=== PATIENT | male | born 1950 | race Caucasian/White ===

== ENCOUNTER → 2017-01-19 | Outpatient (CLI) | payer MEDICARE, OTHER, SELFPAY | PROVIDERS: Visit Provider Family Medicine | DX: R41.3 Other amnesia (principal) | CPT/HCPCS: 70551 ==

== ENCOUNTER → 2017-02-28 13:16 | Outpatient (CLI) | payer MEDICARE, OTHER, SELFPAY ==
--- NOTE | 2017-02-28 13:22 | XR_ITS ---
XR knee LT 2V Ordering Physician: Magdi Estrada MD Patient Age: 66 years: Male HISTORY: ITS.REASON: status post LEFT knee sx/ 12-20-16 TECHNIQUE: AP lateral view left knee COMPARISON :December 20, 2016 FINDINGS : Status post subchondralplasty of the proximal tibia centrally. Beneath the anterior tibial spine region.,. Also less evident some chondroplasty seen at thefemoral medial femoral condyle with hyperdensity from the calcium sulfate injection.. Contour of the femoral condyles and the tibial plateaus remains well maintained. There is a slight hazy sclerosis on either side of these bones at the medial joint space. No acute fracture or dislocation. Minor osteoarthritic changes involving all 3 compartments. IMPRESSION: Status post subchondroplasty as described above. underlying developing arthritic changes. IMPRESSION:
== END ==
PROVIDERS: PCP Family Medicine; Visit Provider Orthopaedic Surgery
DX: Z48.89 Encounter for other specified surgical aftercare (principal); M17.12 Unilateral primary osteoarthritis, left knee
CPT/HCPCS: 73560

== ENCOUNTER → 2017-03-08 07:18 | Outpatient (CLI) | payer MEDICARE, OTHER, SELFPAY ==
[2017-03-08 09:06] LABS: Free T4 (Free Thyroxine) 1.02 ng/dl (0.76-1.46)
== END ==
PROVIDERS: PCP Family Medicine; Visit Provider Family Medicine
DX: E03.9 Hypothyroidism, unspecified (principal)
CPT/HCPCS: 36415; 84439; 84443

== ENCOUNTER → 2017-03-14 09:26 | Outpatient (CLI) | payer MEDICARE, OTHER, SELFPAY ==
--- NOTE | 2017-03-14 09:30 | XR_ITS ---
XR chest 2V HISTORY: ITS.REASON: amiodarone therapy ORDERING PHYSICIAN: Damien Bob MD PATIENT AGE: 66 years COMPARISON: 12-24 FINDINGS: The cardiomediastinal silhouette and pulmonary vascularity are within normal limits. The lungs are clear without infiltrates, suspicious nodules, or pleural effusions. Mild hyperinflation as before. No lobar consolidation. No pulmonary fibrotic changes apparent No acute bony abnormalities. IMPRESSION: No change with no acute finding. No evidence of developing amiodarone pulmonary toxicity
[2017-03-14 11:53] LABS: Alanine Aminotransferase 26 U/L (12-78); Albumin Level 3.6 gm/dL (3.4-5.0); Alkaline Phosphatase 93 U/L (46-116); Aspartate Amino Transferase 22 U/L (15-37); Bilirubin,Direct 0.1 mg/dL (0.0-0.2); Bilirubin,Total 0.4 mg/dL (0.2-1.0); Total Protein,Serum 6.8 gm/dL (6.4-8.2)
== END ==
PROVIDERS: PCP Family Medicine; Visit Provider Internal Medicine Cardiovascular Disease
DX: I25.10 Atherosclerotic heart disease of native coronary artery without angina pectoris (principal); I10 Essential (primary) hypertension; E78.5 Hyperlipidemia, unspecified; I48.91 Unspecified atrial fibrillation; Z95.5 Presence of coronary angioplasty implant and graft; I25.5 Ischemic cardiomyopathy; I42.0 Dilated cardiomyopathy
CPT/HCPCS: 36415; 71046; 80076

== ENCOUNTER → 2017-04-19 07:46 | Outpatient (CLI) | payer MEDICARE, OTHER, SELFPAY ==
[2017-04-19 10:04] LABS: Free T4 (Free Thyroxine) 0.84 ng/dl (0.76-1.46)
== END ==
PROVIDERS: Visit Provider Family Medicine
DX: E03.9 Hypothyroidism, unspecified (principal)
CPT/HCPCS: 36415; 84439; 84443

== ENCOUNTER → 2017-05-04 13:27 | Outpatient (CLI) | payer MEDICARE, OTHER, SELFPAY ==
--- NOTE | 2017-05-04 13:29 | XR_ITS ---
XR knee LT 4V HISTORY: Left knee pain, arthritis ITS.REASON: possible left knee arthroplasty to be scheduled ORDERING PHYSICIAN: Magdi Estrada MD PATIENT AGE: 66 years COMPARISON: 02/28/2017 FINDINGS: There are moderate tricompartmental osteoarthritic changes greater at the medial compartment with loss of joint space medially. Osteosclerosis involves the medial femoral condyle and medial tibial plateau as well as the interspinous region of the proximal tibia consistent with prior subchondral plasty. No fracture or dislocation is evident. Loss of joint space medially is somewhat worse however, this could be related to the fact that the exam is performed weightbearing. IMPRESSION: Moderate to severe osteoarthritis of the left knee status post prior sub chondroplasty
[2017-05-04 15:02] LABS: Microscopic, Urine URINE MICROSCOPIC (MICROSCOPIC)
[2017-05-04 15:28] LABS: Appearance,Urine CLEAR (Clear); Bilirubin,Urine Negative (Negative); Blood, Urine Negative (Negative); Color,Urine YELLOW (Yellow); Glucose,Urine (UA) Negative (Negative); Ketones,Urine Negative (Negative); Leukocyte Esterase,Urine Negative (Negative); Nitrate,Urine Negative (Negative); Protein,Urine Negative (Negative); Specific Gravity, Urine <= 1.005 (1.005-1.030); Urobilinogen,Urine 0.2 EU/dl (0.2)
[2017-05-04 15:44] LABS: Bacteria,Urine Trace /lpf
[2017-05-04 16:22] LABS: Basophils # 0.1 K/mm3 (0-0.2); Basophils % 0.6 % (0.1-2.0); Eosinophils # 0.3 K/mm3 (0.0-0.4); Eosinophils % 3.2 % (0.1-12.0); Hematocrit 40.5 % (42.0-52.0); Hemoglobin 13.6 g/dL (14.1-18.0); Lymphocytes # 1.2 K/mm3 (0.7-4.5); Lymphocytes % 15.6 K/mm3 (10-50); Mean Corpuscular HGB Conc 33.6 g/dL (31.8-35.4); Mean Corpuscular Hemoglobin 29.5 pg (27.0-31.2); Mean Corpuscular Volume 87.8 fl (80-94); Mean Platelet Volume 9.8 fl (7.4-10.4); Monocytes # 0.5 K/mm3 (0.1-1.0); Monocytes % 5.9 % (1.7-9.3); Neutrophils # 5.7 K/mm3 (1.8-7.8); Neutrophils % 74.7 % (37.0-80.0); Platelet Count 163 K/mm3 (142-424); Red Blood Count 4.62 M/mm3 (4.60-6.20); Red Cell Distribution Width 13.1 % (11.5-17.5); White Blood Count 7.7 K/mm3 (4.8-10.8)
[2017-05-04 19:47] LABS: Alanine Aminotransferase 36 U/L (12-78); Albumin Level 4.3 gm/dL (3.4-5.0); Albumin/Globulin Ratio 1.5 (1.1-1.8); Alkaline Phosphatase 74 U/L (46-116); Anion Gap 12.3 mEq/L (5-15); Aspartate Amino Transferase 29 U/L (15-37); Bilirubin,Total 0.5 mg/dL (0.2-1.0); Blood Urea Nitrogen 20 mg/dL (7-18); Calcium 9.1 mg/dL (8.5-10.1); Carbon Dioxide 29 mmol/L (21.0-32.0); Chloride 101 mmol/L (98-107); Creatinine,Serum 1.03 mg/dL (0.70-1.30); Estimated Glomerular Filt Rate 72 ml/min (>60); GFR (African American) 87 ML/MIN (>60); Globulin 2.9 gm/dl (1.3-3.2); Glucose 89 mg/dL (74-106); Potassium 4.3 mmoL/L (3.5-5.1); Sodium 138 mmol/L (136-145); Total Protein,Serum 7.2 gm/dL (6.4-8.2)
== END ==
PROVIDERS: PCP Family Medicine; Visit Provider Orthopaedic Surgery
DX: Z01.818 Encounter for other preprocedural examination; M25.562 Pain in left knee
CPT/HCPCS: 36415; 73564; 80053; 81001; 85025; 86850

== ENCOUNTER 2017-05-23 08:00 | Inpatient (IN) ==
--- NOTE | 2017-05-23 13:05 | Progress Note ---
[facility] Anesthesia Checklist - Patient Identification Patient Identification: Arm Band, Verbal (Name & ) - Structural Data Admitted From: Home Planned Operative Procedure/s: left tka Consent for Planned Operative Procedure(s) Verified: Yes Verified Documents: Surgical Consent, Cardiac Clearance - NPO Status Verified Time NPO: 00:00 - Chart Verification Results Verified: CBC - Additional verifications Patient : No Hx Blood Transfusions: No Blood Transfusion Reaction: No Cephalosporin Allergy: No Previous Colonoscopy: No - Cardiovascular Assessment Heart Sounds: S1 & S2 Pulse Strength: Baseline Pulse Rhythm: Regular Peripheral Edema: No - Airway Assessment C-Spine Mobility Assessed: Yes TMJ Mobility Assessed: Yes Dentition: Good Dentition - Anesthesia Plan Anesthesia Risk discussed: Yes Anesthesia Plan: Verified ASA Class: III Anesthesia Type: General [facility] Anesthesia HX I have reviewed the patient's past medical history: Yes Medical History: Reports:: Atrial Fibrillation, Congenital Heart Disease, Coronary Artery Disease, Hiatal Hernia, Hyperlipidemia, Hypertension Denies:: Cancer, Diabetes Mellitus Type 1, Diabetes Mellitus Type 2, Internal Pacemaker, MRSA, Seizures Other Medical History: Reports: Arthritis, Hypothyroidism. Denies: Blood Transfusion Reaction Laterality Cases: Left: Arthroscopy Knee, Bilateral: Arthroscopy Shoulder Other Surgeries: Yes: Hernia Repair, Other. No: Pacemaker Amputation: No Fractures: No *Family Hx:: Coronary Artery Disease, Heart Attack
--- NOTE | 2017-05-23 13:06 | Progress Note ---
[facility] Anesthesia Record Part II Discharge Time: 13:33 Destination: Surgical Day Care (OP Surgery) PACU nurse assessment reviewed?: Yes Patient Condition:: Good Anesthesia Complications:: None
--- NOTE | 2017-05-23 13:06 | Progress Note ---
[facility] Anesthesia Record Part I Intake, IV Amount: 1,300 Estimated blood loss (mL): 50 Urine output (mL): 875 Blood Products used (#): none Blood Pressure: 129/67 SaO2: 93 Pulse Rate: 65 Respiratory Rate: 18 Temperature: 97.2 F Patient is:: Awake, Drowsy, Stable Stable to PACU at:: 13:03
--- NOTE | 2017-05-23 13:45 | Operative Note ---
Date of procedure: 05/23/17 Pre-op Diagnosis:: Advanced tricompartmental degenerative arthritis, left knee Post-op Diagnosis:: Advanced tricompartmental degenerative arthritis, left knee Procedure performed:: Cemented total knee arthroplasty, left knee Surgeon:: Magdi Estrada MD Records And Tape Recordings Engineer(s):: Dr. Nazario (Dr. Nazario's assistance was needed given the complexity and difficulty of the procedure). BOTTOM FILLER:: Ori Lora Anesthesia: LMA, other (Femoral and sciatic nerve blocks) Estimated blood loss (mL): 50 Clinical Note:: Patient is a 66-year-old male with end-stage [id number] tricompartmental osteoarthritis with more significant degenerative changes over the medial compartment and a progressive varus deformity and flexion contracture presented with unremitting severe pain not relieved by conservative and operative management so far. The pain is advanced to the point that it is becoming a hazard for the patient with risk of falling and injuring himself. His activities of daily living are significantly impacted with the knee pain and stiffness. He also reports night pain and sleep disturbance. He takes meloxicam 15 mg daily without significant improvement with the knee pain. Given his knee pain and limitation of mobility, he is also at risk of falls and injuring himself. A total knee arthroplasty is indicated to relieve the pain, improve function, reduce the risk of falls and to improve quality of life. Operative findings:: As noted on the preoperative evaluation, the knee joint had a fixed flexion of 5 and fixed valgus deformity of 5. As seen on the x-rays, there are tricompartmental degenerative changes and the medial and patellofemoral compartments showed more advanced changes with [id number] appearance. The menisci and cruciate ligaments were significantly degenerate. There was extensive osteophyte formation over all 3 compartments. There were a couple of loose bodies at the back of the knee. Bone quality was good. Operative note:: On the day of the surgery the patient and his were seen in the preoperative area. I reviewed the clinical and x-ray findings with the patient. I again discussed the diagnosis, natural history and management options in detail including both nonsurgical and surgical. Patient has end-stage degenerative arthritis of the LEFT knee and has failed to respond satisfactorily to conservative management so far and has opted for a LEFT total knee arthroplasty. The knee joint also gives out and patient is at risk of falls potentially resulting in fractures. Patient mobilizes with a cane. We again discussed the details of the procedure, risks and benefits and alternatives in detail. The complications discussed include but are not limited to infection, injury to nerves and blood vessels including injury to popliteal artery, injury to tendons and ligaments, DVT and PE, fat embolism, intraoperative fracture, limb length inequality, patella fracture, patellofemoral instability, patellar clunk syndrome, quadriceps and patellar tendon rupture, implant failure, component loosening, periprosthetic femur and tibia fractures, stiffness(arthrofibrosis), limp, incomplete relief of pain, incomplete functional recovery, likely need for further surgery in future including revision and anesthetic complications including heart attack, stroke and even . We discussed how any of these events can be devastating. We have discussed nonsurgical alternatives as well. Patient understands and wishes to proceed with a LEFT total knee arthroplasty and I believe that the patient is fully informed as to the risks, benefits, and alternatives including nonsurgical alternatives. We also discussed the postoperative course including the rehab and physical therapy required. Patient lives with his family and is planning to go back home with home health after surgery. A physical examination was performed and documented. Consent form was reviewed and signed. The limb was appropriately marked and initialed by me. The patient was then brought to the operating room and a general anesthesia was administered by the asbestos shingle inspector. Prior to that patient had femoral and sciatic nerve blocks in the pre-anesthetic area. The patient was then positioned supine on the operating table. All the bony prominences were appropriately padded. A well-padded tourniquet cuff was placed high over the left upper thigh. The left knee was prepped with isopropyl alcohol followed by chlorhexidine and draped in the usual sterile fashion. Prior to this, patient had used Hibiclens for a total of 5 days prior to the surgery and also used topical intranasal Bactroban. The entire operative team wore isolation suits and the Operating Room traffic was controlled. The skin incision was marked for a medial parapatellar approach to the knee joint. The entire operative site was sealed off with Ioban drape. A preprocedure timeout was performed as per hospital protocol. At the start of the procedure administration of 2 g of prophylactic IV Ancef was confirmed with the anesthetic team. Patient also received 1 g of IV tranexamic acid before starting the procedure and one more gram before wound closure to reduce the postoperative blood loss. The limb was exsanguinated with Esmarch bandage, the knee joint flexed beyond 90 and the tourniquet cuff was inflated to 325 mmHg. Please see the nursing records for total tourniquet time. I then made a midline incision utilizing a #10 scalpel blade. Electrocautery was used to seal off subcutaneous vessels. The extensor mechanism was exposed, marked and a curvilinear incision made for a medial parapatellar approach using the scalpel blade. The patella was everted carefully and the fat pad resected enough to allow sufficient visualization of the proximal tibia. The anterior cruciate ligament and the anterior aspects of both menisci were resected. An appropriate medial release was performed with the knife and Elyssa elevator. A step drill was used to open the intramedullary canal and the IM distal femoral cutting jig was placed. The jig was pinned into position and the intramedullary khloe removed. The distal cut was made at 5 degrees of valgus and the sizing jig placed. This sized best at a size 7 femur for the [employer] system. We then placed the 4-in-1 cutting block in position in 3 degrees of external rotation. A cross pin was added for stabilizing the block and the mk wing utilized to ensure notching of the femur would not occur. The anterior cut was made followed by the posterior cut then the posterior chamfer and finally the anterior chamfer cuts in that order. Soft tissues were protected throughout this with careful retraction using the Z retractors. We checked for trueness of cuts and then moved on to the tibia. The tibial extra medullary guide was placed and aligned from the central aspect of the plateau between the spines down to the second metatarsal base. We pinned cutting block in position for minimal resection of the tibia from the medial side which was the lowermost side, checked the alignment, protected the soft tissues with appropriate retractors and resected with the mValent saw. The resected tibial plateau articular surface was removed and sized it at a size 6. We ensured correctness of the cut and correct posterior slope. We then checked the extension and flexion gaps and found them to be equal and well balanced. We trialed the femur and the tibia with trial components and a trial insert and ranged the knee to ensure full flexion and extension and checked for ligamentous stability. We then everted the patella and reamed for a 32 mm central pegged button. We had lateralized the femur and medialized the patella intentionally. We placed trial components and noted that a 9 mm thick polyethylene to fit best. This gave us a ligamentously stable knee and allowed full extension. We allowed this to be free-floating and then checked it and made sure it was in appropriate position in relation to the tibial tubercle. We also used tibial alignment khloe to check for satisfactory position of the base plate and markings were made with electrocautery on the proximal tibia. We then elected to proceed with the box cut for a posterior stabilized femoral component. We placed the cutting jig for the box cut in the femur, drilled and then used the box osteotome to create the channel. We then trialed with the posterior stabilized polyethylene and found a size 9 to fit best. This gave us appropriate range of motion with proper ligamentous stability. We then removed the trial components and positioned and pinned the base plate to the top of the tibia and punched the groove for the V shaped stem. We used a small trocar tipped pin to drill holes into the subchondral sclerotic bone of the medial tibia to augment cement fixation. We then copiously irrigated with the normal saline pulse lavage, injected the bone with 2 g of Ancef, and then dried the cut surfaces. We then cemented the tibial tray, the femoral component, and placed a 9 mm trial insert and brought the knee into extension. We then cemented the patella button. We allowed the cement to set and then inspected the knee joint and removed excess cement with an osteotome. We then placed the 9 millimeters definitive polyethylene tibial insert ensuring that the dovetails fit appropriately and that the polyethylene was down and seated into the tibial tray properly. The knee joint was put through range of motion and noted the patella to be tracking appropriately with no thumb technique. Knee range of flexion noted to be 0-150. The knee joint was then soaked with dilute Betadine (0.35 percent) solution for 3 minutes followed by suctioning of the solution and pulsatile lavage with the 1 L of normal saline. The tourniquet was deflated and hemostasis obtained with diathermy cautery. Another 1 gram of tranexamic acid was given intravenously by the asbestos shingle inspector at the time of deflating the tourniquet. The knee joint was again thoroughly irrigated with pulse lavage and good hemostasis was confirmed before proceeding with wound closure. The capsule/extensor mechanism was closed with #1 Vicryl [id number] sutures ensuring a watertight closure. Next, the subcutaneous tissue was closed with 2-0 Vicryl interrupted sutures. The skin was closed with 4-0 Monocryl running suture, Dermabond and Steri- Strips. Sterile dressings were applied consisting of Xeroform, 4 x 4, soft roll and secured in place with Iávn wrap. The patient was then transferred from the operating table onto the bed. The tibialis posterior and dorsalis pedis pulses were noted 2+ with good capillary refill in the foot. The patient was then reversed from the anesthetic and transported to the postoperative recovery area in a stable condition. Patient tolerated the procedure well and there were no immediate complications. The swab, needle and instrument counts were correct according to the scrub team at the end of the procedure. Portable x-rays of the left knee were obtained in the recovery area which showed the components to be well fixed in a satisfactory alignment and position without any complications. The knee was placed in a knee immobilizer which should be continued when standing and walking, until patient regains full quadriceps control. Postoperatively, institute and continue standard precautions and physical therapy and edema management for a standard primary total knee arthroplasty starting on postoperative day 1. Patient can be mobilized full weightbearing as tolerated. Implants: [employer] Luz II nonporous left tibial base plate-size 6 [employer] Luz II Biconvex patellar component- 32 mm [employer] posterior stabilized Legion Oxinium femoral component, size 7 left [employer] Legion PS XLPE high flexion articular insert- size 5-6 x 9 mm [employer] Versabond AB bone cement with gentamicin. Industry territory representative: Bronson Maher ([employer]) Condition: stable Disposition: floor Specimens:: None Complications:: None
--- NOTE | 2017-05-23 16:07 | Pharmacy Consult Notes ---
[facility] Pharmacy VTE Monitoring - Patient Demographics Admission date: 05/23/17 Report Date: 05/23/17 Time: 16:06 Allergies/Adverse Reactions: Patient Allergies lisinopril Allergy (Severe, Verified 05/20/17 13:06) [id number]/THROAT oxycodone Adverse Reaction (Unknown, Verified 05/20/17 13:06) SHAKING Height: 1.83 m Weight: 104.411 kg - Prophylaxis VTE Prophylaxis Ordered?: Yes Pharmacologic Type: Other (PATIENT WITH XARELTO ORDERED)
--- NOTE | 2017-05-23 18:23 | Progress Note ---
Internal Medicine - PN: Subj *Date: 05/23/17 *Time: 18:24 Interval history: Consulted for medical management. Patient had left total knee replacement today. He is doing well. He just ate his supper and has no complaints at this time. Exam Vital signs and Labs for Last 24 Hours: Temp Pulse Resp BP Pulse Ox 97.4 F L 59 L 18 144/85 97 05/23/17 14:50 05/23/17 14:50 05/23/17 14:50 05/23/17 14:50 05/23/17 14:50 Laboratory Results - last 24 hr 05/23/17 08:27: Blood Type O Positive, Antibody Screen Negative 05/23/17 08:27: Blood Type Confirm Cancelled 05/23/17 13:00: Urine Color Yellow, Urine Appearance Clear, Urine pH 5.5, Ur Specific Magness 1.020, Urine Protein Negative, Urine Glucose (UA) Negative, Urine Ketones Negative, Urine Blood Negative, Urine Nitrate Negative, Urine Bilirubin Negative, Urine Urobilinogen 0.2, Ur Leukocyte Esterase Negative, Urine RBC Occasional, Urine WBC None, Ur Squamous Epith Cells None, Urine Bacteria None I & O for Last 24 hours: Intake & Output 05/21/17 05/22/17 05/23/17 05/24/17 11:59 11:59 11:59 11:59 Intake Total 2000 / 2000 Output Total 1100 / 1100 Balance 900 / 900 Weight 230 lb 230 lb 3 oz - Constitutional no acute distress (conversant) - *Routine Neurological Exam Present: alert, oriented X3 Assessment and Plan (1) S/P total knee replacement Current visit: Yes Status: Acute Qualifiers: Laterality: left Qualified Code(s): Z96.652 - Presence of left artificial knee joint Category: Surgical Code(s): Z96.659 - Presence of unspecified artificial knee joint (2) Coronary arteriosclerosis Current visit: No Status: Acute Category: Medical Code(s): I25.10 - Atherosclerotic heart disease of hoh coronary artery without angina pectoris (3) Hyperlipidemia Current visit: No Status: Acute Qualifiers: Category: Medical Code(s): E78.5 - Hyperlipidemia, unspecified (4) Hypertensive disorder Current visit: No Status: Acute Qualifiers: Category: Medical Code(s): I10 - Essential (primary) hypertension (5) Hypothyroidism Current visit: Yes Status: Acute Category: Medical Code(s): E03.9 - Hypothyroidism, unspecified (6) BPH (benign prostatic hyperplasia) Current visit: Yes Status: Acute Category: Medical Code(s): N40.0 - Benign prostatic hyperplasia without lower urinary tract symptoms (7) Atrial fibrillation Current visit: No Status: Acute Qualifiers: Atrial fibrillation type: unspecified Qualified Code(s): I48.91 - Unspecified atrial fibrillation Category: Medical Code(s): I48.91 - Unspecified atrial fibrillation - Assessment and plan all Dx Assessment and Plan for all problems:: Home meds have been ordered, continue routine care.
[2017-05-24 07:40] LABS: Basophils % 0.2 % (0.1-2.0); Eosinophils % 0.4 % (0.1-12.0); Hematocrit 38.4 % (42.0-52.0); Hemoglobin 12.4 g/dL (14.1-18.0); Lymphocytes # 1.1 K/mm3 (0.7-4.5); Lymphocytes % 11.3 K/mm3 (10-50); Mean Corpuscular HGB Conc 32.2 g/dL (31.8-35.4); Mean Corpuscular Hemoglobin 29.2 pg (27.0-31.2); Mean Corpuscular Volume 90.5 fl (80-94); Mean Platelet Volume 8.7 fl (7.4-10.4); Monocytes # 0.8 K/mm3 (0.1-1.0); Monocytes % 7.7 % (1.7-9.3); Neutrophils % 80.5 % (37.0-80.0); Platelet Count 171 K/mm3 (142-424); Red Blood Count 4.25 M/mm3 (4.60-6.20); Red Cell Distribution Width 13.7 % (11.5-17.5); White Blood Count 9.9 K/mm3 (4.8-10.8)
[2017-05-24 07:50] LABS: Anion Gap 12.2 mEq/L (5-15); Potassium 4.2 mmoL/L (3.5-5.1)
--- NOTE | 2017-05-24 09:05 | Progress Note ---
Internal Medicine - PN: Subj *Date: 05/24/17 *Time: 09:03 Interval history: Patient has been working with PT this morning. He is sitting in a chair, would like to have his Marquez catheter removed. Exam Vital signs and Labs for Last 24 Hours: Temp Pulse Resp BP Pulse Ox 99.4 F 78 20 126/84 97 05/24/17 08:00 05/24/17 08:00 05/24/17 08:00 05/24/17 08:00 05/24/17 08:00 Laboratory Results - last 24 hr 05/23/17 08:27: Antibody Screen Negative 05/23/17 08:27: Blood Type Confirm Cancelled 05/23/17 13:00: Urine Color Yellow, Urine Appearance Clear, Urine pH 5.5, Ur Specific [place] 1.020, Urine Protein Negative, Urine Glucose (UA) Negative, Urine Ketones Negative, Urine Blood Negative, Urine Nitrate Negative, Urine Bilirubin Negative, Urine Urobilinogen 0.2, Ur Leukocyte Esterase Negative, Urine RBC Occasional, Urine WBC None, Ur Squamous Epith Cells None, Urine Bacteria None 05/24/17 06:43: WBC 9.9, RBC 4.25 L, Hgb 12.4 L, Hct 38.4 L, MCV 90.5, MCH 29.2 , MCHC 32.2, RDW 13.7, Plt Count 171, MPV 8.7, Neut % (Auto) 80.5 H, Lymph % ( Auto) 11.3, [place] % (Auto) 7.7, Eos % (Auto) 0.4, Baso % (Auto) 0.2, Neut # (Auto ) 8.0 H, Lymph # (Auto) 1.1, [place] # (Auto) 0.8, Eos # (Auto) 0.0, Baso # (Auto) 0.0 05/24/17 06:43: Sodium 140, Potassium 4.2, Chloride 103, Carbon Dioxide 29, Anion Gap 12.2, BUN 15, Creatinine 1.08, Estimated Creat Clear 103, Estimated GFR 68, Est GFR ( Amer) 83, Glucose 113 H Vital Signs Temp Pulse Pulse Resp BP BP Pulse Ox 05/24/17 08:00 99.4 F 78 20 126/84 97 05/24/17 05:45 98.9 F 79 22 124/71 96 05/24/17 04:09 98.9 F 80 24 126/70 96 05/24/17 01:37 98.1 F 78 22 116/70 95 05/23/17 23:44 98.0 F 78 20 118/70 95 05/23/17 21:03 98 05/23/17 20:50 98.0 F 92 H 22 131/87 96 05/23/17 19:50 97.8 F 82 18 132/79 95 05/23/17 19:00 81 18 143/85 98 05/23/17 14:50 97.4 F L 59 L 18 144/85 97 05/23/17 14:44 98.2 F 66 20 143/84 98 05/23/17 14:35 97.4 F L 52 L 18 155/83 97 05/23/17 14:20 98.2 F 51 L 18 140/80 98 05/23/17 14:05 98.0 F 66 20 143/84 98 05/23/17 13:43 97.7 F 56 L 16 130/79 96 05/23/17 13:33 55 L 18 124/74 95 05/23/17 13:23 65 18 115/79 98 05/23/17 13:13 56 L 16 126/62 99 05/23/17 13:06 97.2 F L 65 18 129/67 05/23/17 13:03 97.2 F L 65 18 129/67 97 Intake and Output 05/23/17 05/24/17 05/24/17 19:59 03:59 11:59 Intake Total 1999 / 1999 1519 / 1519 Output Total 1100 / 1100 2600 / 2600 900 / 900 Balance 900 / 900 -2600 / -2600 619 / 619 Intake: Intake, Oral Amount 600 / 600 480 / 480 Intake, Total IV Amount 1400 / 1400 1039 / 1039 Ringers Solution,Lactated 1,000 100 / 100 1039 / 1039 ml @ 100 mls/hr IV .Q10H ONE Rx#:[id number] Output: Output, Urine Amount 1000 / 1000 2600 / 2600 900 / 900 Output, Emesis Amount 0 / 0 0 / 0 Output, Estimated Blood Loss 0 / 0 0 / 0 Amount Output, Other Amount 0 / 0 0 / 0 Output, Urine Amount (Catheter) 100 / 100 Marquez 100 / 100 Other: Weight 230 lb 3 oz 242 lb 8.136 oz Patient Weight 05/24/17 11:59 Weight 242 lb 8.136 oz I & O for Last 24 hours: Intake & Output 05/21/17 05/22/17 05/23/17 05/24/17 11:59 11:59 11:59 11:59 Intake Total 3519 / 3519 Output Total 4600 / 4600 Balance -1081 / -1081 Weight 230 lb 242 lb 8.136 oz - Constitutional no acute distress (conversant) Assessment and Plan (1) S/P total knee replacement Current visit: Yes Status: Acute Qualifiers: Laterality: left Qualified Code(s): Z96.652 - Presence of left artificial knee joint Category: Surgical Code(s): Z96.659 - Presence of unspecified artificial knee joint (2) Coronary arteriosclerosis Current visit: No Status: Acute Category: Medical Code(s): I25.10 - Atherosclerotic heart disease of [place] coronary artery without angina pectoris (3) Hyperlipidemia Current visit: No Status: Acute Qualifiers: Category: Medical Code(s): E78.5 - Hyperlipidemia, unspecified (4) Hypertensive disorder Current visit: No Status: Acute Qualifiers: Category: Medical Code(s): I10 - Essential (primary) hypertension (5) Hypothyroidism Current visit: Yes Status: Acute Category: Medical Code(s): E03.9 - Hypothyroidism, unspecified (6) BPH (benign prostatic hyperplasia) Current visit: Yes Status: Acute Category: Medical Code(s): N40.0 - Benign prostatic hyperplasia without lower urinary tract symptoms (7) Atrial fibrillation Current visit: No Status: Acute Qualifiers: Atrial fibrillation type: unspecified Qualified Code(s): I48.91 - Unspecified atrial fibrillation Category: Medical Code(s): I48.91 - Unspecified atrial fibrillation - Assessment and plan all Dx Assessment and Plan for all problems:: OK to remove catheter, discharge plan per Ortho.
--- NOTE | 2017-05-24 14:31 | Progress Note ---
Subjective Date: 05/24/17 Time: 13:00 Principal diagnosis: Status post left total knee arthroplasty Interval history: Patient is status post left total knee arthroplasty post op day #1. Patient is sitting up in a chair. Says he is doing well and reports no problems. Patient reports moderate knee pain and says it's well-controlled with medication. Patient still reports some paresthesias in the lower leg and foot from the nerve blocks. No history of any nausea or vomiting. No history of any cough, chest pain, shortness of breath or palpitations. Patient is eating and drinking well. Patient says he managed to walk well in the room with the help of physical therapist using a walker. PN: Obj Ex Vital signs: Temp Pulse Resp BP Pulse Ox 99.0 F 84 18 151/85 97 05/24/17 11:50 05/24/17 11:50 05/24/17 11:50 05/24/17 11:50 05/24/17 11:50 Narrative: Laboratory Results - last 24 hr 05/23/17 13:00: Urine Color Yellow, Urine Appearance Clear, Urine pH 5.5, Ur Specific [place] 1.020, Urine Protein Negative, Urine Glucose (UA) Negative, Urine Ketones Negative, Urine Blood Negative, Urine Nitrate Negative, Urine Bilirubin Negative, Urine Urobilinogen 0.2, Ur Leukocyte Esterase Negative, Urine RBC Occasional, Urine WBC None, Ur Squamous Epith Cells None, Urine Bacteria None 05/24/17 06:43: WBC 9.9, RBC 4.25 L, Hgb 12.4 L, Hct 38.4 L, MCV 90.5, MCH 29.2 , MCHC 32.2, RDW 13.7, Plt Count 171, MPV 8.7, Neut % (Auto) 80.5 H, Lymph % ( Auto) 11.3, [place] % (Auto) 7.7, Eos % (Auto) 0.4, Baso % (Auto) 0.2, Neut # (Auto ) 8.0 H, Lymph # (Auto) 1.1, [place] # (Auto) 0.8, Eos # (Auto) 0.0, Baso # (Auto) 0.0 05/24/17 06:43: Sodium 140, Potassium 4.2, Chloride 103, Carbon Dioxide 29, Anion Gap 12.2, BUN 15, Creatinine 1.08, Estimated Creat Clear 103, Estimated GFR 68, Est GFR ( Amer) 83, Glucose 113 H Intake & Output 05/24/17 05/24/17 05/24/17 03:59 11:59 19:59 Intake Total 1519 / 1519 649 / 649 Output Total 2600 / 2600 900 / 900 Balance -2600 / -2600 619 / 619 649 / 649 Weight 242 lb 8.136 oz Physical exam: General appearance: alert, active, awake, no acute distress ENT: normal exam; mucous membranes moist Neck: Soft and supple, trachea midline, full range of movements Cardiovascular: regular rate & rhythm, S1-S2 heard, normal peripheral pulses Respiratory: clear to auscultation, normal breath sounds Abdomen: Soft and nontender, normal bowel sounds Neuro: alert, oriented x 3, ice crusher II-XII normal as tested, no deficits Psych: normal and appropriate mood/affect; communicates well Extremities: On examination of the left knee, a knee immobilizer is in place. On examination out of the knee immobilizer, dressings are clean, dry and intact. Knee range of motion is 10-80 of flexion. Distal pulses are 2+. Capillary refill is brisk. Patient has paresthesias over the left leg and foot from the nerve blocks. Thigh and calf are soft and nontender. - Urinary Catheter Management Marquez Cath placed during this visit: yes Urethral indwelling: No Insertion date: 05/23/17 Insertion time: 09:25 Progress Note: A&P (1) S/P total knee replacement Start date: 05/23/17 Status: Acute Assessment and plan: Status post left total knee arthroplasty, postoperative day #1, doing well I reviewed the intraoperative findings and procedure with the patient and his . I have given a paper copy of the postoperative knee x-ray to the patient. Patient started physical therapy and mobilization today with the help of physical therapist. Discontinue IV fluids as eating and drinking well. 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 Continue DVT prophylaxis. Care management consult regarding discharge planning-patient wants to go home with appropriate equipment, home health/physical therapy. Medical management as per Dr. Bhakta. Current Visit: Yes (2) Coronary arteriosclerosis Status: Acute Current Visit: No (3) Hyperlipidemia Status: Acute Current Visit: No (4) Hypertensive disorder Status: Acute Current Visit: No (5) Hypothyroidism Status: Acute Current Visit: Yes (6) BPH (benign prostatic hyperplasia) Status: Acute Current Visit: Yes (7) Atrial fibrillation Status: Acute Current Visit: No
[2017-05-25 07:37] VITALS: BP 126/83
--- NOTE | 2017-05-25 08:48 | Progress Note ---
Internal Medicine - PN: Subj *Date: 05/25/17 *Time: 08:47 Interval history: Patient with no new complaints today, anxious to go home. Exam Vital signs and Labs for Last 24 Hours: Temp Pulse Resp BP Pulse Ox 97.0 F L 83 18 126/83 93 L 05/25/17 07:35 05/25/17 08:42 05/25/17 07:35 05/25/17 07:35 05/25/17 07:35 Vital Signs Temp Pulse Pulse Resp BP Pulse Ox 05/25/17 08:42 83 05/25/17 07:35 97.0 F L 83 18 126/83 93 L 05/25/17 04:00 99.6 F 92 H 18 140/87 93 L 05/24/17 20:00 99.7 F H 89 20 153/83 96 05/24/17 15:39 97.5 F L 70 18 143/84 97 05/24/17 14:00 99.3 F 79 18 137/66 96 05/24/17 11:50 99.0 F 84 18 151/85 97 05/24/17 10:00 99.5 F 89 18 141/74 93 L 05/24/17 09:16 88 Intake and Output 05/24/17 05/25/17 05/25/17 19:59 03:59 11:59 Intake Total 1129 / 1129 240 / 240 240 / 240 Output Total 1924 / 1924 1949 / 1949 150 / 150 Balance -796 / -796 -1710 / -1710 90 / 90 Intake: Intake, Oral Amount 480 / 480 240 / 240 240 / 240 Intake, Total IV Amount 649 / 649 0.9 % Sodium Chloride 1,000 ml 649 / 649 @ 75 mls/hr IV .[id number] [facility] Rx# :[id number] Output: Output, Urine Amount 1924 150 / 150 Output, Stool Amount 0 / 0 Output, Emesis Amount 0 / 0 Output, Estimated Blood Loss 0 / 0 Amount Output, Other Amount 0 / 0 0 / 0 Other: Number of Voids 1 1 Number of Bowel Movements 0 Weight 240 lb 8 oz Patient Weight 05/25/17 11:59 Weight 240 lb 8 oz I & O for Last 24 hours: Intake & Output 05/22/17 05/23/17 05/24/1718 11:59 11:59 11:59 11:59 Intake Total 3519 / 3519 1609 / 1609 Output Total 4600 / 4600 4025 / 4025 Balance -1081 / -1081 -2416 / -2416 Weight 242 lb 8.136 oz 240 lb 8 oz - Constitutional no acute distress - *Routine Respiratory Exam Present: CTA bilaterally - *Routine Cardiovascular Exam Present: RRR Assessment and Plan (1) S/P total knee replacement Start date: 05/23/17 Current visit: Yes Status: Acute Qualifiers: Laterality: left Qualified Code(s): Z96.652 - Presence of left artificial knee joint Category: Surgical Code(s): Z96.659 - Presence of unspecified artificial knee joint (2) Coronary arteriosclerosis Current visit: No Status: Acute Category: Medical Code(s): I25.10 - Atherosclerotic heart disease of [place] coronary artery without angina pectoris (3) Hyperlipidemia Current visit: No Status: Acute Qualifiers: Category: Medical Code(s): E78.5 - Hyperlipidemia, unspecified (4) Hypertensive disorder Current visit: No Status: Acute Qualifiers: Category: Medical Code(s): I10 - Essential (primary) hypertension (5) Hypothyroidism Current visit: Yes Status: Acute Category: Medical Code(s): E03.9 - Hypothyroidism, unspecified (6) BPH (benign prostatic hyperplasia) Current visit: Yes Status: Acute Category: Medical Code(s): N40.0 - Benign prostatic hyperplasia without lower urinary tract symptoms (7) Atrial fibrillation Current visit: No Status: Acute Qualifiers: Atrial fibrillation type: unspecified Qualified Code(s): I48.91 - Unspecified atrial fibrillation Category: Medical Code(s): I48.91 - Unspecified atrial fibrillation - Assessment and plan all Dx Assessment and Plan for all problems:: Patient doing well OK to discharge from my standpoint. DVT prophylaxis per Ortho.
--- NOTE | 2017-05-25 13:01 | Discharge Summary ---
General - General Admission date: 05/23/17 Discharge date: 05/25/17 HPI HPI: Patient is a 66-year-old male with advanced degenerative joint disease of the left knee who is admitted to the hospital electively following an uncomplicated primary left total knee arthroplasty on 05/23/2017. He has not responded well to conservative options including NSAID, Tylenol, and intra-articular injections and arthroscopic surgery with sub-chondroplasty procedure for his knee osteoarthritis. He is using assistive walking devices. Total knee arthroplasty is indicated to reduce the risk of falls, improve the pain, mobility and quality of life. The surgical and nonsurgical alternatives were discussed in detail with the patient as well as the risks and benefits of the surgery. Hospital Course Hospital Course: Patient underwent an uncomplicated straightforward primary left total knee arthroplasty on 05/23/2017. Following surgery patient progressed well without any complications. His postoperative check x-ray was satisfactory with good alignment and fixation of the components. Postoperatively patient progressed rapidly with physical therapy and was able to mobilize using a walker. Dr. Bhakta was consulted for medical management and he has kindly provided his valuable input for the postoperative management. At the time of discharge he still has not regained good quadriceps control and was advised to mobilize with the knee immobilizer until he fully regains quadriceps control and is able to actively straight leg raise. His pain is well controlled with as needed oral medication. The dressings were changed on the second postoperative day before discharge and the wound is healthy and healing well. No signs of any erythema, induration or discharge. Patient was on oral Xarelto before surgery and have advised him to continue the same for postoperative DVT prophylaxis. His neurovascular status in both lower extremities is intact. Pedal pulses 2+ bilaterally and fully sensate distally. No clinical evidence of DVT noted. Patient was cleared for discharge by physical therapy. On the day of discharge , the wound is clean and dry. The patient's vital signs have been stable throughout and he is afebrile at the time of discharge. He is being discharged home with home health. Condition at discharge: improved and stable. Treatments and Procedures: Total knee arthroplasty, left knee; date of surgery . Objective Vital signs: Temp Pulse Resp BP Pulse Ox 97.0 F L 83 18 126/83 93 L 05/25/17 07:35 05/25/17 08:42 05/25/17 07:35 05/25/17 07:35 05/25/17 08:00 no acute distress - *Routine HEENT Exam Head: Present: normocephalic Eye: Present: EOMI, PERRL ENT: Present: mucous membranes moist - *Routine Neck Exam Present: supple, full ROM, trachea midline - *Routine Respiratory Exam Present: CTA bilaterally - *Routine Cardiovascular Exam Present: RRR, Normal S1, Normal S2 - *Routine Abdominal Exam Present: soft, normoactive bowel sounds - *Routine Extremities Exam Present: normal capillary refill Comments: On examination of the left knee, dressings are clean, dry and intact. I have changed the dressings and the incision appears clean, dry and healthy. There is no erythema or discharge. There is diffuse swelling and tenderness over the knee joint as to be expected at this stage. Sterile dressings were applied. Knee range of motion is 5-85 of flexion. Distal pulses are 2+. Capillary refill is brisk. Sensation is intact to light touch throughout. Thigh and calf are soft and non-tender. There is 1+ edema of the left leg, ankle and foot. Patient demonstrates good range of active foot and ankle movements. The quadriceps tendon is actively valeriano but patient is not able to actively straight leg raise. - *Routine Skin Exam Present: intact, warm, normal turgor - *Routine Neurological Exam Present: alert, oriented X3, CN II-XII intact, moving all extremities, normal tone, normal speech - Routine Psychiatric Exam Present: normal affect, cooperative, good insight, good judgment DS: Diagnosis - Discharge Diagnosis (1) S/P total knee replacement Start date: 05/23/17 Status: Acute (2) Coronary arteriosclerosis Status: Chronic (3) Hyperlipidemia Status: Chronic (4) Hypertensive disorder Status: Chronic (5) Hypothyroidism Status: Chronic (6) BPH (benign prostatic hyperplasia) Status: Chronic (7) Atrial fibrillation Status: Chronic Discharge Plan - Patient Discharge Instructions ACTIVITY: Continue current activity, Ambulate as tolerated DIET: continue same diet Patient Instructions: DI for Knee Replacement - Follow up Plan Follow up with: Magdi Estrada MD [Staff Physician] - Disposition: Home Health Service Home Medications: Home Medications Medication Instructions Recorded Confirmed Type amiodarone 200 mg tablet 200 mg PO DAILY 02/28/17 05/23/17 History atorvastatin 40 mg tablet 40 mg PO HS 02/28/17 05/23/17 History carvedilol 12.5 mg tablet 12.5 mg PO BID 02/28/17 05/23/17 History clopidogrel 75 mg tablet 75 mg PO DAILY 02/28/17 05/23/17 History digoxin 250 mcg tablet 250 mcg PO DAILY 02/28/17 05/23/17 History irbesartan 75 mg tablet 75 mg PO DAILY 02/28/17 05/23/17 History isosorbide mononitrate ER 30 mg 30 mg PO DAILY 02/28/17 05/23/17 History tablet,extended release 24 hr meloxicam 15 mg tablet 15 mg PO DAILY 02/28/17 05/23/17 History rivaroxaban 20 mg tablet 20 mg PO 1700 02/28/17 05/23/17 History spironolactone 25 mg tablet 25 mg PO DAILY 02/28/17 05/23/17 History tamsulosin 0.4 mg capsule 0.4 mg PO HS 02/28/17 05/23/17 History Levothyroxine Sodium 150 mcg PO DAILY 05/23/17 05/23/17 History [Levothyroxine 150mcg (0.15mg) Tab] Prescriptions/Medication Reconciliation: New Hydrocod/Acet 5/325 mg [[place] 5/325mg tablet] 1 - 2 tab PO Q4HP PRN #60 tab PRN Reason: Moderate To Severe Pain Docusate Sodium [Docusate Sodium 100mg Cap] 100 mg PO BIDP PRN #20 cap PRN Reason: Constipation Continue tamsulosin 0.4 mg capsule 0.4 mg PO HS rivaroxaban 20 mg tablet 20 mg PO 1700 isosorbide mononitrate ER 30 mg tablet,extended release 24 hr 30 mg PO DAILY atorvastatin 40 mg tablet 40 mg PO HS clopidogrel 75 mg tablet 75 mg PO DAILY carvedilol 12.5 mg tablet 12.5 mg PO BID meloxicam 15 mg tablet 15 mg PO DAILY irbesartan 75 mg tablet 75 mg PO DAILY digoxin 250 mcg tablet 250 mcg PO DAILY amiodarone 200 mg tablet 200 mg PO DAILY spironolactone 25 mg tablet 25 mg PO DAILY Levothyroxine Sodium [Levothyroxine 150mcg (0.15mg) Tab] 150 mcg PO DAILY - Additional Information Additional Information: Our recommendations on discharge include physical therapy with weightbearing as tolerated and range of motion exercises of the left knee with emphasis on full extension and regaining flexion gradually. Patient will have home health and physical therapy at home. Note is made that the patient easily extends the knee to 0 degrees and flexes to 120 degrees while he was under anesthesia for the total knee arthroplasty with the wound closed. I have strongly advised him not to place any pillow behind the knee. But he can place a pillow under the ankle thus allowing gravity/weight of the leg help the knee into full extension. Patient was also advised to keep the leg elevated and ice the knee on a regular basis. At this stage it is permissible to take a shower and allow the incision to get wet with shower water. After padding the area dry, the wound can be left open. He has absorbable sutures and Steri-Strips for skin closure which will be removed at the first postoperative follow-up in 12-14 days time. Patient will follow up with me in the office in approximately 12-14 days for wound check and removal of the Steri-Strips/cut suture ends. Patient was on Xarelto preoperatively and I recommend continuation of the same for DVT prophylaxis. Please feel free to call our office at [phone] or via the hospital scrubbing machine operator [phone] for any orthopaedic questions or concerns.
== END 2017-05-25 14:15 | disposition home health service (06) ==
LOC: 2ND 08:00 → OR 08:00 → OBSVTOIN 14:28
PROVIDERS: ADMIT Orthopaedic Surgery; ATTEND Orthopaedic Surgery

== ENCOUNTER → 2017-06-08 10:13 | Outpatient (CLI) | payer MEDICARE, OTHER, SELFPAY ==
[2017-06-08 11:21] LABS: Thyroid Stimulating Hormone 3.55 uIU/ml (0.358-3.740)
== END ==
PROVIDERS: Visit Provider Physician Assistant
DX: E03.9 Hypothyroidism, unspecified (principal)
CPT/HCPCS: 36415; 84439; 84443

== ENCOUNTER → 2017-06-16 12:26 | Outpatient (CLI) | payer MEDICARE, OTHER, SELFPAY ==
[2017-06-16 17:04] LABS: Blood Urea Nitrogen 20 mg/dL (7-18); Carbon Dioxide 28 mmol/L (21.0-32.0); Chloride 98 mmol/L (98-107); Creatinine,Serum 1.44 mg/dL (0.70-1.30); Estimated Glomerular Filt Rate 49 ml/min (>60); GFR (African American) 59 ML/MIN (>60); Glucose 95 mg/dL (74-106); Sodium 132 mmol/L (136-145)
[2017-06-16 17:15] LABS: Digoxin 1.23 ng/mL (1.15-2.56)
== END ==
PROVIDERS: Family Provider Family Medicine; PCP Family Medicine; Visit Provider Internal Medicine Cardiovascular Disease
DX: I48.91 Unspecified atrial fibrillation (principal); I25.5 Ischemic cardiomyopathy; I25.10 Atherosclerotic heart disease of native coronary artery without angina pectoris; I42.0 Dilated cardiomyopathy; I10 Essential (primary) hypertension; E78.4 Other hyperlipidemia; Z95.5 Presence of coronary angioplasty implant and graft
CPT/HCPCS: 36415; 80048; 80162

== ENCOUNTER → 2017-07-18 11:57 | Outpatient (POV) | payer MEDICARE, OTHER, SELFPAY | PROVIDERS: Family Provider Family Medicine; PCP Family Medicine; Visit Provider Specialist | DX: G54.9 Nerve root and plexus disorder, unspecified (principal); M79.604 Pain in right leg; M79.605 Pain in left leg | CPT/HCPCS: 95886; 95908 ==

== ENCOUNTER 2017-07-21 09:00 | Outpatient (RCR) | payer MEDICARE, OTHER, SELFPAY ==
--- NOTE | 2017-06-13 13:54 | HMH.PTOPEV ---
Rehab Outpatient Evaluation Rehab OP Evaluation Start: 06/13/17 13:20 Freq: Status: Active Protocol: Document 06/13/17 13:20 ANTONINO (Rec: 06/13/17 13:53 ANTONINO [id number]) Electronically Signed By Robinson Leung PT 06/13/17 13:20 Outpatient Therapy Subjective History Subjective History This is the intial Physical Therapy evaluation for Rishabh Milligan. Pt is a 66 y/o male who had L TKA on 05/23/17. Chief Complaint Pain Stiff Symptom Type Ache Throb Symptoms Relieved By Rest/Positioning Symptoms Aggravated By Physical Activity Walking Prior Functional Limitations None Current Functional Limitations Standing Squatting Recreation Activity Walking Stairs Symptom Description Intermittent Hip/Knee Eval Gait Observation General Gait Pattern Observation Antalgic Gait Assistive Device Assistive Devices Rolling / Wheeled Walker MMT left Knee Extension Strength Grade 3- Fair- Knee Flexion Strength Grade 3- Fair- ROM Knee Extension Active Range of Motion ( 7 degrees from neutral degrees) Knee Flexion Active Range of Motion ( 90 degrees) Outpatient Therapy Assessment Impairments Problems/Impairmments Palpation Tenderness Impaired Range of Motion Impaired Strength Impaired Endurance Impaired Gait Pattern Impaired Walking Impaired Standing Impaired Shower/Bathing Impaired Household Care Impaired Stair Climbing Impaired Squatting Impaired Recreational Activities Impaired Work Activities Subjective C/O Pain Impaired Self Care/Self Management Prognosis Rehab Potential Fair Clinical Impression Consistent with Diagnosis Yes Short Term Goals Number of Weeks 4 Decreased Palpation Tenderness Yes: none Increase Range of Motion Yes: 0 degrees extension Increase Ability to Walk Yes: 10+ minutes Increase Ability to Stand Yes: 10 minutes Improve Ability to Squat
== END 2017-07-21 09:01 | disposition home or self-care (01) ==
LOC: PT 09:00
PROVIDERS: Family Provider Family Medicine; PCP Family Medicine; Visit Provider Orthopaedic Surgery
DX: Z96.652 Presence of left artificial knee joint (principal)
CPT/HCPCS: 97010; 97014; 97016; 97110; 97140; 97163; G0283

== ENCOUNTER → 2017-08-17 09:39 | Outpatient (CLI) | payer MEDICARE, OTHER, SELFPAY ==
--- NOTE | 2017-08-17 09:43 | XR_ITS ---
XR knee LT 3V HISTORY: Follow-up knee replacement ITS.REASON: s/p LEFT TOTAL KNEE REPLACE; DOS 05/23/17 ORDERING PHYSICIAN: Damien Bob MD PATIENT AGE: 67 years COMPARISON: 05/23/2017 FINDINGS: Status post total knee replacement. No orthopedic complications. Good alignment. Osteosclerosis involves the medial tibial plateau from prior subchondral plasty. IMPRESSION: No change status post totally replacement with good alignment
== END ==
PROVIDERS: Family Provider Family Medicine; PCP Family Medicine; Visit Provider Internal Medicine Cardiovascular Disease
DX: Z96.652 Presence of left artificial knee joint (principal)
CPT/HCPCS: 73562

== ENCOUNTER → 2017-09-29 10:30 | Outpatient (CLI) | payer MEDICARE, OTHER, SELFPAY ==
--- NOTE | 2017-09-29 10:34 | XR_ITS ---
XR chest 2V HISTORY: ITS.REASON: on amiodarone therapy ORDERING PHYSICIAN: Damien Bob MD PATIENT AGE: 67 years COMPARISON: 03/14/2017 FINDINGS: Cardiac size upper limits of normal. No evidence of CHF. No pulmonary fibrosis. Lungs are clear bilaterally. No acute bony anomalies. IMPRESSION: Borderline cardiomegaly otherwise negative. No evidence of amiodarone lung toxicity.
[2017-09-29 12:31] LABS: Alanine Aminotransferase 32 U/L (12-78); Albumin Level 3.9 gm/dL (3.4-5.0); Alkaline Phosphatase 103 U/L (46-116); Aspartate Amino Transferase 26 U/L (15-37); Bilirubin,Direct 0.1 mg/dL (0.0-0.2); Bilirubin,Indirect 0.5 mg/dL (0.0-0.9); Bilirubin,Total 0.6 mg/dL (0.2-1.0); Free T4 (Free Thyroxine) 1.14 ng/dl (0.76-1.46); Thyroid Stimulating Hormone 1.24 uIU/ml (0.358-3.740); Total Protein,Serum 6.8 gm/dL (6.4-8.2)
== END ==
PROVIDERS: PCP Family Medicine; Visit Provider Internal Medicine Cardiovascular Disease
DX: E78.4 Other hyperlipidemia (principal); I48.91 Unspecified atrial fibrillation; Z79.899 Other long term (current) drug therapy
CPT/HCPCS: 36415; 71046; 80076; 84439; 84443

== ENCOUNTER → 2017-10-24 07:42 | Outpatient (CLI) | payer MEDICARE, OTHER, SELFPAY ==
[2017-10-24 09:57] LABS: Free T4 (Free Thyroxine) 1.18 ng/dl (0.76-1.46); Thyroid Stimulating Hormone 0.88 uIU/ml (0.358-3.740)
== END ==
PROVIDERS: PCP Family Medicine; Visit Provider Family Medicine
DX: E03.9 Hypothyroidism, unspecified (principal)
CPT/HCPCS: 36415; 84439; 84443

== ENCOUNTER → 2017-10-31 11:24 | Outpatient (CLI) | payer MEDICARE, OTHER, SELFPAY ==
[2017-10-31 11:57] LABS: Basophils % 0.5 % (0.1-2.0); Eosinophils # 0.2 K/mm3 (0.0-0.4); Eosinophils % 3.7 % (0.1-12.0); Hematocrit 40.9 % (42.0-52.0); Hemoglobin 13.2 g/dL (14.1-18.0); Lymphocytes # 1.1 K/mm3 (0.7-4.5); Lymphocytes % 19.8 K/mm3 (10-50); Mean Corpuscular HGB Conc 32.2 g/dL (31.8-35.4); Mean Corpuscular Hemoglobin 28.4 pg (27.0-31.2); Mean Corpuscular Volume 88.2 fl (80-94); Mean Platelet Volume 9.2 fl (7.4-10.4); Monocytes # 0.3 K/mm3 (0.1-1.0); Monocytes % 4.8 % (1.7-9.3); Neutrophils % 71.2 % (37.0-80.0); Platelet Count 155 K/mm3 (142-424); Red Blood Count 4.63 M/mm3 (4.60-6.20); Red Cell Distribution Width 13.8 % (11.5-17.5); White Blood Count 5.6 K/mm3 (4.8-10.8)
[2017-10-31 13:31] LABS: Alanine Aminotransferase 36 U/L (12-78); Albumin/Globulin Ratio 1.4 (1.1-1.8); Alkaline Phosphatase 95 U/L (46-116); Anion Gap 13.2 mEq/L (5-15); Aspartate Amino Transferase 29 U/L (15-37); Bilirubin,Total 0.5 mg/dL (0.2-1.0); Blood Urea Nitrogen 12 mg/dL (7-18); Calcium 8.7 mg/dL (8.5-10.1); Carbon Dioxide 28 mmol/L (21.0-32.0); Chloride 103 mmol/L (98-107); Creatinine,Serum 0.98 mg/dL (0.70-1.30); Estimated Glomerular Filt Rate 76 ml/min (>60); GFR (African American) 92 ML/MIN (>60); Globulin 2.8 gm/dl (1.3-3.2); Glucose 94 mg/dL (74-106); Potassium 4.2 mmoL/L (3.5-5.1); Sodium 140 mmol/L (136-145); Total Protein,Serum 6.8 gm/dL (6.4-8.2)
[2017-11-02 16:48] LABS: Vitamin B12 623 pg/mL (232-1245)
[2017-11-02 16:49] LABS: Folate >20.0 ng/mL (>3.0)
== END ==
PROVIDERS: PCP Family Medicine; Visit Provider Nurse Practitioner Family
DX: G47.33 Obstructive sleep apnea (adult) (pediatric) (principal); I10 Essential (primary) hypertension; I25.10 Atherosclerotic heart disease of native coronary artery without angina pectoris; R41.0 Disorientation, unspecified; R41.3 Other amnesia; Z79.899 Other long term (current) drug therapy; Z79.01 Long term (current) use of anticoagulants; I48.91 Unspecified atrial fibrillation
CPT/HCPCS: 36415; 80053; 82607; 82746; 85025

== ENCOUNTER → 2017-11-04 08:50 | Outpatient (CLI) | payer MEDICARE, OTHER, SELFPAY ==
--- NOTE | 2017-11-04 08:52 | MR_ITS ---
MR head/brain wo/w con HISTORY: Memory loss, confusion, altered mental status ITS.REASON: memory loss, confusion ORDERING PHYSICIAN: Felipe Gongora PATIENT AGE: 67 years Comparison: 01/19/2017 TECHNIQUE: Standard multiplanar multiecho sequences are performed without and with contrast. FINDINGS: There is generalized atrophy. There is dilated perivascular spaces incidentally noted. The cerebellopontine angles, cerebellum, and brainstem are unremarkable. No evidence of acute infarction. No midline shift or mass effect. No enhancing lesions. There are a few scattered periventricular and subcortical white matter hyperintensities nonspecific and not out of context for patient's age no intra or extra-axial mass. No intracranial hemorrhage. The pituitary has an unremarkable appearance. The hippocampal gyri are unremarkable in the temporal horns are symmetric No mastoid effusion or sinus air-fluid level. No large aneurysms. IMPRESSION: 1. No acute intracranial findings. 2. Involutional changes of age with mild generalized atrophy and periventricular ischemic gliotic change. Overall no significant change from 01/19/2017
--- NOTE | 2017-11-04 09:49 | HMH.ITSHM ---
ACETAMINOPHEN AMIODARONE HCL ATORVASTATIN CARVEDILOL CLOPIDOGREL DIGITEK IRBESARTAN ISOSORBIDE MONONITRATE LEVOTHYROXINE SODIUM MELOXICAM MEMANTINE HCL MULTIVITAMIN SPIRONOLACTONE TAMSULOSIN HCL VITAMIN D3 XARELTO
== END ==
PROVIDERS: Family Provider Family Medicine; PCP Family Medicine; Visit Provider Nurse Practitioner Family
DX: G47.33 Obstructive sleep apnea (adult) (pediatric) (principal); I10 Essential (primary) hypertension; I25.10 Atherosclerotic heart disease of native coronary artery without angina pectoris; R41.0 Disorientation, unspecified; R41.3 Other amnesia
CPT/HCPCS: 70553; A9576

== ENCOUNTER → 2017-11-29 11:26 | Outpatient (CLI) | payer MEDICARE, OTHER, SELFPAY ==
--- NOTE | 2017-11-29 11:38 | XR_ITS ---
XR knee RT 4V HISTORY: ITS.REASON: KNEE PAIN ORDERING PHYSICIAN: Magdi Estrada MD PATIENT AGE: 67 years COMPARISON: None FINDINGS: There is severe osteoarthritic changes of the right knee involving all 3 compartments most prominent at the medial compartment loss of joint space medially osteosclerosis and osteophyte formation. No fracture or dislocation. No lytic or blastic change. There is mild lateral translation of the tibia x 7 mm. IMPRESSION: Severe osteoarthritis of the right knee
== END ==
PROVIDERS: Family Provider Family Medicine; PCP Family Medicine; Visit Provider Orthopaedic Surgery
DX: M17.11 Unilateral primary osteoarthritis, right knee (principal)
CPT/HCPCS: 73564

== ENCOUNTER → 2017-12-21 14:51 | Outpatient (CLI) | payer MEDICARE, OTHER, SELFPAY ==
[2017-12-21 14:54] LABS: Microscopic, Urine URINE MICROSCOPIC (MICROSCOPIC)
[2017-12-21 15:14] LABS: Basophils % 0.4 % (0.1-2.0); Eosinophils # 0.2 K/mm3 (0.0-0.4); Eosinophils % 2.5 % (0.1-12.0); Hematocrit 41.4 % (42.0-52.0); Hemoglobin 13.5 g/dL (14.1-18.0); Lymphocytes # 1.2 K/mm3 (0.7-4.5); Lymphocytes % 14.9 % (10-50); Mean Corpuscular HGB Conc 32.7 g/dL (31.8-35.4); Mean Corpuscular Hemoglobin 29.1 pg (27.0-31.2); Mean Platelet Volume 9.3 fl (7.4-10.4); Monocytes # 0.5 K/mm3 (0.1-1.0); Monocytes % 5.6 % (1.7-9.3); Neutrophils # 6.3 K/mm3 (1.8-7.8); Neutrophils % 76.6 % (37.0-80.0); Platelet Count 161 K/mm3 (142-424); Red Blood Count 4.65 M/mm3 (4.60-6.20); Red Cell Distribution Width 13.9 % (11.5-17.5); White Blood Count 8.2 K/mm3 (4.8-10.8)
[2017-12-21 15:18] LABS: Appearance,Urine CLEAR (Clear); Bilirubin,Urine Negative (Negative); Blood, Urine TRACE-I (Negative); Color,Urine YELLOW (Yellow); Glucose,Urine (UA) Negative (Negative); Ketones,Urine Negative (Negative); Leukocyte Esterase,Urine Negative (Negative); Nitrate,Urine Negative (Negative); Protein,Urine Negative (Negative); Urobilinogen,Urine 0.2 EU/dl (0.2)
[2017-12-21 15:50] LABS: Bacteria,Urine Trace /lpf; WBC,Urine Occasional #/hpf (0-3)
[2017-12-21 16:15] LABS: Alanine Aminotransferase 36 U/L (12-78); Albumin Level 3.9 gm/dL (3.4-5.0); Albumin/Globulin Ratio 1.4 (1.1-1.8); Alkaline Phosphatase 98 U/L (46-116); Anion Gap -2.2 mEq/L (5-15); Aspartate Amino Transferase 30 U/L (15-37); Bilirubin,Total 0.5 mg/dL (0.2-1.0); Blood Urea Nitrogen 15 mg/dL (7-18); Calcium 8.9 mg/dL (8.5-10.1); Carbon Dioxide 30 mmol/L (21.0-32.0); Chloride 108 mmol/L (98-107); Creatinine,Serum 0.98 mg/dL (0.70-1.30); Estimated Glomerular Filt Rate 76 ml/min (>60); GFR (African American) 92 ML/MIN (>60); Globulin 2.8 gm/dl (1.3-3.2); Glucose 89 mg/dL (74-106); Potassium 3.8 mmoL/L (3.5-5.1); Sodium 132 mmol/L (136-145); Total Protein,Serum 6.7 gm/dL (6.4-8.2)
== END ==
PROVIDERS: Visit Provider Orthopaedic Surgery
DX: Z01.818 Encounter for other preprocedural examination (principal); M17.11 Unilateral primary osteoarthritis, right knee
CPT/HCPCS: 36415; 80053; 81001; 85025; 86850

== ENCOUNTER 2018-01-02 06:04 | Inpatient (IN) ==
--- NOTE | 2018-01-02 06:58 | Progress Note ---
[facility] Anesthesia Checklist - Patient Identification Patient Identification: Arm Band, Verbal (Name & ) - Structural Data Admitted From: Home Planned Operative Procedure/s: r tka Consent for Planned Operative Procedure(s) Verified: Yes Verified Documents: History and Physical - NPO Status Verified Time NPO: 00:00 - Additional verifications Patient : No Anesthesia Reactions: No Hx Blood Transfusions: No Blood Transfusion Reaction: No Cephalosporin Allergy: No Previous Colonoscopy: Yes - Cardiovascular Assessment Heart Sounds: S1 & S2 Pulse Strength: Baseline Pulse Rhythm: Regular Peripheral Edema: No - Airway Assessment C-Spine Mobility Assessed: Yes TMJ Mobility Assessed: Yes Dentition: Good Dentition - Neurological Assessment Level of Consciousness: Awake, Appropriate Hx Seizures: No Numbness or tingling in extremities: No - Anesthesia Plan Anesthesia Risk discussed: Yes Anesthesia Plan: Verified ASA Class: III Anesthesia Type: Spinal [facility] History I have reviewed the patient's past medical history: Yes Medical History: Reports:: Arrhythmia, Atrial Fibrillation, Congenital Heart Disease, Coronary Artery Disease, Hiatal Hernia, Hyperlipidemia, Hypertension, Myocardial Infarction Denies:: Internal Pacemaker, Seizures Other Medical History: Reports: Arthritis, Hypothyroidism, Other. Denies: Blood Transfusion Reaction Laterality Cases: Left: Total Knee Replacement, Bilateral: Arthroscopy Shoulder Other Surgeries: Yes: Cardiac Catheterization, Colonoscopy, Hernia Repair, Other. No: Pacemaker Amputation: No Fractures: No - *Social History Educational Level: Attended College Smoking Status: Never smoker Tobacco Type: cigarettes Alcohol Intake: never Alcohol Intake Frequency:: other Substance Use Type: denies use Occupational Status: employed Housing: house Household Members: spouse - Psychiatric History Expresses thoughts of harming self/others: None Suicide Plan Description: No Plan *Family Hx:: Cancer, Coronary Artery Disease, Heart Attack
--- NOTE | 2018-01-02 11:50 | Progress Note ---
[facility] Anesthesia Record Part I Intake, IV Amount: 1,750 Estimated blood loss (mL): 100 Urine output (mL): 900 Blood Products used (#): none Blood Pressure: 127/75 SaO2: 96 Pulse Rate: 54 Respiratory Rate: 20 Temperature: 97.6 F Patient is:: Awake, Stable Stable to PACU at:: 11:48
--- NOTE | 2018-01-02 11:51 | Progress Note ---
[facility] Anesthesia Record Part II Discharge Time: 12:18 Destination: Medical Surgical Department PACU nurse assessment reviewed?: Yes Patient Condition:: Good Anesthesia Complications:: None
--- NOTE | 2018-01-02 13:14 | Operative Note ---
Date of procedure: 01/02/18 Pre-op Diagnosis:: Advanced tricompartmental degenerative arthritis, right knee Post-op Diagnosis:: Advanced tricompartmental degenerative arthritis, right knee Procedure performed:: Cemented total knee arthroplasty, right knee Surgeon:: Magdi Estrada MD Charging Board Operator(s):: April Murrell OFFICE PROFESSIONAL:: Ori Lora Anesthesia: spinal Estimated blood loss (mL): 50 Clinical Note:: Patient is a 67-year-old male with end-stage [id number] tricompartmental osteoarthritis of the right knee with more significant degenerative changes over the medial compartment and a progressive varus deformity and flexion contracture with unremitting significant right knee pain not relieved by conservative management. The pain is advanced to the point that it is becoming a hazard for the patient with risk of falling and injuring himself. His activities of daily living are significantly impacted with the knee pain and stiffness. He also reports night pain and sleep disturbance. He takes meloxicam 15 mg daily without significant improvement with the knee pain. Given his knee pain and limitation of mobility, he is also at risk of falls and injuring himself. A total knee arthroplasty is indicated to relieve the pain, improve function, reduce the risk of falls and to improve quality of life. He previously had a successful left total knee arthroplasty with very good pain relief. Please refer to the office note for full details. Operative findings:: As noted during the preoperative evaluation, the knee joint had a fixed flexion of 5 and fixed valgus deformity of 5. As seen on the preoperative x-rays, there are tricompartmental degenerative changes with the medial and pa tellofemoral compartments showing more advanced changes with [id number]-[id number] appearance. The menisci and cruciate ligaments were significantly degenerate. There was widespread osteophyte formation over all 3 compartments. Bone quality is good. Operative note:: On the day of the surgery the patient and his were seen in the preoperative area. I reviewed the clinical and x-ray findings with the patient. I again discussed the diagnosis, natural history and management options in detail including both nonsurgical and surgical. Patient has end-stage degenerative arthritis of the right knee and has failed to respond satisfactorily to conservative management so far and has opted for a right total knee arthroplasty. The knee joint also gives out and patient is at risk of falls potentially resulting in fractures. Patient mobilizes with a cane. We again discussed the details of the procedure, risks and benefits and alternatives in detail. The complications discussed include but are not limited to infection, injury to nerves and blood vessels including injury to popliteal artery, injury to tendons and ligaments, DVT and PE, fat embolism, intraoperative fracture, limb length inequality, patella fracture, patellofemoral instability, patellar clunk syndrome, quadriceps and patellar tendon rupture, implant failure, component loosening, periprosthetic femur and tibia fractures, stiffness(arthrofibrosis), limp, incomplete relief of pain, incomplete functional recovery, likely need for further surgery in future including revision and anesthetic complications including heart attack, stroke and even . We discussed how any of these events can be devastating. We have discussed nonsurgical alternatives as well. Patient understands and wishes to proceed with a right total knee arthroplasty and I believe that the patient is fully informed as to the risks, benefits, and alternatives including nonsurgical alternatives. We also discussed the postoperative course including the rehab and physical therapy required. Patient lives with his family and is planning to go back home with outpatient physical therapy after surgery. A physical examination was performed and documented. Consent form was reviewed and signed. The limb was appropriately marked and initialed by me. Patient understood the risks, agreed to proceed with surgery, signed the consent form and no guarantees or assurances were given or implied. The patient was then brought to the operating room and a spinal anesthesia was administered by the wildlife conservation professor. The patient was then positioned supine on the operating table. All the bony prominences were appropriately padded. A well- padded tourniquet cuff was placed high over the right upper thigh. The right knee was prepped with isopropyl alcohol followed by chlorhexidine and draped in the usual sterile fashion. Prior to this, patient had used Hibiclens for a total of 5 days prior to the surgery and also used topical intranasal Bactroban. The entire operative team wore isolation suits and the Operating Room traffic was controlled. The skin incision was marked for a medial parapatellar approach to the knee joint. The entire operative site was sealed off with Ioban drape. A preprocedure timeout was performed as per hospital protocol. At the start of the procedure administration of 2 g of prophylactic IV Ancef was confirmed with the anesthetic team. Patient also received 1 g of IV tranexamic acid before starting the procedure and one more gram before wound closure to reduce the postoperative blood loss. The limb was exsanguinated with Esmarch bandage, the knee joint flexed beyond 90 and the tourniquet cuff was inflated to 300 mmHg. Please see the nursing records for total tourniquet time. I then made a midline incision utilizing a #10 scalpel blade. Electrocautery was used to seal off subcutaneous vessels. The extensor mechanism was exposed, marked and a curvilinear incision made for a medial parapatellar approach using the scalpel blade. The patella was everted carefully and the fat pad resected enough to allow sufficient visualization of the proximal tibia. The anterior cruciate ligament and the anterior aspects of both menisci were resected. An appropriate medial release was performed with the knife and Elyssa elevator. A step drill was used to open the intramedullary canal and the IM distal femoral cutting jig was placed. The jig was pinned into position and the intramedullary khloe removed. The distal cut was made at 5 degrees of valgus and the sizing jig placed. This sized best at a size 7 femur for the [place] [employer] system. We then placed the 4-in-1 cutting block in position in 3 degrees of external rotation. A cross pin was added for stabilizing the block and the mk wing utilized to ensure notching of the femur would not occur. The anterior cut was made followed by the posterior cut then the posterior chamfer and finally the anterior chamfer cuts in that order. Soft tissues were protected throughout this with careful retraction using the Z retractors. We checked for trueness of cuts and then moved on to the tibia. The tibial extra medullary guide was placed and aligned from the central aspect of the plateau between the spines down to the second metatarsal base. We pinned cutting block in position for minimal resection of the tibia from the medial side which was the lowermost side, checked the alignment, protected the soft tissues with appropriate retractors and resected with the Orteq saw. The resected tibial plateau articular surface was removed and sized it at a size 7. We ensured correctness of the cut and correct posterior slope. We then checked the extension and flexion gaps and found them to be equal and well balanced. We trialed the femur and the tibia with trial components and a trial insert and ranged the knee to ensure full flexion and extension and checked for ligamentous stability. We then everted the patella and reamed for a 32 mm central pegged button. We have lateralized the femur and medialized the patella intentionally. We placed trial components and noted that a 9 mm thick polyethylene to fit best. This gave us a ligamentously stable knee and allowed full extension. We allowed this to be free-floating and then checked it and made sure it was in appropriate position in relation to the tibial tubercle. We also used tibial alignment khloe to check for satisfactory position of the base plate and markings were made with electrocautery on the proximal tibia. We then elected to proceed with the box cut for a posterior stabilized femoral component. We placed the cutting jig for the box cut in the femur, drilled and then used the box osteotome to create the channel. We then trialed with the posterior stabilized polyethylene and found a size 9 to fit best. This gave us appropriate range of motion with proper ligamentous stability. We then removed the trial components and positioned and pinned the base plate to the top of the tibia and punched the groove for the V shaped stem. We used a small trocar tipped pin to drill holes into the subchondral sclerotic bone of the medial tibia to augment cement fixation. We then copiously irrigated with the normal saline pulse lavage, injected the bone with 1 g of Ancef, and then dried the cut surfaces. We then cemented the tibial tray, the femoral component, and placed a 9 mm trial insert and brought the knee into extension. We then cemented the patella button. We allowed the cement to set and then inspected the knee joint and removed excess cement with an osteotome. We then placed the 9 millimeters definitive polyethylene tibial insert ensuring that the dovetails fit appropriately and that the polyethylene was down and seated into the tibial tray properly. The knee joint was put through range of motion and noted the patella to be tracking appropriately with no thumb technique. Knee range of flexion noted to be 0-150. The knee joint was then soaked with dilute Betadine (0.35 percent) solution for 3 minutes followed by suctioning of the solution and pulsatile lavage with the 1 L of normal saline. The tourniquet was deflated and hemostasis obtained with diathermy cautery. Another 1 gram of tranexamic acid was given intravenously by the wildlife conservation professor at the time of deflating the tourniquet. The knee joint was again thoroughly irrigated with pulse lavage and good hemostasis was confirmed before proceeding with wound closure. The capsule/extensor mechanism was closed with #1 Vicryl [id number]-ob-vsiln sutures ensuring a watertight closure. Next, the subcutaneous tissue was closed with 2-0 Vicryl interrupted sutures. The skin was closed with 4-0 Monocryl running suture, Dermabond and Steri-Strips. Sterile dressings were applied consisting of Silverlon dressing, ABD, soft roll and secured in place with Iván wrap. The patient was then transferred from the operating table onto the bed. The tibialis posterior and dorsalis pedis pulses were noted 2+ with good capillary refill in the foot. The patient was then transported to the postoperative recovery area in a stable condition. Patient tolerated the procedure well and there were no immediate complications. The swab, needle and instrument counts were correct according to the scrub team at the end of the procedure. Portable x-rays of the right knee were obtained in the recovery area which showed the components to be well fixed in a satisfactory alignment and position without any complications. Postoperatively, institute and continue standard precautions and physical therapy and edema management for a standard primary total knee arthroplasty starting on postoperative day 1. Patient can be mobilized full weightbearing as tolerated. Implants: [employer] Luz II nonporous right tibial base plate-size 7 [employer] Luz II Biconvex patellar component- 32 mm [employer] posterior stabilized Legion Oxinium femoral component, size 7 right [employer] Legion PS XLPE high flexion articular insert- size 7-8 x 9 mm [employer] Versabond AB bone cement with gentamicin. Industry labor service representative: Bronson Maher ([employer]) Condition: stable Disposition: floor Specimens:: None Complications:: None
--- NOTE | 2018-01-02 15:09 | Pharmacy Consult Notes ---
[facility] Pharmacy VTE Monitoring - Patient Demographics Admission date: 01/02/18 Report Date: 01/02/18 Time: 15:09 Allergies/Adverse Reactions: Patient Allergies lisinopril Allergy (Severe, Verified 01/02/18 06:23) [id number]/THROAT oxycodone Adverse Reaction (Unknown, Verified 01/02/18 06:23) SHAKING Height: 1.83 m Weight: 107.728 kg - VTE Risk Was VTE Risk Assessment Performed: Yes VTE Score: 8 VTE Risk Level: Moderate Risk Clinical Trial Participant: No - Prophylaxis VTE Prophylaxis Ordered?: Yes Types of VTE Prophylaxis: IPCS Knee High (POST OP) Location of Applied Device: Not Applicable
--- NOTE | 2018-01-02 15:51 | Progress Note ---
Subjective Date: 01/02/18 Time: 15:15 Principal diagnosis: Status post total knee arthroplasty, right Interval history: Patient is status post right knee arthroplasty earlier today. Patient is lying down on the bed. He says he has bit of pain which is well controlled with medication. He had spinal anesthesia and did not have any nerve blocks. The spinal appears to have worn off. No complaints of any nausea or vomiting. Patient says he is eating and drinking well. PN: Obj Ex Vital signs: Temp Pulse Resp BP Pulse Ox 97.8 F 68 18 166/94 H 97 01/02/18 14:55 01/02/18 14:55 01/02/18 14:55 01/02/18 14:55 01/02/18 14:55 Narrative: Intake & Output 12/31/17 01/01/18 01/02/18 01/03/18 11:59 11:59 11:59 11:59 Intake Total 1750 / 1750 Balance 1750 / 1750 Weight 237 lb 8 oz Laboratory Results - last 24 hr 01/02/18 07:45: Urine Color Yellow, Urine Appearance Clear, Urine pH 7.0, Ur Specific [place] 1.010, Urine Protein Negative, Urine Glucose (UA) Negative, Urine Ketones Negative, Urine Blood Negative, Urine Nitrate Negative, Urine Bilirubin Negative, Urine Urobilinogen 0.2, Ur Leukocyte Esterase Negative, Ur Squamous Epith Cells Occasional, Urine Bacteria Trace Exam: General appearance: alert, active, awake Cardiovascular: regular rate & rhythm, normal peripheral pulses Respiratory: No respiratory distress noted, speaks in full sentences; clear to auscultation, normal breath sounds ABD: soft and non tender Neuro: alert,, awake, oriented x 3 On examination of the lower extremities the limb lengths are equal. On examination of the right knee the dressings are clean, dry and intact. Leg compartments are soft. Distal pulses are 2+. Capillary refill is brisk. Sensation is intact to light touch throughout. He is actively moving the ankle, foot and the toes. Postoperative check x-ray reviewed along with radiologist report. The x-rays show right total knee arthroplasty in satisfactory alignment. No complications noted. - Urinary Catheter Management Coude Cath placed during this visit: yes Urethral indwelling: Yes Reason for continuing: Surgical procedure Insertion date: 01/02/18 Insertion time: 07:45 Progress Note: A&P (1) Primary osteoarthritis of right knee Status: Acute Current Visit: Yes (2) S/P total knee replacement Status: Acute Current Visit: No Assessment and Plan for All Diagnoses:: I reviewed the clinical and operative findings and procedure performed with the patient. Avoid placing pillow behind the knee; keep the knee in full extension when in bed. Continue DVT prophylaxis and as needed pain medication. Continue close monitoring as patient is on CIRCUS RIDER. Physical therapy to commence mobilization weightbearing as tolerated and standard postoperative physical therapy for a total knee arthroplasty on postop day 1. Care management consult regarding discharge planning. Patient and family are keen for him to go home with outpatient physical therapy. Medical management as per Dr. Bhakta.
--- NOTE | 2018-01-02 18:08 | Progress Note ---
Internal Medicine - PN: Subj *Date: 01/02/18 *Time: 18:05 Interval history: Consulted for medication management postoperatively. Patient had right total knee replacement today. Exam Vital signs and Labs for Last 24 Hours: Temp Pulse Resp BP Pulse Ox 97.8 F 78 18 154/92 H 95 01/02/18 16:55 01/02/18 16:55 01/02/18 16:55 01/02/18 16:55 01/02/18 16:55 Laboratory Results - last 24 hr 01/02/18 07:45: Urine Color Yellow, Urine Appearance Clear, Urine pH 7.0, Ur Specific [place] 1.010, Urine Protein Negative, Urine Glucose (UA) Negative, Urine Ketones Negative, Urine Blood Negative, Urine Nitrate Negative, Urine Bilirubin Negative, Urine Urobilinogen 0.2, Ur Leukocyte Esterase Negative, Ur Squamous Epith Cells Occasional, Urine Bacteria Trace I & O for Last 24 hours: Intake & Output 12/31/17 01/01/18 01/02/18 01/03/18 11:59 11:59 11:59 11:59 Intake Total 1750 / 1750 Output Total 1100 / 1100 Balance 1750 / 1750 -1100 / -1100 Weight 237 lb 8 oz - Constitutional no acute distress (eating supper) Assessment and Plan (1) Primary osteoarthritis of right knee Current visit: Yes Status: Acute Category: Medical Code(s): M17.11 - Unilateral primary osteoarthritis, right knee (2) S/P total knee replacement Current visit: No Status: Acute Qualifiers: Laterality: left Qualified Code(s): Z96.652 - Presence of left artificial knee joint Category: Surgical Code(s): Z96.659 - Presence of unspecified artificial knee joint (3) Ischemic dilated cardiomyopathy Current visit: No Status: Acute Category: Medical Code(s): I25.5 - Ischemic cardiomyopathy; I42.0 - Dilated cardiomyopathy (4) Atrial fibrillation Current visit: No Status: Chronic Qualifiers: Atrial fibrillation type: unspecified Qualified Code(s): I48.91 - Unspecifi ed atrial fibrillation Category: Medical Code(s): I48.91 - Unspecified atrial fibrillation (5) BPH (benign prostatic hyperplasia) Current visit: No Status: Chronic Category: Medical Code(s): N40.0 - Benign prostatic hyperplasia without lower urinary tract symptoms (6) Coronary arteriosclerosis Current visit: No Status: Chronic Category: Medical Code(s): I25.10 - Atherosclerotic heart disease of [place] coronary artery without angina pectoris (7) Dementia Current visit: No Status: Chronic Category: Medical Code(s): F03.90 - Unspecified dementia without behavioral disturbance (8) Hyperlipidemia Current visit: No Status: Chronic Qualifiers: Hyperlipidemia type: other hyperlipidemia Category: Medical Code(s): E78.5 - Hyperlipidemia, unspecified (9) Hypertensive disorder Current visit: No Status: Chronic Qualifiers: Hypertension type: essential hypertension Qualified Code(s): I10 - Essen tial (primary) hypertension Category: Medical Code(s): I10 - Essential (primary) hypertension (10) Hypothyroidism Current visit: No Status: Chronic Category: Medical Code(s): E03.9 - Hypothyroidism, unspecified - Assessment and plan all Dx Assessment and Plan for all problems:: Meds have already been ordered, will continue to follow.
[2018-01-03 07:27] LABS: Basophils % 0.3 % (0.1-2.0); Eosinophils # 0.2 K/mm3 (0.0-0.4); Eosinophils % 1.8 % (0.1-12.0); Hematocrit 36.8 % (42.0-52.0); Hemoglobin 11.8 g/dL (14.1-18.0); Lymphocytes # 0.9 K/mm3 (0.7-4.5); Lymphocytes % 9.9 % (10-50); Mean Corpuscular Hemoglobin 28.6 pg (27.0-31.2); Mean Corpuscular Volume 89.6 fl (80-94); Mean Platelet Volume 8.5 fl (7.4-10.4); Monocytes # 0.8 K/mm3 (0.1-1.0); Monocytes % 8.5 % (1.7-9.3); Neutrophils % 79.5 % (37.0-80.0); Platelet Count 143 K/mm3 (142-424); Red Blood Count 4.11 M/mm3 (4.60-6.20); Red Cell Distribution Width 13.8 % (11.5-17.5); White Blood Count 8.8 K/mm3 (4.8-10.8)
[2018-01-03 07:32] LABS: Anion Gap 9.9 mEq/L (5-15); Calcium 8.3 mg/dL (8.5-10.1); Potassium 3.9 mmoL/L (3.5-5.1)
--- NOTE | 2018-01-03 08:43 | Progress Note ---
Internal Medicine - PN: Subj *Date: 01/03/18 *Time: 08:41 Interval history: Patient with no new complaints, feels better this morning. Exam Vital signs and Labs for Last 24 Hours: Temp Pulse Resp BP Pulse Ox 98.2 F 75 17 165/91 H 96 01/03/18 07:38 01/03/18 07:38 01/03/18 07:38 01/03/18 07:38 01/03/18 07:38 Laboratory Results - last 24 hr 01/02/18 07:45: Urine Color Yellow, Urine Appearance Clear, Urine pH 7.0, Ur Specific [place] 1.010, Urine Protein Negative, Urine Glucose (UA) Negative, Urine Ketones Negative, Urine Blood Negative, Urine Nitrate Negative, Urine Bilirubin Negative, Urine Urobilinogen 0.2, Ur Leukocyte Esterase Negative, Ur Squamous Epith Cells Occasional, Urine Bacteria Trace 01/03/18 06:42: WBC 8.8, RBC 4.11 L, Hgb 11.8 L, Hct 36.8 L, MCV 89.6, MCH 28.6, MCHC 32.0, RDW 13.8, Plt Count 143, MPV 8.5, Neut % (Auto) 79.5, Lymph % (Auto) 9.9 L, [place] % (Auto) 8.5, Eos % (Auto) 1.8, Baso % (Auto) 0.3, Neut # (Auto) 7.0, Lymph # (Auto) 0.9, [place] # (Auto) 0.8, Eos # (Auto) 0.2, Baso # (Auto) 0.0 01/03/18 06:42: Sodium 135 L, Potassium 3.9, Chloride 99, Carbon Dioxide 30, Anion Gap 9.9, BUN 12, Creatinine 0.89, Estimated Creat Clear 108, Estimated GFR 85, Est GFR ( Amer) 103, Glucose 110 H, Calcium 8.3 L I & O for Last 24 hours: Intake & Output 12/31/17 01/01/18 01/02/18 01/03/18 11:59 11:59 11:59 11:59 Intake Total 1750 / 1750 2952 / 2952 Output Total 2200 / 2200 Balance 1750 / 1750 752 / 752 Weight 237 lb 8 oz - Constitutional no acute distress - *Routine Extremities Exam Present: edema (minimal in right leg) - *Routine Neurological Exam normal sensation in right leg Assessment and Plan (1) Primary osteoarthritis of right knee Current visit: Yes Status: Acute Category: Medical Code(s): M17.11 - Unilateral primary osteoarthritis, right knee (2) S/P total knee replacement Current visit: No Status: Acute Qualifiers: Laterality: left Qualified Code(s): Z96.652 - Presence of left artificial knee joint Category: Surgical Code(s): Z96.659 - Presence of unspecified artificial knee joint (3) Ischemic dilated cardiomyopathy Current visit: No Status: Acute Category: Medical Code(s): I25.5 - Ischemic cardiomyopathy; I42.0 - Dilated cardiomyopathy (4) Atrial fibrillation Current visit: No Status: Chronic Qualifiers: Atrial fibrillation type: unspecified Qualified Code(s): I48.91 - Unspecified atrial fibrillation Category: Medical Code(s): I48.91 - Unspecified atrial fibrillation (5) BPH (benign prostatic hyperplasia) Current visit: No Status: Chronic Category: Medical Code(s): N40.0 - Benign prostatic hyperplasia without lower urinary tract symptoms (6) Coronary arteriosclerosis Current visit: No Status: Chronic Category: Medical Code(s): I25.10 - Atherosclerotic heart disease of [place] coronary artery without angina pectoris (7) Dementia Current visit: No Status: Chronic Category: Medical Code(s): F03.90 - Unspecified dementia without behavioral disturbance (8) Hyperlipidemia Current visit: No Status: Chronic Qualifiers: Hyperlipidemia type: other hyperlipidemia Category: Medical Code(s): E78.5 - Hyperlipidemia, unspecified (9) Hypertensive disorder Current visit: No Status: Chronic Qualifiers: Hypertension type: essential hypertension Qualified Code(s): I10 - Essential (primary) hypertension Category: Medical Code(s): I10 - Essential (primary) hypertension (10) Hypothyroidism Current visit: No Status: Chronic Category: Medical Code(s): E03.9 - Hypothyroidism, unspecified - Assessment and plan all Dx Assessment and Plan for all problems:: POD #1, doing well, remove lee today, PT to see patient.
--- NOTE | 2018-01-03 14:21 | Progress Note ---
Subjective Date: 01/03/18 Time: 10:30 Principal diagnosis: Status post total knee arthroplasty, right Interval history: Patient is status post right knee arthroplasty, postoperative day 1. Patient is sitting out on a chair. He says he is doing well and reports very little pain which is well controlled with medication. No history of any nausea or vomiting. No history of any cough, chest pain, shortness of breath or palpitations. Patient says he is eating and drinking well. Marquez catheter has been DC'd earlier today. Patient says he started physical therapy this morning and it went well. PN: Obj Ex Vital signs: Temp Pulse Resp BP Pulse Ox 98.5 F 78 18 131/88 96 01/03/18 11:50 01/03/18 11:50 01/03/18 11:50 01/03/18 11:50 01/03/18 11:50 Narrative: Laboratory Results - last 24 hr 01/03/18 06:42: WBC 8.8, RBC 4.11 L, Hgb 11.8 L, Hct 36.8 L, MCV 89.6, MCH 28.6, MCHC 32.0, RDW 13.8, Plt Count 143, MPV 8.5, Neut % (Auto) 79.5, Lymph % (Auto) 9.9 L, [place] % (Auto) 8.5, Eos % (Auto) 1.8, Baso % (Auto) 0.3, Neut # (Auto) 7.0, Lymph # (Auto) 0.9, [place] # (Auto) 0.8, Eos # (Auto) 0.2, Baso # (Auto) 0.0 01/03/18 06:42: Sodium 135 L, Potassium 3.9, Chloride 99, Carbon Dioxide 30, Anion Gap 9.9, BUN 12, Creatinine 0.89, Estimated Creat Clear 108, Estimated GFR 85, Est GFR ( Amer) 103, Glucose 110 H, Calcium 8.3 L Intake & Output 01/01/18 01/02/18 01/03/18 01/04/18 11:59 11:59 11:59 11:59 Intake Total 1750 / 1750 2952 / 2952 240 / 240 Output Total 3400 / 3400 Balance 1750 / 1750 -448 / -448 240 / 240 Weight 237 lb 8 oz Exam: General appearance: alert, active, awake Cardiovascular: regular rate & rhythm, normal peripheral pulses Respiratory: No respiratory distress noted, speaks in full sentences ABD: soft and non tender Neuro: alert,, awake, oriented x 3 On examination of the lower extremities the limb lengths are equal; there is mild edema of the right leg. On examination of the right knee the dressings are clean, dry and intact. Leg compartments are soft. Distal pulses are 2+. Capillary refill is brisk. Sensation is intact over the right leg distally. He is actively moving the ankle, foot and the toes. - Urinary Catheter Management Coude Cath placed during this visit: yes Urethral indwelling: Yes Reason for continuing: Surgical procedure Insertion date: 01/02/18 Insertion time: 07:45 Marquez Cath placed during this visit: no Progress Note: A&P (1) Primary osteoarthritis of right knee Status: Acute Current Visit: Yes (2) S/P total knee replacement Status: Acute Current Visit: No (3) Ischemic dilated cardiomyopathy Status: Acute Current Visit: No (4) Atrial fibrillation Status: Chronic Current Visit: No (5) BPH (benign prostatic hyperplasia) Status: Chronic Current Visit: No (6) Coronary arteriosclerosis Status: Chronic Current Visit: No (7) Dementia Status: Chronic Current Visit: No (8) Hyperlipidemia Status: Chronic Current Visit: No (9) Hypertensive disorder Status: Chronic Current Visit: No (10) Hypothyroidism Status: Chronic Current Visit: No Assessment and Plan for All Diagnoses:: I reviewed the clinical findings and progress with the patient and his who is with him in the room. He is doing very well and started physical therapy this morning. Continue standard physical therapy and mobilization weightbearing as tolerated. Avoid placing a pillow behind the knee; use knee immobilizer when weightbearing and walking until he regains full quadriceps control and is able to actively straight leg raise. Continue DVT prophylaxis and as needed pain medication. Care management consult regarding discharge planning. Patient is keen to be discharged home with outpatient physical therapy. Patient is being seen by Dr. Bhakta for management of medical problems- medical management as per Dr. Bhakta.
--- NOTE | 2018-01-04 09:05 | Progress Note ---
Internal Medicine - PN: Subj *Date: 01/04/18 *Time: 09:01 Interval history: Patient feels nauseated this morning. He is ready to go home. Exam Vital signs and Labs for Last 24 Hours: Temp Pulse Resp BP Pulse Ox 98.0 F 76 18 151/83 H 93 L 01/04/18 08:00 01/04/18 08:43 01/04/18 08:00 01/04/18 08:00 01/04/18 08:00 I & O for Last 24 hours: Intake & Output 01/01/18 01/02/18 01/03/18 01/04/18 11:59 11:59 11:59 11:59 Intake Total 1750 / 1750 2952 / 2952 600 / 600 Output Total 3400 / 3400 1700 / 1700 Balance 1750 / 1750 -448 / -448 -1100 / -1100 Weight 237 lb 8 oz - Constitutional no acute distress - *Routine Respiratory Exam Present: CTA bilaterally - *Routine Cardiovascular Exam Present: RRR - *Routine Abdominal Exam Present: soft, normoactive bowel sounds. Absent: tenderness Assessment and Plan (1) Primary osteoarthritis of right knee Current visit: Yes Status: Acute Category: Medical Code(s): M17.11 - U nilateral primary osteoarthritis, right knee (2) S/P total knee replacement Current visit: No Status: Acute Qualifiers: Laterality: left Qualified Code(s): Z96.652 - Presence of left artificial knee joint Category: Surgical Code(s): Z96.659 - Presence of unspecified artificial knee joint (3) Ischemic dilated cardiomyopathy Current visit: No Status: Acute Category: Medical Code(s): I25.5 - Ischemic cardiomyopathy; I42.0 - Dilated cardiomyopathy (4) Atrial fibrillation Current visit: No Status: Chronic Qualifiers: Atrial fibrillation type: unspecified Qualified Code(s): I48.91 - Unspecified atrial fibrillation Category: Medical Code(s): I48.91 - Unspecified atrial fibrillation (5) BPH (benign prostatic hyperplasia) Current visit: No Status: Chronic Category: Medical Code(s): N40.0 - Benign prostatic hyperplasia without lower urinary tract symptoms (6) Coronary arteriosclerosis Current visit: No Status: Chronic Category: Medical Code(s): I25.10 - Atherosclerotic heart disease of [place] coronary artery without angina pectoris (7) Dementia Current visit: No Status: Chronic Category: Medical Code(s): F03.90 - Unspecified dementia without behavioral disturbance (8) Hyperlipidemia Current visit: No Status: Chronic Qualifiers: Hyperlipidemia type: other hyperlipidemia Category: Medical Code(s): E78.5 - Hyperlipidemia, unspecified (9) Hypertensive disorder Current visit: No Status: Chronic Qualifiers: Hypertension type: essential hypertension Qualified Code(s): I10 - Essential (primary) hypertension Category: Medical Code(s): I10 - Essential (primary) hypertension (10) Hypothyroidism Current visit: No Status: Chronic Category: Medical Code(s): E03.9 - Hypothyroidism, unspecified (11) Nausea Current visit: Yes Status: Acute Category: Medical Code(s): R11.0 - Nausea - Assessment and plan all Dx Assessment and Plan for all problems:: Patient OK for discharge from my standpoint. Patient will need Zofran to use at home. Rx provided.
--- NOTE | 2018-01-04 13:01 | Discharge Summary ---
General - General Admission date:: 01/02/18 Discharge date: 01/04/18 HPI HPI: Patient is a 67-year-old male with advanced degenerative joint disease of the right knee who is admitted to the hospital electively following an uncomplicated primary right total knee arthroplasty on 01/02/2018. He has not responded well to conservative options including NSAID, Tylenol, and intra-articular injections for his knee osteoarthritis. He is using assistive walking devices. Total knee arthroplasty is indicated to reduce the risk of falls, improve the pain, mobility and quality of life. The surgical and nonsurgical alternatives were discussed in detail with the patient as well as the risks and benefits of the surgery. He previously had a successful left total knee arthroplasty and is very pleased with the outcome. Hospital Course Hospital Course: Patient underwent an uncomplicated straightforward primary right total knee arthroplasty on 01/02/2018. Following surgery patient progressed well without any complications. His postoperative check x-ray was satisfactory with good alignment and fixation of the components. Postoperatively patient progressed rapidly with physical therapy and was able to mobilize using a walker. Dr. Bhakta was consulted for medical management and he has kindly provided his valuable input for the postoperative management. At the time of discharge he still has not regained good quadriceps control and was advised to mobilize with the knee immobilizer until he fully regains quadriceps control and is able to actively straight leg raise. His pain is well controlled with as needed oral medication. The dressings were changed on the second postoperative day before discharge and the wound is healthy and healing well. No signs of any erythema, induration or discharge. Patient has Silverlon dressing in place which can be left on for 7 days. Patient was on oral Xarelto before surgery and I have advised him to continue the same for postoperative DVT prophylaxis. His n eurovascular status in both lower extremities is intact. Pedal pulses 2+ bilaterally and fully sensate distally. No clinical evidence of DVT noted. Patient was cleared for discharge by physical therapy. The patient's vital signs have been stable throughout and he is afebrile at the time of discharge. Patient and family preferred not to have any home health or rehab placement. He wants to come to hospital physical therapy department as an outpatient for his rehab. He is being discharged home with self-care. Condition at discharge: improved and stable. Treatments and Procedures: Total knee arthroplasty, right knee; date of surgery 01/02/2018. Objective Vital signs: Temp Pulse Resp BP Pulse Ox 98.5 F 79 19 148/80 H 98 01/04/18 11:18 01/04/18 11:18 01/04/18 11:18 01/04/18 11:18 01/04/18 11:18 no acute distress, obese - *Routine HEENT Exam Head: Present: normocephalic, atraumatic Eye: Present: EOMI, PERRL ENT: Present: mucous membranes moist - *Routine Neck Exam Present: supple, trachea midline - *Routine Respiratory Exam Present: CTA bilaterally - *Routine Cardiovascular Exam Present: RRR, Normal S1, Normal S2 - *Routine Abdominal Exam Present: soft, normoactive bowel sounds. Absent: tenderness - *Routine Extremities Exam Comments: On examination of the right knee, dressings are clean, dry and intact. I have changed the dressings and the incision appears clean, dry and healthy. There is no erythema or discharge. There is diffuse swelling and tenderness over the knee joint as to be expected at this stage. Silverlon dressing is in place and can be left on for 7 days. Knee range of motion is 5-85 of flexion. Distal pulses are 2+. Capillary refill is brisk. Sensation is intact to light touch throughout. Thigh and calf are soft and non-tender. There is 1+ edema of the right leg, ankle and foot. Patient demonstrates good range of active foot and ankle movements. The quadriceps tendon is actively valeriano but patient is not able to actively straight leg raise. - *Routine Skin Exam Present: intact, warm, normal turgor - *Routine Neurological Exam Present: alert, oriented X3 - Routine Psychiatric Exam Present: normal affect, cooperative DS: Diagnosis - Discharge Diagnosis (1) Primary osteoarthritis of right knee Status: Acute (2) S/P total knee replacement Status: Acute (3) Ischemic dilated cardiomyopathy Status: Acute (4) Atrial fibrillation Status: Chronic (5) BPH (benign prostatic hyperplasia) Status: Chronic (6) Coronary arteriosclerosis Status: Chronic (7) Dementia Status: Chronic (8) Hyperlipidemia Status: Chronic (9) Hypertensive disorder Status: Chronic (10) Hypothyroidism Status: Chronic (11) Nausea Status: Acute Discharge Plan - Patient Discharge Instructions ACTIVITY: Continue current activity, Ambulate as tolerated DIET: continue same diet, advance to your usual diet Patient Instructions: How to Care for a Surgical Wound, DI for Knee Replacement, DI for Surgical Site Infection - Follow up Plan Follow up with: Magdi Estrada MD [Staff Physician] - 2 weeks Disposition: Home, Self-Intermediate Medications: Home Medications Medication Instructions Recorded Confirmed Type atorvastatin 40 mg tablet 40 mg PO HS 02/28/17 01/02/18 History carvedilol 12.5 mg tablet 12.5 mg PO BID 02/28/17 01/02/18 History isosorbide mononitrate ER 30 mg 30 mg PO DAILY 02/28/17 01/02/18 History tablet,extended release 24 hr meloxicam 15 mg tablet 15 mg PO HS 02/28/17 01/02/18 History rivaroxaban 20 mg tablet 20 mg PO DAILY 02/28/17 01/02/18 History cholecalciferol (vitamin D3) 5,000 5,000 unit PO HS 06/16/17 01/02/18 History unit capsule digoxin 250 mcg tablet 0.25 mg PO DAILY tab 10/27/17 01/02/18 History levothyroxine 150 mcg capsule 150 mcg PO DAILY 11/08/17 01/02/18 History Amiodarone HCl 200 mg PO DAILY 01/02/18 01/02/18 History Donepezil HCl [Aricept 5mg] 5 mg PO HS 01/02/18 01/02/18 History Irbesartan 150 mg PO DAILY 01/02/18 01/02/18 History Memantine HCl 10 mg PO BID 01/02/18 01/02/18 History Multivitamin [Multi-Day Vitamins] 1 each PO DAILY 01/02/18 01/02/18 History Spironolactone 25 mg PO Q48H 01/02/18 01/02/18 History Tamsulosin HCl [Flomax 0.4mg 0.4 mg PO HS 01/02/18 01/02/18 History capsule] Prescriptions/Medication Reconciliation: New Ondansetron HCl [Zofran 4mg Tab] 4 mg PO Q6HP PRN #20 tab PRN Reason: Nausea Hydrocod/Acet 5/325 mg [[place] 5/325mg tablet] 1 - 2 tab PO Q6HP PRN #60 tab PRN Reason: Moderate To Severe Pain Ferrous Sulfate [Ferrous Sulfate 325mg Tablet] 325 mg PO BID #120 tablet Docusate Sodium [Docusate Sodium 100mg Cap] 100 mg PO BIDP PRN #20 capsule PRN Reason: Constipation Continue rivaroxaban 20 mg tablet 20 mg PO DAILY isosorbide mononitrate ER 30 mg tablet,extended release 24 hr 30 mg PO DAILY atorvastatin 40 mg tablet 40 mg PO HS carvedilol 12.5 mg tablet 12.5 mg PO BID meloxicam 15 mg tablet 15 mg PO HS cholecalciferol (vitamin D3) 5,000 unit capsule 5,000 unit PO HS digoxin 250 mcg tablet 0.25 mg PO DAILY tab clopidogrel 75 mg tablet 75 mg PO HS #90 tab levothyroxine 150 mcg capsule 150 mcg PO DAILY Donepezil HCl [Aricept 5mg] 5 mg PO HS Multivitamin [Multi-Day Vitamins] 1 each PO DAILY Memantine HCl 10 mg PO BID Irbesartan 150 mg PO DAILY Amiodarone HCl 200 mg PO DAILY Spironolactone 25 mg PO Q48H Tamsulosin HCl [Flomax 0.4mg capsule] 0.4 mg PO HS Discontinued Acetaminophen/Diphenhydramine [Tylenol Pm Ex-Strength Caplet] 1,000 mg PO HS - Additional Information Additional Information: Our recommendations on discharge include physical therapy with weightbearing as tolerated and range of motion exercises of the right knee with emphasis on full extension and regaining flexion gradually. Patient will have outpatient physical therapy at [facility] rehab department. Note is made that the patient easily extends the knee to 0 degrees and flexes to 150 degrees while he was under anesthesia for the total knee arthroplasty with the wound closed. I have strongly advised him not to place any pillow behind the knee. But he can place a pillow under the ankle thus allowing gravity/weight of the leg help the knee into full extension. Patient was also advised to keep the leg elevated and ice the knee on a regular basis. At this stage it is permissible to take a shower and allow the incision to get wet with shower water. He has Silverlon dressing covering the incision and it can be left on for 7 days. He has absorbable sutures and Steri-Strips for skin closure which will be removed at the first postoperative follow-up in 12-14 days time. Patient will follow up with me in the office in approximately 12-14 days for wound check and removal of the Steri-Strips/cut suture ends. Patient was on Xarelto preoperatively and I recommend continuation of the same for DVT prophylaxis. Please feel free to call our office at [phone] or via the hospital aerosol line operator [phone] for any orthopaedic questions or concerns.
== END 2018-01-04 14:56 | disposition home or self-care (01) ==
LOC: OR 06:04 → 2ND 07:56
PROVIDERS: ADMIT Orthopaedic Surgery; ATTEND Orthopaedic Surgery
CPT/HCPCS: 36415; 73560; 80048; 81001; 85025; 96374; 97110; 97116; 97162; C1765; C1776; J2405

== ENCOUNTER → 2018-02-15 11:27 | Outpatient (CLI) | payer MEDICARE, OTHER, SELFPAY ==
--- NOTE | 2018-02-15 11:34 | XR_ITS ---
XR knee RT 2V HISTORY: Follow-up knee replacement ITS.REASON: status post RT tka ORDERING PHYSICIAN: Magdi Estrada MD PATIENT AGE: 67 years COMPARISON: 01/02/2018 FINDINGS: There has been a prior total knee arthroplasty with good alignment and no evidence of immediate complications.. The intra-articular gas has resolved since the previous exam. IMPRESSION: Good alignment status post total knee arthroplasty
== END ==
PROVIDERS: PCP Family Medicine; Visit Provider Orthopaedic Surgery
DX: Z09 Encounter for follow-up examination after completed treatment for conditions other than malignant neoplasm (principal); Z96.659 Presence of unspecified artificial knee joint
CPT/HCPCS: 73560

== ENCOUNTER 2018-02-17 08:00 | Outpatient (RCR) | payer MEDICARE, OTHER, SELFPAY ==
--- NOTE | 2018-01-06 09:47 | HMH.PTOPEV ---
PT Outpatient Evaluation Rehab PT Outpatient Evaluation Start: 01/06/18 08:47 Freq: Status: Active Protocol: Document 01/06/18 08:47 YADIRA (Rec: 01/06/18 09:47 NATAJASON [id number]) Electronically Signed By Adolfo David, PT 01/06/18 08:47 Outpatient Therapy Subjective History Subjective History Patient is a 67 year old male presenting to outpatient PT with reports of R post- surgical knee pain S/P R TKA on 01/02/18. Pt reports hx of chronic knee pain starting years ago. Hx of L TKA approx 6 months ago per patient report. Pt is currently living at home with his . Comorbidities include hx of hx of cardiovascular surgery, dementia, L TKA, LBP and high cholesterol. Chief Complaint Pain Stiff Swelling Weakness Symptom Type Other Symptoms Relieved By Rest/Positioning Symptoms Aggravated By Standing Physical Activity Walking Prior Functional Limitations None Current Functional Limitations Housework Standing Squatting Recreation Activity Walking Stairs Balance Bending/Stooping Symptom Description Constant but Variable Level of pain today (0-10) 5 Pain scale - at its best (0-10) 5 Pain scale - at its worst (0-10) 8 Hip/Knee Eval Gait Observation General Gait Pattern Observation Antalgic Gait Hips Posterior to JAYCOB Decrease Weight Bear (R) Assistive Device Assistive Devices Rolling / Wheeled Walker Palpation Tenderness right Knee Palpation Finding Tenderness Knee Palpation Overall Comment Medial jt line and surgical incision MMT Hip Flexion Strength Grade 4 Good Hip Abduction Strength Grade 4 Good Hip Adduction Strength Grade 4 Good Hip Extension Strength Grade 4 Good Knee Extension Strength Grade 3+ Fair+ Knee Flexion Strength Grade 4- Good- Knee Extensors Muscle Tone Description Mild Hypertonicity Knee Flexors Muscle Tone Description
== END 2018-02-17 08:05 | disposition home or self-care (01) ==
LOC: PT 08:00
PROVIDERS: Visit Provider Orthopaedic Surgery
DX: Z96.651 Presence of right artificial knee joint (principal)
CPT/HCPCS: 97010; 97014; 97016; 97110; 97140; 97163; 97760; G0283

== ENCOUNTER → 2018-03-15 09:33 | Outpatient (CLI) | payer MEDICARE, OTHER, SELFPAY | PROVIDERS: Visit Provider Specialist | DX: G47.33 Obstructive sleep apnea (adult) (pediatric) (principal); R41.3 Other amnesia | CPT/HCPCS: 94762 ==

== ENCOUNTER → 2018-04-20 17:27 | Outpatient (CLI) | payer MEDICARE, OTHER, SELFPAY | PROVIDERS: Visit Provider Podiatrist | DX: B35.1 Tinea unguium (principal) | CPT/HCPCS: 87102; 87206; 87220 ==

== ENCOUNTER → 2018-06-09 08:53 | Outpatient (CLI) | payer MEDICARE, OTHER, SELFPAY ==
--- NOTE | 2018-06-09 09:00 | XR_ITS ---
XR knee LT 2V HISTORY: ITS.REASON: sp LT TKA, dos 05/23/17 ORDERING PHYSICIAN: Magdi Estrada MD PATIENT AGE: 67 years COMPARISON: None FINDINGS: Good alignment status post total knee replacement. No orthopedic complication. IMPRESSION: Status post total knee replacement with good alignment
--- NOTE | 2018-06-09 09:00 | XR_ITS ---
XR knee RT 2V HISTORY: ITS.REASON: sp RT TKA, dos 01/02/18 ORDERING PHYSICIAN: Magdi Estrada MD PATIENT AGE: 67 years COMPARISON: 02/15/2018 FINDINGS: There is good alignment of the prosthesis. A transverse lucency is noted just deep to the transverse portion of the tibial component of the prosthesis at the lateral tibial plateau. There is also some cortical irregularity involving the medial aspect of the medial proximal tibia medially. These findings are questionable clinical significance. Tibial prosthesis loosening is a consideration. Follow-up recommended. IMPRESSION: Good alignment status post total knee replacement with a zone of lucency deep to the transverse aspect of the tibial component. Cannot exclude loosening. Follow-up suggested
[2018-06-09 11:07] LABS: Basophils % 0.4 % (0.1-2.0); Eosinophils # 0.2 K/mm3 (0.0-0.4); Eosinophils % 3.4 % (0.1-12.0); Hematocrit 37.5 % (42.0-52.0); Hemoglobin 12.5 g/dL (14.1-18.0); Lymphocytes # 1.1 K/mm3 (0.7-4.5); Lymphocytes % 20.3 % (10-50); Mean Corpuscular HGB Conc 33.3 g/dL (31.8-35.4); Mean Corpuscular Hemoglobin 29.4 pg (27.0-31.2); Mean Corpuscular Volume 88.1 fl (80-94); Mean Platelet Volume 9.3 fl (7.4-10.4); Monocytes # 0.3 K/mm3 (0.1-1.0); Monocytes % 5.7 % (1.7-9.3); Neutrophils % 70.2 % (37.0-80.0); Platelet Count 140 K/mm3 (142-424); Red Blood Count 4.25 M/mm3 (4.60-6.20); Red Cell Distribution Width 13.5 % (11.5-17.5); White Blood Count 5.6 K/mm3 (4.8-10.8)
[2018-06-09 11:51] LABS: C-Reactive Protein < 0.2 mg/L (0.0-0.9)
[2018-06-09 11:52] LABS: Erythrocyte Sedimentation Rate 10 mm/hr (0-20)
== END ==
PROVIDERS: PCP Family Medicine; Visit Provider Orthopaedic Surgery
DX: Z96.659 Presence of unspecified artificial knee joint (principal); M25.562 Pain in left knee; M25.561 Pain in right knee
CPT/HCPCS: 36415; 73560; 83520; 85025; 85651; 86140

== ENCOUNTER → 2018-06-09 10:39 | Outpatient (CLI) | payer MEDICARE, OTHER, SELFPAY | PROVIDERS: Visit Provider Orthopaedic Surgery | DX: Z96.659 Presence of unspecified artificial knee joint (principal) | CPT/HCPCS: 36415; 73560; 83520; 85025; 85651; 86140 ==

== ENCOUNTER → 2018-06-29 08:48 | Outpatient (CLI) | payer MEDICARE, OTHER, SELFPAY ==
--- NOTE | 2018-06-29 08:49 | NM_ITS ---
NM bone 3 phase CLINICAL INDICATION: ITS.REASON: Pain and swelling right knee. Prior knee replacement, indeterminate radiographic findings. ORDERING PHYSICIAN: Magdi Estrada MD PATIENT AGE: 67 years Comparison: 06/09/2018 DOSE: 25.7 mCi Tc MDP IV FINDINGS: Blood flow images show moderate increased blood flow to the right knee greater in the proximal tibial region. Blood flow images also show increased activity about the right knee more focal in the proximal tibial region. There are slight increased activity about the left knee. Patient has had prior left knee replacement as well. Delayed images demonstrate focal intense increased activity at the proximal tibia right with nonspecific increased activity about the knee prosthesis on both sides at the distal femur and to a lesser degree in the proximal left tibia IMPRESSION: Abnormal 3 phase bone scan with increased activity at the proximal right tibia at the knee joint on all 3 phases consistent with osteomyelitis/infected prosthesis
--- NOTE | 2018-06-29 09:46 | HMH.ITSHM ---
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 []RIVAROXABAN MEMANTINE MELOXICAM LEVOTHYROXINE ISOSORBIDE IRBESARTAN DIGOXIN CLOPIDOGREL VITAMIN D3 CARVEDILOL ATORVASTATIN TAMSULOSIN SPIRONOLACTONE MULTIVITAMIN FERROUS SULFATE DONEPEZIL DOCUSATE SODIUM AMIODARONE
== END ==
PROVIDERS: PCP Family Medicine; Visit Provider Orthopaedic Surgery
DX: T84.59XA Infection and inflammatory reaction due to other internal joint prosthesis, initial encounter (principal); Z96.651 Presence of right artificial knee joint
CPT/HCPCS: 78315; A9503

== ENCOUNTER → 2018-07-05 09:37 | Outpatient (CLI) | payer MEDICARE, OTHER, SELFPAY ==
[2018-07-05 10:00] LABS: Basophils % 0.5 % (0.1-2.0); Eosinophils # 0.2 K/mm3 (0.0-0.4); Eosinophils % 3.4 % (0.1-12.0); Hematocrit 35.9 % (42.0-52.0); Hemoglobin 11.8 g/dL (14.1-18.0); Lymphocytes # 0.8 K/mm3 (0.7-4.5); Lymphocytes % 15.1 % (10-50); Mean Corpuscular Volume 87.9 fl (80-94); Mean Platelet Volume 9.6 fl (7.4-10.4); Monocytes # 0.3 K/mm3 (0.1-1.0); Monocytes % 5.9 % (1.7-9.3); Neutrophils # 4.1 K/mm3 (1.8-7.8); Neutrophils % 75.2 % (37.0-80.0); Platelet Count 141 K/mm3 (142-424); Red Blood Count 4.08 M/mm3 (4.60-6.20); Red Cell Distribution Width 13.3 % (11.5-17.5); White Blood Count 5.4 K/mm3 (4.8-10.8)
[2018-07-05 10:26] LABS: C-Reactive Protein 1.5 mg/L (0.0-0.9)
[2018-07-05 10:31] LABS: Erythrocyte Sedimentation Rate 20 mm/hr (0-20)
--- NOTE | 2018-07-05 10:32 | XR_ITS ---
XR knee RT 3V HISTORY: Right knee pain, prior knee replacement ITS.REASON: knee pain ORDERING PHYSICIAN: Magdi Estrada MD PATIENT AGE: 67 years COMPARISON: 06/09/2018 FINDINGS: Status post total knee replacement. The zone of lucency is once again noted along the subcortical region of the tibial prosthesis along the tibial plateau medially and laterally this may be slightly more prominent than when compared to the previous study. Recent bone scan showed findings suggestive of prosthesis infection/osteomyelitis. The femoral component has an unremarkable appearance. IMPRESSION: Slight increase in the zone of lucency just deep to the platform of the tibial prosthesis consistent with underlying osteomyelitis
== END ==
PROVIDERS: Visit Provider Orthopaedic Surgery
DX: T84.59XA Infection and inflammatory reaction due to other internal joint prosthesis, initial encounter (principal); Z96.659 Presence of unspecified artificial knee joint
CPT/HCPCS: 36415; 73562; 85025; 85651; 86140

== ENCOUNTER → 2018-07-07 13:04 | Outpatient (CLI) | payer MEDICARE, OTHER, SELFPAY ==
--- NOTE | 2018-07-07 13:05 | CA_ITS ---
PROCEDURE: 2-D M-mode and color Doppler study INDICATIONS FOR THE TEST: Chest pain COPD Heart Murmur Tobacco Smoking Palpitations Fatigue Syncope Edema+ Hypertension+Diabetes Mellitus Rheumatic Fever SOB MOYER Obesity Hyperlipidemia+ Family History HD Additional History AFIB, CAD, STENT, CHF, EF 35/40 PATIENT INFORMATION HEIGHT: 72 WEIGHT:235 GENDER: Male B/P:122/68 2-D/M-MODE INTERPRETATION: 2-D MEASUREMENTS OBSERVED VALUES IN CMS Right Ventricular Dimension (RVDd) 3.5 Interventricular Septum (Thickness)(IVsd) 1.2 Left Ventricular Internal Dimensions(LVIDd) 5.7 Left Ventricular Posterior Wall (Thickness)(LVPWd) 1.4 Aortic Root 4.0 Aortic Cusp Separation 2.4 Left Atrial Dimensions (LAD) 5.4 2D 1. Left atrium is moderately enlarged, left ventricle is normal size, mild concentric left ventricular hypertrophy, visually estimated ejection fraction of 50% with no obvious regional wall motion abnormality, endocardial surfaces are very poorly visualized, repeat study with definitely contrast is recommended. 2. The right atrium and right ventricle are mildly enlarged with normal contractility. 3. The aortic valve is thickened and calcified, leaflet continue to display good mobility. 4. The mitral and tricuspid valve leaflets are minimally thickened. 5. The pulmonic valve is poorly present. 6. No significant pericardial effusion noted. DOPPLER INTERROGATION: Doppler interrogation of the aortic, mitral and tricuspid valvular presence of mild mitral and tricuspid regurgitation, tricuspid regurgitation jet velocity is inadequate for calculation of the right ventricular systolic pressure, grade 1 diastolic dysfunction seen without tissue Doppler evidence of raised left atrial pressure. CONCLUSION: 1. Technically difficult study because of the patient's factor and poor acoustic windows, repeat study with Definity contrast is recommended, endocardial surfaces are very poorly visualized. 2. Moderately enlarged left atrium, normal left ventricular size, mild concentric left ventricular hypertrophy, visually estimated ejection fraction 50% with no obvious regional wall motion abnormality, repeat study with Definity contrast is recommended. 3. Mildly enlarged right ventricle with normal contractility. 4. Mild mitral and tricuspid regurgitation, grade 1 diastolic dysfunction seen without tissue Doppler evidence of raised left atrial pressure. 5. No significant pericardial effusion noted.
--- NOTE | 2018-07-07 13:53 | XR_ITS ---
XR chest 2V HISTORY: ITS.REASON: afib monitoring ORDERING PHYSICIAN: Sana Villanueva APRN PATIENT AGE: 67 years COMPARISON: 09/29/2017 FINDINGS: The cardiomediastinal silhouette and pulmonary vascularity are within normal limits. The lungs are clear without infiltrates, suspicious nodules, or pleural effusions. No acute bony abnormalities. IMPRESSION: No change with no acute finding
== END ==
PROVIDERS: PCP Family Medicine; Visit Provider Nurse Practitioner Family
DX: I48.2 Chronic atrial fibrillation; I25.10 Atherosclerotic heart disease of native coronary artery without angina pectoris
CPT/HCPCS: 71046; 93306

== ENCOUNTER → 2018-07-10 08:45 | Outpatient (CLI) | payer MEDICARE, OTHER, SELFPAY ==
[2018-07-10 08:50] LABS: Microscopic, Urine URINE MICROSCOPIC (MICROSCOPIC)
[2018-07-10 09:10] LABS: Appearance,Urine CLEAR (Clear); Bilirubin,Urine Negative (Negative); Blood, Urine Negative (Negative); Color,Urine YELLOW (Yellow); Glucose,Urine (UA) Negative (Negative); Ketones,Urine Negative (Negative); Leukocyte Esterase,Urine Negative (Negative); Nitrate,Urine Negative (Negative); PH,Urine 6.5 (5.0-8.5); Protein,Urine Negative (Negative); Specific Gravity, Urine 1.015 (1.005-1.030); Urobilinogen,Urine 0.2 EU/dl (0.2)
[2018-07-10 09:18] LABS: INR 1.07 (0.9-1.1); Prothrombin Time 11.1 seconds (9.4-11.8)
[2018-07-10 09:22] LABS: Bacteria,Urine Trace /lpf; Squamous Epithelial Cell,Urine Occasional #/hpf (0-5); WBC,Urine Occasional #/hpf (0-3)
[2018-07-10 09:51] LABS: Alanine Aminotransferase 30 U/L (12-78); Albumin Level 3.5 gm/dL (3.4-5.0); Alkaline Phosphatase 112 U/L (46-116); Aspartate Amino Transferase 27 U/L (15-37); Bilirubin,Direct 0.2 mg/dL (0.0-0.2); Bilirubin,Indirect 0.5 mg/dL (0.0-0.9); Bilirubin,Total 0.7 mg/dL (0.2-1.0); Free T4 (Free Thyroxine) 1.31 ng/dl (0.76-1.46); Thyroid Stimulating Hormone 0.96 uIU/ml (0.358-3.740); Total Protein,Serum 6.2 gm/dL (6.4-8.2)
[2018-07-10 11:07] LABS: Alanine Aminotransferase 32 U/L (12-78); Albumin Level 3.5 gm/dL (3.4-5.0); Albumin/Globulin Ratio 1.3 (1.1-1.8); Alkaline Phosphatase 114 U/L (46-116); Anion Gap 12.2 mEq/L (5-15); Aspartate Amino Transferase 28 U/L (15-37); Bilirubin,Total 0.8 mg/dL (0.2-1.0); Blood Urea Nitrogen 15 mg/dL (7-18); Calcium 8.6 mg/dL (8.5-10.1); Carbon Dioxide 29 mmol/L (21.0-32.0); Chloride 105 mmol/L (98-107); Creatinine,Serum 1.07 mg/dL (0.70-1.30); Estimated Glomerular Filt Rate 69 ml/min (>60); GFR (African American) 83 ML/MIN (>60); Globulin 2.8 gm/dl (1.3-3.2); Glucose 103 mg/dL (74-106); Potassium 4.2 mmoL/L (3.5-5.1); Sodium 142 mmol/L (136-145); Total Protein,Serum 6.3 gm/dL (6.4-8.2)
== END ==
PROVIDERS: Nurse Practitioner Family; Visit Provider Orthopaedic Surgery
DX: I25.10 Atherosclerotic heart disease of native coronary artery without angina pectoris (principal); I48.2 Chronic atrial fibrillation; M86.9 Osteomyelitis, unspecified; T84.59XA Infection and inflammatory reaction due to other internal joint prosthesis, initial encounter; Z96.659 Presence of unspecified artificial knee joint; R00.1 Bradycardia, unspecified
CPT/HCPCS: 36415; 80053; 80076; 81001; 84439; 84443; 85610; 86850

== ENCOUNTER 2018-07-11 10:21 | Inpatient (IN) ==
[2018-07-11 11:21] LABS: Basophils % 0.3 % (0.1-2.0); Eosinophils # 0.1 K/mm3 (0.0-0.4); Eosinophils % 2.7 % (0.1-12.0); Hematocrit 36.1 % (42.0-52.0); Hemoglobin 12.4 g/dL (14.1-18.0); Lymphocytes # 0.9 K/mm3 (0.7-4.5); Lymphocytes % 18.2 % (10-50); Mean Corpuscular HGB Conc 34.3 g/dL (31.8-35.4); Mean Corpuscular Hemoglobin 29.6 pg (27.0-31.2); Mean Corpuscular Volume 86.3 fl (80-94); Mean Platelet Volume 9.4 fl (7.4-10.4); Monocytes # 0.3 K/mm3 (0.1-1.0); Neutrophils # 3.7 K/mm3 (1.8-7.8); Neutrophils % 72.8 % (37.0-80.0); Platelet Count 167 K/mm3 (142-424); Red Blood Count 4.18 M/mm3 (4.60-6.20); Red Cell Distribution Width 13.2 % (11.5-17.5); White Blood Count 5.1 K/mm3 (4.8-10.8)
[2018-07-11 11:38] LABS: Albumin Level 3.7 gm/dL (3.4-5.0); Albumin/Globulin Ratio 1.4 (1.1-1.8); Anion Gap 14.1 mEq/L (5-15); C-Reactive Protein 1.1 mg/L (0.0-0.9); Calcium 8.5 mg/dL (8.5-10.1); Globulin 2.6 gm/dl (1.3-3.2); Potassium 4.1 mmoL/L (3.5-5.1); Total Protein,Serum 6.3 gm/dL (6.4-8.2)
--- NOTE | 2018-07-11 12:46 | Progress Note ---
[facility] Anesthesia Checklist - Patient Identification Patient Identification: Arm Band, Verbal (Name & ) - Structural Data Admitted From: Home Planned Operative Procedure/s: Right total knee arthroplasty revision stage one Consent for Planned Operative Procedure(s) Verified: Yes Verified Documents: Surgical Consent, History and Physical, Cardiac Clearance - NPO Status Verified Time NPO: 00:00 - Chart Verification Results Verified: CBC, BMP, ECG - Additional verifications Anesthesia Reactions: No - Airway Assessment C-Spine Mobility Assessed: Yes TMJ Mobility Assessed: Yes Dentition: Good Dentition - Neurological Assessment Level of Consciousness: Awake, Alert, Appropriate, Follows Commands Hx Seizures: No Numbness or tingling in extremities: No - Anesthesia Plan Anesthesia Risk discussed: Yes Anesthesia Plan: Verified ASA Class: III Anesthesia Type: General (Femoral/sciatic nerve block, SAB) [facility] History I have reviewed the patient's past medical history: Yes Medical History: Reports:: Arrhythmia, Atrial Fibrillation, Congenital Heart Disease, Coronary Artery Disease, Hiatal Hernia, Hyperlipidemia, Hypertension, Myocardial Infarction Denies:: Cancer, Diabetes Mellitus Type 1, Diabetes Mellitus Type 2, Internal Pacemaker, Lung Disease, MRSA, Seizures *Have you ever received a pneumonia vaccine?: Yes *Have you received a flu vaccine this season?: Yes Other Medical History: Reports: Arthritis, Hypothyroidism, Other (obesity, BENNETT uses CPAP). Denies: Blood Transfusion Reaction Laterality Cases: Right: Total Knee Replacement, Bilateral: Arthroscopy Knee, Arthroscopy Shoulder Other Surgeries: Yes: Cardiac Catheterization, Colonoscopy, Hernia Repair, Other. No: Pacemaker Amputation: No Fractures: No - *Social History Smoking Status: Never smoker Tobacco Type: cigarettes Alcohol Intake: never Alcohol Intake Frequency:: other Substance Use Type: denies use *Occupational Status:: employed Housing: house Household Members: spouse *Travel in the last 8 weeks: None - Psychiatric History Expresses thoughts of harming self/others: None Suicide Plan Description: No Plan Family Hx:: Cancer, Coronary Artery Disease, Heart Attack
--- NOTE | 2018-07-11 20:10 | Progress Note ---
[facility] Anesthesia Record Part I Intake, IV Amount: 2,600 Estimated blood loss (mL): 300 Urine output (mL): 700 Blood Pressure: 118/72 SaO2: 95 Pulse Rate: 65 Respiratory Rate: 16 Temperature: 97.2 F Patient is:: Drowsy, Stable Stable to PACU at:: 20:00
--- NOTE | 2018-07-11 20:11 | Progress Note ---
[facility] Anesthesia Record Part II Discharge Time: 20:30 Destination: 2nd floor PACU nurse assessment reviewed?: Yes Patient Condition:: Good Anesthesia Complications:: None Swallowing reflex intact?: Yes Cyanosis?: No
--- NOTE | 2018-07-11 21:31 | Operative Note ---
Date of procedure: 07/13/18 Pre-op Diagnosis:: Periprosthetic joint infection, right knee Post-op Diagnosis:: Same Procedure performed:: Stage I revision total knee arthroplasty, right knee Surgeon:: Magdi Estrada MD Automotive Refinisher(s):: Dr. Kern COCONUT BOILER:: Brad Bryan Anesthesia: spinal, LMA Estimated blood loss (mL): 300 Clinical Note:: Patient is a 67-year-old male who had an uneventful primary right total knee arthroplasty on 01/02/2018. Following his right knee replacement, he did very well for the first 3 to 4 months and then gradually started having right knee pain mostly with weightbearing. I have performed a knee aspiration in the OR about 3 weeks ago and the cultures as well as Synovasure test for alpha defensin were negative. He noticed a little bit bit of improvement following aspiration of the knee. Subsequently he had an isotope bone scan which is suggestive of prosthetic joint infection/osteomyelitis. His laboratory work-up including CBC, ESR, CRP and IL-6 were all within normal limits. He rates his pain a 3-4 out of 10 at its worse. He states walking or standing for long periods of time aggr avates his pain. He has been limping when walking for the last couple of months. He feels well within himself and is eating and drinking well. No history of any fevers, chills or rigors. He also states sometimes his right knee feels warm to the touch. He has history of hypertension, hyperlipidemia, atrial fibrillation, ischemic cardiomyopathy, coronary artery disease, BPH and hypothyroidism. He is nondiabetic. He is on long-term anti-coagulation with Xarelto. He also takes clopidogrel. He previously had a left total knee arthroplasty and is doing very well from that. On examination of the right knee, the surgical incision has healed well. The skin is healthy, there is no erythema and no sinus tracts or subcutaneous fluid collection noted. There is minimal swelling around the right knee compared to the left. There is 1+ knee effusion. The right knee feels slightly warm compared to the left. There is mild tenderness over the medial joint line and over the proximal tibia; there is minimal tenderness over the lateral compartment on deep palpation; nontender over the patellofemoral compartment. Knee range of motion is 0 to 110 of flexion. Patient is able to actively stra ight leg raise. Knee joint is ligamentously stable. Thigh and calf are soft and nontender. Homans sign is negative. Dorsalis pedis and posterior tibial pulses 2+ distally. Sensation is intact to light touch throughout. Patient is actively mobilizing the ankle, foot and toes. He has full range of hip movements. Diagnostic imaging: Three-phase isotope bone scan performed at [facility] reviewed along with radiologist report. IMPRESSION: Abnormal 3 phase bone scan with increased activity at the proximal right tibia at the knee joint on all 3 phases consistent with osteomyelitis/infected prosthesis. Dictated By: Romel Rosales MD Signed By: 06/29/18 1087 Repeat x-rays of his right knee performed on 07/05/2018 reviewed along with radiologist report and compared with the previous imaging. COMPARISON: 06/09/2018 FINDINGS: Status post total knee replacement. The zone of lucency is once again noted along the subcortical region of the tibial prosthesis along the tibial plateau medially and laterally this may be slightly more prominent than when compared to the previous study. Recent bone scan showed findings suggestive of prosthesis infection/osteomyelitis. The femoral component has an unremarkable appearance. IMPRESSION: Slight increase in the zone of lucency just deep to the platform of the tibial prosthesis consistent with underlying osteomyelitis. Dictated By: Romel Rosales MD Signed By: 07/05/18 2088 Given the above findings and very high suspicion for a prosthetic joint infection with loose tibial component, patient elected to proceed with two-stage revision right total knee arthroplasty. Please refer to my office note for full details. Operative note:: On the day of the surgery the patient and his were seen in the preoperative area. I have again reviewed the clinical and imaging findings with the patient and his . I have discussed the diagnosis, natural history and management options in detail including both nonsurgical and surgical. Imaging findings are strongly suspicious for tibial loosening most likely secondary to ongoing infection. The x-ray findings have significantly worsened over the last 4 weeks or so. However, the cultures and Synovasure test as well as WBC count, ESR and and serum IL-6 have been negative. His CRP today slightly elevated at 1.5. I have also reviewed the images and other findings with my colleague Dr. Kern. Following a detailed discussion with the patient and his , they opted for stage I revision surgery for his right knee. I have offered to refer him to a tertiary center for this but both patient and his working that they prefer it to be done here at [facility]. I have discussed the details of the procedure, risks and benefits and alternatives in detail. I have told him that the first stage would involve removal of the prosthetic implants, debridement, obtaining samples for cultures and histopathology, placement of antibiotic impregnated cement spacers and 4 to 6 weeks course of IV antibiotics. Following this he would need a second stage revision surgery where reimplantation of definitive prosthesis will be performed. The complications discussed include but are not limited to infection, injury to nerves and blood vessels including injury to popliteal artery, injury to tendons and ligaments, DVT and PE, fat embolism, intraoperative fracture, limb length inequality, patella fracture, patellofemoral instability, quadriceps and patellar tendon rupture, periprosthetic femur and tibia fractures, stiffness(arthrofibrosis), limp, incomplete relief of pain, incomplete functional recovery, and the need for further surgery in future including multiple revision surgeries and anesthetic complications including heart attack, stroke and even . We discussed how any of these events can be devastating. We have discussed the nonsurgical alternatives as well. Patient understands and wishes to proceed with a RIGHT knee stage I revision arthroplasty for prosthetic joint infection. I believe that he is fully informed as to the risks, benefits, and alternatives including nonsurgical alternatives. We also discussed the postoperative course including the immobilization, rehab and physical therapy required and the need for prolonged IV antibiotics. He lives with family and is planning to go back home after surgery. Patient understood the risks, agreed to proceed with surgery, and no guarantees or assurances were given or implied. I have again reviewed his imaging with Dr. Rosales, radiologist. At this point, an incision was made over the anterior previous knee scar taking this down to the subcutaneous tissue of the overlying retinaculum. A medial parapatellar arthrotomy was then made by using a second knife and this was taken both distally and proximally to allow us to sublux the patella to the lateral aspect to allow exposure to the joint surface. There was noted to be extensive soft tissue edema and thickening. There was about 20 cc of bloodstained effusion without obvious evidence of purulence or gross clinical appearance of infection. A sample of the fluid was collected for culture and Gram stain. Mu ltiple intraoperative tissue cultures were also obtained at various points during the procedure. We have also obtained 2 tissue samples for frozen section biopsy. The one from the femur was negative for any acute inflammation but the tibial sample was positive for acute inflammation. Please refer to pathology report for full details. At this point, the tibial spacer was easily removed. The tibial tray was noted to be loose. However the patella and the femoral prosthesis were noted to be firmly fixed. I then proceeded to remove the femoral component using an oscillating saw with a small blade and a flexible osteotome. After releasing the prosthesis all around at cement bone interface the femoral component could be removed without any significant bone loss. The removal of the femoral component was somewhat difficult and took considerable amount of time. The patellar component was removed easily by cutting just under the patella button with an oscillating saw. Attention was then directed removing the femoral component. Osteotome was taken around each of the edges until this was gently lifted up and then a femoral extractor was placed around it and this was back flapped until this was easily removed. After this was performed, attention was then directed to the tibial component. The tibial component was noted to be loose. An osteotome was again inserted around the surface and this was easily pried loose. There was extensive inflammatory reaction and some metallosis under the tibial baseplate. The bone stalk appeared to be adequate The patient is then brought to the operating room and a spinal anesthesia was administered by the admissions clinician. The patient was then positioned supine on the operating table. All the bony prominences were appropriately padded. A well- padded tourniquet cuff was placed high over the right upper thigh. The right knee was prepped with isopropyl alcohol followed by chlorhexidine and draped in the usual sterile fashion. Prior to this, patient had used Hibiclens for a total of 5 days prior to the surgery and also used topical intranasal Bactroban. The entire operative team wore isolation suits and the Operating Room traffic was controlled. The skin incision was marked over the previous surgical incision for a medial parapatellar approach to the knee joint. The entire operative site was sealed off with Ioban drape. A preprocedure timeout was performed as per hospital protocol. At the start of the procedure no prophylactic antibiotics were given. 1 g of IV vancomycin and 2 g of IV Ancef were given after obtaining appropriate specimens for intraoperative cultures. Patient also received 1 g of IV tranexamic acid before wound closure to reduce the postoperative blood loss. The limb was elevated (not exsanguinated), the knee joint flexed beyond 90 and the tourniquet cuff was inflated to 325 mmHg. The tourniquet was deflated at about 2 hours into surgery and reinflated after 20 minutes. The tourniquet was again deflated prior to placing the definitive articulating cement spacers and antibiotic impregnated cement. Please see the nursing records for total tourniquet time. I then made a midline incision utilizing a #10 scalpel blade. Electrocautery was used to seal off subcutaneous vessels. The extensor mechanism was exposed, marked and a curvilinear incision made for a medial parapatellar approach using the scalpel blade. The patella was everted carefully and the fat pad resected enough to allow sufficient visualization of the proximal tibia. The anterior cruciate ligament and the anterior aspects of both menisci were resected. An appropriate medial release was performed with the knife and Elyssa elevator. A step drill was used to open the intramedullary canal and the IM distal femoral cutting jig was placed. The jig was pinned into position and the intramedullary khloe removed. The distal cut was made at 5 degrees of valgus and the sizing jig placed. This sized best at a size 7 femur for the [employer] system. We then placed the 4-in-1 cutting block in position in 3 degrees of external rotation. A cross pin was added for stabilizing the block and the mk wing utilized to ensure notching of the femur would not occur. The anterior cut was made followed by the posterior cut then the posterior chamfer and finally the anterior chamfer cuts in that order. Soft tissues were protected throughout this with careful retraction using the Z retractors. We checked for trueness of cuts and then moved on to the tibia. The tibial extra medullary guide was placed and aligned from the central aspect of the plateau between the spines down to the second metatarsal base. We pinned cutting block in position for minimal resection of the tibia from the medial side which was the lowermost side, checked the alignment, protected the soft tissues with appropriate retractors and resected with the [employer] saw. The resected tibial plateau articular surface was removed and sized it at a size 7. We ensured correctness of the cut and correct posterior slope. We then checked the extension and flexion gaps and found them to be equal and well balanced. We trialed the femur and the tibia with trial components and a trial insert and ranged the knee to ensure full flexion and extension and checked for ligamentous stability. We then everted the patella and reamed for a 32 mm central pegged button. We have lateralized the femur and medialized the patella intentionally. We placed trial components and noted that a 9 mm thick polyethylene to fit best. This gave us a ligamentously stable knee and allowed full extension. We allowed this to be free-floating and then checked it and made sure it was in appropriate position in relation to the tibial tubercle. We also used tibial alignment khloe to check for satisfactory position of the base plate and markings were made with electrocautery on the proximal tibia. We then elected to proceed with the box cut for a posterior stabilized femoral component. We placed the cutting jig for the box cut in the femur, drilled and then used the box osteotome to create the channel. We then trialed with the posterior stabilized polyethylene and found a size 9 to fit best. This gave us appropriate range of motion with proper ligamentous stability. We then removed the trial components and positioned and pinned the base plate to the top of the tibia and punched the groove for the V shaped stem. We used a small trocar tipped pin to drill holes into the subchondral sclerotic bone of the medial tibia to augment cement fixation. We then copiously irrigated with the normal saline pulse lavage, injected the bone with 1 g of Ancef, and then dried the cut surfaces. We then cemented the tibial tray, the femoral component, and placed a 9 mm trial insert and brought the knee into extension. We then cemented the patella button. We allowed the cement to set and then inspected the knee joint and removed excess cement with an osteotome. We then placed the 9 mi llimeters definitive polyethylene tibial insert ensuring that the dovetails fit appropriately and that the polyethylene was down and seated into the tibial tray properly. The knee joint was put through range of motion and noted the patella to be tracking appropriately with no thumb technique. Knee range of flexion noted to be 0-60. The tourniquet was deflated and hemostasis obtained with diathermy cautery. Another 1 gram of tranexamic acid was given intravenously by the admissions clinician at the time of deflating the tourniquet. The knee joint was again thoroughly irrigated with pulse lavage and good hemostasis was confirmed before proceeding with wound closure. The capsule/extensor mechanism was closed with #1 Vicryl [id number] sutures ensuring a watertight closure. Next, the subcutaneous tissue was closed with 2-0 Vicryl interrupted sutures. The skin was closed with 4-0 Monocryl running suture, Dermabond and Steri-Strips. Sterile dressings were applied consisting of Silverlon dressing, ABD, soft roll and secured in place with Iván wrap. The patient was then transferred from the operating table onto the bed. The tibialis posterior and dorsalis pedis pulses were noted 2+ with good capillary refill in the foot. The patient was then transported to the postoperative recovery area in a stable condition. Patient tolerated the procedure well and there were no immediate complications. The swab, needle and instrument counts were correct according to the scrub team at the end of the procedure. Portable x-rays of the right knee were obtained in the recovery area which showed the components to be well fixed in a satisfactory alignment and position without any complications. Postoperatively, institute and continue standard precautions and physical therapy and edema management for a standard primary total knee arthroplasty starting on postoperative day 1. Patient can be mobilized full weightbearing as tolerated. Implants: Remedy articulating spacer system- Tibial component-large Femoral component-large (the spacer system contained a total of 3.2 g of gentamicin together in both components) Industry medical billing representative: Alfredo Ashford ([facility]) In addition to the antibiotic impregnated cement, I have decided to place antibiotic beads as as well. The antibiotic beads were prepared on the back table by mixing 10 cc of osteo-boost with 2 g of vancomycin and 240 mg of gentamicin. The beats were placed all around the wound. Condition: stable Disposition: PACU Specimens:: Multiple fluid and tissue specimens (>7) for culture and sensitivity including aerobic, anaerobic, fungal and AFB cultures Tissue and fluid specimens for Gram stain and fungal stain Tissue specimens x2 for frozen section histopathology Complications:: None
--- NOTE | 2018-07-12 07:19 | Pharmacy Consult Notes ---
[facility] Pharmacy VTE Monitoring - Patient Demographics Admission date: 07/11/18 Report Date: 07/12/18 Time: 07:18 Allergies/Adverse Reactions: Patient Allergies lisinopril Allergy (Severe, Verified 07/11/18 10:50) [id number]/THROAT oxycodone Adverse Reaction (Unknown, Verified 07/11/18 10:50) SHAKING Height: 1.83 m Weight: 106.679 kg - VTE Risk Labs: VTE Related Lab Results Hgb 12.4 g/dL (14.1-18.0) L 07/11/18 10:55 Hct 36.1 % (42.0-52.0) L 07/11/18 10:55 Plt Count 167 K/mm3 (142-424) 07/11/18 10:55 BUN 16 mg/dL (7-18) 07/11/18 10:55 Creatinine 1.01 mg/dL (0.70-1.30) 07/11/18 10:55 Estimated Creat Clear 102 mL/min (50-200) 07/11/18 10:55 Was VTE Risk Assessment Performed: No VTE Score: 9 VTE Risk Level: Moderate Risk - Prophylaxis VTE Prophylaxis Ordered?: Yes Types of VTE Prophylaxis: IPCS Thigh High, Pharmacological Location of Applied Device: Left Leg Pharmacologic Type: Other (XARELTO) - VTE Diagnosis Confirmed Treatment or plan recommended: Continue Current Treatment
[2018-07-12 07:36] LABS: Basophils % 0.2 % (0.1-2.0); Eosinophils % 0.4 % (0.1-12.0); Hematocrit 33.4 % (42.0-52.0); Lymphocytes # 0.7 K/mm3 (0.7-4.5); Lymphocytes % 8.8 % (10-50); Mean Corpuscular Hemoglobin 28.8 pg (27.0-31.2); Mean Corpuscular Volume 92.9 fl (80-94); Mean Platelet Volume 9.3 fl (7.4-10.4); Monocytes # 0.4 K/mm3 (0.1-1.0); Monocytes % 4.9 % (1.7-9.3); Neutrophils # 6.8 K/mm3 (1.8-7.8); Neutrophils % 85.7 % (37.0-80.0); Platelet Count 164 K/mm3 (142-424); Red Cell Distribution Width 13.8 % (11.5-17.5); White Blood Count 7.9 K/mm3 (4.8-10.8)
[2018-07-12 07:39] LABS: Anion Gap 10.3 mEq/L (5-15); C-Reactive Protein 4.4 mg/L (0.0-0.9); Calcium 8.3 mg/dL (8.5-10.1); Potassium 4.3 mmoL/L (3.5-5.1)
[2018-07-12 07:55] LABS: Hemoglobin 10.5 g/dL (14.1-18.0)
--- NOTE | 2018-07-12 08:10 | Pharmacy Consult Notes ---
- Pharmacy Consult Date: 07/12/18 Time: 08:08 Referring provider: DR. DONATO Reason for Consult:: VANCOMYCIN DOSING Allergies and ADEs:: Allergies Allergy/AdvReac Type Severity Reaction Status Date / Time lisinopril Allergy Severe S-SWELLS-OR Verified 07/11/18 10:50 AL/THROAT oxycodone AdvReac Unknown SHAKING Verified 07/11/18 10:50 Home Medications:: Home Medications Medication Instructions Recorded Confirmed Type carvedilol 12.5 mg tablet 6.25 mg PO BID 02/28/17 07/12/18 History rivaroxaban 20 mg tablet 20 mg PO DAILY 02/28/17 07/11/18 History cholecalciferol (vitamin D3) 5,000 5,000 unit PO HS 06/16/17 07/11/18 History unit capsule digoxin 250 mcg tablet 0.25 mg PO DAILY tab 10/27/17 07/11/18 History levothyroxine 150 mcg capsule 150 mcg PO DAILY 11/08/17 07/11/18 History Amiodarone HCl 200 mg PO HS 01/02/18 07/12/18 History Multivitamin [Multi-Day Vitamins] 1 each PO DAILY 01/02/18 07/11/18 History Tamsulosin HCl [Flomax 0.4mg 0.4 mg PO HS 01/02/18 07/11/18 History capsule] Docusate Sodium [Docusate Sodium 100 mg PO BIDP PRN #20 cap 01/04/18 07/11/18 Rx 100mg Cap] clopidogrel 75 mg tablet 75 mg PO HS #90 tab 01/04/18 07/11/18 Rx isosorbide mononitrate ER 30 mg 30 mg PO DAILY #90 tab 02/02/18 07/11/18 Rx tablet,extended release 24 hr atorvastatin 40 mg tablet 40 mg PO HS #30 tab 03/06/18 07/11/18 Rx memantine 10 mg tablet 10 mg PO BID 30 Days #60 tab 03/06/18 07/11/18 Rx irbesartan 150 mg tablet 150 mg PO DAILY #90 tab 05/26/18 07/11/18 Rx Donepezil HCl [Aricept 10mg 10 mg PO HS 06/16/18 07/12/18 History tablet] Ferrous Sulfate [Ferrous Sulfate 325 mg PO BID 06/16/18 07/11/18 History 325mg Tablet] spironolactone 25 mg tablet 25 mg PO Q48H tab 07/06/18 07/12/18 History Enoxaparin Sodium [Lovenox 100 mg SQ Q12H 07/10/18 07/11/18 History 100mg/mL syringe] Meloxicam 15 mg PO DAILY 07/11/18 07/11/18 History Height: 1.83 m Weight: 106.679 kg Laboratory Results:: Laboratory Results - last 24 hr 07/11/18 10:55: WBC 5.1, RBC 4.18 L, Hgb 12.4 L, Hct 36.1 L, MCV 86.3, MCH 29.6, MCHC 34.3, RDW 13.2, Plt Count 167, MPV 9.4, Neut % (Auto) 72.8, Lymph % (Auto) 18.2, Hand % (Auto) 6.0, Eos % (Auto) 2.7, Baso % (Auto) 0.3, Neut # (Auto) 3.7, Lymph # (Auto) 0.9, Hand # (Auto) 0.3, Eos # (Auto) 0.1, Baso # (Auto) 0.0 07/11/18 10:55: ESR 19 07/11/18 10:55: Sodium 141, Potassium 4.1, Chloride 104, Carbon Dioxide 27, Anion Gap 14.1, BUN 16, Creatinine 1.01, Estimated Creat Clear 102, Estimated GFR 73, Est GFR ( Amer) 89, Glucose 96, Calcium 8.5, Total Bilirubin 1.0, AST 32, ALT 32, Alkaline Phosphatase 114, C-Reactive Protein 1.1 H, Total Protein 6.3 L, Albumin 3.7, Globulin 2.6, Albumin/Globulin Ratio 1.4 07/11/18 10:55: Blood Type Cancelled, Antibody Screen Cancelled 07/11/18 13:42: Urine Color Yellow, Urine Appearance Clear, Urine pH 7.0, Ur Specific [place] 1.010, Urine Protein Negative, Urine Glucose (UA) Negative, Urine Ketones Negative, Urine Blood Negative, Urine Nitrate Negative, Urine Bilirubin Negative, Urine Urobilinogen 0.2, Ur Leukocyte Esterase Negative, Urine Bacteria Occassional 07/12/18 07:12: WBC 7.9 D, RBC 3.60 L, Hgb 10.5 L D, Hct 33.4 L, MCV 92.9, MCH 28.8, MCHC 31.0 L, RDW 13.8, Plt Count 164, MPV 9.3, Neut % (Auto) 85.7 H, Lymph % (Auto) 8.8 L, Hand % (Auto) 4.9, Eos % (Auto) 0.4, Baso % (Auto) 0.2, Neut # (Auto) 6.8, Lymph # (Auto) 0.7, Hand # (Auto) 0.4, Eos # (Auto) 0.0, Baso # (Auto) 0.0 07/12/18 07:12: Sodium 138, Potassium 4.3, Chloride 103, Carbon Dioxide 29, Anion Gap 10.3, BUN 16, Creatinine 1.10, Estimated Creat Clear 97, Estimated GFR 67, Est GFR ( Amer) 81, Glucose 106, Calcium 8.3 L, C-Reactive Protein 4.4 H D Medical History: Reports:: Arrhythmia, Atrial Fibrillation, Congestive Heart Failure, Congenital Heart Disease, Coronary Artery Disease, Hiatal Hernia, Hyperlipidemia, Hypertension, Myocardial Infarction Denies:: Cancer, Diabetes Mellitus Type 1, Diabetes Mellitus Type 2, Internal Pacemaker, Lung Disease, MRSA, Seizures Assessment and Plan - Assessment and plan all Dx Assessment and Plan for all problems:: BASED ON PATIENT'S FACTORS, RECOMMEND CONTINUING WITH VANCOMYCIN 1500 MG Q12H AT THIS TIME. WILL OBTAIN VANCOMYCIN TROUGH LEVEL PRIOR TO NEXT DOSE VANCOMYCIN WAS USED IN SURGERY WELL GIVEN IV IN SURGERY. PHARMACY WILL FOLLOW DAILY AND ADJUST APPROPRIATE. GEOVANNY KHANNA, YUNGD
--- NOTE | 2018-07-12 08:28 | Progress Note ---
Internal Medicine - PN: Bailey *Date: 07/12/18 *Time: 08:24 Interval history: Consulted for medical management after surgery. Pt had removal of infected knee replacement hardware yesterday. He has done well overnight. Exam Vital signs and Labs for Last 24 Hours: Temp Pulse Resp BP Pulse Ox 98.7 F 72 18 105/61 L 96 07/12/18 04:00 07/12/18 08:23 07/12/18 04:00 07/12/18 04:00 07/12/18 07:49 Laboratory Results - last 24 hr 07/11/18 10:55: WBC 5.1, RBC 4.18 L, Hgb 12.4 L, Hct 36.1 L, MCV 86.3, MCH 29.6, MCHC 34.3, RDW 13.2, Plt Count 167, MPV 9.4, Neut % (Auto) 72.8, Lymph % (Auto) 18.2, Major % (Auto) 6.0, Eos % (Auto) 2.7, Baso % (Auto) 0.3, Neut # (Auto) 3.7, Lymph # (Auto) 0.9, Major # (Auto) 0.3, Eos # (Auto) 0.1, Baso # (Auto) 0.0 07/11/18 10:55: ESR 19 07/11/18 10:55: Sodium 141, Potassium 4.1, Chloride 104, Carbon Dioxide 27, Anion Gap 14.1, BUN 16, Creatinine 1.01, Estimated Creat Clear 102, Estimated GFR 73, Est GFR ( Amer) 89, Glucose 96, Calcium 8.5, Total Bilirubin 1.0, AST 32, ALT 32, Alkaline Phosphatase 114, C-Reactive Protein 1.1 H, Total Protein 6.3 L, Albumin 3.7, Globulin 2.6, Albumin/Globulin Ratio 1.4 07/11/18 10:55: Blood Type Cancelled, Antibody Screen Cancelled 07/11/18 13:42: Urine Color Yellow, Urine Appearance Clear, Urine pH 7.0, Ur Specific [place] 1.010, Urine Protein Negative, Urine Glucose (UA) Negative, Urine Ketones Negative, Urine Blood Negative, Urine Nitrate Negative, Urine Bilirubin Negative, Urine Urobilinogen 0.2, Ur Leukocyte Esterase Negative, Urine Bacteria Occassional 07/12/18 07:12: WBC 7.9 D, RBC 3.60 L, Hgb 10.5 L D, Hct 33.4 L, MCV 92.9, MCH 28.8, MCHC 31.0 L, RDW 13.8, Plt Count 164, MPV 9.3, Neut % (Auto) 85.7 H, Lymph % (Auto) 8.8 L, Major % (Auto) 4.9, Eos % (Auto) 0.4, Baso % (Auto) 0.2, Neut # (Auto) 6.8, Lymph # (Auto) 0.7, Major # (Auto) 0.4, Eos # (Auto) 0.0, Baso # (Auto) 0.0 07/12/18 07:12: Sodium 138, Potassium 4.3, Chloride 103, Carbon Dioxide 29, Anion Gap 10.3, BUN 16, Creatinine 1.10, Estimated Creat Clear 97, Estimated GFR 67, Est GFR ( Amer) 81, Glucose 106, Calcium 8.3 L, C-Reactive Protein 4.4 H D 07/12/18 07:12: ESR 22 H 07/12/18 07:12: Vancomycin Trough 14.7 I & O for Last 24 hours: Intake & Output 07/09/18 07/10/18 07/11/18 07/12/18 23:59 23:59 23:59 23:59 Intake Total 2600 / 2600 549 / 549 Output Total 720 / 720 Balance 2600 / 2600 -171 / -171 Weight 227 lb 233 lb 7 oz 235 lb 3 oz Microbiology Reports for the Last 24 Hours: Microbiology 07/11/18 16:42 Leg,Right Microbiology Comment - Final Not Reportable 07/11/18 16:42 Leg,Right Microbiology Comment - Final Not Reportable 07/11/18 16:42 Leg,Right - Final Not Reportable 07/11/18 16:42 Leg,Right - Final Not Reportable 07/11/18 16:42 Leg,Right - Final Not Reportable 07/11/18 16:42 Leg,Right - Final Not Reportable 07/11/18 16:42 Leg,Right - Final Not Reportable 07/11/18 16:42 Leg,Right - Final Not Reportable 07/11/18 16:42 Leg,Right AFB Susceptibility Moxifloxacin - Final Not Reportable 07/11/18 16:42 Leg,Right - Final Not Reportable 07/11/18 16:42 Leg,Right - Final Not Reportable 07/11/18 16:42 Leg,Right - Final Not Reportable 07/11/18 16:42 Leg,Right Microbiology Comment - Final Not Reportable 07/11/18 14:36 Synovial Fluid - Deep Gram Stain - Final - Constitutional no acute distress - *Routine HEENT Exam Head: Present: normocephalic Eye: Present: EOMI ENT: Present: mucous membranes moist - *Routine Neck Exam Present: supple. Absent: lymphadenopathy - *Routine Respiratory Exam Present: CTA bilaterally - *Routine Cardiovascular Exam Present: RRR - *Routine Abdominal Exam Present: soft, normoactive bowel sounds. Absent: tenderness - *Routine Extremities Exam Present: edema (minimal ederma of right leg). Absent: cyanosis, clubbing - *Routine Skin Exam Present: warm. Absent: rash - *Routine Neurological Exam Present: alert, oriented X3 Assessment and Plan (1) Infection of total right knee replacement Current visit: Yes Status: Acute Category: Medical Code(s): T84.53XA - Infection and inflammatory reaction due to internal right knee prosthesis, initial encounter (2) BPH (benign prostatic hyperplasia) Current visit: No Status: Chronic Category: Medical Code(s): N40.0 - Benign prostatic hyperplasia without lower urinary tract symptoms (3) Coronary arteriosclerosis Current visit: No Status: Chronic Category: Medical Code(s): I25.10 - Atherosclerotic heart disease of [place] coronary artery without angina pectoris (4) Dementia Current visit: No Status: Chronic Qualifiers: Dementia type: unspecified type Dementia behavioral disturbance: without behavioral disturbance Qualified Code(s): F03.90 - Unspecified dementia without behavioral disturbance Category: Medical Code(s): F03.90 - Unspecified dementia without behavioral disturbance (5) HHD (hypertensive heart disease) Current visit: No Status: Chronic Qualifiers: Heart failure presence: with heart failure Heart failure type: combined systolic and diastolic Heart failure chronicity: chronic Qualified Code(s): I11.0 - Hypertensive heart disease with heart failure; I50.42 - Chronic combined systolic (congestive) and diastolic (congestive) heart failure Category: Medical Code(s): I11.9 - Hypertensive heart disease without heart failure (6) Hyperlipidemia Current visit: No Status: Chronic Qualifiers: Hyperlipidemia type: mixed hyperlipidemia Qualified Code(s): E78.2 - Mixed hyperlipidemia Category: Medical Code(s): E78.5 - Hyperlipidemia, unspecified (7) Hypothyroidism Current visit: No Status: Chronic Category: Medical Code(s): E03.9 - Hypothyroidism, unspecified - Assessment and plan all Dx Assessment and Plan for all problems:: Continue routine post op care, cultures pending from surgery.
--- NOTE | 2018-07-12 09:07 | Progress Note ---
Subjective Date: 07/12/18 Time: 08:30 Principal diagnosis: Status post stage I revision TKA, right knee Interval history: Patient is status post stage I revision knee arthroplasty, right, postoperative day 1. Patient is lying down on the bed. Says he is doing well and reports very little pain. He says he had a fairly good night. No history of any nausea or vomiting. No history of any cough, chest pain, shortness of breath or palpitations. Patient says he is eating and drinking well. PN: Obj Ex Vital signs: Temp Pulse Resp BP Pulse Ox 97.7 F 72 18 104/61 L 98 07/12/18 08:00 07/12/18 08:23 07/12/18 08:00 07/12/18 08:00 07/12/18 08:00 Narrative: Laboratory Results - last 24 hr 07/11/18 10:55: WBC 5.1, RBC 4.18 L, Hgb 12.4 L, Hct 36.1 L, MCV 86.3, MCH 29.6, MCHC 34.3, RDW 13.2, Plt Count 167, MPV 9.4, Neut % (Auto) 72.8, Lymph % (Auto) 18.2, [place] % (Auto) 6.0, Eos % (Auto) 2.7, Baso % (Auto) 0.3, Neut # (Auto) 3.7, Lymph # (Auto) 0.9, [place] # (Auto) 0.3, Eos # (Auto) 0.1, Baso # (Auto) 0.0 07/11/18 10:55: ESR 07/11/18 10:55: Sodium 141, Potassium 4.1, Chloride 104, Carbon Dioxide 27, Anion Gap 14.1, BUN 16, Creatinine 1.01, Estimated Creat Clear 102, Estimated GFR 73, Est GFR ( Amer) 89, Glucose 96, Calcium 8.5, Total Bilirubin 1.0, AST 32, ALT 32, Alkaline Phosphatase 114, C-Reactive Protein 1.1 H, Total Protein 6.3 L, Albumin 3.7, Globulin 2.6, Albumin/Globulin Ratio 1.4 07/11/18 10:55: Blood Type Cancelled, Antibody Screen Cancelled 07/11/18 13:42: Urine Color Yellow, Urine Appearance Clear, Urine pH 7.0, Ur Specific [place] 1.010, Urine Protein Negative, Urine Glucose (UA) Negative, Urine Ketones Negative, Urine Blood Negative, Urine Nitrate Negative, Urine Bilirubin Negative, Urine Urobilinogen 0.2, Ur Leukocyte Esterase Negative, Urine Bacteria Occassional 07/12/18 07:12: WBC 7.9 D, RBC 3.60 L, Hgb 10.5 L D, Hct 33.4 L, MCV 92.9, MCH 28.8, MCHC 31.0 L, RDW 13.8, Plt Count 164, MPV 9.3, Neut % (Auto) 85.7 H, Lymph % (Auto) 8.8 L, [place] % (Auto) 4.9, Eos % (Auto) 0.4, Baso % (Auto) 0.2, Neut # (Auto) 6.8, Lymph # (Auto) 0.7, [place] # (Auto) 0.4, Eos # (Auto) 0.0, Baso # (Auto) 0.0 07/12/18 07:12: Sodium 138, Potassium 4.3, Chloride 103, Carbon Dioxide 29, Anion Gap 10.3, BUN 16, Creatinine 1.10, Estimated Creat Clear 97, Estimated GFR 67, Est GFR ( Amer) 81, Glucose 106, Calcium 8.3 L, C-Reactive Protein 4.4 H D 07/12/18 07:12: ESR 22 H 07/12/18 07:12: Vancomycin Trough 14.7 Microbiology 07/11/18 16:42 Microbiology Comment - Final Leg,Right Not Reportable 07/11/18 16:42 Microbiology Comment - Final Leg,Right Not Reportable - Final Not Reportable - Final Not Reportable - Final Not Reportable - Final Not Reportable - Final Not Reportable - Final Not Reportable AFB Susceptibility Moxifloxacin - Final Not Reportable - Final Not Reportable - Final Not Reportable - Final Not Reportable Microbiology Comment - Final Not Reportable 07/11/18 14:36 Gram Stain - Final Synovial Fluid - Deep Intake & Output 07/09/18 07/10/18 07/11/18 07/12/18 11:59 11:59 11:59 11:59 Intake Total 3629 / 3629 Output Total 720 / 720 Balance 2909 / 2909 Weight 227 lb 235 lb 3 oz General appearance: alert, active, awake Cardiovascular: regular rate & rhythm, normal peripheral pulses Respiratory: No respiratory distress noted, speaks in full sentences ABD: soft and non tender Neuro: alert, awake, oriented x 3 On examination of the lower extremities the limb lengths are equal. On examination of the right knee the dressings are clean, dry and intact. Calf is soft and nontender. Distal pulses are 2+. Capillary refill is brisk. Sensation is intact to light touch throughout. He is actively moving the ankle, foot and the toes. - Urinary Catheter Management Coude Cath placed during this visit: yes Urethral indwelling: Yes Reason for continuing: Surgical procedure Insertion date: 07/11/18 Insertion time: 13:42 Progress Note: A&P (1) Infection of total right knee replacement Status: Acute Current Visit: Yes (2) BPH (benign prostatic hyperplasia) Status: Chronic Current Visit: No (3) Coronary arteriosclerosis Status: Chronic Current Visit: No (4) Dementia Status: Chronic Current Visit: No (5) HHD (hypertensive heart disease) Status: Chronic Current Visit: No (6) Hyperlipidemia Status: Chronic Current Visit: No (7) Hypothyroidism Status: Chronic Current Visit: No Assessment and Plan for All Diagnoses:: I have reviewed the clinical/operative findings and procedure performed with the patient. I have discussed with Dr. Bhakta regarding postoperative management plan including the need for 6 weeks of IV antibiotics. I have also discussed with the physical therapist regarding postoperative rehab plan-recommended he continue knee brace with flexion limited to 0 to 60 degrees only, mobilize partial weightbearing with a walker and static quadriceps exercises. Advised patient to avoid placing pillow behind the knee; use knee range of motion brace when weightbearing and walking and mobilize partial weightbearing with the walker. Continue DVT prophylaxis and as needed pain medication. Continue IV vancomycin and Ancef until definitive culture results are available. Discontinue IV fluids as patient is eating and drinking well; discontinue the urinary catheter. Care management consult regarding discharge planning. Medical management as per Dr. Bhakta.
[2018-07-12 09:37] LABS: Lymphocytes % 9 % (10-50); Monocytes % 4 % (2-9); Neutrophils % 86 % (42-76); RBC Morphology Normal; Total Cells Counted 100
--- NOTE | 2018-07-13 08:52 | Progress Note ---
Internal Medicine - PN: Subj *Date: 07/13/18 *Time: 08:50 Interval history: Patient with no new complaints today. Exam Vital signs and Labs for Last 24 Hours: Temp Pulse Resp BP Pulse Ox 98.3 F 75 18 110/66 96 07/13/18 07:47 07/13/18 08:37 07/13/18 07:47 07/13/18 07:47 07/13/18 07:47 Laboratory Results - last 24 hr 07/12/18 07:12: Total Counted 100, Neutrophils % (Manual) 86 H, Band Neutrophils % 1.0, Lymphocytes % (Manual) 9 L, Monocytes % (Manual) 4, Platelet Estimate Normal, RBC Morphology Normal 07/12/18 07:12: Random Tobramycin 2.9 I & O for Last 24 hours: Intake & Output 07/10/18 07/11/18 07/12/18 07/13/18 23:59 23:59 23:59 23:59 Intake Total 2600 / 2600 1988 / 1988 2615 / 2615 Output Total 2520 / 2520 1900 / 1900 Balance 2600 / 2600 -531 / -531 715 / 715 Weight 227 lb 233 lb 7 oz 235 lb 3 oz 236 lb Microbiology Reports for the Last 24 Hours: Microbiology 07/11/18 16:42 Knee,Right - Right Gram Stain - Final 07/11/18 16:42 Knee,Right - Right Surgical Biopsy Culture - Preliminary NO GROWTH AFTER 24 HOURS 07/11/18 16:42 Knee,Right - Right Gram Stain - Final 07/11/18 16:42 Knee,Right - Right Wound Culture - Preliminary NO GROWTH AFTER 24 HOURS 07/11/18 16:42 Knee,Right - Right Gram Stain - Final 07/11/18 16:42 Knee,Right - Right Wound Culture - Preliminary NO GROWTH AFTER 24 HOURS 07/11/18 16:42 Knee,Right - Right Gram Stain - Final 07/11/18 16:42 Knee,Right - Right Surgical Biopsy Culture - Preliminary NO GROWTH AFTER 24 HOURS 07/11/18 16:42 Knee,Right - Right Gram Stain - Final 07/11/18 16:42 Knee,Right - Right Surgical Biopsy Culture - Preliminary NO GROWTH AFTER 24 HOURS 07/11/18 16:50 Knee,Right Gram Stain - Final 07/11/18 14:36 Leg,Right - Deep Gram Stain - Final 07/11/18 14:36 Leg,Right - Deep Surgical Biopsy Culture - Preliminary NO GROWTH AFTER 24 HOURS 07/11/18 14:36 Knee,Right - Deep Gram Stain - Final 07/11/18 14:36 Knee,Right - Deep Surgical Biopsy Culture - Preliminary NO GROWTH AFTER 24 HOURS 07/11/18 14:36 Synovial Fluid - Deep Gram Stain - Final 07/11/18 14:36 Synovial Fluid - Deep Body Fluid Culture - Preliminary NO GROWTH AFTER 24 HOURS - Constitutional no acute distress - *Routine HEENT Exam Head: Present: normocephalic Eye: Present: EOMI ENT: Present: mucous membranes moist - *Routine Neck Exam Present: supple. Absent: lymphadenopathy - *Routine Respiratory Exam Present: CTA bilaterally - *Routine Cardiovascular Exam Present: RRR - *Routine Abdominal Exam Present: soft, normoactive bowel sounds. Absent: tenderness - *Routine Extremities Exam Present: edema (in right leg), pulses intact. Absent: cyanosis, clubbing - *Routine Skin Exam Present: warm. Absent: rash - *Routine Neurological Exam Present: alert, oriented X3 Assessment and Plan (1) Infection of total right knee replacement Current visit: Yes Status: Acute Category: Medical Code(s): T84.53XA - Infection and inflammatory reaction due to internal right knee prosthesis, initial encounter (2) BPH (benign prostatic hyperplasia) Current visit: No Status: Chronic Category: Medical Code(s): N40.0 - Benign prostatic hyperplasia without lower urinary tract symptoms (3) Coronary arteriosclerosis Current visit: No Status: Chronic Category: Medical Code(s): I25.10 - Atherosclerotic heart disease of [place] coronary artery without angina pectoris (4) Dementia Current visit: No Status: Chronic Qualifiers: Dementia type: unspecified type Dementia behavioral disturbance: without behavioral disturbance Qualified Code(s): F03.90 - Unspecified dementia without behavioral disturbance Category: Medical Code(s): F03.90 - Unspecified dementia without behavioral disturbance (5) HHD (hypertensive heart disease) Current visit: No Status: Chronic Qualifiers: Heart failure presence: with heart failure Heart failure type: combined systolic and diastolic Heart failure chronicity: chronic Qualified Code(s): I11.0 - Hypertensive heart disease with heart failure; I50.42 - Chronic combined systolic (congestive) and diastolic (congestive) heart failure Category: Medical Code(s): I11.9 - Hypertensive heart disease without heart failure (6) Hyperlipidemia Current visit: No Status: Chronic Qualifiers: Hyperlipidemia type: mixed hyperlipidemia Qualified Code(s): E78.2 - Mixed hyperlipidemia Category: Medical Code(s): E78.5 - Hyperlipidemia, unspecified (7) Hypothyroidism Current visit: No Status: Chronic Category: Medical Code(s): E03.9 - Hypothyroidism, unspecified - Assessment and plan all Dx Assessment and Plan for all problems:: Continue routine post op care, cultures all pending, will request PICC line placement today.
--- NOTE | 2018-07-13 10:24 | Pharmacy Consult Notes ---
- Pharmacy Consult Date: 07/13/18 Time: 10:29 Referring provider: DR. DONATO Reason for Consult:: VANCOMYCIN TROUGH LEVEL Allergies and ADEs:: Allergies Allergy/AdvReac Type Severity Reaction Status Date / Time lisinopril Allergy Severe S-SWELLS-OR Verified 07/11/18 10:50 AL/THROAT oxycodone AdvReac Unknown SHAKING Verified 07/11/18 10:50 Home Medications:: Home Medications Medication Instructions Recorded Confirmed Type carvedilol 12.5 mg tablet 6.25 mg PO BID 02/28/17 07/12/18 History rivaroxaban 20 mg tablet 20 mg PO DAILY 02/28/17 07/11/18 History cholecalciferol (vitamin D3) 5,000 5,000 unit PO HS 06/16/17 07/11/18 History unit capsule digoxin 250 mcg tablet 0.25 mg PO DAILY tab 10/27/17 07/11/18 History levothyroxine 150 mcg capsule 150 mcg PO DAILY 11/08/17 07/11/18 History Amiodarone HCl 200 mg PO HS 01/02/18 07/12/18 History Multivitamin [Multi-Day Vitamins] 1 each PO DAILY 01/02/18 07/11/18 History Tamsulosin HCl [Flomax 0.4mg 0.4 mg PO HS 01/02/18 07/11/18 History capsule] Docusate Sodium [Docusate Sodium 100 mg PO BIDP PRN #20 cap 01/04/18 07/11/18 Rx 100mg Cap] clopidogrel 75 mg tablet 75 mg PO HS #90 tab 01/04/18 07/11/18 Rx isosorbide mononitrate ER 30 mg 30 mg PO DAILY #90 tab 02/02/18 07/11/18 Rx tablet,extended release 24 hr atorvastatin 40 mg tablet 40 mg PO HS #30 tab 03/06/18 07/11/18 Rx memantine 10 mg tablet 10 mg PO BID 30 Days #60 tab 03/06/18 07/11/18 Rx irbesartan 150 mg tablet 150 mg PO DAILY #90 tab 05/26/18 07/11/18 Rx Donepezil HCl [Aricept 10mg 10 mg PO HS 06/16/18 07/12/18 History tablet] Ferrous Sulfate [Ferrous Sulfate 325 mg PO BID 06/16/18 07/11/18 History 325mg Tablet] spironolactone 25 mg tablet 25 mg PO Q48H tab 07/06/18 07/12/18 History Enoxaparin Sodium [Lovenox 100 mg SQ Q12H 07/10/18 07/11/18 History 100mg/mL syringe] Meloxicam 15 mg PO DAILY 07/11/18 07/11/18 History Height: 1.83 m Weight: 107.048 kg Laboratory Results:: Laboratory Results - last 24 hr 07/13/18 08:40: Random Tobramycin 0.8 07/13/18 08:40: Sodium 140, Potassium 4.0, Chloride 105, Carbon Dioxide 30, Anion Gap 9.0, BUN 10 D, Creatinine 1.05, Estimated Creat Clear 102, Estimated GFR 70, Est GFR ( Amer) 85, Glucose 139 H, Calcium 8.0 L 07/13/18 08:40: Vancomycin Trough 13.4 Medical History: Reports:: Arrhythmia, Atrial Fibrillation, Congestive Heart Failure, Congenital Heart Disease, Coronary Artery Disease, Hiatal Hernia, Hyperlipidemia, Hypertension, Myocardial Infarction Denies:: Cancer, Diabetes Mellitus Type 1, Diabetes Mellitus Type 2, Internal Pacemaker, Lung Disease, MRSA, Seizures Assessment and Plan (1) Infection of total right knee replacement Current visit: Yes Status: Acute Category: Medical Code(s): T84.53XA - Infection and inflammatory reaction due to internal right knee prosthesis, in itial encounter (2) BPH (benign prostatic hyperplasia) Current visit: No Status: Chronic Category: Medical Code(s): N40.0 - Benign prostatic hyperplasia without lower urinary tract symptoms (3) Coronary arteriosclerosis Current visit: No Status: Chronic Category: Medical Code(s): I25.10 - Atherosclerotic heart disease of [place] coronary artery without angina pectoris (4) Dementia Current visit: No Status: Chronic Qualifiers: Dementia type: unspecified type Dementia behavioral disturbance: without behavioral disturbance Qualified Code(s): F03.90 - Unspecified dementia without behavioral disturbance Category: Medical Code(s): F03.90 - Unspecified dementia without behavioral disturbance (5) HHD (hypertensive heart disease) Current visit: No Status: Chronic Qualifiers: Heart failure presence: with heart failure Heart failure type: combined systolic and diastolic Heart failure chronicity: chronic Qualified Code(s): I11.0 - Hypertensive heart disease with heart failure; I50.42 - Chronic combined systolic (congestive) and diastolic (congestive) heart failure Category: Medical Code(s): I11.9 - Hypertensive heart disease without heart failure (6) Hyperlipidemia Current visit: No Status: Chronic Qualifiers: Hyperlipidemia type: mixed hyperlipidemia Qualified Code(s): E78.2 - Mixed hyperlipidemia Category: Medical Code(s): E78.5 - Hyperlipidemia, unspecified (7) Hypothyroidism Current visit: No Status: Chronic Category: Medical Code(s): E03.9 - Hypothyroidism, unspecified - Assessment and plan all Dx Assessment and Plan for all problems:: BASED ON PATIENT FACTORS AND VANCOMYCIN TROUGH LEVEL, RECOMMEND CONTINUING VANCOMYCIN 1500 MG IV Q12H. PHARMACY WILL CONTINUE TO MONITOR DAILY AND ADJUST APPROPRIATE.
--- NOTE | 2018-07-13 14:47 | Progress Note ---
Subjective Date: 07/13/18 Time: 14:30 Principal diagnosis: Status post stage I revision TKA, right knee Interval history: Patient is status post stage I revision knee arthroplasty, right, postoperative day 2. Patient is lying down on the bed. Says he is doing well and reports very little pain. He says he started mobilizing with physical therapy with the range of motion knee brace using a walker. No history of any nausea or vomiting. No history of any cough, chest pain, shortness of breath or palpitations. Patient says he is eating and drinking well. He had a PICC line placed today in his left arm. PN: Obj Ex Vital signs: Temp Pulse Resp BP Pulse Ox 98.3 F 75 18 110/66 96 07/13/18 07:47 07/13/18 08:37 07/13/18 08:00 07/13/18 07:47 07/13/18 08:00 Narrative: Laboratory Results - last 24 hr 07/13/18 08:40: Random Tobramycin 0.8 07/13/18 08:40: Sodium 140, Potassium 4.0, Chloride 105, Carbon Dioxide 30, Anion Gap 9.0, BUN 10 D, Creatinine 1.05, Estimated Creat Clear 102, Estimated GFR 70, Est GFR ( Amer) 85, Glucose 139 H, Calcium 8.0 L 07/13/18 08:40: Vancomycin Trough 13.4 Microbiology 07/11/18 16:42 Leg,Right - Final 07/11/18 16:42 Leg,Right Acid Fast Bacilli Smear - Final 07/11/18 16:42 Knee,Right - Right - Final 07/11/18 16:42 Knee,Right - Right Acid Fast Bacilli Smear - Final 07/11/18 16:42 Leg,Right - Final 07/11/18 16:42 Leg,Right Acid Fast Bacilli Smear - Final 07/11/18 16:42 Knee,Right - Right Gram Stain - Final 07/11/18 16:42 Knee,Right - Right Surgical Biopsy Culture - Preliminary NO GROWTH AFTER 24 HOURS 07/11/18 16:42 Knee,Right - Right Gram Stain - Final 07/11/18 16:42 Knee,Right - Right Wound Culture - Preliminary NO GROWTH AFTER 24 HOURS 07/11/18 16:42 Knee,Right - Right Gram Stain - Final 07/11/18 16:42 Knee,Right - Right Wound Culture - Preliminary NO GROWTH AFTER 24 HOURS 07/11/18 16:42 Knee,Right - Right Gram Stain - Final 07/11/18 16:42 Knee,Right - Right Surgical Biopsy Culture - Preliminary NO GROWTH AFTER 24 HOURS 07/11/18 16:42 Knee,Right - Right Gram Stain - Final 07/11/18 16:42 Knee,Right - Right Surgical Biopsy Culture - Preliminary NO GROWTH AFTER 24 HOURS 07/11/18 16:50 Knee,Right Gram Stain - Final 07/11/18 14:36 Leg,Right - Deep Gram Stain - Final 07/11/18 14:36 Leg,Right - Deep Surgical Biopsy Culture - Preliminary NO GROWTH AFTER 24 HOURS 07/11/18 14:36 Knee,Right - Deep Gram Stain - Final 07/11/18 14:36 Knee,Right - Deep Surgical Biopsy Culture - Preliminary NO GROWTH AFTER 24 HOURS 07/11/18 14:36 Synovial Fluid - Deep Gram Stain - Final 07/11/18 14:36 Synovial Fluid - Deep Body Fluid Culture - Preliminary NO GROWTH AFTER 24 HOURS Intake & Output 07/11/18 07/12/18 07/13/18 07/14/18 11:59 11:59 11:59 11:59 Intake Total 3629 / 3629 3575 / 3575 Output Total 1320 / 1320 3100 / 3100 Balance 2309 / 2309 475 / 475 Weight 227 lb 235 lb 3 oz 236 lb Exam: General appearance: alert, active, awake Cardiovascular: regular rate & rhythm, normal peripheral pulses Respiratory: No respiratory distress noted, speaks in full sentences ABD: soft and non tender Neuro: alert, awake, oriented x 3 On examination of the lower extremities the limb lengths are equal. On examination of the right knee the dressings are clean, dry and intact. I have changed surgical dressings and the wound is clean, dry and healthy. There is minimal blood staining of the surgical dressings. No active discharge, erythema or skin blistering noted. Sterile dressings and compression bandage were re- applied. Calf is soft and nontender. Distal pulses are 2+. Capillary refill is brisk. Sensation is intact to light touch throughout. He is actively moving the ankle, foot and the toes. He is able to actively straight leg raise. - Urinary Catheter Management Coude Cath placed during this visit: yes Urethral indwelling: Yes Reason for continuing: Surgical procedure Insertion date: 07/11/18 Insertion time: 13:42 Progress Note: A&P (1) Infection of total right knee replacement Status: Acute Current Visit: Yes (2) BPH (benign prostatic hyperplasia) Status: Chronic Current Visit: No (3) Coronary arteriosclerosis Status: Chronic Current Visit: No (4) Dementia Status: Chronic Current Visit: No (5) HHD (hypertensive heart disease) Status: Chronic Current Visit: No (6) Hyperlipidemia Status: Chronic Current Visit: No (7) Hypothyroidism Status: Chronic Current Visit: No Assessment and Plan for All Diagnoses:: I have reviewed the clinical findings and progress with the patient. He is doing fairly well and reports minimal pain in the knee. He says he has been mobilizing partial weightbearing with a walker and range of motion knee brace. Recommended continuation of knee brace with flexion limited to 0 to 60 degrees only, mobilize partial weightbearing with a walker and static quadriceps exercises. Advised patient to avoid placing pillow behind the knee. Continue DVT prophylaxis and as needed pain medication. Continue IV vancomycin and Ancef until definitive culture results are available. Even if the pulmonary cultures are negative, I would like him to be on a combination of vancomycin and a third- generation cephalosporin. Continue medical management as per Dr. Bhakta. I am going to be out of town tomorrow and over the weekend. My colleague, Dr. Kern has kindly agreed to continue to care for the patient from an orthopedic standpoint. Patient can be potentially discharged home tomorrow and I would like to see him for follow-up in the office early next week. I am still available on my cell phone for any pertinent questions. Patient and his are aware of this.
[2018-07-14 07:09] LABS: Basophils % 0.2 % (0.1-2.0); Eosinophils # 0.1 K/mm3 (0.0-0.4); Eosinophils % 1.9 % (0.1-12.0); Hematocrit 27.7 % (42.0-52.0); Hemoglobin 8.8 g/dL (14.1-18.0); Lymphocytes # 0.7 K/mm3 (0.7-4.5); Lymphocytes % 11.3 % (10-50); Mean Corpuscular HGB Conc 31.8 g/dL (31.8-35.4); Mean Corpuscular Hemoglobin 27.7 pg (27.0-31.2); Mean Corpuscular Volume 87.1 fl (80-94); Mean Platelet Volume 8.8 fl (7.4-10.4); Monocytes # 0.5 K/mm3 (0.1-1.0); Monocytes % 7.4 % (1.7-9.3); Neutrophils # 5.1 K/mm3 (1.8-7.8); Neutrophils % 79.2 % (37.0-80.0); Platelet Count 127 K/mm3 (142-424); Red Blood Count 3.18 M/mm3 (4.60-6.20); Red Cell Distribution Width 13.6 % (11.5-17.5); White Blood Count 6.5 K/mm3 (4.8-10.8)
[2018-07-14 07:19] LABS: Anion Gap 11.7 mEq/L (5-15); Calcium 8.3 mg/dL (8.5-10.1); Potassium 3.7 mmoL/L (3.5-5.1)
[2018-07-14 07:42] LABS: C-Reactive Protein 15.5 mg/L (0.0-0.9)
--- NOTE | 2018-07-14 08:07 | Progress Note ---
Internal Medicine - PN: Subj *Date: 07/14/18 *Time: 08:01 Interval history: Patient with no new complaints today, doing well, anxious to go home. PICC line was placed yesterday. Exam Vital signs and Labs for Last 24 Hours: Temp Pulse Resp BP Pulse Ox 98.9 F 66 16 131/61 95 07/14/18 04:00 07/14/18 04:00 07/14/18 04:00 07/14/18 04:00 07/14/18 04:00 Laboratory Results - last 24 hr 07/13/18 08:40: Random Tobramycin 0.8 07/13/18 08:40: Sodium 140, Potassium 4.0, Chloride 105, Carbon Dioxide 30, Anion Gap 9.0, BUN 10 D, Creatinine 1.05, Estimated Creat Clear 102, Estimated GFR 70, Est GFR ( Amer) 85, Glucose 139 H, Calcium 8.0 L 07/13/18 08:40: Vancomycin Trough 13.4 07/14/18 06:55: WBC 6.5, RBC 3.18 L, Hgb 8.8 L, Hct 27.7 L, MCV 87.1, MCH 27.7, MCHC 31.8, RDW 13.6, Plt Count 127 L, MPV 8.8, Neut % (Auto) 79.2, Lymph % (Auto) 11.3, Walker % (Auto) 7.4, Eos % (Auto) 1.9, Baso % (Auto) 0.2, Neut # (Auto) 5.1, Lymph # (Auto) 0.7, Walker # (Auto) 0.5, Eos # (Auto) 0.1, Baso # (Auto) 0.0 07/14/18 06:55: Sodium 141, Potassium 3.7, Chloride 104, Carbon Dioxide 29, Anion Gap 11.7, BUN 9, Creatinine 0.89, Estimated Creat Clear 109, Estimated GFR 85, Est GFR ( Amer) 103 D, Glucose 107 H D, Calcium 8.3 L, C-Reactive Protein 15.5 H D Vital Signs - 24 hr 07/13/18 08:37 07/13/18 16:00 07/13/18 20:00 Temperature 99.4 F 98.9 F Pulse Rate 75 Pulse Rate [Right Brachial] 80 77 Respiratory Rate 18 16 Blood Pressure [Right Arm] 126/59 L 110/57 L 02 Sat by Pulse Oximetry 96 91 L 07/14/18 04:00 07/14/18 07:59 Temperature 98.9 F 98.0 F Pulse Rate Pulse Rate [Right Brachial] 66 66 Respiratory Rate 16 18 Blood Pressure [Right Arm] 131/61 129/78 02 Sat by Pulse Oximetry 95 98 I & O for Last 24 hours: Intake & Output 07/11/18 07/12/18 07/13/18 07/14/18 23:59 23:59 23:59 23:59 Intake Total 2600 / 2600 1988 / 1988 4075 / 4075 Output Total 2520 / 2520 2550 / 2550 1000 / 1000 Balance 2600 / 2600 -531 / -531 1525 / 1525 -1000 / -1000 Weight 233 lb 7 oz 235 lb 3 oz 236 lb 239 lb 9 oz Microbiology Reports for the Last 24 Hours: Microbiology 07/11/18 16:42 Knee,Right - Right Gram Stain - Final 07/11/18 16:42 Knee,Right - Right Surgical Biopsy Culture - Preliminary NO GROWTH AFTER 48 HOURS 07/11/18 16:42 Knee,Right - Right Gram Stain - Final 07/11/18 16:42 Knee,Right - Right Surgical Biopsy Culture - Preliminary NO GROWTH AFTER 48 HOURS 07/11/18 16:42 Knee,Right - Right Gram Stain - Final 07/11/18 16:42 Knee,Right - Right Wound Culture - Preliminary NO GROWTH AFTER 48 HOURS 07/11/18 16:42 Knee,Right - Right Gram Stain - Final 07/11/18 16:42 Knee,Right - Right Surgical Biopsy Culture - Preliminary NO GROWTH AFTER 48 HOURS 07/11/18 16:42 Knee,Right - Right Gram Stain - Final 07/11/18 16:42 Knee,Right - Right Wound Culture - Preliminary NO GROWTH AFTER 48 HOURS 07/11/18 16:50 Knee,Right Gram Stain - Final 07/11/18 16:50 Knee,Right Surgical Biopsy Culture - Preliminary NO GROWTH AFTER 24 HOURS 07/11/18 14:36 Synovial Fluid - Deep Gram Stain - Final 07/11/18 14:36 Synovial Fluid - Deep Body Fluid Culture - Preliminary NO GROWTH AFTER 48 HOURS 07/11/18 14:36 Knee,Right - Deep Gram Stain - Final 07/11/18 14:36 Knee,Right - Deep Surgical Biopsy Culture - Preliminary NO GROWTH AFTER 48 HOURS 07/11/18 14:36 Leg,Right - Deep Gram Stain - Final 07/11/18 14:36 Leg,Right - Deep Surgical Biopsy Culture - Preliminary NO GROWTH AFTER 48 HOURS 07/11/18 16:42 Leg,Right - Final 07/11/18 16:42 Leg,Right Acid Fast Bacilli Smear - Final 07/11/18 16:42 Knee,Right - Right - Final 07/11/18 16:42 Knee,Right - Right Acid Fast Bacilli Smear - Final 07/11/18 16:42 Leg,Right - Final 07/11/18 16:42 Leg,Right Acid Fast Bacilli Smear - Final - Constitutional no acute distress - *Routine HEENT Exam Head: Present: normocephalic Eye: Present: EOMI ENT: Present: mucous membranes moist - *Routine Neck Exam Present: supple. Absent: lymphadenopathy - *Routine Respiratory Exam Present: CTA bilaterally - *Routine Cardiovascular Exam Present: RRR - *Routine Abdominal Exam Present: soft, normoactive bowel sounds. Absent: tenderness - *Routine Extremities Exam Present: edema (minimal in right leg). Absent: cyanosis, clubbing - *Routine Skin Exam Present: warm - *Routine Neurological Exam Present: alert, oriented X3 Assessment and Plan (1) Infection of total right knee replacement Current visit: Yes Status: Acute Category: Medical Code(s): T84.53XA - Infection and inflammatory reaction due to internal right knee prosthesis, initial encounter (2) BPH (benign prostatic hyperplasia) Current visit: No Status: Chronic Category: Medical Code(s): N40.0 - Benign prostatic hyperplasia without lower urinary tract symptoms (3) Coronary arteriosclerosis Current visit: No Status: Chronic Category: Medical Code(s): I25.10 - Atherosclerotic heart disease of [place] coronary artery without angina pectoris (4) Dementia Current visit: No Status: Chronic Qualifiers: Dementia type: unspecified type Dementia behavioral disturbance: without behavioral disturbance Qualified Code(s): F03.90 - Unspecified dementia without behavioral disturbance Category: Medical Code(s): F03.90 - Unspecified dementia without behavioral disturbance (5) HHD (hypertensive heart disease) Current visit: No Status: Chronic Qualifiers: Heart failure presence: with heart failure Heart failure type: combined s ystolic and diastolic Heart failure chronicity: chronic Qualified Code(s): I11.0 - Hypertensive heart disease with heart failure; I50.42 - Chronic combined systolic (congestive) and diastolic (congestive) heart failure Category: Medical Code(s): I11.9 - Hypertensive heart disease without heart failure (6) Hyperlipidemia Current visit: No Status: Chronic Qualifiers: Hyperlipidemia type: mixed hyperlipidemia Qualified Code(s): E78.2 - Mixed hyperlipidemia Category: Medical Code(s): E78.5 - Hyperlipidemia, unspecified (7) Hypothyroidism Current visit: No Status: Chronic Category: Medical Code(s): E03.9 - Hypothyroidism, unspecified - Assessment and plan all Dx Assessment and Plan for all problems:: Pt is ok for discharge today from my standpoint. Ortho note from yesterday mentions Vanc with Ancef treatment but patient has only been on Vanc since surgery. Cultures are all negative so far. Plan to start Rocephin 1 gram once daily today and continue Vanc 1500 mg every 12 hours, both for 6 weeks. Pt will return to [facility] for IV antibiotics and PICC line care, pharmacy will manage Vanc dose. Pt was alreaqdy taking Xarelto, he should continue it as an outpatient, as it will serve as DVT prophylaxis. Activity level and PT per Ortho. Follow up with Dr. Estrada in [address] Bhakta in 2 weeks.
[2018-07-14 09:36] LABS: Erythrocyte Sedimentation Rate 118 mm/hr (0-20)
--- NOTE | 2018-07-14 12:24 | Progress Note ---
Subjective Date: 07/14/18 Time: 12:00 Principal diagnosis: Status post stage I revision TKA, right knee Interval history: The patient is doing well this morning, reports little pain. Has been on IV vancomycin, rocephin added this morning. Plan is for d/c home today with outpatient IV antibiotic infusions via PICC. Remains afebrile. PN: Obj Ex Vital signs: Temp Pulse Resp BP Pulse Ox 98.0 F 66 18 129/78 98 07/14/18 07:59 07/14/18 08:06 07/14/18 08:00 07/14/18 07:59 07/14/18 08:00 Narrative: General appearance: alert, active, awake Cardiovascular: regular rate & rhythm, normal peripheral pulses Respiratory: No respiratory distress noted, speaks in full sentences ABD: soft and non tender Neuro: alert, awake, oriented x 3 RLE: dressing c/d/i, no strikethrough; changed yesterday by Dr. Estrada, MIKHAIL wrap from toes to thigh for compressions +DF/PF/EHL RLE SILT distally RLE 2+ palpable pedal pulses RLE, foot warm/well-perfused calf soft, non-tender RLE; able to perform SLR in HNB - Urinary Catheter Management Coude Cath placed during this visit: yes Urethral indwelling: Yes Reason for continuing: Not indwelling catheter Insertion date: 07/11/18 Insertion time: 13:42 Progress Note: A&P (1) Infection of total right knee replacement Status: Acute Current Visit: Yes (2) BPH (benign prostatic hyperplasia) Status: Chronic Current Visit: No (3) Coronary arteriosclerosis Status: Chronic Current Visit: No (4) Dementia Status: Chronic Current Visit: No (5) HHD (hypertensive heart disease) Status: Chronic Current Visit: No (6) Hyperlipidemia Status: Chronic Current Visit: No (7) Hypothyroidism Status: Chronic Current Visit: No Assessment and Plan for All Diagnoses:: 67yo M POD 3 s/p R TKA explantation with antibiotic cement spacer placement; stage I of two-stage revision -- intra-operative cultures remain negative thus far, will continue to follow -- continue IV antibiotic infusions per Drs. Estrada/Livia; patient to receive these at [facility] infusion center -- continue activity/weight-bearing restrictions per Dr. Estrada: TTWB RLE, ROM 0- 60 degrees -- continue baseline xarelto/plavix -- f/u with Drs. Estrada/Livia as scheduled
--- NOTE | 2018-07-14 13:05 | Discharge Summary ---
General - General Admission date:: 07/11/18 Discharge date: 07/14/18 HPI HPI: 67-year-old gentleman admitted for postoperative care status post explantation of right total knee arthroplasty for tibial component loosening and suspected infection. The component was removed removed on 07/11/2018, followed by debridement and placement of an antibiotic loaded cement spacer. There were no complications during the procedure and the patient was admitted for routine postop care, PICC line placement, antibiotic therapy, and medical management. Hospital Course Hospital Course: The patient did well postoperatively with no major medical issues. He did have some postoperative anemia which is likely a combination of acute blood loss and hemodilution. He remained asymptomatic from this standpoint. His pain was well controlled with oral medications. He received both vancomycin and Rocephin intravenously via PICC line, which was placed after admission. He began working with physical therapy and was able to maintain restrictions; this consisted of toe-touch weightbearing right lower extremity with range of motion from 0 to 60 degrees only with a hinged knee brace. He restarted his home Xarelto and Plavix during this admission also, as supervised by Dr. Bhakta. On postop day 3 he was appropriate for discharge home and was scheduled to follow-up with Dr. Estrada in 4 days, Dr. Bhakta within 2 weeks. He will present to [facility] infusion center for his antibiotic infusions. Objective Vital signs: Temp Pulse Resp BP Pulse Ox 98.0 F 66 18 129/78 98 07/14/18 07:59 07/14/18 08:06 07/14/18 08:00 07/14/18 07:59 07/14/18 08:00 Narrative: General appearance: alert, active, awake Cardiovascular: regular rate & rhythm, normal peripheral pulses Respiratory: No respiratory distress noted, speaks in full sentences ABD: soft and non tender Neuro: alert, awake, oriented x 3 RLE: dressing c/d/i, no strikethrough; changed yesterday by Dr. Estrada, MIKHAIL wrap from toes to thigh for compressions +DF/PF/EHL RLE SILT distally RLE 2+ palpable pedal pulses RLE, foot warm/well-perfused calf soft, non-tender RLE; able to perform SLR in HNB Results Completed studies during hospitalization [Text1]: Labs from last 24 hours 07/14/18 07/14/18 06:55 06:55 WBC 6.5 RBC 3.18 L Hgb 8.8 L Hct 27.7 L MCV 87.1 MCH 27.7 MCHC 31.8 RDW 13.6 Plt Count 127 L MPV 8.8 Neut % (Auto) 79.2 Lymph % (Auto) 11.3 [place] % (Auto) 7.4 Eos % (Auto) 1.9 Baso % (Auto) 0.2 Neut # (Auto) 5.1 Lymph # (Auto) 0.7 [place] # (Auto) 0.5 Eos # (Auto) 0.1 Baso # (Auto) 0.0 ESR 118 H Sodium 141 Potassium 3.7 Chloride 104 Carbon Dioxide 29 Anion Gap 11.7 BUN 9 Creatinine 0.89 Estimated Creat Clear 109 Estimated GFR 85 Est GFR ( Amer) 103 D Glucose 107 H D Calcium 8.3 L C-Reactive Protein 15.5 H D Labs on day of discharge: Labs from last 24 hours 07/14/18 07/14/18 06:55 06:55 WBC 6.5 RBC 3.18 L Hgb 8.8 L Hct 27.7 L MCV 87.1 MCH 27.7 MCHC 31.8 RDW 13.6 Plt Count 127 L MPV 8.8 Neut % (Auto) 79.2 Lymph % (Auto) 11.3 [place] % (Auto) 7.4 Eos % (Auto) 1.9 Baso % (Auto) 0.2 Neut # (Auto) 5.1 Lymph # (Auto) 0.7 [place] # (Auto) 0.5 Eos # (Auto) 0.1 Baso # (Auto) 0.0 ESR 118 H Sodium 141 Potassium 3.7 Chloride 104 Carbon Dioxide 29 Anion Gap 11.7 BUN 9 Creatinine 0.89 Estimated Creat Clear 109 Estimated GFR 85 Est GFR ( Amer) 103 D Glucose 107 H D Calcium 8.3 L C-Reactive Protein 15.5 H D Preliminary micro results at discharge 07/11/18 16:42 Surgical Biopsy Culture - Preliminary Knee,Right - Right NO GROWTH AFTER 48 HOURS 07/11/18 16:42 Surgical Biopsy Culture - Preliminary Knee,Right - Right NO GROWTH AFTER 48 HOURS 07/11/18 16:42 Wound Culture - Preliminary Knee,Right - Right NO GROWTH AFTER 48 HOURS 07/11/18 16:42 Surgical Biopsy Culture - Preliminary Knee,Right - Right NO GROWTH AFTER 48 HOURS 07/11/18 16:42 Wound Culture - Preliminary Knee,Right - Right NO GROWTH AFTER 48 HOURS 07/11/18 16:50 Surgical Biopsy Culture - Preliminary Knee,Right NO GROWTH AFTER 24 HOURS 07/11/18 14:36 Body Fluid Culture - Preliminary Synovial Fluid - Deep NO GROWTH AFTER 48 HOURS 07/11/18 14:36 Surgical Biopsy Culture - Preliminary Knee,Right - Deep NO GROWTH AFTER 48 HOURS 07/11/18 14:36 Surgical Biopsy Culture - Preliminary Leg,Right - Deep NO GROWTH AFTER 48 HOURS DS: Diagnosis - Discharge Diagnosis (1) Infection of total right knee replacement Status: Acute (2) BPH (benign prostatic hyperplasia) Status: Chronic (3) Coronary arteriosclerosis Status: Chronic (4) Dementia Status: Chronic (5) HHD (hypertensive heart disease) Status: Chronic (6) Hyperlipidemia Status: Chronic (7) Hypothyroidism Status: Chronic Discharge Plan - Patient Discharge Instructions ACTIVITY: Continue current activity (TTWB RLE in brace, ROM 0-60 degrees ) DIET: continue same diet Additional Instructions: -- continue to ice and elevate the RLE frequently -- activity to continue per Dr. Estrada: TTWB RLE in brace, ROM 0-60 degrees -- continue home xarelto/plavix -- Rx for pain medication given -- antibiotic infusions at [facility] outpatient infusion center as scheduled -- f/u with Dr. Estrada & Dr. Bhakta as scheduled Patient Instructions: DI for Surgical Site Infection, DI for Knee Arthroscopy - Follow up Plan Follow up with: Magdi Estrada MD [Staff Physician] - 07/18/18 3:00 pm Disposition: Home, Self-Halfway Medications: Home Medications Medication Instructions Recorded Confirmed Type carvedilol 12.5 mg tablet 6.25 mg PO BID 02/28/17 07/12/18 History rivaroxaban 20 mg tablet 20 mg PO DAILY 02/28/17 07/11/18 History cholecalciferol (vitamin D3) 5,000 5,000 unit PO HS 06/16/17 07/11/18 History unit capsule digoxin 250 mcg tablet 0.25 mg PO DAILY tab 10/27/17 07/11/18 History levothyroxine 150 mcg capsule 150 mcg PO DAILY 11/08/17 07/11/18 History Amiodarone HCl 200 mg PO HS 01/02/18 07/12/18 History Multivitamin [Multi-Day Vitamins] 1 each PO DAILY 01/02/18 07/11/18 History Tamsulosin HCl [Flomax 0.4mg 0.4 mg PO HS 01/02/18 07/11/18 History capsule] Docusate Sodium [Docusate Sodium 100 mg PO BIDP PRN #20 cap 01/04/18 07/11/18 Rx 100mg Cap] clopidogrel 75 mg tablet 75 mg PO HS #90 tab 01/04/18 07/11/18 Rx isosorbide mononitrate ER 30 mg 30 mg PO DAILY #90 tab 02/02/18 07/11/18 Rx tablet,extended release 24 hr atorvastatin 40 mg tablet 40 mg PO HS #30 tab 03/06/18 07/11/18 Rx memantine 10 mg tablet 10 mg PO BID 30 Days #60 tab 03/06/18 07/11/18 Rx irbesartan 150 mg tablet 150 mg PO DAILY #90 tab 05/26/18 07/11/18 Rx Donepezil HCl [Aricept 10mg 10 mg PO HS 06/16/18 07/12/18 History tablet] Ferrous Sulfate [Ferrous Sulfate 325 mg PO BID 06/16/18 07/11/18 History 325mg Tablet] spironolactone 25 mg tablet 25 mg PO Q48H tab 07/06/18 07/12/18 History Carvedilol [Coreg 6.25mg 6.25 mg PO BID tab 07/14/18 Rx Tablet] Ceftriaxone Sodium [Rocephin 1gm 1 gm IV Q24H vial 07/14/18 Rx vial] Hydrocod/Acet 5/325 mg [Rolla 1 tab PO Q4HP PRN #30 tab 07/14/18 Rx 5/325mg tablet] Vancomycin HCl [Vancomycin 1000mg 1,500 mg IV Q12H vial 07/14/18 Rx Vial] Prescriptions/Medication Reconciliation: New Carvedilol [Coreg 6.25mg Tablet] 6.25 mg PO BID tab Ceftriaxone Sodium [Rocephin 1gm vial] 1 gm IV Q24H vial Vancomycin HCl [Vancomycin 1000mg Vial] 1,500 mg IV Q12H vial Hydrocod/Acet 5/325 mg [Rolla 5/325mg tablet] 1 tab PO Q4HP PRN #30 tab PRN Reason: Moderate Pain Continued rivaroxaban 20 mg tablet 20 mg PO DAILY carvedilol 12.5 mg tablet 6.25 mg PO BID cholecalciferol (vitamin D3) 5,000 unit capsule 5,000 unit PO HS digoxin 250 mcg tablet 0.25 mg PO DAILY tab clopidogrel 75 mg tablet 75 mg PO HS #90 tab isosorbide mononitrate ER 30 mg tablet,extended release 24 hr 30 mg PO DAILY #90 tab atorvastatin 40 mg tablet 40 mg PO HS #30 tab irbesartan 150 mg tablet 150 mg PO DAILY #90 tab spironolactone 25 mg tablet 25 mg PO Q48H tab levothyroxine 150 mcg capsule 150 mcg PO DAILY memantine 10 mg tablet 10 mg PO BID 30 Days #60 tab Multivitamin [Multi-Day Vitamins] 1 each PO DAILY Amiodarone HCl 200 mg PO HS Tamsulosin HCl [Flomax 0.4mg capsule] 0.4 mg PO HS Donepezil HCl [Aricept 10mg tablet] 10 mg PO HS Ferrous Sulfate [Ferrous Sulfate 325mg Tablet] 325 mg PO BID Docusate Sodium [Docusate Sodium 100mg Cap] 100 mg PO BIDP PRN #20 cap PRN Reason: Constipation Discontinued Enoxaparin Sodium [Lovenox 100mg/mL syringe] 100 mg SQ Q12H Meloxicam 15 mg PO DAILY
== END 2018-07-14 13:50 | disposition home or self-care (01) | DRG 467 ==
LOC: OR 10:21 → 2ND 10:21 → OBSVTOIN 10:58 → 2ND 15:10
PROVIDERS: ADMIT Orthopaedic Surgery; ATTEND Orthopaedic Surgery
CPT/HCPCS: 36415; 36569; 71010; 71045; 73560; 80048; 80053; 80076; 80200; 80202; 81001; 84439; 84443; 85007; 85025; 85610; 85651; 86140; 86850; 87070; 87075; 87102; 87116; 87186; 87205; 87206; 88305; 88331; 97110; 97116; 97163; 97166; 97530; 97535; C1751; J2405; J2704; J3370

== ENCOUNTER → 2018-07-14 18:37 | Outpatient (CLI) | payer MEDICARE, OTHER, SELFPAY ==
[2018-07-14 19:10] VITALS: BP 117/67; PULSE 83; RESP 16; TEMP 37.7; O2SAT 96
[2018-07-14 21:28] VITALS: BP 127/67; PULSE 71; RESP 18; TEMP 37.6; O2SAT 96
[2018-07-14 21:54] VITALS: BP 158/72; PULSE 68; RESP 18; TEMP 37.1; O2SAT 95
--- NOTE | 2018-07-14 22:16 | PC.NURSE ---
TOLERATED VANC INFUSION WELL. RUE PICC SITE REMAINED FREE FROM S/S OF INFECTION, DRESSING CDI, PATENTCY NOTED, PICC COVERED PRIOR TO DISCHARGE. PT ASSISTED TO PRIOR TO DISCHARGE AND OFFERED ASSISTANCE TO VEHICLE, PT AND STATED NO, WE GOT IT! THANK YOU FOR ALL YOU HAVE DONE FOR US. PT TOLERATED TRANSFER WELL. VSS. PT LEFT SECOND FLOOR AT [id number].
--- NOTE | 2018-07-15 22:29 | PC.NURSE ---
PT TOLERATED VANC INFUSION WELL. PICC LINE SITE CDI, NO S/S OF INFECTION NOTED. PICC LINE NOTED PATENT. VSS. PT ASSISTED TO WHEEL CHAIR WITH SBA PRIOR TO LEAVING SECOND FLOOR. AND PT STATED WE DO NOT NEED HELP. WE ARE GOOD. THANK YOU THOUGH. WHEN ASKED IF THEY NEEDED ASSISTANCE WITH GETTING TO THEIR VEHICLE.
== END ==
PROVIDERS: PCP Family Medicine; Visit Provider Family Medicine
DX: Z96.651 Presence of right artificial knee joint (principal)
CPT/HCPCS: 96365; 96366; G0463; J3370

== ENCOUNTER 2018-07-15 07:41 | Outpatient (CLI) | payer MEDICARE, OTHER, SELFPAY ==
[2018-07-15 08:09] VITALS: BMI 32.4
[2018-07-15 08:18] VITALS: BP 93/51; PULSE 67; RESP 16; O2SAT 96
[2018-07-15 19:48] VITALS: BP 111/61; PULSE 74; RESP 18; TEMP 37.2; O2SAT 93
== END 2018-07-15 22:15 | disposition home or self-care (01) ==
PROVIDERS: PCP Family Medicine; Visit Provider Family Medicine
DX: Z96.659 Presence of unspecified artificial knee joint (principal); T84.53XA Infection and inflammatory reaction due to internal right knee prosthesis, initial encounter
CPT/HCPCS: 96365; 96366; 96367; J3370

== ENCOUNTER 2018-07-16 07:49 | Outpatient (CLI) | payer MEDICARE, OTHER, SELFPAY ==
[2018-07-16 08:07] VITALS: BMI 32.4
[2018-07-16 08:08] VITALS: BP 110/57; PULSE 63; RESP 16; O2SAT 95
--- NOTE | 2018-07-16 11:01 | PC.NURSE ---
Pt left the floor with @ 1247
[2018-07-16 19:47] VITALS: BP 113/58; PULSE 72; RESP 18; TEMP 36.6; O2SAT 91
[2018-07-16 21:49] VITALS: BP 111/58; PULSE 71; RESP 18; TEMP 37.1; O2SAT 95
== END 2018-07-16 21:49 | disposition home or self-care (01) ==
PROVIDERS: PCP Family Medicine; Visit Provider Family Medicine
DX: Z96.659 Presence of unspecified artificial knee joint (principal); T84.53XA Infection and inflammatory reaction due to internal right knee prosthesis, initial encounter
CPT/HCPCS: 96365; 96366; 96367; J3370

== ENCOUNTER 2018-07-17 08:23 | Outpatient (CLI) | payer MEDICARE, OTHER, SELFPAY ==
[2018-07-17] VITALS (10 sets, daily range): BP systolic 105–119; BP diastolic 52–65; PULSE 54–72; RESP 18; TEMP 36.6–36.9; O2SAT 93–99; BMI 31.7
== END 2018-07-17 21:34 | disposition home or self-care (01) ==
PROVIDERS: PCP Family Medicine; Visit Provider Family Medicine
DX: Z96.659 Presence of unspecified artificial knee joint (principal); T84.53XA Infection and inflammatory reaction due to internal right knee prosthesis, initial encounter
CPT/HCPCS: 96365; 96366; 96367; J3370

== ENCOUNTER 2018-07-18 08:32 | Outpatient (CLI) | payer MEDICARE, OTHER, SELFPAY ==
[2018-07-18] VITALS (8 sets, daily range): BP systolic 101–121; BP diastolic 52–87; PULSE 56–71; RESP 18–20; TEMP 36.2–36.9; O2SAT 95–98; BMI 31.1
[2018-07-18 09:24] LABS: Basophils % 0.3 % (0.1-2.0); Eosinophils # 0.2 K/mm3 (0.0-0.4); Hematocrit 26.7 % (42.0-52.0); Hemoglobin 8.3 g/dL (14.1-18.0); Lymphocytes # 0.7 K/mm3 (0.7-4.5); Lymphocytes % 12.6 % (10-50); Mean Corpuscular HGB Conc 31.2 g/dL (31.8-35.4); Mean Corpuscular Hemoglobin 27.5 pg (27.0-31.2); Mean Corpuscular Volume 88.3 fl (80-94); Mean Platelet Volume 8.1 fl (7.4-10.4); Monocytes # 0.4 K/mm3 (0.1-1.0); Monocytes % 8.2 % (1.7-9.3); Neutrophils % 75.9 % (37.0-80.0); Platelet Count 209 K/mm3 (142-424); Red Blood Count 3.02 M/mm3 (4.60-6.20); Red Cell Distribution Width 13.2 % (11.5-17.5); White Blood Count 5.3 K/mm3 (4.8-10.8)
[2018-07-18 09:29] LABS: Alanine Aminotransferase 54 U/L (12-78); Albumin Level 2.5 gm/dL (3.4-5.0); Albumin/Globulin Ratio 0.7 (1.1-1.8); Alkaline Phosphatase 73 U/L (46-116); Aspartate Amino Transferase 36 U/L (15-37); Bilirubin,Total 0.6 mg/dL (0.2-1.0); Blood Urea Nitrogen 16 mg/dL (7-18); C-Reactive Protein 4.6 mg/L (0.0-0.9); Calcium 8.4 mg/dL (8.5-10.1); Carbon Dioxide 30 mmol/L (21.0-32.0); Chloride 103 mmol/L (98-107); Creatinine Clearance Estimated 100 mL/min (50-200); Creatinine,Serum 1.04 mg/dL (0.70-1.30); Estimated Glomerular Filt Rate 71 ml/min (>60); GFR (African American) 86 ML/MIN (>60); Globulin 3.4 gm/dl (1.3-3.2); Glucose 123 mg/dL (74-106); Sodium 139 mmol/L (136-145); Total Protein,Serum 5.9 gm/dL (6.4-8.2); Vancomycin,Trough 13.6 mcg/ml (10.0-20.0)
--- NOTE | 2018-07-18 09:37 | HMH.PHACONS ---
- Pharmacy Consult Date: 07/18/18 Time: 09:37 Referring provider: DR. SHERWOOD Reason for Consult:: VANCOMYCIN TROUGH LEVEL Allergies and ADEs:: Allergies Allergy/AdvReac Type Severity Reaction Status Date / Time lisinopril Allergy Severe S-SWELLS-OR Verified 07/11/18 10:50 AL/THROAT oxycodone AdvReac Unknown SHAKING Verified 07/11/18 10:50 Home Medications:: Home Medications Medication Instructions Recorded Confirmed Type carvedilol 12.5 mg tablet 6.25 mg PO BID 02/28/17 07/17/18 History rivaroxaban 20 mg tablet 20 mg PO DAILY 02/28/17 07/17/18 History cholecalciferol (vitamin D3) 5,000 5,000 unit PO HS 06/16/17 07/17/18 History unit capsule digoxin 250 mcg tablet 0.25 mg PO DAILY tab 10/27/17 07/17/18 History levothyroxine 150 mcg capsule 150 mcg PO DAILY 11/08/17 07/17/18 History Amiodarone HCl 200 mg PO HS 01/02/18 07/17/18 History Multivitamin [Multi-Day Vitamins] 1 each PO DAILY 01/02/18 07/17/18 History Tamsulosin HCl [Flomax 0.4mg 0.4 mg PO HS 01/02/18 07/17/18 History capsule] Docusate Sodium [Docusate Sodium 100 mg PO BIDP PRN #20 cap 01/04/18 07/17/18 Rx 100mg Cap] clopidogrel 75 mg tablet 75 mg PO HS #90 tab 01/04/18 07/17/18 Rx isosorbide mononitrate ER 30 mg 30 mg PO DAILY #90 tab 02/02/18 07/17/18 Rx tablet,extended release 24 hr atorvastatin 40 mg tablet 40 mg PO HS #30 tab 03/06/18 07/17/18 Rx memantine 10 mg tablet 10 mg PO BID 30 Days #60 tab 03/06/18 07/17/18 Rx irbesartan 150 mg tablet 150 mg PO DAILY #90 tab 05/26/18 07/17/18 Rx Donepezil HCl [Aricept 10mg 10 mg PO HS 06/16/18 07/17/18 History tablet] Ferrous Sulfate [Ferrous Sulfate 325 mg PO BID 06/16/18 07/17/18 History 325mg Tablet] spironolactone 25 mg tablet 25 mg PO Q48H tab 07/06/18 07/17/18 History Hydrocod/Acet 5/325 mg [[place] 1 tab PO Q4HP PRN #30 tab 07/14/18 07/17/18 Rx 5/325mg tablet] Ceftriaxone Sodium [Rocephin 1gm 1 gm IV Q24H 07/17/18 07/17/18 History vial] Vancomycin HCl [Vancomycin 1000mg 1,500 mg IV Q12H 07/17/18 07/17/18 History Vial] Height: 1.83 m Weight: 104.326 kg Laboratory Results:: Laboratory Results - last 24 hr 07/18/18 08:50: WBC 5.3, RBC 3.02 L, Hgb 8.3 L, Hct 26.7 L, MCV 88.3, MCH 27.5, MCHC 31.2 L, RDW 13.2, Plt Count 209, MPV 8.1, Neut % (Auto) 75.9, Lymph % (Auto) 12.6, [place] % (Auto) 8.2, Eos % (Auto) 3.0, Baso % (Auto) 0.3, Neut # (Auto) 4.0, Lymph # (Auto) 0.7, [place] # (Auto) 0.4, Eos # (Auto) 0.2, Baso # (Auto) 0.0 07/18/18 08:50: Sodium 139, Potassium 4.0, Chloride 103, Carbon Dioxide 30, Anion Gap 10.0, BUN 16, Creatinine 1.04, Estimated Creat Clear 100, Estimated GFR 71, Est GFR ( Amer) 86, Glucose 123 H, Calcium 8.4 L, Total Bilirubin 0.6, AST 36, ALT 54, Alkaline Phosphatase 73, C-Reactive Protein 4.6 H, Total Protein 5.9 L, Albumin 2.5 L, Globulin 3.4 H, Albumin/Globulin Ratio 0.7 L 07/18/18 08:50: Vancomycin Trough 13.6 Medical History: Reports:: Arrhythmia, Atrial Fibrillation, Congestive Heart Failure, Congenital Heart Disease, Coronary Artery Disease, Hiatal Hernia, Hyperlipidemia, Hypertension, Myocardial Infarction Denies:: Cancer, Diabetes Mellitus Type 1, Diabetes Mellitus Type 2, Internal Pacemaker, Lung Disease, MRSA, Seizures Assessment and Plan - Assessment and plan all Dx Assessment and Plan for all problems:: BASED ON VANCOMYCIN TROUGH LEVEL AND PATIENT FACTORS, RECOMMEND CONTINUING VANCOMYCIN 1500 MG IV Q12H. PATIENT IS ALSO ON ROCEPHIN 1 GM IV Q24H. PHARMACY WILL CONTINUE TO MONITOR DAILY AND ADJUST APPROPRIATE.
--- NOTE | 2018-07-18 10:28 | PC.NURSE ---
0858 and 1015 assessments documented on incorrect patient, please disregard
[2018-07-18 11:10] LABS: Erythrocyte Sedimentation Rate 133 mm/hr (0-20)
== END 2018-07-18 21:12 | disposition home or self-care (01) ==
PROVIDERS: PCP Family Medicine; Visit Provider Family Medicine
DX: T84.53XA Infection and inflammatory reaction due to internal right knee prosthesis, initial encounter (principal); Z96.659 Presence of unspecified artificial knee joint
CPT/HCPCS: 80053; 80202; 85025; 85651; 86140; 96365; 96366; 96367; J3370

== ENCOUNTER 2018-07-19 08:05 | Outpatient (CLI) | payer MEDICARE, OTHER, SELFPAY ==
[2018-07-19] VITALS (9 sets, daily range): BP systolic 86–117; BP diastolic 45–98; PULSE 51–67; RESP 17–18; TEMP 36.2–36.7; O2SAT 94–97
== END 2018-07-19 21:39 | disposition home or self-care (01) ==
PROVIDERS: PCP Family Medicine; Visit Provider Family Medicine
DX: Z96.651 Presence of right artificial knee joint (principal); T84.53XA Infection and inflammatory reaction due to internal right knee prosthesis, initial encounter
CPT/HCPCS: 96365; 96366; 96367; J3370

== ENCOUNTER 2018-07-20 08:14 | Outpatient (CLI) | payer MEDICARE, OTHER, SELFPAY ==
[2018-07-20] VITALS (9 sets, daily range): BP systolic 95–135; BP diastolic 48–79; PULSE 57–67; RESP 16–18; TEMP 36.4–36.8; O2SAT 96–98; BMI 31.6
== END 2018-07-20 21:56 | disposition home or self-care (01) ==
PROVIDERS: PCP Family Medicine; Visit Provider Family Medicine
DX: Z96.651 Presence of right artificial knee joint (principal); T84.53XA Infection and inflammatory reaction due to internal right knee prosthesis, initial encounter
CPT/HCPCS: 96365; 96366; 96367; J3370

== ENCOUNTER 2018-07-21 08:12 | Outpatient (CLI) | payer MEDICARE, OTHER, SELFPAY ==
[2018-07-21] VITALS (7 sets, daily range): BP systolic 103–129; BP diastolic 53–74; PULSE 61–68; RESP 16–20; TEMP 36.7–36.9; O2SAT 95–97
== END 2018-07-21 23:00 | disposition home or self-care (01) ==
PROVIDERS: PCP Family Medicine; Visit Provider Family Medicine
DX: Z96.651 Presence of right artificial knee joint (principal); T84.53XA Infection and inflammatory reaction due to internal right knee prosthesis, initial encounter
CPT/HCPCS: 96365; 96366; 96367; J3370

== ENCOUNTER 2018-07-22 07:46 | Outpatient (CLI) | payer MEDICARE, OTHER, SELFPAY ==
[2018-07-22 08:12] VITALS: BP 103/55; PULSE 63; RESP 17; TEMP 36.6; O2SAT 95; BMI 31.1
[2018-07-22 10:17] VITALS: BP 116/64; PULSE 58; RESP 17; TEMP 36.5; O2SAT 97
[2018-07-22 10:45] VITALS: BP 117/65; PULSE 57; RESP 17; TEMP 36.4; O2SAT 96
[2018-07-22 19:01] VITALS: BP 126/69; PULSE 72; RESP 18; O2SAT 95
[2018-07-22 20:52] VITALS: BP 117/64; PULSE 66; RESP 17; TEMP 37.1; O2SAT 96
[2018-07-22 20:53] VITALS: BP 117/64; PULSE 66; RESP 17; TEMP 37.1; O2SAT 96
[2018-07-22 20:54] VITALS: BMI 31.6
== END 2018-07-22 21:00 | disposition home or self-care (01) ==
LOC: INF 07:47
PROVIDERS: PCP Family Medicine; Visit Provider Family Medicine
DX: Z96.659 Presence of unspecified artificial knee joint (principal); T84.53XA Infection and inflammatory reaction due to internal right knee prosthesis, initial encounter
CPT/HCPCS: 96365; 96366; 96367; J3370

== ENCOUNTER 2018-07-23 07:51 | Outpatient (CLI) | payer MEDICARE, OTHER, SELFPAY ==
[2018-07-23 08:15] VITALS: BP 89/48; PULSE 56; RESP 16; TEMP 36.8; O2SAT 95
[2018-07-23 10:04] VITALS: BP 121/65; PULSE 58; RESP 18; TEMP 36.7; O2SAT 97
[2018-07-23 11:08] VITALS: BP 117/66; PULSE 54; RESP 18; TEMP 36.7; O2SAT 96
[2018-07-23 18:43] VITALS: BP 120/63; PULSE 67; RESP 18; TEMP 37; O2SAT 97
[2018-07-23 20:50] VITALS: BMI 31.1
[2018-07-23 20:55] VITALS: BP 132/76; PULSE 61; RESP 17; TEMP 36.9; O2SAT 95
--- NOTE | 2018-07-23 21:05 | PC.NURSE ---
Upon assessment of double lumen PICC. It was noted that purple lumen was not patent. Will not flush nor draw back. Red lumen is patent. It will flush and draw back. Good blood return. trust evaluation supervisor notified. Pt tolerated infusion. VSS. Infusion complete at 2054.
[2018-07-24 08:19] VITALS: BMI 31.1
== END 2018-07-23 21:00 | disposition home or self-care (01) ==
PROVIDERS: PCP Family Medicine; Visit Provider Family Medicine
DX: Z96.659 Presence of unspecified artificial knee joint (principal); T84.53XA Infection and inflammatory reaction due to internal right knee prosthesis, initial encounter
CPT/HCPCS: 96365; 96366; 96367; G0463; J3370

== ENCOUNTER 2018-07-24 08:26 | Outpatient (CLI) | payer MEDICARE, OTHER, SELFPAY ==
[2018-07-24] VITALS (9 sets, daily range): BP systolic 105–132; BP diastolic 53–79; PULSE 53–62; RESP 16–18; TEMP 36.6–37.1; O2SAT 95–98; BMI 31.1
[2018-07-24 09:00] LABS: Blood Urea Nitrogen 15 mg/dL (7-18); Calcium 8.4 mg/dL (8.5-10.1); Carbon Dioxide 27 mmol/L (21.0-32.0); Chloride 104 mmol/L (98-107); Creatinine Clearance Estimated 94 mL/min (50-200); Creatinine,Serum 1.11 mg/dL (0.70-1.30); Estimated Glomerular Filt Rate 66 ml/min (>60); GFR (African American) 80 ML/MIN (>60); Glucose 134 mg/dL (74-106); Sodium 139 mmol/L (136-145); Vancomycin,Trough 17.1 mcg/ml (10.0-20.0)
--- NOTE | 2018-07-24 09:16 | P.CONPHA_ITS ---
- Pharmacy Consult Date: 07/24/18 Time: 09:15 Referring provider: DR. SHERWOOD Reason for Consult:: VANCOMYCIN TROUGH LEVEL Allergies and ADEs:: Allergies Allergy/AdvReac Type Severity Reaction Status Date / Time lisinopril Allergy Severe S-SWELLS-OR Verified 07/24/18 08:56 AL/THROAT oxycodone AdvReac Unknown SHAKING Verified 07/24/18 08:56 Home Medications:: Home Medications Medication Instructions Recorded Confirmed Type carvedilol 12.5 mg tablet 6.25 mg PO BID 02/28/17 07/21/18 History rivaroxaban 20 mg tablet 20 mg PO DAILY 02/28/17 07/21/18 History cholecalciferol (vitamin D3) 5,000 5,000 unit PO HS 06/16/17 07/21/18 History unit capsule digoxin 250 mcg tablet 0.25 mg PO DAILY tab 10/27/17 07/21/18 History levothyroxine 150 mcg capsule 150 mcg PO DAILY 11/08/17 07/21/18 History Amiodarone HCl 200 mg PO HS 01/02/18 07/21/18 History Multivitamin [Multi-Day Vitamins] 1 each PO DAILY 01/02/18 07/21/18 History Tamsulosin HCl [Flomax 0.4mg 0.4 mg PO HS 01/02/18 07/21/18 History capsule] Docusate Sodium [Docusate Sodium 100 mg PO BIDP PRN #20 cap 01/04/18 07/21/18 Rx 100mg Cap] clopidogrel 75 mg tablet 75 mg PO HS #90 tab 01/04/18 07/21/18 Rx atorvastatin 40 mg tablet 40 mg PO HS #30 tab 03/06/18 07/21/18 Rx memantine 10 mg tablet 10 mg PO BID 30 Days #60 tab 03/06/18 07/21/18 Rx irbesartan 150 mg tablet 150 mg PO DAILY #90 tab 05/26/18 07/21/18 Rx Donepezil HCl [Aricept 10mg 10 mg PO HS 06/16/18 07/21/18 History tablet] Ferrous Sulfate [Ferrous Sulfate 325 mg PO BID 06/16/18 07/21/18 History 325mg Tablet] spironolactone 25 mg tablet 25 mg PO Q48H tab 07/06/18 07/21/18 History Hydrocod/Acet 5/325 mg [[place] 1 tab PO Q4HP PRN #30 tab 07/14/18 07/21/18 Rx 5/325mg tablet] Ceftriaxone Sodium [Rocephin 1gm 1 gm IV Q24H 07/17/18 07/21/18 History vial] Vancomycin HCl [Vancomycin 1000mg 1,500 mg IV Q12H 07/17/18 07/21/18 History Vial] Isosorbide Mononitrate [Imdur 30mg 30 mg PO DAILY 07/21/18 07/21/18 History ER tablet] Height: 1.83 m Weight: 104.326 kg Laboratory Results:: Laboratory Results - last 24 hr 07/24/18 08:35: Sodium 139, Potassium 4.0, Chloride 104, Carbon Dioxide 27, Anion Gap 12.0, BUN 15, Creatinine 1.11, Estimated Creat Clear 94, Estimated GFR 66, Est GFR ( Amer) 80, Glucose 134 H, Calcium 8.4 L, Vancomycin Trough 17.1 Medical History: Reports:: Arrhythmia, Atrial Fibrillation, Congestive Heart Failure, Congenital Heart Disease, Coronary Artery Disease, Hiatal Hernia, Hyperlipidemia, Hypertension, Myocardial Infarction Denies:: Cancer, Diabetes Mellitus Type 1, Diabetes Mellitus Type 2, Internal Pacemaker, Lung Disease, MRSA, Seizures Assessment and Plan - Assessment and plan all Dx Assessment and Plan for all problems:: BASED ON VANCOMYCIN TROUGH LEVEL AND PATIENT FACTORS, RECOMMEND CONTINUING VANCOMYCIN 1500 MG IV Q12H. PHARMACY WILL CONTINUE TO MONITOR DAILY AND ADJUST APPROPRIATE.
--- NOTE | 2018-07-24 16:57 | PC.NURSE ---
07/24/18 1140 Cathflo 2mg, 2.2ml instilled into purple lumen of L upper arm PICC due to inability to flush/no blood return. Pt states he will return later this afternoon for assessment. 07/24/18 1255 Pt returned to infusion dept to have L PICC assessed for blood return. Cathflo 2.2ml removed from PICC, PICC now flushes easily with good blood return noted.
== END 2018-07-24 22:20 | disposition home or self-care (01) ==
PROVIDERS: PCP Family Medicine; Visit Provider Family Medicine
DX: Z96.659 Presence of unspecified artificial knee joint (principal); T84.53XA Infection and inflammatory reaction due to internal right knee prosthesis, initial encounter
CPT/HCPCS: 80048; 80202; 96365; 96366; 96367; 96375; J3370

== ENCOUNTER 2018-07-25 08:21 | Outpatient (CLI) | payer MEDICARE, OTHER, SELFPAY ==
[2018-07-25] VITALS (10 sets, daily range): BP systolic 105–126; BP diastolic 53–69; PULSE 52–72; RESP 16–18; TEMP 36.6–37.2; O2SAT 95–98; BMI 31.1
--- NOTE | 2018-07-25 11:57 | PC.NURSE ---
07/25/18 1015 Spoke with VALERY at MD's office regarding pt and pt's inquiry regarding fungal culture results /state they have not yet received results. BJ to speak with Dr. Estrada when he returns to office from surgery and return call. Pt/pt's informed and verbalize understanding.
== END 2018-07-25 22:14 | disposition home or self-care (01) ==
PROVIDERS: PCP Family Medicine; Visit Provider Family Medicine
DX: Z96.651 Presence of right artificial knee joint (principal); T84.53XA Infection and inflammatory reaction due to internal right knee prosthesis, initial encounter
CPT/HCPCS: 96365; 96366; 96367; J3370

== ENCOUNTER → 2018-07-26 08:15 | Outpatient (CLI) | payer MEDICARE, OTHER, SELFPAY ==
[2018-07-26] VITALS (8 sets, daily range): BP systolic 101–127; BP diastolic 51–72; PULSE 58–70; RESP 16–20; TEMP 36.3–37; O2SAT 94–97; BMI 30.5
[2018-07-26 09:02] LABS: Basophils % 0.7 % (0.1-2.0); Eosinophils # 0.2 K/mm3 (0.0-0.4); Eosinophils % 4.1 % (0.1-12.0); Hematocrit 29.4 % (42.0-52.0); Hemoglobin 9.3 g/dL (14.1-18.0); Lymphocytes # 0.5 K/mm3 (0.7-4.5); Lymphocytes % 11.1 % (10-50); Mean Corpuscular HGB Conc 31.8 g/dL (31.8-35.4); Mean Corpuscular Hemoglobin 27.4 pg (27.0-31.2); Mean Corpuscular Volume 86.2 fl (80-94); Mean Platelet Volume 7.5 fl (7.4-10.4); Monocytes # 0.4 K/mm3 (0.1-1.0); Neutrophils # 3.5 K/mm3 (1.8-7.8); Neutrophils % 76.1 % (37.0-80.0); Platelet Count 289 K/mm3 (142-424); Red Blood Count 3.41 M/mm3 (4.60-6.20); Red Cell Distribution Width 13.2 % (11.5-17.5); White Blood Count 4.6 K/mm3 (4.8-10.8)
[2018-07-26 09:29] LABS: Anion Gap 10.1 mEq/L (5-15); Blood Urea Nitrogen 16 mg/dL (7-18); Calcium 8.4 mg/dL (8.5-10.1); Carbon Dioxide 28 mmol/L (21.0-32.0); Chloride 104 mmol/L (98-107); Creatinine Clearance Estimated 95 mL/min (50-200); Creatinine,Serum 1.07 mg/dL (0.70-1.30); Estimated Glomerular Filt Rate 69 ml/min (>60); Ferritin 89 ng/mL (8-388); GFR (African American) 83 ML/MIN (>60); Glucose 123 mg/dL (74-106); Iron 27 ug/dl (28-170); Potassium 4.1 mmoL/L (3.5-5.1); Sodium 138 mmol/L (136-145)
[2018-07-26 11:01] LABS: C-Reactive Protein 2.6 mg/L (0.0-0.9)
[2018-07-26 12:11] LABS: Erythrocyte Sedimentation Rate 98 mm/hr (0-20)
[2018-07-27 07:12] LABS: Iron 29 ug/dL (38-169); UIBC 206 ug/dL (111-343)
[2018-07-27 07:48] LABS: Iron Saturation 12 % (15-55)
[2018-07-27 18:57] LABS: Vitamin B12 558 pg/mL (232-1245)
== END ==
PROVIDERS: Orthopaedic Surgery; PCP Family Medicine; Visit Provider Family Medicine
DX: D64.9 Anemia, unspecified (principal); Z96.651 Presence of right artificial knee joint; T84.53XA Infection and inflammatory reaction due to internal right knee prosthesis, initial encounter
CPT/HCPCS: 80048; 82607; 82728; 83540; 83550; 85025; 85651; 86140; 96365; 96366; 96367; G0463; J3370

== ENCOUNTER 2018-07-27 08:05 | Outpatient (CLI) | payer MEDICARE, OTHER, SELFPAY ==
[2018-07-27] VITALS (9 sets, daily range): BP systolic 92–122; BP diastolic 53–74; PULSE 52–72; RESP 16–18; TEMP 36.3–36.8; O2SAT 93–97
--- NOTE | 2018-07-27 12:22 | XR_ITS ---
XR knee RT 2V HISTORY: Follow-up revision right knee replacement ITS.REASON: sp REVISION right total knee replacement s07/11/18 ORDERING PHYSICIAN: Brady Bhakta MD PATIENT AGE: 67 years COMPARISON: 07/11/2018 FINDINGS Overall there is been no significant change. There remains good alignment with extensive methylmethacrylate at the knee joint and along the distal aspect of the femur at the patellofemoral area. An embolic beatings once again noted but are less apparent. Skin clips remain in place. No bony destructive process apparent. Intramedullary wires are present in the distal femur and proximal tibia as before. IMPRESSION: Overall no change status post removal of total knee replacement as described above
== END 2018-07-27 22:20 | disposition home or self-care (01) ==
PROVIDERS: PCP Family Medicine; Visit Provider Family Medicine
DX: T84.53XA Infection and inflammatory reaction due to internal right knee prosthesis, initial encounter (principal); Z96.659 Presence of unspecified artificial knee joint
CPT/HCPCS: 73560; 96365; 96366; 96367; G0463; J3370

== ENCOUNTER 2018-07-28 08:05 | Outpatient (CLI) | payer MEDICARE, OTHER, SELFPAY ==
[2018-07-28] VITALS (8 sets, daily range): BP systolic 91–120; BP diastolic 51–71; PULSE 49–64; RESP 16–18; TEMP 36.8–37; O2SAT 95–97
== END 2018-07-28 22:00 | disposition home or self-care (01) ==
LOC: INF 08:21
PROVIDERS: Visit Provider Family Medicine
DX: T84.53XA Infection and inflammatory reaction due to internal right knee prosthesis, initial encounter (principal); Z96.659 Presence of unspecified artificial knee joint
CPT/HCPCS: 96365; 96366; 96367; J3370

== ENCOUNTER 2018-07-29 07:47 | Outpatient (CLI) | payer MEDICARE, OTHER, SELFPAY ==
[2018-07-29 08:06] VITALS: BP 96/53; PULSE 55; RESP 16; O2SAT 96
[2018-07-29 08:16] VITALS: BMI 32.4
--- NOTE | 2018-07-29 11:11 | PC.NURSE ---
Red port with blood return and flushes easily; purple port unable to get blood return, occluded; reported to household appliances salesperson who states she will report to [facility]
[2018-07-29 19:55] VITALS: BP 112/61; PULSE 58; RESP 16; TEMP 36.4; O2SAT 95
[2018-07-29 22:00] VITALS: BP 114/64; PULSE 57; RESP 17; TEMP 37.1; O2SAT 98
== END 2018-07-29 22:00 | disposition home or self-care (01) ==
PROVIDERS: PCP Family Medicine; Visit Provider Family Medicine
DX: T84.53XA Infection and inflammatory reaction due to internal right knee prosthesis, initial encounter (principal); Z96.651 Presence of right artificial knee joint
CPT/HCPCS: 96365; 96366; J3370

== ENCOUNTER → 2018-07-30 07:46 | Outpatient (CLI) | payer MEDICARE, OTHER, SELFPAY ==
[2018-07-30 08:04] VITALS: BP 101/54; PULSE 55; RESP 16; TEMP 36.6; O2SAT 97
[2018-07-30 12:06] VITALS: BP 118/64; PULSE 50; RESP 16; O2SAT 99
[2018-07-30 20:25] VITALS: BP 113/71; PULSE 60; RESP 20; TEMP 37.1; O2SAT 96
[2018-07-30 22:25] VITALS: BP 112/70; PULSE 59; RESP 18; TEMP 36.8; O2SAT 97
== END ==
PROVIDERS: PCP Family Medicine; Visit Provider Family Medicine
DX: T84.53XA Infection and inflammatory reaction due to internal right knee prosthesis, initial encounter (principal); Z96.651 Presence of right artificial knee joint
CPT/HCPCS: 96365; 96366; J3370

== ENCOUNTER 2018-07-31 08:05 | Outpatient (CLI) | payer MEDICARE, OTHER, SELFPAY ==
[2018-07-31 08:27] VITALS: BMI 30.5
[2018-07-31 09:03] LABS: Anion Gap 14.2 mEq/L (5-15); Blood Urea Nitrogen 19 mg/dL (7-18); Calcium 8.3 mg/dL (8.5-10.1); Carbon Dioxide 25 mmol/L (21.0-32.0); Chloride 105 mmol/L (98-107); Creatinine Clearance Estimated 82 mL/min (50-200); Creatinine,Serum 1.24 mg/dL (0.70-1.30); Estimated Glomerular Filt Rate 58 ml/min (>60); GFR (African American) 70 ML/MIN (>60); Glucose 124 mg/dL (74-106); Potassium 4.2 mmoL/L (3.5-5.1); Sodium 140 mmol/L (136-145)
[2018-07-31 09:05] VITALS: BP 94/54; PULSE 50; RESP 16; TEMP 36.7; O2SAT 98
[2018-07-31 09:13] LABS: Vancomycin,Trough 22.3 mcg/ml (10.0-20.0)
[2018-07-31 09:47] VITALS: BP 91/57; PULSE 50; RESP 16; TEMP 36.7; O2SAT 96
--- NOTE | 2018-07-31 09:56 | PC.NURSE ---
PER [facility] PHARMACIST, NO NEED TO ADMINISTER NIGHT TIME DOSE.
--- NOTE | 2018-07-31 09:59 | HMH.PHACONS ---
- Pharmacy Consult Date: 07/31/18 Time: 10:00 Referring provider: KAELA Reason for Consult:: VANCOMYCIN LEVEL Allergies and ADEs:: Allergies Allergy/AdvReac Type Severity Reaction Status Date / Time lisinopril Allergy Severe S-SWELLS-OR Verified 07/27/18 14:37 AL/THROAT oxycodone AdvReac Unknown SHAKING Verified 07/27/18 14:37 Home Medications:: Home Medications Medication Instructions Recorded Confirmed Type carvedilol 12.5 mg tablet 6.25 mg PO BID 02/28/17 07/31/18 History rivaroxaban 20 mg tablet 20 mg PO DAILY 02/28/17 07/31/18 History cholecalciferol (vitamin D3) 5,000 5,000 unit PO HS 06/16/17 07/31/18 History unit capsule digoxin 250 mcg tablet 0.25 mg PO DAILY tab 10/27/17 07/31/18 History levothyroxine 150 mcg capsule 150 mcg PO DAILY 11/08/17 07/31/18 History Amiodarone HCl 200 mg PO HS 01/02/18 07/31/18 History Multivitamin [Multi-Day Vitamins] 1 each PO DAILY 01/02/18 07/31/18 History Tamsulosin HCl [Flomax 0.4mg 0.4 mg PO HS 01/02/18 07/31/18 History capsule] Docusate Sodium [Docusate Sodium 100 mg PO BIDP PRN #20 cap 01/04/18 07/31/18 Rx 100mg Cap] clopidogrel 75 mg tablet 75 mg PO HS #90 tab 01/04/18 07/31/18 Rx atorvastatin 40 mg tablet 40 mg PO HS #30 tab 03/06/18 07/31/18 Rx memantine 10 mg tablet 10 mg PO BID 30 Days #60 tab 03/06/18 07/31/18 Rx irbesartan 150 mg tablet 150 mg PO DAILY #90 tab 05/26/18 07/31/18 Rx Donepezil HCl [Aricept 10mg 10 mg PO HS 06/16/18 07/31/18 History tablet] Ferrous Sulfate [Ferrous Sulfate 325 mg PO BID 06/16/18 07/31/18 History 325mg Tablet] spironolactone 25 mg tablet 25 mg PO Q48H tab 07/06/18 07/31/18 History Hydrocod/Acet 5/325 mg [[place] 1 tab PO Q4HP PRN #30 tab 07/14/18 07/31/18 Rx 5/325mg tablet] Ceftriaxone Sodium [Rocephin 1gm 1 gm IV Q24H 07/17/18 07/31/18 History vial] Vancomycin HCl [Vancomycin 1000mg 1,500 mg IV Q12H 07/17/18 07/31/18 History Vial] Isosorbide Mononitrate [Imdur 30mg 30 mg PO DAILY 07/21/18 07/31/18 History ER tablet] Height: 1.83 m Weight: 102.058 kg Laboratory Results:: Laboratory Results - last 24 hr 07/31/18 08:30: Sodium 140, Potassium 4.2, Chloride 105, Carbon Dioxide 25, Anion Gap 14.2, BUN 19 H, Creatinine 1.24, Estimated Creat Clear 82, Estimated GFR 58 L, Est GFR ( Amer) 70, Glucose 124 H, Calcium 8.3 L, Vancomycin Trough 22.3 H Medical History: Reports:: Arrhythmia, Atrial Fibrillation, Congestive Heart Failure, Congenital Heart Disease, Coronary Artery Disease, Dementia, Hiatal Hernia, Hyperlipidemia, Hypertension, Myocardial Infarction Denies:: Cancer, Diabetes Mellitus Type 1, Diabetes Mellitus Type 2, Internal Pacemaker, Lung Disease, MRSA, Seizures Assessment and Plan - Assessment and plan all Dx Assessment and Plan for all problems:: PATIENT'S VANCOMYCIN TROUGH LEVEL WAS 22.3 MCG/ML THIS AM PRIOR TO DOSE. PATIENT WILL RECEIVE DOSE TODAY AND HOLD DOSE TONIGHT. PHARMACY WILL FOLLOW DAILY AND ADJUST APPROPRIATE. GEOVANNY KHANNA, YUNGD
[2018-07-31 12:20] VITALS: BP 108/68; PULSE 50; RESP 16; TEMP 36.7; O2SAT 97
== END 2018-07-31 12:23 | disposition home or self-care (01) ==
LOC: INF 08:22
PROVIDERS: Visit Provider Family Medicine
DX: T84.53XA Infection and inflammatory reaction due to internal right knee prosthesis, initial encounter (principal); Z96.651 Presence of right artificial knee joint
CPT/HCPCS: 80048; 80202; 96365; 96366; 96367; 96375; J3370

== ENCOUNTER → 2018-08-01 08:00 | Outpatient (CLI) | payer MEDICARE, OTHER, SELFPAY ==
[2018-08-01] VITALS (7 sets, daily range): BP systolic 106–144; BP diastolic 58–72; PULSE 43–103; RESP 16–19; TEMP 36.4–36.9; O2SAT 94–99
--- NOTE | 2018-08-01 11:29 | PC.NURSE ---
BOTH LUMENS FLUSHED AND DETERMINED TO BE PATENT.
== END ==
PROVIDERS: PCP Family Medicine; Visit Provider Family Medicine
DX: T84.53XA Infection and inflammatory reaction due to internal right knee prosthesis, initial encounter (principal); Z96.651 Presence of right artificial knee joint
CPT/HCPCS: 96365; 96366; 96367; J3370

== ENCOUNTER 2018-08-02 08:17 | Outpatient (CLI) | payer MEDICARE, OTHER, SELFPAY ==
[2018-08-02] VITALS (9 sets, daily range): BP systolic 108–129; BP diastolic 55–76; PULSE 50–59; RESP 17–18; TEMP 36.2–36.8; O2SAT 97–98; BMI 31.1
== END 2018-08-02 22:00 | disposition home or self-care (01) ==
PROVIDERS: PCP Family Medicine; Visit Provider Family Medicine
DX: T84.53XA Infection and inflammatory reaction due to internal right knee prosthesis, initial encounter (principal); Z96.651 Presence of right artificial knee joint
CPT/HCPCS: 96365; 96366; 96367; J3370

== ENCOUNTER 2018-08-03 08:15 | Outpatient (CLI) | payer MEDICARE, OTHER, SELFPAY ==
[2018-08-03] VITALS (9 sets, daily range): BP systolic 98–132; BP diastolic 52–79; PULSE 54–60; RESP 16–18; TEMP 36.5–36.9; O2SAT 91–97
== END 2018-08-03 22:11 | disposition home or self-care (01) ==
PROVIDERS: PCP Family Medicine; Visit Provider Family Medicine
DX: T84.53XA Infection and inflammatory reaction due to internal right knee prosthesis, initial encounter (principal); Z96.651 Presence of right artificial knee joint
CPT/HCPCS: 96365; 96366; 96367; J3370

== ENCOUNTER → 2018-08-04 08:12 | Outpatient (CLI) | payer MEDICARE, OTHER, SELFPAY ==
[2018-08-04 08:15] VITALS: BMI 30.5
[2018-08-04 08:43] LABS: Anion Gap 13.1 mEq/L (5-15); Blood Urea Nitrogen 19 mg/dL (7-18); Calcium 8.4 mg/dL (8.5-10.1); Carbon Dioxide 27 mmol/L (21.0-32.0); Chloride 103 mmol/L (98-107); Creatinine Clearance Estimated 82 mL/min (50-200); Creatinine,Serum 1.24 mg/dL (0.70-1.30); Estimated Glomerular Filt Rate 58 ml/min (>60); GFR (African American) 70 ML/MIN (>60); Glucose 121 mg/dL (74-106); Potassium 4.1 mmoL/L (3.5-5.1); Sodium 139 mmol/L (136-145); Vancomycin,Trough 17.8 mcg/ml (10.0-20.0)
[2018-08-04 08:45] VITALS: BP 128/78; PULSE 54; RESP 18; O2SAT 97
--- NOTE | 2018-08-04 09:25 | P.CONPHA_ITS ---
- Pharmacy Consult Date: 08/04/18 Time: 09:24 Referring provider: DR. SHERWOOD Reason for Consult:: VANCOMYCIN TROUGH LEVEL Allergies and ADEs:: Allergies Allergy/AdvReac Type Severity Reaction Status Date / Time lisinopril Allergy Severe S-SWELLS-OR Verified 08/03/18 19:58 AL/THROAT oxycodone AdvReac Unknown SHAKING Verified 08/03/18 19:58 Home Medications:: Home Medications Medication Instructions Recorded Confirmed Type carvedilol 12.5 mg tablet 6.25 mg PO BID 02/28/17 08/03/18 History rivaroxaban 20 mg tablet 20 mg PO DAILY 02/28/17 08/03/18 History cholecalciferol (vitamin D3) 5,000 5,000 unit PO HS 06/16/17 08/03/18 History unit capsule digoxin 250 mcg tablet 0.25 mg PO DAILY tab 10/27/17 08/03/18 History levothyroxine 150 mcg capsule 150 mcg PO DAILY 11/08/17 08/03/18 History Amiodarone HCl 200 mg PO HS 01/02/18 08/03/18 History Multivitamin [Multi-Day Vitamins] 1 each PO DAILY 01/02/18 08/03/18 History Tamsulosin HCl [Flomax 0.4mg 0.4 mg PO HS 01/02/18 08/03/18 History capsule] Docusate Sodium [Docusate Sodium 100 mg PO BIDP PRN #20 cap 01/04/18 08/03/18 Rx 100mg Cap] clopidogrel 75 mg tablet 75 mg PO HS #90 tab 01/04/18 08/03/18 Rx atorvastatin 40 mg tablet 40 mg PO HS #30 tab 03/06/18 08/03/18 Rx memantine 10 mg tablet 10 mg PO BID 30 Days #60 tab 03/06/18 08/03/18 Rx irbesartan 150 mg tablet 150 mg PO DAILY #90 tab 05/26/18 08/03/18 Rx Donepezil HCl [Aricept 10mg 10 mg PO HS 06/16/18 08/03/18 History tablet] Ferrous Sulfate [Ferrous Sulfate 325 mg PO BID 06/16/18 08/03/18 History 325mg Tablet] spironolactone 25 mg tablet 25 mg PO Q48H tab 07/06/18 08/03/18 History Hydrocod/Acet 5/325 mg [[place] 1 tab PO Q4HP PRN #30 tab 07/14/18 08/03/18 Rx 5/325mg tablet] Ceftriaxone Sodium [Rocephin 1gm 1 gm IV Q24H 07/17/18 08/02/18 History vial] Vancomycin HCl [Vancomycin 1000mg 1,500 mg IV Q12H 07/17/18 08/02/18 History Vial] Isosorbide Mononitrate [Imdur 30mg 30 mg PO DAILY 07/21/18 08/03/18 History ER tablet] Height: 1.83 m Weight: 102.058 kg Laboratory Results:: Laboratory Results - last 24 hr 08/04/18 08:20: Sodium 139, Potassium 4.1, Chloride 103, Carbon Dioxide 27, Anion Gap 13.1, BUN 19 H, Creatinine 1.24, Estimated Creat Clear 82, Estimated GFR 58 L, Est GFR ( Amer) 70, Glucose 121 H, Calcium 8.4 L, Vancomycin Trough 17.8 Medical History: Reports:: Arrhythmia, Atrial Fibrillation, Congestive Heart Failure, Congenital Heart Disease, Coronary Artery Disease, Dementia, Hiatal Hernia, Hyperlipidemia, Hypertension, Myocardial Infarction Denies:: Cancer, Diabetes Mellitus Type 1, Diabetes Mellitus Type 2, Internal Pacemaker, Lung Disease, MRSA, Seizures Assessment and Plan - Assessment and plan all Dx Assessment and Plan for all problems:: BASED ON PATIENT FACTORS AND VANCOMYCIN TROUGH LEVEL, RECOMMEND CONTINUING VANCOMYCIN 1250 MG IV Q12H. PHARMACY WILL CONTINUE TO MONITOR DAILY AND ADJUST APPROPRIATE.
[2018-08-04 10:36] VITALS: BP 131/79; PULSE 50; RESP 18; O2SAT 99
[2018-08-04 11:40] VITALS: BP 140/67; PULSE 49; RESP 18; O2SAT 98
[2018-08-04 20:21] VITALS: BP 138/73; PULSE 61; RESP 16; TEMP 37.1; O2SAT 97; BMI 30.7
[2018-08-04 20:25] VITALS: BP 138/73; PULSE 61; RESP 16; TEMP 37.1; O2SAT 97
[2018-08-04 22:36] VITALS: BP 126/79; PULSE 60; RESP 16; TEMP 36.7; O2SAT 99
== END ==
PROVIDERS: PCP Family Medicine; Visit Provider Family Medicine
DX: T84.53XA Infection and inflammatory reaction due to internal right knee prosthesis, initial encounter (principal); Z96.651 Presence of right artificial knee joint
CPT/HCPCS: 80048; 80202; 96365; 96366; 96367; G0463; J3370

== ENCOUNTER → 2018-08-05 07:51 | Outpatient (CLI) | payer MEDICARE, OTHER, SELFPAY ==
[2018-08-05 08:12] VITALS: BP 107/51; PULSE 57; RESP 14; TEMP 37.1; O2SAT 96
[2018-08-05 11:51] VITALS: BP 131/81; PULSE 50; RESP 20; TEMP 37; O2SAT 98
[2018-08-05 20:44] VITALS: BP 110/65; PULSE 63; RESP 18; TEMP 36.9; O2SAT 95
[2018-08-05 22:45] VITALS: BP 119/68; PULSE 54; RESP 18; TEMP 37; O2SAT 95
== END ==
PROVIDERS: PCP Family Medicine; Visit Provider Family Medicine
DX: T84.53XA Infection and inflammatory reaction due to internal right knee prosthesis, initial encounter (principal); Z96.651 Presence of right artificial knee joint
CPT/HCPCS: 96365; 96366; 96367; J3370

== ENCOUNTER → 2018-08-06 07:48 | Outpatient (CLI) | payer MEDICARE, OTHER, SELFPAY ==
[2018-08-06 08:00] VITALS: BP 107/62; PULSE 51; RESP 16; TEMP 36.5; O2SAT 95
[2018-08-06 19:58] VITALS: BP 120/68; PULSE 59; RESP 16; TEMP 36.7; O2SAT 97
[2018-08-06 22:05] VITALS: BP 123/69; PULSE 53; RESP 18; TEMP 36.8; O2SAT 96
== END ==
PROVIDERS: PCP Family Medicine; Visit Provider Family Medicine
DX: T84.53XA Infection and inflammatory reaction due to internal right knee prosthesis, initial encounter (principal); Z96.651 Presence of right artificial knee joint
CPT/HCPCS: 96365; 96366; 96367; G0463; J3370

== ENCOUNTER 2018-08-07 08:24 | Outpatient (CLI) | payer MEDICARE, OTHER, SELFPAY ==
[2018-08-07 09:09] VITALS: BP 118/62; PULSE 53; RESP 18; TEMP 36.8; O2SAT 97
[2018-08-07 09:53] VITALS: BP 131/74; PULSE 46; RESP 16; TEMP 36.8; O2SAT 97
[2018-08-07 11:54] VITALS: BP 147/81; PULSE 48; RESP 16; TEMP 36.8; O2SAT 100
[2018-08-07 20:25] VITALS: BP 131/69; PULSE 59; RESP 18; TEMP 36.8; O2SAT 96
[2018-08-07 22:25] VITALS: BP 124/63; PULSE 53; RESP 16; TEMP 36.9; O2SAT 96
== END 2018-08-07 22:28 | disposition home or self-care (01) ==
PROVIDERS: PCP Family Medicine; Visit Provider Family Medicine
DX: T84.53XA Infection and inflammatory reaction due to internal right knee prosthesis, initial encounter (principal); Z96.651 Presence of right artificial knee joint
CPT/HCPCS: 96365; 96366; 96367; J3370

== ENCOUNTER → 2018-08-08 08:20 | Outpatient (CLI) | payer MEDICARE, OTHER, SELFPAY ==
[2018-08-08 08:30] VITALS: BP 110/63; PULSE 52; RESP 16; TEMP 36.4; O2SAT 97
[2018-08-08 08:42] VITALS: BP 110/63; PULSE 52; RESP 16; TEMP 36.4; O2SAT 97
[2018-08-08 09:49] VITALS: BMI 31.1
[2018-08-08 11:35] VITALS: BP 105/70; PULSE 55; RESP 16; O2SAT 97
[2018-08-08 11:44] LABS: Basophils % 0.9 % (0.1-2.0); Eosinophils # 0.2 K/mm3 (0.0-0.4); Eosinophils % 4.6 % (0.1-12.0); Hematocrit 32.9 % (42.0-52.0); Lymphocytes # 0.7 K/mm3 (0.7-4.5); Lymphocytes % 15.1 % (10-50); Mean Corpuscular HGB Conc 30.5 g/dL (31.8-35.4); Mean Corpuscular Volume 91.6 fl (80-94); Mean Platelet Volume 9.1 fl (7.4-10.4); Monocytes # 0.4 K/mm3 (0.1-1.0); Monocytes % 7.6 % (1.7-9.3); Neutrophils # 3.3 K/mm3 (1.8-7.8); Neutrophils % 71.7 % (37.0-80.0); Platelet Count 186 K/mm3 (142-424); Red Blood Count 3.59 M/mm3 (4.60-6.20); Red Cell Distribution Width 13.6 % (11.5-17.5); White Blood Count 4.6 K/mm3 (4.8-10.8)
[2018-08-08 11:48] LABS: C-Reactive Protein < 0.2 mg/L (0.0-0.9)
[2018-08-08 12:22] LABS: Erythrocyte Sedimentation Rate 26 mm/hr (0-20)
[2018-08-08 19:40] VITALS: BP 118/62; PULSE 69; RESP 16; TEMP 36.6; O2SAT 93
[2018-08-08 20:02] VITALS: BP 118/62; PULSE 69; RESP 16; TEMP 36.6; O2SAT 93
[2018-08-08 22:10] VITALS: BP 137/74; PULSE 59; RESP 17; TEMP 36.7; O2SAT 97
--- NOTE | 2018-08-08 22:22 | PC.NURSE ---
PICC line assessed after administration of Vancomycin. Purple port flushes with blood return. Red port does not flush. No blood return.Pt stated that it would not flush earlier when antibiotic was started.
== END ==
PROVIDERS: Orthopaedic Surgery; Visit Provider Family Medicine
DX: T84.53XA Infection and inflammatory reaction due to internal right knee prosthesis, initial encounter (principal); Z96.651 Presence of right artificial knee joint
CPT/HCPCS: 85025; 85651; 86140; 96365; 96366; 96367; G0463; J3370

== ENCOUNTER → 2018-08-09 08:00 | Outpatient (CLI) | payer MEDICARE, OTHER, SELFPAY ==
[2018-08-09] VITALS (8 sets, daily range): BP systolic 107–148; BP diastolic 68–82; PULSE 42–59; RESP 16–18; TEMP 36.7–37.1; O2SAT 98; BMI 30.5
[2018-08-09 09:10] LABS: Anion Gap 10.2 mEq/L (5-15); Blood Urea Nitrogen 19 mg/dL (7-18); Calcium 8.3 mg/dL (8.5-10.1); Carbon Dioxide 28 mmol/L (21.0-32.0); Chloride 105 mmol/L (98-107); Creatinine Clearance Estimated 81 mL/min (50-200); Creatinine,Serum 1.24 mg/dL (0.70-1.30); Estimated Glomerular Filt Rate 58 ml/min (>60); GFR (African American) 70 ML/MIN (>60); Glucose 118 mg/dL (74-106); Potassium 4.2 mmoL/L (3.5-5.1); Sodium 139 mmol/L (136-145); Vancomycin,Trough 17.4 mcg/ml (10.0-20.0)
--- NOTE | 2018-08-09 09:21 | P.CONPHA_ITS ---
- Pharmacy Consult Date: 08/09/18 Time: 09:20 Referring provider: DR. SHERWOOD Reason for Consult:: VANCOMYCIN TROUGH LEVEL Allergies and ADEs:: Allergies Allergy/AdvReac Type Severity Reaction Status Date / Time lisinopril Allergy Severe S-SWELLS-OR Verified 08/08/18 20:00 AL/THROAT oxycodone AdvReac Unknown SHAKING Verified 08/08/18 20:00 Home Medications:: Home Medications Medication Instructions Recorded Confirmed Type carvedilol 12.5 mg tablet 6.25 mg PO BID 02/28/17 08/08/18 History rivaroxaban 20 mg tablet 20 mg PO DAILY 02/28/17 08/08/18 History cholecalciferol (vitamin D3) 5,000 5,000 unit PO HS 06/16/17 08/08/18 History unit capsule digoxin 250 mcg tablet 0.25 mg PO DAILY tab 10/27/17 08/08/18 History levothyroxine 150 mcg capsule 150 mcg PO DAILY 11/08/17 08/08/18 History Amiodarone HCl 200 mg PO HS 01/02/18 08/08/18 History Multivitamin [Multi-Day Vitamins] 1 each PO DAILY 01/02/18 08/08/18 History Tamsulosin HCl [Flomax 0.4mg 0.8 mg PO HS 01/02/18 08/08/18 History capsule] Docusate Sodium [Docusate Sodium 100 mg PO BIDP PRN #20 cap 01/04/18 08/08/18 Rx 100mg Cap] clopidogrel 75 mg tablet 75 mg PO HS #90 tab 01/04/18 08/08/18 Rx atorvastatin 40 mg tablet 40 mg PO HS #30 tab 03/06/18 08/08/18 Rx memantine 10 mg tablet 10 mg PO BID 30 Days #60 tab 03/06/18 08/08/18 Rx irbesartan 150 mg tablet 150 mg PO DAILY #90 tab 05/26/18 08/08/18 Rx Donepezil HCl [Aricept 10mg 10 mg PO HS 06/16/18 08/08/18 History tablet] Ferrous Sulfate [Ferrous Sulfate 325 mg PO BID 06/16/18 08/08/18 History 325mg Tablet] spironolactone 25 mg tablet 25 mg PO Q48H tab 07/06/18 08/08/18 History Hydrocod/Acet 5/325 mg [[place] 1 tab PO Q4HP PRN #30 tab 07/14/18 08/08/18 Rx 5/325mg tablet] Ceftriaxone Sodium [Rocephin 1gm 1 gm IV Q24H 07/17/18 08/08/18 History vial] Vancomycin HCl [Vancomycin 1000mg 1,500 mg IV Q12H 07/17/18 08/08/18 History Vial] Isosorbide Mononitrate [Imdur 30mg 30 mg PO DAILY 07/21/18 08/08/18 History ER tablet] Height: 1.83 m Weight: 102.058 kg Laboratory Results:: Laboratory Results - last 24 hr 08/09/18 08:46: Sodium 139, Potassium 4.2, Chloride 105, Carbon Dioxide 28, Anion Gap 10.2, BUN 19 H, Creatinine 1.24, Estimated Creat Clear 81, Estimated GFR 58 L, Est GFR ( Amer) 70, Glucose 118 H, Calcium 8.3 L, Vancomycin Trough 17.4 Medical History: Reports:: Arrhythmia, Atrial Fibrillation, Congestive Heart Failure, Congenital Heart Disease, Coronary Artery Disease, Dementia, Hiatal Hernia, Hyperlipidemia, Hypertension, Myocardial Infarction Denies:: Cancer, Diabetes Mellitus Type 1, Diabetes Mellitus Type 2, Internal Pacemaker, Lung Disease, MRSA, Seizures Assessment and Plan - Assessment and plan all Dx Assessment and Plan for all problems:: BASED ON PATIENT FACTORS AND VANCOMYCIN TROUGH LEVEL, RECOMMEND CONTINUING VANCOMYCIN 1250 MG IV Q12H. PHARMACY WILL CONTINUE TO MONITOR AND ADJUST APPROPRIATE.
== END ==
PROVIDERS: PCP Family Medicine; Visit Provider Family Medicine
DX: T84.53XA Infection and inflammatory reaction due to internal right knee prosthesis, initial encounter (principal); Z96.651 Presence of right artificial knee joint
CPT/HCPCS: 36415; 80048; 80202; 96365; 96366; 96367; 96375; G0463; J3370

== ENCOUNTER 2018-08-10 07:43 | Outpatient (CLI) | payer MEDICARE, OTHER, SELFPAY ==
[2018-08-10 08:03] VITALS: BMI 32.4
[2018-08-10 08:05] VITALS: BP 102/61; PULSE 59; RESP 17; O2SAT 97
[2018-08-10 20:30] VITALS: BP 111/66; PULSE 63; RESP 18; TEMP 36.7
[2018-08-10 22:25] VITALS: BP 131/78; PULSE 56; RESP 17; TEMP 36.8; O2SAT 96
== END 2018-08-10 11:00 | disposition home or self-care (01) ==
LOC: INF 07:44
PROVIDERS: PCP Family Medicine; Visit Provider Family Medicine
DX: T84.53XA Infection and inflammatory reaction due to internal right knee prosthesis, initial encounter (principal); Z96.651 Presence of right artificial knee joint
CPT/HCPCS: 96365; 96366; 96367; G0463; J3370

== ENCOUNTER → 2018-08-11 08:00 | Outpatient (CLI) | payer MEDICARE, OTHER, SELFPAY ==
[2018-08-11 08:39] VITALS: BP 118/65; PULSE 53; RESP 18; O2SAT 97
[2018-08-11 09:23] VITALS: BP 108/62; PULSE 48; RESP 18; O2SAT 97
[2018-08-11 11:35] VITALS: BP 136/81; PULSE 52; RESP 18; O2SAT 96
[2018-08-11 19:55] VITALS: BP 136/71; PULSE 59; RESP 18; TEMP 36.7; O2SAT 93
[2018-08-11 22:10] VITALS: BP 136/75; PULSE 55; RESP 18; TEMP 36.8; O2SAT 95
== END ==
PROVIDERS: PCP Family Medicine; Visit Provider Family Medicine
DX: T84.53XA Infection and inflammatory reaction due to internal right knee prosthesis, initial encounter (principal); Z96.651 Presence of right artificial knee joint
CPT/HCPCS: 96365; 96366; 96367; G0463; J3370

== ENCOUNTER 2018-08-12 07:42 | Outpatient (CLI) | payer MEDICARE, OTHER, SELFPAY ==
[2018-08-12 08:00] VITALS: BP 111/62; PULSE 57; RESP 16; TEMP 36.9; O2SAT 95
[2018-08-12 19:55] VITALS: BP 109/71; PULSE 60; RESP 18; TEMP 36.9; O2SAT 95
[2018-08-12 21:55] VITALS: BP 123/72; PULSE 55; RESP 16; TEMP 37; O2SAT 98
== END 2018-08-12 21:55 | disposition home or self-care (01) ==
PROVIDERS: PCP Family Medicine; Visit Provider Family Medicine
DX: T84.53XA Infection and inflammatory reaction due to internal right knee prosthesis, initial encounter (principal); Z96.651 Presence of right artificial knee joint
CPT/HCPCS: 96365; 96366; 96367; J3370

== ENCOUNTER → 2018-08-13 07:43 | Outpatient (CLI) | payer MEDICARE, OTHER, SELFPAY ==
[2018-08-13 08:03] VITALS: BP 108/64; PULSE 62; RESP 18; O2SAT 93
[2018-08-13 20:15] VITALS: BP 131/75; PULSE 65; RESP 20; TEMP 37.1; O2SAT 95
[2018-08-13 22:15] VITALS: BP 120/70; PULSE 57; RESP 20; TEMP 37; O2SAT 95
== END ==
PROVIDERS: PCP Family Medicine; Visit Provider Family Medicine
DX: T84.53XA Infection and inflammatory reaction due to internal right knee prosthesis, initial encounter (principal); Z96.651 Presence of right artificial knee joint
CPT/HCPCS: 96365; 96366; 96367; J3370

== ENCOUNTER → 2018-08-14 08:22 | Outpatient (CLI) | payer MEDICARE, OTHER, SELFPAY ==
[2018-08-14 08:24] VITALS: BMI 33.5
[2018-08-14 08:25] VITALS: BP 110/65; PULSE 55; RESP 20; TEMP 36.7; O2SAT 97
[2018-08-14 11:46] VITALS: BP 140/83; PULSE 50; RESP 20; TEMP 36.4; O2SAT 97
[2018-08-14 20:20] VITALS: BP 114/71; PULSE 62; RESP 20; TEMP 37.1; O2SAT 95
[2018-08-14 22:20] VITALS: BP 135/81; PULSE 57; RESP 18; TEMP 36.8; O2SAT 96
== END ==
PROVIDERS: Visit Provider Family Medicine
DX: T84.53XA Infection and inflammatory reaction due to internal right knee prosthesis, initial encounter (principal); Z96.651 Presence of right artificial knee joint
CPT/HCPCS: 96365; 96366; 96367; J3370

== ENCOUNTER 2018-08-15 08:13 | Outpatient (CLI) | payer MEDICARE, OTHER, SELFPAY ==
[2018-08-15 08:17] VITALS: BMI 31.1
[2018-08-15 08:49] LABS: Anion Gap 11.1 mEq/L (5-15); Blood Urea Nitrogen 16 mg/dL (7-18); Calcium 8.5 mg/dL (8.5-10.1); Carbon Dioxide 27 mmol/L (21.0-32.0); Chloride 103 mmol/L (98-107); Creatinine Clearance Estimated 77 mL/min (50-200); Creatinine,Serum 1.33 mg/dL (0.70-1.30); Estimated Glomerular Filt Rate 53 ml/min (>60); GFR (African American) 65 ML/MIN (>60); Glucose 123 mg/dL (74-106); Potassium 4.1 mmoL/L (3.5-5.1); Sodium 137 mmol/L (136-145)
[2018-08-15 08:50] VITALS: BP 112/63; PULSE 55; RESP 19; O2SAT 96
[2018-08-15 08:51] LABS: Vancomycin,Trough 20.1 mcg/ml (10.0-20.0)
--- NOTE | 2018-08-15 08:59 | HMH.PHACONS ---
- Pharmacy Consult Date: 08/15/18 Time: 08:59 Referring provider: PETE Reason for Consult:: ONGOING VANCOMYCIN THERAPY Allergies and ADEs:: Allergies Allergy/AdvReac Type Severity Reaction Status Date / Time lisinopril Allergy Severe S-SWELLS-OR Verified 08/09/18 12:48 AL/THROAT oxycodone AdvReac Unknown SHAKING Verified 08/09/18 12:48 Home Medications:: Home Medications Medication Instructions Recorded Confirmed Type carvedilol 12.5 mg tablet 6.25 mg PO BID 02/28/17 08/09/18 History rivaroxaban 20 mg tablet 20 mg PO DAILY 02/28/17 08/09/18 History cholecalciferol (vitamin D3) 5,000 5,000 unit PO HS 06/16/17 08/09/18 History unit capsule digoxin 250 mcg tablet 0.25 mg PO DAILY tab 10/27/17 08/09/18 History levothyroxine 150 mcg capsule 150 mcg PO DAILY 11/08/17 08/09/18 History Amiodarone HCl 200 mg PO HS 01/02/18 08/09/18 History Multivitamin [Multi-Day Vitamins] 1 each PO DAILY 01/02/18 08/09/18 History Tamsulosin HCl [Flomax 0.4mg 0.8 mg PO HS 01/02/18 08/09/18 History capsule] Docusate Sodium [Docusate Sodium 100 mg PO BIDP PRN #20 cap 01/04/18 08/09/18 Rx 100mg Cap] clopidogrel 75 mg tablet 75 mg PO HS #90 tab 01/04/18 08/09/18 Rx atorvastatin 40 mg tablet 40 mg PO HS #30 tab 03/06/18 08/09/18 Rx memantine 10 mg tablet 10 mg PO BID 30 Days #60 tab 03/06/18 08/09/18 Rx irbesartan 150 mg tablet 150 mg PO DAILY #90 tab 05/26/18 08/09/18 Rx Donepezil HCl [Aricept 10mg 10 mg PO HS 06/16/18 08/09/18 History tablet] Ferrous Sulfate [Ferrous Sulfate 325 mg PO BID 06/16/18 08/09/18 History 325mg Tablet] spironolactone 25 mg tablet 25 mg PO Q48H tab 07/06/18 08/09/18 History Hydrocod/Acet 5/325 mg [[place] 1 tab PO Q4HP PRN #30 tab 07/14/18 08/09/18 Rx 5/325mg tablet] Ceftriaxone Sodium [Rocephin 1gm 1 gm IV Q24H 07/17/18 08/09/18 History vial] Vancomycin HCl [Vancomycin 1000mg 1,500 mg IV Q12H 07/17/18 08/09/18 History Vial] Isosorbide Mononitrate [Imdur 30mg 30 mg PO DAILY 07/21/18 08/09/18 History ER tablet] Height: 1.83 m Weight: 104.326 kg Laboratory Results:: Laboratory Results - last 24 hr 08/15/18 08:22: Sodium 137, Potassium 4.1, Chloride 103, Carbon Dioxide 27, Anion Gap 11.1, BUN 16, Creatinine 1.33 H, Estimated Creat Clear 77, Estimated GFR 53 L, Est GFR ( Amer) 65, Glucose 123 H, Calcium 8.5, Vancomycin Trough 20.1 H Medical History: Reports:: Arrhythmia, Atrial Fibrillation, Congestive Heart Failure, Congenital Heart Disease, Coronary Artery Disease, Dementia, Hiatal Hernia, Hyperlipidemia, Hypertension, Myocardial Infarction Denies:: Cancer, Diabetes Mellitus Type 1, Diabetes Mellitus Type 2, Internal Pacemaker, Lung Disease, MRSA, Seizures Assessment and Plan - Assessment and plan all Dx Assessment and Plan for all problems:: VANCOMYCIN TROUGH TODAY = 20.1, WILL CONTINUE VANCOMYCIN 1250MG [id number] AND CONTINUE TO MONITOR.
[2018-08-15 09:35] VITALS: BP 115/72; PULSE 55; RESP 18; O2SAT 96
[2018-08-15 10:15] VITALS: BP 101/65; PULSE 55; RESP 18
[2018-08-15 11:20] VITALS: BP 113/63; PULSE 49; RESP 18
[2018-08-15 11:54] VITALS: BP 131/68; PULSE 47; RESP 18
== END 2018-08-15 12:02 | disposition home or self-care (01) ==
LOC: INF 08:13
PROVIDERS: Visit Provider Family Medicine
DX: T84.53XA Infection and inflammatory reaction due to internal right knee prosthesis, initial encounter (principal); Z96.651 Presence of right artificial knee joint
CPT/HCPCS: 80048; 80202; 96365; 96366; 96367; J3370

== ENCOUNTER → 2018-08-16 08:00 | Outpatient (CLI) | payer MEDICARE, OTHER, SELFPAY ==
[2018-08-16] VITALS (7 sets, daily range): BP systolic 109–139; BP diastolic 55–77; PULSE 48–68; RESP 16–18; TEMP 36.4; O2SAT 95–98
== END ==
PROVIDERS: PCP Family Medicine; Visit Provider Family Medicine
DX: T84.53XA Infection and inflammatory reaction due to internal right knee prosthesis, initial encounter (principal); Z96.651 Presence of right artificial knee joint
CPT/HCPCS: 96365; 96366; 96367; G0463; J3370

== ENCOUNTER → 2018-08-17 08:14 | Outpatient (CLI) | payer MEDICARE, OTHER, SELFPAY ==
[2018-08-17] VITALS (7 sets, daily range): BP systolic 91–124; BP diastolic 52–74; PULSE 49–72; RESP 18–20; TEMP 36.4–37.1; O2SAT 95–98; BMI 31.1; BMI 30.4
[2018-08-17 08:38] LABS: Basophils % 0.7 % (0.1-2.0); Eosinophils # 0.2 K/mm3 (0.0-0.4); Eosinophils % 4.9 % (0.1-12.0); Hematocrit 33.4 % (42.0-52.0); Hemoglobin 10.2 g/dL (14.1-18.0); Lymphocytes # 0.6 K/mm3 (0.7-4.5); Lymphocytes % 12.1 % (10-50); Mean Corpuscular HGB Conc 30.5 g/dL (31.8-35.4); Mean Corpuscular Hemoglobin 28.2 pg (27.0-31.2); Mean Corpuscular Volume 92.6 fl (80-94); Mean Platelet Volume 9.2 fl (7.4-10.4); Monocytes # 0.4 K/mm3 (0.1-1.0); Monocytes % 8.2 % (1.7-9.3); Neutrophils # 3.4 K/mm3 (1.8-7.8); Platelet Count 123 K/mm3 (142-424); Red Blood Count 3.61 M/mm3 (4.60-6.20); Red Cell Distribution Width 13.4 % (11.5-17.5); White Blood Count 4.5 K/mm3 (4.8-10.8)
[2018-08-17 10:06] LABS: C-Reactive Protein 1.5 mg/L (0.0-0.9)
[2018-08-17 12:43] LABS: Erythrocyte Sedimentation Rate 48 mm/hr (0-20)
== END ==
PROVIDERS: Orthopaedic Surgery; Visit Provider Family Medicine
DX: T84.53XA Infection and inflammatory reaction due to internal right knee prosthesis, initial encounter (principal); Z96.651 Presence of right artificial knee joint
CPT/HCPCS: 85025; 85651; 86140; 96365; 96366; 96367; G0463; J3370

== ENCOUNTER → 2018-08-18 08:00 | Outpatient (CLI) | payer MEDICARE, OTHER, SELFPAY ==
[2018-08-18] VITALS (7 sets, daily range): BP systolic 108–137; BP diastolic 50–85; PULSE 50–62; RESP 18; TEMP 36.6–36.8; O2SAT 95–96
== END ==
PROVIDERS: Visit Provider Family Medicine
DX: T84.53XA Infection and inflammatory reaction due to internal right knee prosthesis, initial encounter (principal); Z96.651 Presence of right artificial knee joint
CPT/HCPCS: 96365; 96366; 96367; G0463; J3370

== ENCOUNTER → 2018-08-19 07:44 | Outpatient (CLI) | payer MEDICARE, OTHER, SELFPAY ==
[2018-08-19 08:02] VITALS: BP 96/57; PULSE 61; RESP 16; TEMP 36.6; O2SAT 96
[2018-08-19 11:18] VITALS: BP 116/70; PULSE 49; RESP 18; TEMP 36.4; O2SAT 98
[2018-08-19 20:15] VITALS: BP 113/66; PULSE 65; RESP 16; TEMP 36.9; O2SAT 97
[2018-08-19 21:15] VITALS: BP 128/79; PULSE 67; RESP 18; TEMP 36.9; O2SAT 98
[2018-08-19 22:15] VITALS: BP 137/75; PULSE 61; RESP 16; TEMP 36.7; O2SAT 99
== END ==
PROVIDERS: PCP Family Medicine; Visit Provider Family Medicine
DX: T84.53XA Infection and inflammatory reaction due to internal right knee prosthesis, initial encounter (principal); Z96.651 Presence of right artificial knee joint
CPT/HCPCS: 96365; 96366; 96367; G0463; J3370

== ENCOUNTER → 2018-08-20 07:46 | Outpatient (CLI) | payer MEDICARE, OTHER, SELFPAY ==
[2018-08-20 07:46] VITALS: BP 110/64; PULSE 63; RESP 17; TEMP 36.4; O2SAT 95
[2018-08-20 08:19] VITALS: BP 98/51; PULSE 63; RESP 17; TEMP 36.4; O2SAT 95
[2018-08-20 20:00] VITALS: BP 122/71; PULSE 66; RESP 18; TEMP 36.8; O2SAT 99
[2018-08-20 22:00] VITALS: BP 124/65; PULSE 58; RESP 16; TEMP 36.8; O2SAT 96
== END ==
PROVIDERS: PCP Family Medicine; Visit Provider Family Medicine
DX: T84.53XA Infection and inflammatory reaction due to internal right knee prosthesis, initial encounter (principal); Z96.651 Presence of right artificial knee joint
CPT/HCPCS: 96365; 96366; 96367; G0463; J3370

== ENCOUNTER 2018-08-21 08:00 | Outpatient (CLI) | payer MEDICARE, OTHER, SELFPAY ==
[2018-08-21] VITALS (7 sets, daily range): BP systolic 100–120; BP diastolic 51–70; PULSE 47–54; RESP 18; O2SAT 95; BMI 43.8
[2018-08-21 08:48] LABS: Anion Gap 10.3 mEq/L (5-15); Blood Urea Nitrogen 18 mg/dL (7-18); Calcium 8.8 mg/dL (8.5-10.1); Carbon Dioxide 28 mmol/L (21.0-32.0); Chloride 103 mmol/L (98-107); Creatinine Clearance Estimated 53 mL/min (50-200); Creatinine,Serum 1.44 mg/dL (0.70-1.30); Estimated Glomerular Filt Rate 49 ml/min (>60); GFR (African American) 59 ML/MIN (>60); Glucose 117 mg/dL (74-106); Potassium 4.3 mmoL/L (3.5-5.1); Sodium 137 mmol/L (136-145)
[2018-08-21 09:04] LABS: Vancomycin,Trough 20.5 mcg/ml (10.0-20.0)
--- NOTE | 2018-08-21 09:37 | HMH.PHACONS ---
- Pharmacy Consult Date: 08/21/18 Time: 09:37 Referring provider: DR. SHERWOOD Reason for Consult:: VANCOMYCIN DOSE CHANGE Allergies and ADEs:: Allergies Allergy/AdvReac Type Severity Reaction Status Date / Time lisinopril Allergy Severe S-SWELLS-OR Verified 08/17/18 11:44 AL/THROAT oxycodone AdvReac Unknown SHAKING Verified 08/17/18 11:44 Home Medications:: Home Medications Medication Instructions Recorded Confirmed Type carvedilol 12.5 mg tablet 6.25 mg PO BID 02/28/17 08/18/18 History rivaroxaban 20 mg tablet 20 mg PO DAILY 02/28/17 08/18/18 History cholecalciferol (vitamin D3) 5,000 5,000 unit PO HS 06/16/17 08/18/18 History unit capsule digoxin 250 mcg tablet 0.25 mg PO DAILY tab 10/27/17 08/18/18 History levothyroxine 150 mcg capsule 150 mcg PO DAILY 11/08/17 08/18/18 History Amiodarone HCl 200 mg PO HS 01/02/18 08/18/18 History Multivitamin [Multi-Day Vitamins] 1 each PO DAILY 01/02/18 08/18/18 History Tamsulosin HCl [Flomax 0.4mg 0.8 mg PO HS 01/02/18 08/18/18 History capsule] Docusate Sodium [Docusate Sodium 100 mg PO BIDP PRN #20 cap 01/04/18 08/18/18 Rx 100mg Cap] clopidogrel 75 mg tablet 75 mg PO HS #90 tab 01/04/18 08/18/18 Rx atorvastatin 40 mg tablet 40 mg PO HS #30 tab 03/06/18 08/18/18 Rx memantine 10 mg tablet 10 mg PO BID 30 Days #60 tab 03/06/18 08/18/18 Rx irbesartan 150 mg tablet 150 mg PO DAILY #90 tab 05/26/18 08/18/18 Rx Donepezil HCl [Aricept 10mg 10 mg PO HS 06/16/18 08/18/18 History tablet] Ferrous Sulfate [Ferrous Sulfate 325 mg PO BID 06/16/18 08/18/18 History 325mg Tablet] spironolactone 25 mg tablet 25 mg PO DAILY tab 07/06/18 08/18/18 History Hydrocod/Acet 5/325 mg [[place] 1 tab PO Q4HP PRN #30 tab 07/14/18 08/18/18 Rx 5/325mg tablet] Ceftriaxone Sodium [Rocephin 1gm 1 gm IV Q24H 07/17/18 08/18/18 History vial] Vancomycin HCl [Vancomycin 1000mg 1,500 mg IV Q12H 07/17/18 08/18/18 History Vial] Isosorbide Mononitrate [Imdur 30mg 30 mg PO DAILY 07/21/18 08/18/18 History ER tablet] Height: 1.83 m Weight: 101.605 kg Laboratory Results:: Laboratory Results - last 24 hr 08/21/18 08:20: Sodium 137, Potassium 4.3, Chloride 103, Carbon Dioxide 28, Anion Gap 10.3, BUN 18, Creatinine 1.44 H, Estimated Creat Clear 53, Estimated GFR 49 L, Est GFR ( Amer) 59, Glucose 117 H, Calcium 8.8, Vancomycin Trough 20.5 H Medical History: Reports:: Arrhythmia, Atrial Fibrillation, Congestive Heart Failure, Congenital Heart Disease, Coronary Artery Disease, Dementia, Hiatal Hernia, Hyperlipidemia, Hypertension, Myocardial Infarction Denies:: Cancer, Diabetes Mellitus Type 1, Diabetes Mellitus Type 2, Internal Pacemaker, Lung Disease, MRSA, Seizures Assessment and Plan - Assessment and plan all Dx Assessment and Plan for all problems:: BASED ON PATIENT'S VANCOMYCIN TROUGH LEVEL OF 20.5 MCG/ML, RECOMMENDED PATIENT STOP VANCOMYCIN 1250 MG Q12H AFTER THE DOSE THIS AM AND RESTART WITH VANCOMYCIN 2000 MG Q24H STARTING IN THE AM ON 08/22/18. PHARMACY WILL FOLLOW DAILY AND ADJUST APPROPRIATE. GEOVANNY KHANNA, YUNGD
== END 2018-08-21 11:38 | disposition home or self-care (01) ==
LOC: INF 08:13
PROVIDERS: Visit Provider Family Medicine
DX: T84.53XA Infection and inflammatory reaction due to internal right knee prosthesis, initial encounter (principal); Z96.651 Presence of right artificial knee joint
CPT/HCPCS: 80048; 80202; 96365; 96366; 96367; J3370

== ENCOUNTER 2018-08-22 08:06 | Outpatient (CLI) | payer MEDICARE, OTHER, SELFPAY ==
[2018-08-22] VITALS (7 sets, daily range): BP systolic 98–107; BP diastolic 56–68; PULSE 52–58; RESP 18–20; TEMP 36.6; O2SAT 96–97
== END 2018-08-22 11:20 | disposition home or self-care (01) ==
LOC: INF 08:06
PROVIDERS: Visit Provider Family Medicine
DX: T84.53XA Infection and inflammatory reaction due to internal right knee prosthesis, initial encounter (principal); Z96.651 Presence of right artificial knee joint
CPT/HCPCS: 96365; 96366; 96367; J3370

== ENCOUNTER 2018-08-23 08:00 | Outpatient (CLI) | payer MEDICARE, OTHER, SELFPAY ==
[2018-08-23 08:30] VITALS: BP 94/53; PULSE 60; RESP 16; TEMP 36.7; O2SAT 96
[2018-08-23 09:25] VITALS: BP 98/59; PULSE 51; RESP 18; O2SAT 95
[2018-08-23 10:20] VITALS: BP 99/60; PULSE 51; RESP 18; O2SAT 99
[2018-08-23 11:15] VITALS: BP 122/64; PULSE 54; RESP 18; O2SAT 100
[2018-08-23 12:20] VITALS: BP 124/72; PULSE 53; RESP 18; O2SAT 98
== END 2018-08-23 12:20 | disposition home or self-care (01) ==
LOC: INF 08:19
PROVIDERS: Visit Provider Family Medicine
DX: T84.53XA Infection and inflammatory reaction due to internal right knee prosthesis, initial encounter (principal); Z96.651 Presence of right artificial knee joint
CPT/HCPCS: 96365; 96366; 96367; J3370

== ENCOUNTER 2018-08-24 08:13 | Outpatient (CLI) | payer MEDICARE, OTHER, SELFPAY ==
[2018-08-24 08:27] VITALS: BP 103/50; PULSE 59; RESP 18; TEMP 36.7; O2SAT 96
[2018-08-24 09:01] VITALS: BP 105/57; PULSE 57; RESP 18; TEMP 36.7; O2SAT 96
[2018-08-24 09:30] VITALS: BP 116/54; PULSE 58; RESP 20; O2SAT 98
[2018-08-24 10:00] VITALS: BP 124/68; PULSE 59; RESP 18; O2SAT 97
[2018-08-24 10:30] VITALS: BP 112/62; PULSE 57; RESP 18; TEMP 36.6; O2SAT 96
[2018-08-24 11:00] VITALS: BP 121/69; PULSE 58; RESP 16; TEMP 36.8; O2SAT 98
== END 2018-08-24 11:05 | disposition home or self-care (01) ==
LOC: INF 08:13
PROVIDERS: Visit Provider Family Medicine
DX: T84.53XA Infection and inflammatory reaction due to internal right knee prosthesis, initial encounter (principal); Z96.651 Presence of right artificial knee joint
CPT/HCPCS: 96365; 96366; 96367; J3370

== ENCOUNTER 2018-08-30 08:30 | Outpatient (CLI) | payer MEDICARE, OTHER, SELFPAY ==
[2018-08-30 08:34] VITALS: BMI 30.2
[2018-08-30 09:10] LABS: Basophils % 0.4 % (0.1-2.0); Eosinophils # 0.2 K/mm3 (0.0-0.4); Hematocrit 30.2 % (42.0-52.0); Hemoglobin 9.6 g/dL (14.1-18.0); Lymphocytes # 0.7 K/mm3 (0.7-4.5); Lymphocytes % 12.6 % (10-50); Mean Corpuscular HGB Conc 31.8 g/dL (31.8-35.4); Mean Corpuscular Hemoglobin 26.7 pg (27.0-31.2); Mean Corpuscular Volume 83.9 fl (80-94); Mean Platelet Volume 7.8 fl (7.4-10.4); Monocytes # 0.4 K/mm3 (0.1-1.0); Neutrophils # 4.1 K/mm3 (1.8-7.8); Neutrophils % 76.1 % (37.0-80.0); Platelet Count 187 K/mm3 (142-424); Red Cell Distribution Width 12.7 % (11.5-17.5); White Blood Count 5.4 K/mm3 (4.8-10.8)
[2018-08-30 09:44] LABS: C-Reactive Protein 1.9 mg/L (0.0-0.9)
[2018-08-30 10:01] LABS: Erythrocyte Sedimentation Rate 61 mm/hr (0-20)
== END 2018-08-30 09:04 | disposition home or self-care (01) ==
LOC: INF 08:33
PROVIDERS: Orthopaedic Surgery; Visit Provider Family Medicine
DX: T84.53XA Infection and inflammatory reaction due to internal right knee prosthesis, initial encounter (principal)
CPT/HCPCS: 85025; 85651; 86140

== ENCOUNTER → 2018-08-30 11:59 | Outpatient (CLI) | payer MEDICARE, OTHER, SELFPAY ==
--- NOTE | 2018-08-30 12:06 | XR_ITS ---
XR knee RT 2V HISTORY: ITS.REASON: sp RT knee revision DOS 07/11/18 ORDERING PHYSICIAN: Magdi Estrada MD PATIENT AGE: 68 years COMPARISON: 07/27/2018. FINDINGS: The appearance of the knee prosthesis remains stable. There is no change in the femoral and tibial intramedullary wires. The alignment is unchanged. There is persistent severe narrowing of the femoral/tibial joint space and moderate narrowing of the patellofemoral joint space. There has been removal of the anterior skin nena. The cortical irregularity along the medial proximal tibia is unchanged. Impression: Removal of the surgical skin nena. No other change.
== END ==
PROVIDERS: PCP Family Medicine; Visit Provider Orthopaedic Surgery
DX: T84.53XA Infection and inflammatory reaction due to internal right knee prosthesis, initial encounter (principal); Z96.651 Presence of right artificial knee joint
CPT/HCPCS: 73560; 85025; 85651; 86140

== ENCOUNTER → 2018-08-31 12:00 | Outpatient (CLI) | payer MEDICARE, OTHER, SELFPAY ==
[2018-08-31 12:20] VITALS: BMI 30.1
--- NOTE | 2018-08-31 12:29 | PC.NURSE ---
08/31/18 1215 labs drawn per PICC per MD order, TSH, Free T4, liver panel. L upper arm PICC patent with good blood return noted both lumens, both lumens flush easily. Dressing to L upper arm PICC CDI. Pt darling well.
[2018-08-31 12:57] LABS: Alanine Aminotransferase 29 U/L (12-78); Albumin Level 3.4 gm/dL (3.4-5.0); Alkaline Phosphatase 113 U/L (46-116); Aspartate Amino Transferase 19 U/L (15-37); Bilirubin,Direct 0.1 mg/dL (0.0-0.2); Bilirubin,Indirect 0.4 mg/dL (0.0-0.9); Bilirubin,Total 0.5 mg/dL (0.2-1.0); Total Protein,Serum 6.8 gm/dL (6.4-8.2)
[2018-08-31 13:03] LABS: Free T4 (Free Thyroxine) 1.32 ng/dl (0.76-1.46)
== END ==
PROVIDERS: Visit Provider Internal Medicine Cardiovascular Disease
DX: I11.9 Hypertensive heart disease without heart failure (principal); E03.9 Hypothyroidism, unspecified; E78.5 Hyperlipidemia, unspecified; I48.91 Unspecified atrial fibrillation; Z51.81 Encounter for therapeutic drug level monitoring; Z79.01 Long term (current) use of anticoagulants; Z95.5 Presence of coronary angioplasty implant and graft
CPT/HCPCS: 80076; 84439; 84443

== ENCOUNTER 2018-09-06 08:28 | Outpatient (CLI) | payer MEDICARE, OTHER, SELFPAY | END 2018-09-06 09:00 | disposition home or self-care (01) | LOC: INF 08:28 | PROVIDERS: Visit Provider Family Medicine | DX: Z45.2 Encounter for adjustment and management of vascular access device (principal) | CPT/HCPCS: 96523; G0463 ==

== ENCOUNTER → 2018-09-08 08:41 | Outpatient (CLI) | payer MEDICARE, OTHER, SELFPAY ==
--- NOTE | 2018-09-08 08:44 | CI_ITS ---
Cerebrovascular Exam Indications: 785.9 Bruit. IMPRESSIONS 1. The bilateral vertebral arteries are patent with normal antegrade flow. 2. Study suggests less than 20% stenosis involving the right internal carotid artery and the left internal carotid artery. No change from the study of 18-Feb-2015. History: Memory loss. Risk factors: Hypertension. Carotid duplex study. Complete study and Doppler flow study including spectral analysis, color and martínez scale imaging. Height: Height: 182.9cm. Height: 72in. Weight: Weight: 100.2kg. Weight: 220.5lb. Body mass index: BMI: 30kg/m^2. Body surface area: BSA: 2.28m^2. Location: Vascular laboratory. Patient status: Outpatient. Tables: Arterial flow: + +--------+--------+ Location V sys V ed + +--------+--------+ Right CCA - proximal 94.3cm/s 24.4cm/s + +--------+--------+ Right CCA - distal 92.2cm/s 30cm/s + +--------+--------+ Right ECA 123cm/s -------- + +--------+--------+ Right ICA - proximal 84.5cm/s 27.2cm/s + +--------+--------+ Right ICA - mid 90.1cm/s 31.4cm/s + +--------+--------+ Right ICA - distal 78.9cm/s 28.6cm/s + +--------+--------+ Right vertebral 30.6cm/s -------- + +--------+--------+ Left CCA - proximal 164cm/s 35.1cm/s + +--------+--------+ Left CCA - distal 88cm/s 29.1cm/s + +--------+--------+ Left ECA 103cm/s -------- + +--------+--------+ Left ICA - proximal 86.4cm/s 31.4cm/s + +--------+--------+ Left ICA - mid 83.3cm/s 26.7cm/s + +--------+--------+ Left ICA - distal 79.6cm/s 33.5cm/s + +--------+--------+ Left vertebral 51cm/s -------- + +--------+--------+ Velocity ratios: + + + + + + Right, V sys Right, V ed Left, V sys Left, V ed + + + + + + Max ICA/dist CCA 0.98 1.05 0.98 1.15 + + + + + + (Report amended ) Electronically signed by: Romel Rosales [id number]
== END ==
PROVIDERS: PCP Family Medicine; Visit Provider Internal Medicine Cardiovascular Disease
DX: F01.50 Vascular dementia, unspecified severity, without behavioral disturbance, psychotic disturbance, mood disturbance, and anxiety (principal); R09.89 Other specified symptoms and signs involving the circulatory and respiratory systems
CPT/HCPCS: 93880

== ENCOUNTER → 2018-09-11 09:31 | Outpatient (CLI) | payer MEDICARE, OTHER, SELFPAY ==
[2018-09-11 09:31] VITALS: BMI 30.5
--- NOTE | 2018-09-11 09:51 | XR_ITS ---
XR bone length study CLINICAL INDICATION: Lower extremity leg length ITS.REASON: include full femur/ tibia and knee ORDERING PHYSICIAN: Magdi Estrada MD PATIENT AGE: 68 years Comparison: None FINDINGS: Topogram image is submitted from the CT scan. Bilateral entire lower extremity length from the top of the femoral head to the distal tibial articular surface is 87 cm.. IMPRESSION: Equal combined bilateral lower extremity length
[2018-09-11 10:00] LABS: Basophils % 0.4 % (0.1-2.0); Eosinophils # 0.1 K/mm3 (0.0-0.4); Eosinophils % 2.6 % (0.1-12.0); Hematocrit 31.1 % (42.0-52.0); Hemoglobin 10.1 g/dL (14.1-18.0); Lymphocytes # 0.7 K/mm3 (0.7-4.5); Lymphocytes % 13.1 % (10-50); Mean Corpuscular HGB Conc 32.6 g/dL (31.8-35.4); Mean Corpuscular Hemoglobin 27.7 pg (27.0-31.2); Mean Corpuscular Volume 85.2 fl (80-94); Monocytes # 0.5 K/mm3 (0.1-1.0); Monocytes % 8.4 % (1.7-9.3); Neutrophils # 4.2 K/mm3 (1.8-7.8); Neutrophils % 75.6 % (37.0-80.0); Platelet Count 193 K/mm3 (142-424); Red Blood Count 3.65 M/mm3 (4.60-6.20); Red Cell Distribution Width 13.3 % (11.5-17.5); White Blood Count 5.5 K/mm3 (4.8-10.8)
[2018-09-11 10:27] LABS: Erythrocyte Sedimentation Rate 61 mm/hr (0-20)
[2018-09-11 10:37] LABS: C-Reactive Protein 0.5 mg/dL (0.0-0.9)
== END ==
LOC: INF 09:31 → RAD 09:45
PROVIDERS: PCP Family Medicine; Visit Provider Orthopaedic Surgery
DX: T84.53XA Infection and inflammatory reaction due to internal right knee prosthesis, initial encounter (principal)
CPT/HCPCS: 77073; 85025; 85651; 86140

== ENCOUNTER 2018-09-13 08:27 | Outpatient (CLI) | payer MEDICARE, OTHER, SELFPAY | END 2018-09-13 08:45 | disposition home or self-care (01) | LOC: INF 08:27 | PROVIDERS: Visit Provider Family Medicine | DX: Z45.2 Encounter for adjustment and management of vascular access device (principal); Z96.651 Presence of right artificial knee joint | CPT/HCPCS: 96523; G0463 ==

== ENCOUNTER 2018-09-18 09:32 | Outpatient (CLI) | payer MEDICARE, OTHER, SELFPAY ==
[2018-09-18 09:38] VITALS: BMI 29.5
--- NOTE | 2018-09-18 10:01 | XR_ITS ---
XR knee RT 2V HISTORY: Follow-up knee revision ITS.REASON: sp right knee revision sx 07/11/18 ORDERING PHYSICIAN: Magdi Estrada MD PATIENT AGE: 68 years COMPARISON: 08/30/2018 FINDINGS There remains good alignment with extensive bone cement at the knee joint and along the distal aspect of the femur at the patellofemoral area. Lucency is present just deep to the horizontal portion of the tibial prosthesis appears slightly more apparent but could be positional in nature. Intramedullary wires are present in the distal femur and proximal tibia as before. IMPRESSION: No change in alignment of the findings from the prior knee revision. There is some lucency noted along the transverse portion of the tibial prosthesis slightly more prominent but could be technical. Continued follow-up suggested.
[2018-09-18 10:02] LABS: Basophils % 0.3 % (0.1-2.0); Eosinophils # 0.2 K/mm3 (0.0-0.4); Eosinophils % 2.7 % (0.1-12.0); Hematocrit 31.1 % (42.0-52.0); Hemoglobin 10.1 g/dL (14.1-18.0); Lymphocytes # 0.8 K/mm3 (0.7-4.5); Lymphocytes % 13.9 % (10-50); Mean Corpuscular HGB Conc 32.5 g/dL (31.8-35.4); Mean Corpuscular Hemoglobin 27.8 pg (27.0-31.2); Mean Corpuscular Volume 85.5 fl (80-94); Mean Platelet Volume 7.9 fl (7.4-10.4); Monocytes # 0.4 K/mm3 (0.1-1.0); Monocytes % 6.4 % (1.7-9.3); Neutrophils # 4.3 K/mm3 (1.8-7.8); Neutrophils % 76.8 % (37.0-80.0); Platelet Count 207 K/mm3 (142-424); Red Blood Count 3.64 M/mm3 (4.60-6.20); Red Cell Distribution Width 13.5 % (11.5-17.5); White Blood Count 5.6 K/mm3 (4.8-10.8)
[2018-09-18 10:07] LABS: C-Reactive Protein 1.1 mg/dL (0.0-0.9)
[2018-09-18 10:33] LABS: Erythrocyte Sedimentation Rate 63 mm/hr (0-20)
== END 2018-09-18 09:50 | disposition home or self-care (01) ==
PROVIDERS: PCP Family Medicine; Visit Provider Orthopaedic Surgery
DX: T84.53XA Infection and inflammatory reaction due to internal right knee prosthesis, initial encounter (principal); Z45.2 Encounter for adjustment and management of vascular access device
CPT/HCPCS: 73560; 85025; 85651; 86140

== ENCOUNTER 2018-09-19 11:07 | Outpatient (CLI) | payer MEDICARE, OTHER, SELFPAY | END 2018-09-19 11:30 | disposition home or self-care (01) | LOC: INF 11:07 | PROVIDERS: Visit Provider Orthopaedic Surgery | DX: Z45.2 Encounter for adjustment and management of vascular access device (principal); Z48.01 Encounter for change or removal of surgical wound dressing | CPT/HCPCS: 96523 ==

== ENCOUNTER → 2018-09-22 08:38 | Outpatient (CLI) | payer MEDICARE, OTHER, SELFPAY ==
--- NOTE | 2018-09-22 08:42 | NM_ITS ---
PROCEDURE: NM BONE SCAN LIMITED AREA CLINICAL INDICATION: sp RT knee revision/abnormal radiograph showing increasing lucency along the spacer of the proximal tibia, knee pain with redness and swelling COMPARISON: from 06/29/2018, 09/18/2018 FINDINGS: Dose: 26.1 mCi technetium MDP IV Three-phase imaging is performed. Blood flow images: Asymmetric increased activity is present about the right knee and both the distal femoral and proximal tibial area. This is similar to the previous exam. Blood pool images: Intense increased activity is present within the area of the distal femur and proximal tibia of the right knee. There is more focal Mayi implant increased activity within the left knee. The activity is asymmetrically increased on the right compared to the left Delayed images: Intense increased activity involves the distal femur, patella, and proximal tibia which is similar compared to the previous exam. Overall, the findings are consistent with infection with the abnormal increased activity on all 3 phases. IMPRESSION: Increased activity in the distal femur, proximal tibia, and patella adjacent to the knee spacers on all 3 phases suspicious for underlying infection Dictated by: Romel Rosales MD 09/22/2018 17:09 Signed by: <Electronically signed by Romel Rosales MD in [place]> 09/22/2018 17:09
== END ==
PROVIDERS: PCP Family Medicine; Visit Provider Orthopaedic Surgery
DX: T84.53XA Infection and inflammatory reaction due to internal right knee prosthesis, initial encounter (principal)
CPT/HCPCS: 78300; A9503

== ENCOUNTER 2018-09-26 10:54 | Outpatient (CLI) | payer MEDICARE, OTHER, SELFPAY ==
[2018-09-26 10:53] VITALS: BMI 30.5
[2018-09-26 11:25] LABS: Erythrocyte Sedimentation Rate 42 mm/hr (0-20)
[2018-09-26 11:35] LABS: C-Reactive Protein 0.3 mg/dL (0.0-0.9)
== END 2018-09-26 11:16 | disposition home or self-care (01) ==
LOC: INF 10:54
PROVIDERS: Visit Provider Orthopaedic Surgery
DX: T84.53XA Infection and inflammatory reaction due to internal right knee prosthesis, initial encounter (principal); Z45.2 Encounter for adjustment and management of vascular access device
CPT/HCPCS: 85651; 86140

== ENCOUNTER 2018-10-03 13:03 | Outpatient (CLI) | payer MEDICARE, OTHER, SELFPAY ==
[2018-10-03 13:02] VITALS: BMI 31.1
--- NOTE | 2018-10-03 13:39 | XR_ITS ---
PROCEDURE: XR CHEST 2V CLINICAL HISTORY: CAD, HTN, PREOP COMPARISON: CXR CHEST(2 VIEWS-NOT PORTABLE) from 12/09/2016 CXR2V XR chest 2V from 03/14/2017 CXR2V XR chest 2V from 09/29/2017 FINDINGS: Normal heart size. Coronary artery stent is present. Left upper extremity PICC line is present with the tip in the region the SVC. The lungs are clear without infiltrates, suspicious nodules, or pleural effusions. No acute bony abnormalities. IMPRESSION: No acute finding Dictated by: Romel Rosales MD 10/03/2018 17:21 Signed by: <Electronically signed by Romel Rosales MD in [place]> 10/03/2018 17:21
[2018-10-03 13:55] LABS: Microscopic, Urine URINE MICROSCOPIC (MICROSCOPIC)
--- NOTE | 2018-10-03 14:05 | ECG_ITS ---
APPROVED REPORT Exam: Resting ECG HR:69 bpm ECG Measurements Heart Rate 69 AXES DC 198 P 12 QRSd 94 QRS -18 QT 400 T 51 QTc 428 <Conclusion> Normal sinus rhythm Late r wave progression Abnormal ECG Electronically signed by : Ori Hunter, 10/03/2018 14:31:25
[2018-10-03 14:06] LABS: Appearance,Urine CLEAR (Clear); Bilirubin,Urine Negative (Negative); Blood, Urine Negative (Negative); Color,Urine YELLOW (Yellow); Glucose,Urine (UA) Negative (Negative); Ketones,Urine Negative (Negative); Leukocyte Esterase,Urine Negative (Negative); Nitrate,Urine Negative (Negative); PH,Urine 6.5 (5.0-8.5); Protein,Urine Negative (Negative); Urobilinogen,Urine 0.2 EU/dl (0.2)
[2018-10-03 14:40] LABS: Alanine Aminotransferase 23 U/L (12-78); Albumin Level 3.7 gm/dL (3.4-5.0); Albumin/Globulin Ratio 1.1 (1.1-1.8); Alkaline Phosphatase 97 U/L (46-116); Anion Gap 14.2 mEq/L (5-15); Aspartate Amino Transferase 22 U/L (15-37); Bilirubin,Total 0.5 mg/dL (0.2-1.0); Blood Urea Nitrogen 18 mg/dL (7-18); C-Reactive Protein 1.9 mg/dL (0.0-0.9); Carbon Dioxide 25 mmol/L (21.0-32.0); Chloride 100 mmol/L (98-107); Creatinine Clearance Estimated 80 mL/min (50-200); Creatinine,Serum 1.29 mg/dL (0.70-1.30); Estimated Glomerular Filt Rate 55 ml/min (>60); GFR (African American) 67 ML/MIN (>60); Globulin 3.4 gm/dl (1.3-3.2); Glucose 89 mg/dL (74-106); Potassium 4.2 mmoL/L (3.5-5.1); Sodium 135 mmol/L (136-145); Total Protein,Serum 7.1 gm/dL (6.4-8.2)
[2018-10-03 15:00] LABS: RBC,Urine Occasional #/hpf (0-3); Squamous Epithelial Cell,Urine Occasional #/hpf (0-5)
[2018-10-03 15:01] LABS: Bacteria,Urine Trace /lpf
[2018-10-03 15:02] LABS: Basophils % 0.5 % (0.1-2.0); Eosinophils # 0.2 K/mm3 (0.0-0.4); Eosinophils % 3.1 % (0.1-12.0); Hematocrit 34.3 % (42.0-52.0); Hemoglobin 10.9 g/dL (14.1-18.0); Lymphocytes # 0.5 K/mm3 (0.7-4.5); Lymphocytes % 8.6 % (10-50); Mean Corpuscular HGB Conc 31.7 g/dL (31.8-35.4); Mean Corpuscular Hemoglobin 27.1 pg (27.0-31.2); Mean Corpuscular Volume 85.5 fl (80-94); Mean Platelet Volume 8.7 fl (7.4-10.4); Monocytes # 0.5 K/mm3 (0.1-1.0); Monocytes % 8.8 % (1.7-9.3); Neutrophils # 4.2 K/mm3 (1.8-7.8); Neutrophils % 78.9 % (37.0-80.0); Platelet Count 170 K/mm3 (142-424); Red Blood Count 4.01 M/mm3 (4.60-6.20); Red Cell Distribution Width 14.3 % (11.5-17.5); White Blood Count 5.3 K/mm3 (4.8-10.8)
--- NOTE | 2018-10-03 15:26 | XR_ITS ---
PROCEDURE: XR KNEE RT 2V CLINICAL INDICATION: STAGE TWO REVISION, RT KNEE Stage II revision COMPARISON: from 09/11/2018 FINDINGS: Status post revision of total knee replacement with bone cement/methylmethacrylate in the distal femur and proximal tibial region. There remains lucency at the base of the tibial component overall not significantly changed. There remains good alignment. Wires are present in the intramedullary region of the distal femur and proximal tibia as before IMPRESSION: Overall no change status post implant review sen with persistent lucency at the base of the tibial component Dictated by: Romel Rosales MD 10/03/2018 16:55 Signed by: <Electronically signed by Romel Rosales MD in [place]> 10/03/2018 16:55
[2018-10-03 15:57] LABS: Erythrocyte Sedimentation Rate 45 mm/hr (0-20)
== END 2018-10-03 13:45 | disposition home or self-care (01) ==
LOC: INF 13:03
PROVIDERS: Visit Provider Family Medicine
DX: T84.53XA Infection and inflammatory reaction due to internal right knee prosthesis, initial encounter (principal); Z96.651 Presence of right artificial knee joint; Z45.2 Encounter for adjustment and management of vascular access device; Z01.818 Encounter for other preprocedural examination
CPT/HCPCS: 71046; 73560; 80053; 81001; 85025; 85651; 86140; 93005

== ENCOUNTER 2018-10-10 06:03 | Inpatient (IN) ==
--- NOTE | 2018-10-10 07:06 | Progress Note ---
[facility] Anesthesia Checklist - Patient Identification Patient Identification: Arm Band - Structural Data Admitted From: Home Planned Operative Procedure/s: right total knee revision Consent for Planned Operative Procedure(s) Verified: Yes Verified Documents: Surgical Consent, History and Physical - NPO Status Verified Time NPO: 00:00 - Additional verifications Anesthesia Reactions: No Hx Blood Transfusions: No Blood Transfusion Reaction: No - Airway Assessment C-Spine Mobility Assessed: Yes (mp2) TMJ Mobility Assessed: Yes Dentition: Good Dentition - Neurological Assessment Level of Consciousness: Awake, Alert - Anesthesia Plan Anesthesia Risk discussed: Yes Anesthesia Plan: Verified ASA Class: III Anesthesia Type: General Acuity:: non emergent [facility] History Medical History: Reports:: Arrhythmia, Atrial Fibrillation, Congestive Heart Failure, Congenital Heart Disease, Coronary Artery Disease, Dementia, Hiatal Hernia, Hyperlipidemia, Hypertension, Myocardial Infarction Denies:: Cancer, Diabetes Mellitus Type 1, Diabetes Mellitus Type 2, Internal Pacemaker, Lung Disease, MRSA, Seizures *Have you ever received a pneumonia vaccine?: Yes *Have you received a flu vaccine this season?: Yes Other Medical History: Reports: Anemia, Arthritis, Hypothyroidism, Other. Denies: Blood Transfusion Reaction Anesthesia experience/problems:: nac Laterality Cases: Bilateral: Arthroscopy Knee, Arthroscopy Shoulder Other Surgeries: Yes: Cardiac Catheterization, Cardiac Surgery, Colonoscopy, Coronary Stent, EGD, Hernia Repair, Other. No: Pacemaker Amputation: No Fractures: No - *Social History Educational Level: Attended College Smoking Status: Former smoker Tobacco Type: cigarettes #Yrs smoked (if former smoker): 10 Alcohol Intake: never Alcohol Intake Frequency:: other Substance Use Type: denies use *Occupational Status:: employed Housing: house Household Members: spouse *Travel in the last 8 weeks: None Family Hx:: Cancer, Coronary Artery Disease, Heart Attack
--- NOTE | 2018-10-10 14:47 | Progress Note ---
[facility] Anesthesia Record Part I Intake, IV Amount: 1,250 Estimated blood loss (mL): 300 Urine output (mL): 1,000 Blood Products used (#): none Blood Pressure: 121/62 SaO2: 95 Pulse Rate: 110 Respiratory Rate: 20 Temperature: 97.2 F Patient is:: Awake, Stable Stable to PACU at:: 14:40
--- NOTE | 2018-10-10 14:48 | Progress Note ---
[facility] Anesthesia Record Part II Discharge Time: 15:10 Destination: Medical Surgical Department PACU nurse assessment reviewed?: Yes Patient Condition:: Good Anesthesia Complications:: None Swallowing reflex intact?: Yes Cyanosis?: No
--- NOTE | 2018-10-10 15:57 | Operative Note ---
Date of procedure: 10/10/18 Pre-op Diagnosis:: Postop stage I revision knee arthroplasty, right Post-op Diagnosis:: Same Procedure performed:: Stage II revision total knee arthroplasty, right Surgeon:: Magdi Estrada MD Milieu Counselor(s):: Dr. Kern CLOTH COVERED HELMET PULLER:: Ori Lora Anesthesia: GETA Estimated blood loss (mL): 300 Operative note:: Patient is a 67-year-old male with end-stage [id number] tricompartmental osteoarthritis of the right knee with more significant degenerative changes over the medial compartment and a progressive varus deformity and flexion contracture with unremitting significant right knee pain not relieved by conservative management. The pain is advanced to the point that it is becoming a hazard for the patient with risk of falling and injuring himself. His activities of daily living are significantly impacted with the knee pain and stiffness. He also reports night pain and sleep disturbance. He takes meloxicam 15 mg daily without significant improvement with the knee pain. Given his knee pain and limitation of mobility, he is also at risk of falls and injuring himself. A total knee arthroplasty is indicated to relieve the pain, improve function, reduce the risk of falls and to improve quality of life. He previously had a successful left total knee arthroplasty with very good pain relief. Please refer to the office note for full details. Operative findings:: As noted during the preoperative evaluation, the knee joint had a fixed flexion of 5 and fixed valgus deformity of 5. As seen on the preoperative x-rays, there are tricompartmental degenerative changes with the medial and patellofemoral compartments showing more advanced changes with [id number] appearance. The menisci and cruciate ligaments were significantly degenerate. There was widespread osteophyte formation over all 3 compartments. Bone quality is good. Operative note:: On the day of the surgery the patient and his were seen in the preoperative area. I reviewed the clinical and x-ray findings with the patient. I again discussed the diagnosis, natural history and management options in detail i ncluding both nonsurgical and surgical. Patient has end-stage degenerative arthritis of the right knee and has failed to respond satisfactorily to conservative management so far and has opted for a right total knee arthroplasty. The knee joint also gives out and patient is at risk of falls potentially resulting in fractures. Patient mobilizes with a cane. We again discussed the details of the procedure, risks and benefits and alternatives in detail. The complications discussed include but are not limited to infection, injury to nerves and blood vessels including injury to popliteal artery, injury to tendons and ligaments, DVT and PE, fat embolism, intraoperative fracture, limb length inequality, patella fracture, patellofemoral instability, patellar clunk syndrome, quadriceps and patellar tendon rupture, implant failure, component loosening, periprosthetic femur and tibia fractures, stiffness(arthrofibrosis), limp, incomplete relief of pain, incomplete functional recovery, likely need for further surgery in future including revision and anesthetic complications including heart attack, stroke and even . We discussed how any of these events can be devastating. We have discuss ed nonsurgical alternatives as well. Patient understands and wishes to proceed with a right total knee arthroplasty and I believe that the patient is fully informed as to the risks, benefits, and alternatives including nonsurgical alternatives. We also discussed the postoperative course including the rehab and physical therapy required. Patient lives with his family and is planning to go back home with outpatient physical therapy after surgery. A physical examination was performed and documented. Consent form was reviewed and signed. The limb was appropriately marked and initialed by me. Patient understood the risks, agreed to proceed with surgery, signed the consent form and no guarantees or assurances were given or implied. The patient was then brought to the operating room and a spinal anesthesia was administered by the refrigerating oiler. The patient was then positioned supine on the operating table. All the bony prominences were appropriately padded. A well- padded tourniquet cuff was placed high over the right upper thigh. The right knee was prepped with isopropyl alcohol followed by chlorhexidine and draped in the usual sterile fashion. Prior to this, patient had used Hibiclens for a total of 5 days prior to the surgery and also used topical intranasal Bactroban. The entire operative team wore isolation suits and the Operating Room traffic was controlled. The skin incision was marked for a medial parapatellar approach to the knee joint. The entire operative site was sealed off with Ioban drape. A preprocedure timeout was performed as per hospital protocol. At the start of the procedure administration of 2 g of prophylactic IV Ancef was confirmed with the anesthetic team. The limb was elevated and not exsanguinated and the tourniquet cuff was inflated to 300 mmHg. Please see the nursing records for total tourniquet time. I then made a midline incision utilizing a #10 scalpel blade. Electrocautery was used to seal off subcutaneous vessels. The extensor mechanism was exposed, marked and a curvilinear incision made for a medial parapatellar approach using the scalpel blade. The patella was everted carefully and the fat pad resected enough to allow sufficient visualization of the proximal tibia. The anterior cruciate ligament and the anterior aspects of both menisci were resected. An appropriate medial release was performed with the knife and Elyssa elevator. A step drill was used to open the intramedullary canal and the IM distal femoral cutting jig was placed. The jig was pinned into position and the intramedullary khloe removed. The distal cut was made at 5 degrees of valgus and the sizing jig placed. This sized best at a size 7 femur for the [facility] system. We then placed the 4-in-1 cutting block in position in 3 degrees of external rotation. A cross pin was added for stabilizing the block and the mk wing utilized to ensure notching of the femur would not occur. The anterior cut was made followed by the posterior cut then the posterior chamfer and finally the anterior chamfer cuts in that order. Soft tissues were protected throughout this with careful retraction using the Z retractors. We checked for trueness of cuts and then moved on to the tibia. The tibial extra medullary guide was placed and aligned from the central aspect of the plateau between the spines down to the second metatarsal base. We pinned cutting block in position for minimal resection of the tibia from the medial side which was the lowermost side, checked the alignment, protected the soft tissues with appropriate retractors and resected with the [place] saw. The resected tibial plateau articular surface was removed and sized it at a size 7. We ensured correctness of the cut and correct posterior slope. We then checked the extension and flexion gaps and found them to be equal and well balanced. We trialed the femur and the tibia with trial components and a trial insert and ranged the knee to ensure full flexion and extension and checked for ligamentous stability. We then everted the patella and reamed for a 32 mm central pegged button. We have lateralized the femur and medialized the patella intentionally. We placed trial components and noted that a 9 mm thick polyethylene to fit best. This gave us a ligamentously stable knee and allowed full extension. We allowed this to be free-floating and then checked it and made sure it was in appropriate position in relation to the tibial tubercle. We also used tibial alignment khloe to check for satisfactory position of the base plate and markings were made with electrocautery on the proximal tibia. We then elected to proceed with the box cut for a posterior stabilized femoral component. We placed the cutting jig for the box cut in the femur, drilled and then used the box osteotome to create the channel. We then trialed with the posterior stabilized polyethylene and found a size 9 to fit best. This gave us appropriate range of motion with proper ligamentous stability. We then removed the trial components and positioned and pinned the base plate to the top of the tibia and punched the groove for the V shaped stem. We used a small trocar tipped pin to drill holes into the subchondral sclerotic bone of the medial tibia to augment cement fixation. We then copiously irrigated with the normal saline pulse lavage, injected the bone with 1 g of Ancef, and then dried the cut surfaces. We then cemented the tibial tray, the femoral component, and placed a 16 mm trial insert and brought the knee into extension. We then cemented the patella button. We allowed the cement to set and then inspected the knee joint and removed excess cement with an osteotome. We then placed the 9 millimeters definitive polyethylene tibial insert ensuring that the dovetails fit appropriately and that the polyethylene was down and seated into the tibial tray properly. The knee joint was put through range of motion and noted the patella to be tracking appropriately with no thumb technique. Knee ra nge of flexion noted to be 0-110. The knee joint was then soaked with dilute Betadine (0.35 percent) solution for 3 minutes followed by suctioning of the solution and pulsatile lavage with the 1 L of normal saline. We then placed antibiotic beads around the knee and proceeded with the wound closure the capsule/extensor mechanism was closed with interrupted 0 Ethibond lmzaly-ic-lbzoz sutures and #1 Vicryl [id number] sutures ensuring a watertight closure. Next, we placed rest of the antibiotic beads in the subcutaneous tissue and the subcutaneous tissue was closed with 2-0 Vicryl interrupted sutures. The skin was closed with 4-0 Monocryl running suture, followed by nena. Sterile dressings were applied consisting of Xeroform, ABD, soft roll and secured in place with Iván wrap. The patient was then transferred from the operating table onto the bed. The tibialis posterior and dorsalis pedis pulses were noted 2+ with good capillary refill in the foot. The patient was then transported to the postoperative recovery area in a stable condition. Patient tolerated the procedure well and there were no immediate complications. The swab, needle and instrument counts were correct according to the scrub team at the end of the procedure. Portable x-rays of the right knee were obtained in the recovery area which showed the components to be well fixed in a satisfactory alignment and position without any complications. Postoperatively, institute and continue standard precautions and physical therapy and edema management for a revision total knee arthroplasty. Patient can be mobilized full weightbearing as tolerated and use the knee immobilizer/ROM knee brace locked in extension until he regains full quadriceps control and is able to actively straight leg raise. Implants: Piter Triathlon TS revision total knee system Triathlon total stabilizer femoral component, right, size 7 Triathlon titanium tibial symmetric cone augment, size B Triathlon femoral distal augment, right, size 7, 5 mm x 2 Triathlon femoral posterior augment, size 7, 10 mm x 2 Triathlon femoral fluted stem, 18 mm x 100 mm Triathlon femoral stem continuing education specialist, 25 mm Triathlon fluted tibial stem, 15 mm x 100 mm Triathlon X3 tibial bearing insert, PS, size 7, 16 mm Triathlon X3 asymmetric patella, size A38, 11 mm Simplex antibiotic bone cement with tobramycin x3; 1 g of vancomycin powder added to each batch of cement before adding the liquid. Osteoboost putty antibiotic beads 10 cc x 2; each mixed with 2 g of vancomycin and 160 mg of gentamicin. Industry pharmaceutical specialty representative: Yves Krishnan ([place] [facility]) Condition: stable Disposition: PACU Specimens:: Synovial fluid for Gram stain and culture and sensitivity Tissue specimens for culture and sensitivity including aerobic and anaerobic cultures Tissue specimens x 2 for histopathological examination Complications:: None
--- NOTE | 2018-10-10 16:16 | Pharmacy Consult Notes ---
- Pharmacy Consult Date: 10/10/18 Time: 16:15 Referring provider: DR. DONATO Reason for Consult:: VANCOMYCIN DOSING Allergies and ADEs:: Allergies Allergy/AdvReac Type Severity Reaction Status Date / Time lisinopril Allergy Severe S-SWELLS-OR Verified 10/06/18 10:08 AL/THROAT oxycodone AdvReac Unknown SHAKING Verified 10/06/18 10:08 Home Medications:: Home Medications Medication Instructions Recorded Confirmed Type rivaroxaban 20 mg tablet 20 mg PO DAILY 02/28/17 10/06/18 History cholecalciferol (vitamin D3) 5,000 5,000 unit PO HS 06/16/17 10/06/18 History unit capsule levothyroxine 150 mcg capsule 150 mcg PO DAILY 11/08/17 10/06/18 History Amiodarone HCl 200 mg PO HS 01/02/18 10/06/18 History Multivitamin [Multi-Day Vitamins] 1 each PO DAILY 01/02/18 10/06/18 History Tamsulosin HCl [Flomax 0.4mg 0.8 mg PO HS 01/02/18 10/06/18 History capsule] Docusate Sodium [Docusate Sodium 100 mg PO BIDP PRN #20 cap 01/04/18 10/06/18 Rx 100mg Cap] clopidogrel 75 mg tablet 75 mg PO HS #90 tab 01/04/18 10/06/18 Rx irbesartan 150 mg tablet 150 mg PO DAILY #90 tab 05/26/18 10/06/18 Rx Ferrous Sulfate [Ferrous Sulfate 325 mg PO BID 06/16/18 10/06/18 History 325mg Tablet] spironolactone 25 mg tablet 25 mg PO DAILY tab 07/06/18 10/06/18 History Isosorbide Mononitrate [Imdur 30mg 30 mg PO DAILY 07/21/18 10/06/18 History ER tablet] atorvastatin 40 mg tablet 40 mg PO HS #30 tab 08/28/18 10/06/18 Rx Digoxin 125 mcg PO DAILY 09/04/18 10/06/18 History donepezil 10 mg tablet 10 mg PO HS 90 Days #90 tab 09/11/18 10/06/18 Rx nitroglycerin 0.4 mg sublingual 0.4 mg SUBLINGUAL Q5-15M PRN #20 10/05/18 10/06/18 Rx tablet tab Enoxaparin Sodium [Lovenox 100 mg SQ Q12H 10/06/18 10/06/18 History 100mg/mL syringe] Carvedilol [Carvedilol 3.125mg Tab] 1.56 mg PO BID 10/10/18 10/10/18 History Melatonin/Pyridoxine HCl (B6) 1 each PO HS 10/10/18 10/10/18 History [Melatonin 5 mg Tablet] Height: 1.83 m Weight: 103.901 kg Laboratory Results:: Laboratory Results - last 24 hr 10/10/18 08:30: Urine Color Yellow, Urine Appearance Clear, Urine pH 6.0, Ur Specific [place] 1.020, Urine Protein Negative, Urine Glucose (UA) Negative, Urine Ketones Negative, Urine Blood Negative, Urine Nitrate Negative, Urine Bilirubin Negative, Urine Urobilinogen 0.2, Ur Leukocyte Esterase Negative, Urine RBC None, Urine WBC None, Ur Squamous Epith Cells Occasional, Urine Bacteria Trace Medical History: Reports:: Arrhythmia, Atrial Fibrillation, Congestive Heart Failure, Congenital Heart Disease, Coronary Artery Disease, Dementia, Hiatal Hernia, Hyperlipidemia, Hypertension, Myocardial Infarction Denies:: Cancer, Diabetes Mellitus Type 1, Diabetes Mellitus Type 2, Internal Pacemaker, Lung Disease, MRSA, Seizures Assessment and Plan - Assessment and plan all Dx Assessment and Plan for all problems:: BASED ON PATIENT FACTORS, RECOMMEND VANCOMYCIN 2 GM IV Q24H TO START TOMORROW MORNING. PATIENT RECEIVED VANCOMYCIN 7 GM TOTAL DURING SURGERY TODAY. WILL OB TAIN LABS TOMORROW MORNING. PHARMACY WILL FOLLOW DAILY AND ADJUST APPROPRIATE.
[2018-10-10 16:44] LABS: Hematocrit 30.4 % (42.0-52.0); Hemoglobin 9.9 g/dL (14.1-18.0)
--- NOTE | 2018-10-10 17:25 | Progress Note ---
Internal Medicine - PN: Subj *Date: 10/10/18 *Time: 17:23 Interval history: Consulted this afternoon for medical management after total knee replacement. Pt with no complaints, eating supper now. Exam Vital signs and Labs for Last 24 Hours: Temp Pulse Resp BP Pulse Ox 98.6 F 86 18 102/67 L 99 10/10/18 15:20 10/10/18 15:20 10/10/18 15:20 10/10/18 15:20 10/10/18 15:20 Laboratory Results - last 24 hr 10/10/18 08:30: Urine Color Yellow, Urine Appearance Clear, Urine pH 6.0, Ur Specific [place] 1.020, Urine Protein Negative, Urine Glucose (UA) Negative, Urine Ketones Negative, Urine Blood Negative, Urine Nitrate Negative, Urine Bilirubin Negative, Urine Urobilinogen 0.2, Ur Leukocyte Esterase Negative, Urine RBC None, Urine WBC None, Ur Squamous Epith Cells Occasional, Urine Bacteria Trace 10/10/18 16:33: Hgb 9.9 L, Hct 30.4 L I & O for Last 24 hours: Intake & Output 10/07/18 10/08/18 10/09/18 10/10/18 23:59 23:59 23:59 23:59 Intake Total 1250 / 1250 Balance 1250 / 1250 Weight 229 lb 1 oz Microbiology Reports for the Last 24 Hours: Microbiology 10/10/18 09:30 Synovial Fluid Gram Stain - Final - Constitutional no acute distress (conversant) Assessment and Plan (1) Infection of total right knee replacement Current visit: No Status: Acute Qualifiers: Encounter type: initial encounter Qualified Code(s): T84.53XA - Infection and inflammatory reaction due to internal right knee prosthesis, initial encounter Category: Medical Code(s): T84.53XA - Infection and inflammatory reaction due to internal right knee prosthesis, initial encounter (2) Atrial fibrillation Current visit: No Status: Chronic Qualifiers: Atrial fibrillation type: chronic Qualified Code(s): I48.2 - Chronic atrial fibrillation Category: Medical Code(s): I48.91 - Unspecified atrial fibrillation (3) BPH (benign prostatic hyperplasia) Current visit: No Status: Chronic Category: Medical Code(s): N40.0 - B enign prostatic hyperplasia without lower urinary tract symptoms (4) Coronary arteriosclerosis Current visit: No Status: Chronic Category: Medical Code(s): I25.10 - Atherosclerotic heart disease of [place] coronary artery without angina pectoris (5) Dementia Current visit: No Status: Chronic Qualifiers: Dementia type: unspecified type Dementia behavioral disturbance: without behavioral disturbance Qualified Code(s): F03.90 - Unspecified dementia without behavioral disturbance Category: Medical Code(s): F03.90 - Unspecified dementia without behavioral disturbance (6) Hyperlipidemia Current visit: No Status: Chronic Qualifiers: Hyperlipidemia type: mixed hyperlipidemia Qualified Code(s): E78.2 - Mixed hyperlipidemia Category: Medical Code(s): E78.5 - Hyperlipidemia, unspecified (7) Hypertensive disorder Current visit: No Status: Chronic Qualifiers: Hypertension type: essential hypertension Qualified Code(s): I10 - Essential (primary) hypertension Category: Medical Code(s): I10 - Essential (primary) hypertension (8) Hypothyroidism Current visit: No Status: Chronic Qualifiers: Hypothyroidism type: unspecified Qualified Code(s): E03.9 - Hypothyroidism, unspecified Category: Medical Code(s): E03.9 - Hypothyroidism, unspecified (9) S/P total knee replacement Current visit: No Status: Chronic Qualifiers: Laterality: bilateral Qualified Code(s): Z96.653 - Presence of artificial knee joint, bilateral Category: Surgical Code(s): Z96.659 - Presence of unspecified artificial knee joint (10) Anemia Current visit: Yes Status: Acute Category: Medical Code(s): D64.9 - Anemia, unspecified - Assessment and plan all Dx Assessment and Plan for all problems:: Plan to continue antibiotics at least 48 hours after surgery, medications have been ordered.
--- NOTE | 2018-10-10 17:32 | Progress Note ---
Subjective Date: 10/10/18 Time: 16:00 Principal diagnosis: Status post revision total knee arthroplasty, right Interval history: Patient is status post revision right knee arthroplasty earlier today. Patient is lying down on the bed. She says he is tired but otherwise doing well and has very little pain. No history of any nausea or vomiting. No history of any cough, chest pain, shortness of breath or palpitations. PN: Obj Ex Vital signs: Temp Pulse Resp BP Pulse Ox 98.6 F 86 18 102/67 L 99 10/10/18 15:20 10/10/18 15:20 10/10/18 15:20 10/10/18 15:20 10/10/18 15:20 Narrative: Laboratory Results - last 24 hr 10/10/18 08:30: Urine Color Yellow, Urine Appearance Clear, Urine pH 6.0, Ur Specific [place] 1.020, Urine Protein Negative, Urine Glucose (UA) Negative, Urine Ketones Negative, Urine Blood Negative, Urine Nitrate Negative, Urine Bilirubin Negative, Urine Urobilinogen 0.2, Ur Leukocyte Esterase Negative, Urine RBC None, Urine WBC None, Ur Squamous Epith Cells Occasional, Urine Bacteria Trace 10/10/18 16:33: Hgb 9.9 L, Hct 30.4 L General appearance: alert, active, awake; pallor 1+ Cardiovascular: regular rate & rhythm, normal peripheral pulses Respiratory: No respiratory distress noted, speaks in full sentences ABD: soft and non tender Neuro: alert, awake, oriented x 3 On examination of the lower extremities the limb lengths are equal. On examination of the right knee the dressings are clean, dry and intact. Leg compartments are soft. Distal pulses are 2+. Capillary refill is brisk. He has numbness over her right foot and ankle. He is actively moving the ankle, foot and the toes. Postoperative check x-ray reviewed along with radiologist report. The x-rays show right revision total knee arthroplasty in satisfactory alignment. No complications noted. - Urinary Catheter Management Coude Cath placed during this visit: yes Urethral indwelling: Yes Reason for continuing: Surgical procedure Insertion date: 10/10/18 Insertion time: 08:30 Progress Note: A&P (1) Status post revision of total replacement of right knee Start date: 10/10/18 Status: Acute Current Visit: Yes (2) Atrial fibrillation Status: Chronic Current Visit: No (3) BPH (benign prostatic hyperplasia) Status: Chronic Current Visit: No (4) Coronary arteriosclerosis Status: Chronic Current Visit: No (5) Dementia Status: Chronic Current Visit: No (6) Hyperlipidemia Status: Chronic Current Visit: No (7) Hypertensive disorder Status: Chronic Current Visit: No (8) Hypothyroidism Status: Chronic Current Visit: No (9) Anemia Status: Acute Current Visit: Yes Assessment and Plan for All Diagnoses:: I have reviewed the clinical and operative findings and procedure performed with the patient/family. I have given him a paper copy of the postoperative x-rays. Advised him to avoid placing pillow behind the knee; use knee immobilizer/ROM knee brace locked in full extension when weightbearing and walking until he regains full quadriceps control and is able to actively straight leg raise. Continue DVT prophylaxis and as needed pain medication. Care management consult regarding discharge planning. Continue IV vancomycin and Rocephin until culture results are available. Medical management as per Dr. Bhakta.
[2018-10-11 06:39] LABS: Basophils % 0.2 % (0.1-2.0); Eosinophils % 0.8 % (0.1-12.0); Hematocrit 26.3 % (42.0-52.0); Lymphocytes # 0.5 K/mm3 (0.7-4.5); Lymphocytes % 10.3 % (10-50); Mean Corpuscular Volume 84.3 fl (80-94); Mean Platelet Volume 7.8 fl (7.4-10.4); Monocytes # 0.4 K/mm3 (0.1-1.0); Monocytes % 7.7 % (1.7-9.3); Neutrophils # 4.3 K/mm3 (1.8-7.8); Platelet Count 172 K/mm3 (142-424); Red Blood Count 3.12 M/mm3 (4.60-6.20); Red Cell Distribution Width 14.4 % (11.5-17.5); White Blood Count 5.3 K/mm3 (4.8-10.8)
[2018-10-11 06:46] LABS: Hemoglobin 8.7 g/dL (14.1-18.0)
[2018-10-11 06:47] LABS: Anion Gap 11.5 mEq/L (5-15); C-Reactive Protein 4.7 mg/dL (0.0-0.9); Calcium 8.8 mg/dL (8.5-10.1)
--- NOTE | 2018-10-11 08:28 | Progress Note ---
Internal Medicine - PN: Subj *Date: 10/11/18 *Time: 08:26 Interval history: Patient with no new complaints today, had some pain around incision site over night. Exam Vital signs and Labs for Last 24 Hours: Temp Pulse Resp BP Pulse Ox 97.9 F 74 18 95/53 L 97 10/11/18 08:00 10/11/18 08:00 10/11/18 08:00 10/11/18 08:00 10/11/18 08:00 Laboratory Results - last 24 hr 10/10/18 08:30: Urine Color Yellow, Urine Appearance Clear, Urine pH 6.0, Ur Specific [place] 1.020, Urine Protein Negative, Urine Glucose (UA) Negative, Urine Ketones Negative, Urine Blood Negative, Urine Nitrate Negative, Urine Bilirubin Negative, Urine Urobilinogen 0.2, Ur Leukocyte Esterase Negative, Urine RBC None, Urine WBC None, Ur Squamous Epith Cells Occasional, Urine Bacteria Trace 10/10/18 16:33: Hgb 9.9 L, Hct 30.4 L 10/11/18 06:23: WBC 5.3, RBC 3.12 L, Hgb 8.7 L D, Hct 26.3 L, MCV 84.3, MCH 27. 8, MCHC 33.0, RDW 14.4, Plt Count 172, MPV 7.8, Neut % (Auto) 81.0 H, Lymph % (Auto) 10.3, [place] % (Auto) 7.7, Eos % (Auto) 0.8, Baso % (Auto) 0.2, Neut # (Auto) 4.3, Lymph # (Auto) 0.5 L, [place] # (Auto) 0.4, Eos # (Auto) 0.0, Baso # (Auto) 0.0 10/11/18 06:23: Sodium 133 L, Potassium 4.5, Chloride 99, Carbon Dioxide 27, Anion Gap 11.5, BUN 17, Creatinine 1.21, Estimated Creat Clear 85, Estimated GFR 59, Est GFR ( Amer) 72, Glucose 111 H, Calcium 8.8, C-Reactive Protein 4.7 H 10/11/18 06:23: ESR 61 H Vital Signs - 24 hr 10/10/18 14:40 10/10/18 14:45 10/10/18 14:47 Temperature 97.2 F L 97.2 F L Pulse Rate 110 H Pulse Rate [Apical] 110 H Pulse Rate [Right Brachial] Respiratory Rate 20 16 20 Blood Pressure 121/62 Blood Pressure [Right Arm] 121/62 02 Sat by Pulse Oximetry 95 10/10/18 14:50 10/10/18 14:52 10/10/18 15:00 Temperature Pulse Rate Pulse Rate [Apical] 98 H 81 Pulse Rate [Right Brachial] Respiratory Rate 18 16 18 Blood Pressure Blood Pressure [Right Arm] 119/65 110/75 02 Sat by Pulse Oximetry 92 L 96 10/10/18 15:10 10/10/18 15:20 10/10/18 15:30 Temperature 97.1 F L 98.6 F 97.6 F Pulse Rate Pulse Rate [Apical] 86 75 Pulse Rate [Right Brachial] 86 Respiratory Rate 18 18 16 Blood Pressure Blood Pressure [Right Arm] 133/80 102/67 L 101/61 L 02 Sat by Pulse Oximetry 98 99 97 10/10/18 15:45 10/10/18 16:00 10/10/18 16:15 Temperature 97.9 F 98.1 F 98.1 F Pulse Rate Pulse Rate [Apical] 78 77 75 Pulse Rate [Right Brachial] Respiratory Rate 16 15 15 Blood Pressure Blood Pressure [Right Arm] 109/70 L 92/72 L 98/60 L 02 Sat by Pulse Oximetry 97 96 97 10/10/18 16:30 10/10/18 17:00 10/10/18 17:30 Temperature 97.9 F 97.6 F 97.6 F Pulse Rate Pulse Rate [Apical] 81 71 77 Pulse Rate [Right Brachial] Respiratory Rate 16 16 16 Blood Pressure Blood Pressure [Right Arm] 110/69 108/70 L 124/59 L 02 Sat by Pulse Oximetry 95 95 96 10/10/18 18:00 10/10/18 19:00 10/10/18 20:00 Temperature 97.7 F 97.8 F 97.9 F Pulse Rate Pulse Rate [Apical] 73 Pulse Rate [Right Brachial] 72 71 Respiratory Rate 16 18 16 Blood Pressure Blood Pressure [Right Arm] 110/70 111/72 125/76 02 Sat by Pulse Oximetry 95 98 98 10/10/18 21:00 10/10/18 22:00 10/11/18 00:00 Temperature 97.8 F 98.1 F 98.4 F Pulse Rate Pulse Rate [Apical] Pulse Rate [Right Brachial] 78 74 93 H Respiratory Rate 18 16 16 Blood Pressure Blood Pressure [Right Arm] 119/77 121/67 121/70 02 Sat by Pulse Oximetry 98 99 97 10/11/18 04:00 10/11/18 08:00 Temperature 98.5 F 97.9 F Pulse Rate Pulse Rate [Apical] Pulse Rate [Right Brachial] 90 74 Respiratory Rate 18 18 Blood Pressure Blood Pressure [Right Arm] 119/66 95/53 L 02 Sat by Pulse Oximetry 96 97 I & O for Last 24 hours: Intake & Output 10/08/18 10/09/18 10/10/18 10/11/18 23:59 23:59 23:59 23:59 Intake Total 1610 / 1610 360 / 360 Output Total 1600 / 1600 Balance 1610 / 1610 -1240 / -1240 Weight 229 lb 1 oz 229 lb Microbiology Reports for the Last 24 Hours: Microbiology 10/10/18 09:30 Synovial Fluid Gram Stain - Final - Constitutional no acute distress - *Routine HEENT Exam Head: Present: normocephalic Eye: Present: EOMI ENT: Present: mucous membranes moist - *Routine Neck Exam Present: supple. Absent: lymphadenopathy - *Routine Respiratory Exam Present: CTA bilaterally - *Routine Cardiovascular Exam Present: RRR - *Routine Abdominal Exam Present: soft, normoactive bowel sounds. Absent: tenderness - *Routine Extremities Exam Absent: cyanosis, clubbing, edema Comments: dressing on right leg C/D/I - *Routine Skin Exam Present: warm. Absent: rash - *Routine Neurological Exam Present: alert, oriented X3 Assessment and Plan (1) Status post revision of total replacement of right knee Start date: 10/10/18 Current visit: Yes Status: Acute Category: Surgical Code(s): Z96.651 - Presence of right artificial knee joint (2) Atrial fibrillation Current visit: No Status: Chronic Qualifiers: Atrial fibrillation type: chronic Qualified Code(s): I48.2 - Chronic atrial fibrillation Category: Medical Code(s): I48.91 - Unspecified atrial fibrillation (3) BPH (benign prostatic hyperplasia) Current visit: No Status: Chronic Category: Medical Code(s): N40.0 - Benign prostatic hyperplasia without lower urinary tract symptoms (4) Coronary arteriosclerosis Current visit: No Status: Chronic Category: Medical Code(s): I25.10 - Atherosclerotic heart disease of [place] coronary artery without angina pectoris (5) Dementia Current visit: No Status: Chronic Qualifiers: Dementia type: unspecified type Dementia behavioral disturbance: without behavioral disturbance Qualified Code(s): F03.90 - Unspecified dementia without behavioral disturbance Category: Medical Code(s): F03.90 - Unspecified dementia without behavioral disturbance (6) Hyperlipidemia Current visit: No Status: Chronic Qualifiers: Hyperlipidemia type: mixed hyperlipidemia Qualified Code(s): E78.2 - Mixed hyperlipidemia Category: Medical Code(s): E78.5 - Hyperlipidemia, unspecified (7) Hypertensive disorder Current visit: No Status: Chronic Qualifiers: Hypertension type: essential hypertension Qualified Code(s): I10 - Essential (primary) hypertension Category: Medical Code(s): I10 - Essential (primary) hypertension (8) Hypothyroidism Current visit: No Status: Chronic Qualifiers: Hypothyroidism type: unspecified Qualified Code(s): E03.9 - Hypothyroidism, unspecified Category: Medical Code(s): E03.9 - Hypothyroidism, unspecified (9) Anemia Current visit: Yes Status: Acute Category: Medical Code(s): D64.9 - Anemia, unspecified - Assessment and plan all Dx Assessment and Plan for all problems:: H/H lower today, continue to monitor, lee to be removed today, continue routine post op care.
--- NOTE | 2018-10-11 09:36 | Pharmacy Consult Notes ---
[facility] Pharmacy VTE Monitoring - Patient Demographics Admission date: 10/10/18 Report Date: 10/11/18 Time: 09:36 Allergies/Adverse Reactions: Patient Allergies lisinopril Allergy (Severe, Verified 10/10/18 16:40) [id number]/THROAT oxycodone Adverse Reaction (Unknown, Verified 10/10/18 16:40) SHAKING Height: 1.83 m Weight: 103.873 kg Patient Problems: Current Active Problems (Last Updated 08/31/18 @ 11:02 by Vivi Hernandez RN) Anemia (Acute) Status post revision of total replacement of right knee (Acute) - VTE Risk Labs: VTE Related Lab Results Hgb 8.7 g/dL (14.1-18.0) L D 10/11/18 06:23 Hct 26.3 % (42.0-52.0) L 10/11/18 06:23 Plt Count 172 K/mm3 (142-424) 10/11/18 06:23 BUN 17 mg/dL (7-18) 10/11/18 06:23 Creatinine 1.21 mg/dL (0.70-1.30) 10/11/18 06:23 Estimated Creat Clear 85 mL/min (50-200) 10/11/18 06:23 Was VTE Risk Assessment Performed: Yes VTE Risk Level: Moderate Risk Clinical Trial Participant: No - Prophylaxis VTE Prophylaxis Ordered?: Yes Types of VTE Prophylaxis: IPCS Knee High (POST OP), Pharmacological (XARELTO) Location of Applied Device: Not Applicable Pharmacologic Type: Other
--- NOTE | 2018-10-11 16:09 | Progress Note ---
Subjective Date: 10/11/18 Time: 12:00 Principal diagnosis: Status post revision total knee arthroplasty, right Interval history: Patient is status post revision right total knee arthroplasty, postoperative day 1. Patient is lying down on the bed. Patient he is doing very well and the pain is well controlled with as needed medication. No history of any nausea or vomiting. No history of any cough, chest pain, shortness of breath or palpitations. Patient says he is eating and drinking well. He started physical therapy and says he mobilized well this morning. He is also on CPM machine for his right knee. PN: Obj Ex Vital signs: Temp Pulse Resp BP Pulse Ox 98.3 F 97 H 18 100/65 L 98 10/11/18 15:44 10/11/18 15:44 10/11/18 15:44 10/11/18 15:44 10/11/18 15:44 Narrative: Laboratory Results - last 24 hr 10/10/18 16:33: Hgb 9.9 L, Hct 30.4 L 10/11/18 06:23: WBC 5.3, RBC 3.12 L, Hgb 8.7 L D, Hct 26.3 L, MCV 84.3, MCH 27.8, MCHC 33.0, RDW 14.4, Plt Count 172, MPV 7.8, Neut % (Auto) 81.0 H, Lymph % (Auto) 10.3, [place] % (Auto) 7.7, Eos % (Auto) 0.8, Baso % (Auto) 0.2, Neut # (Auto) 4.3, Lymph # (Auto) 0.5 L, [place] # (Auto) 0.4, Eos # (Auto) 0.0, Baso # (Auto) 0.0 10/11/18 06:23: Sodium 133 L, Potassium 4.5, Chloride 99, Carbon Dioxide 27, Anion Gap 11.5, BUN 17, Creatinine 1.21, Estimated Creat Clear 85, Estimated GFR 59, Est GFR ( Amer) 72, Glucose 111 H, Calcium 8.8, C-Reactive Protein 4.7 H 10/11/18 06:23: ESR 61 H Intake & Output 10/09/18 10/10/18 10/11/18 10/12/18 11:59 11:59 11:59 11:59 Intake Total 1970 / 1970 360 / 360 Output Total 1999 Balance - 360 / 360 Weight 221 lb 229 lb Microbiology 10/10/18 12:00 Knee,Right Surgical Biopsy Culture - Preliminary NO GROWTH AFTER 24 HOURS 10/10/18 09:30 Synovial Fluid Gram Stain - Final 10/10/18 09:30 Synovial Fluid Body Fluid Culture - Preliminary NO GROWTH AFTER 24 HOURS 10/10/18 10:15 Knee,Right Surgical Biopsy Culture - Preliminary NO GROWTH AFTER 24 HOURS Exam: General appearance: alert, active, awake Cardiovascular: regular rate & rhythm, normal peripheral pulses Respiratory: No respiratory distress noted, speaks in full sentences ABD: soft and non tender Neuro: alert, awake, oriented x 3 On examination of the lower extremities the limb lengths are equal. He is on a CPM machine. On examination of the right knee the dressings are clean, dry and intact. Calf is soft and nontender. Distal pulses are 2+. Capillary refill is brisk. Sensation is intact to light touch throughout. He is actively moving the ankle, foot and the toes. - Urinary Catheter Management Coude Cath placed during this visit: yes Urethral indwelling: Yes Reason for continuing: Surgical procedure Insertion date: 10/10/18 Insertion time: 08:30 Progress Note: A&P (1) Status post revision of total replacement of right knee Status: Acute Current Visit: Yes (2) Atrial fibrillation Status: Chronic Current Visit: No (3) BPH (benign prostatic hyperplasia) Status: Chronic Current Visit: No (4) Coronary arteriosclerosis Status: Chronic Current Visit: No (5) Dementia Status: Chronic Current Visit: No (6) Hyperlipidemia Status: Chronic Current Visit: No (7) Hypertensive disorder Status: Chronic Current Visit: No (8) Hypothyroidism Status: Chronic Current Visit: No (9) Anemia Status: Acute Current Visit: Yes Assessment and Plan for All Diagnoses:: I have reviewed the clinical findings and progress with the patient. Advised him to avoid placing pillow behind the knee; use knee immobilizer/ROM knee brace locked in extension when weightbearing and walking until he regains full quadriceps control and is able to actively straight leg raise. He was seen by physical therapy and started mobilizing with their help-continue/advance physical therapy. Continue DVT prophylaxis and as needed pain medication. Marquez's catheter has been DC'd today. Care management looking into discharge planning. Continue medical management as per Dr. Bhakta.
[2018-10-12 06:44] LABS: Basophils % 0.2 % (0.1-2.0); Eosinophils # 0.1 K/mm3 (0.0-0.4); Eosinophils % 2.3 % (0.1-12.0); Lymphocytes # 0.4 K/mm3 (0.7-4.5); Lymphocytes % 9.8 % (10-50); Mean Corpuscular Volume 83.9 fl (80-94); Mean Platelet Volume 7.9 fl (7.4-10.4); Monocytes # 0.4 K/mm3 (0.1-1.0); Monocytes % 9.7 % (1.7-9.3); Neutrophils # 3.5 K/mm3 (1.8-7.8); Platelet Count 145 K/mm3 (142-424); Red Blood Count 2.75 M/mm3 (4.60-6.20); Red Cell Distribution Width 14.2 % (11.5-17.5); White Blood Count 4.5 K/mm3 (4.8-10.8)
[2018-10-12 06:51] LABS: Anion Gap 9.9 mEq/L (5-15); Calcium 8.4 mg/dL (8.5-10.1)
[2018-10-12 06:53] LABS: Hematocrit 23.1 % (42.0-52.0); Hemoglobin 7.6 g/dL (14.1-18.0)
--- NOTE | 2018-10-12 08:54 | Progress Note ---
Internal Medicine - PN: Subj *Date: 10/12/18 *Time: 08:51 Interval history: Patient with no new complaints today. Exam Vital signs and Labs for Last 24 Hours: Temp Pulse Resp BP Pulse Ox 97.9 F 85 18 122/64 93 L 10/12/18 07:39 10/12/18 08:42 10/12/18 07:39 10/12/18 08:38 10/12/18 07:39 Laboratory Results - last 24 hr 10/12/18 06:34: WBC 4.5 L, RBC 2.75 L, Hgb 7.6 L*, Hct 23.1 L*, MCV 83.9, MCH 27.7, MCHC 33.0, RDW 14.2, Plt Count 145, MPV 7.9, Neut % (Auto) 78.0, Lymph % (Auto) 9.8 L, [place] % (Auto) 9.7 H, Eos % (Auto) 2.3, Baso % (Auto) 0.2, Neut # (Auto) 3.5, Lymph # (Auto) 0.4 L, [place] # (Auto) 0.4, Eos # (Auto) 0.1, Baso # (Auto) 0.0 10/12/18 06:34: Sodium 134 L, Potassium 3.9, Chloride 100, Carbon Dioxide 28, Anion Gap 9.9, BUN 16, Creatinine 1.19, Estimated Creat Clear 87, Estimated GFR 61, Est GFR ( Amer) 73, Glucose 107 H, Calcium 8.4 L Vital Signs - 24 hr 10/11/18 09:06 10/11/18 11:19 10/11/18 15:44 Temperature 97.8 F 98.3 F Pulse Rate 56 L Pulse Rate [Right Brachial] 77 97 H Respiratory Rate 18 18 Blood Pressure [Right Arm] 104/55 L 100/65 L 02 Sat by Pulse Oximetry 95 98 10/11/18 19:48 10/12/18 00:00 10/12/18 04:00 Temperature 99.5 F 99.1 F 99.4 F Pulse Rate Pulse Rate [Right Brachial] 101 H 92 H 85 Respiratory Rate 16 15 17 Blood Pressure [Right Arm] 103/60 L 111/61 101/56 L 02 Sat by Pulse Oximetry 95 94 L 93 L 10/12/18 07:39 10/12/18 08:38 10/12/18 08:42 Temperature 97.9 F Pulse Rate 85 Pulse Rate [Right Brachial] 85 Respiratory Rate 18 Blood Pressure [Right Arm] 88/57 L 122/64 02 Sat by Pulse Oximetry 93 L I & O for Last 24 hours: Intake & Output 10/09/18 10/10/18 10/11/18 10/12/18 23:59 23:59 23:59 23:59 Intake Total 1610 / 1610 1450 / 1450 410 / 410 Output Total 3850 / 3850 700 / 700 Balance 1610 / 1610 -2400 / -2400 -290 / -290 Weight 229 lb 1 oz 229 lb 231 lb 7 oz Microbiology Reports for the Last 24 Hours: Microbiology 10/10/18 12:00 Knee,Right Surgical Biopsy Culture - Preliminary NO GROWTH AFTER 24 HOURS 10/10/18 09:30 Synovial Fluid Gram Stain - Final 10/10/18 09:30 Synovial Fluid Body Fluid Culture - Preliminary NO GROWTH AFTER 24 HOURS 10/10/18 10:15 Knee,Right Surgical Biopsy Culture - Preliminary NO GROWTH AFTER 24 HOURS - Constitutional no acute distress - *Routine HEENT Exam Head: Present: normocephalic Eye: Present: EOMI ENT: Present: mucous membranes moist - *Routine Neck Exam Present: supple. Absent: lymphadenopathy - *Routine Respiratory Exam Present: CTA bilaterally - *Routine Cardiovascular Exam Present: RRR - *Routine Abdominal Exam Present: soft, normoactive bowel sounds. Absent: tenderness - *Routine Extremities Exam Absent: cyanosis, clubbing, edema Comments: wrap and dressing in place over right leg - *Routine Skin Exam Present: warm. Absent: rash - *Routine Neurological Exam Present: alert, oriented X3 Assessment and Plan (1) Status post revision of total replacement of right knee Start date: 10/10/18 Current visit: Yes Status: Acute Category: Surgical Code(s): Z96.651 - Presence of right artificial knee joint (2) Atrial fibrillation Current visit: No Status: Chronic Qualifiers: Atrial fibrillation type: chronic Qualified Code(s): I48.2 - Chronic atrial fibrillation Category: Medical Code(s): I48.91 - Unspecified atrial fibrillation (3) BPH (benign prostatic hyperplasia) Current visit: No Status: Chronic Category: Medical Code(s): N40.0 - Benign prostatic hyperplasia without lower urinary tract symptoms (4) Coronary arteriosclerosis Current visit: No Status: Chronic Category: Medical Code(s): I25.10 - Atherosclerotic heart disease of [place] coronary artery without angina pectoris (5) Dementia Current visit: No Status: Chronic Qualifiers: Dementia type: unspecified type Dementia behavioral disturbance: without behavioral disturbance Qualified Code(s): F03.90 - Unspecified dementia without behavioral disturbance Category: Medical Code(s): F03.90 - Unspecified dementia without behavioral disturbance (6) Hyperlipidemia Current visit: No Status: Chronic Qualifiers: Hyperlipidemia type: mixed hyperlipidemia Qualified Code(s): E78.2 - Mixed hyperlipidemia Category: Medical Code(s): E78.5 - Hyperlipidemia, unspecified (7) Hypertensive disorder Current visit: No Status: Chronic Qualifiers: Hypertension type: essential hypertension Qualified Code(s): I10 - Essential (primary) hypertension Category: Medical Code(s): I10 - Essential (primary) hypertension (8) Hypothyroidism Current visit: No Status: Chronic Qualifiers: Hypothyroidism type: unspecified Qualified Code(s): E03.9 - Hypothyroidism, unspecified Category: Medical Code(s): E03.9 - Hypothyroidism, unspecified (9) Anemia Current visit: Yes Status: Acute Category: Medical Code(s): D64.9 - Anemia, unspecified - Assessment and plan all Dx Assessment and Plan for all problems:: H/H slightly lower today, would like to avoid transfusion if possible. Will increase oral iron to 3 times per day, recheck H/H tomorrow morning. Continue physical therapy.
--- NOTE | 2018-10-12 11:06 | Pharmacy Consult Notes ---
- Pharmacy Consult Date: 10/12/18 Time: 11:02 Referring provider: DR. DONATO Reason for Consult:: VANCOMYCIN TROUGH LEVEL Allergies and ADEs:: Allergies Allergy/AdvReac Type Severity Reaction Status Date / Time lisinopril Allergy Severe S-SWELLS-OR Verified 10/10/18 16:40 AL/THROAT oxycodone AdvReac Unknown SHAKING Verified 10/10/18 16:40 Home Medications:: Home Medications Medication Instructions Recorded Confirmed Type rivaroxaban 20 mg tablet 20 mg PO QPMWM 02/28/17 10/11/18 History cholecalciferol (vitamin D3) 5,000 5,000 unit PO HS 06/16/17 10/10/18 History unit capsule levothyroxine 150 mcg capsule 150 mcg PO DAILY 11/08/17 10/10/18 History Amiodarone HCl 200 mg PO HS 01/02/18 10/10/18 History Multivitamin [Multi-Day Vitamins] 1 each PO DAILY 01/02/18 10/10/18 History Tamsulosin HCl [Flomax 0.4mg 0.8 mg PO HS 01/02/18 10/10/18 History capsule] Docusate Sodium [Docusate Sodium 100 mg PO BIDP PRN #20 cap 01/04/18 10/10/18 Rx 100mg Cap] clopidogrel 75 mg tablet 75 mg PO HS #90 tab 01/04/18 10/10/18 Rx irbesartan 150 mg tablet 150 mg PO DAILY #90 tab 05/26/18 10/10/18 Rx Ferrous Sulfate [Ferrous Sulfate 325 mg PO BID 06/16/18 10/10/18 History 325mg Tablet] spironolactone 25 mg tablet 25 mg PO DAILY tab 07/06/18 10/10/18 History Isosorbide Mononitrate [Imdur 30mg 30 mg PO DAILY 07/21/18 10/10/18 History ER tablet] atorvastatin 40 mg tablet 40 mg PO HS #30 tab 08/28/18 10/10/18 Rx Digoxin 125 mcg PO DAILY 09/04/18 10/10/18 History donepezil 10 mg tablet 10 mg PO HS 90 Days #90 tab 09/11/18 10/10/18 Rx nitroglycerin 0.4 mg sublingual 0.4 mg SUBLINGUAL Q5-15M PRN #20 10/05/18 10/10/18 Rx tablet tab Enoxaparin Sodium [Lovenox 100 mg SQ Q12H 10/06/18 10/10/18 History 100mg/mL syringe] Carvedilol [Carvedilol 3.125mg Tab] 1.56 mg PO BID 10/10/18 10/10/18 History Melatonin/Pyridoxine HCl (B6) 1 each PO HS 10/10/18 10/10/18 History [Melatonin 5 mg Tablet] Height: 1.83 m Weight: 104.978 kg Laboratory Results:: Laboratory Results - last 24 hr 10/12/18 06:34: WBC 4.5 L, RBC 2.75 L, Hgb 7.6 L*, Hct 23.1 L*, MCV 83.9, MCH 27.7, MCHC 33.0, RDW 14.2, Plt Count 145, MPV 7.9, Neut % (Auto) 78.0, Lymph % (Auto) 9.8 L, [place] % (Auto) 9.7 H, Eos % (Auto) 2.3, Baso % (Auto) 0.2, Neut # (Auto) 3.5, Lymph # (Auto) 0.4 L, [place] # (Auto) 0.4, Eos # (Auto) 0.1, Baso # (Auto) 0.0 10/12/18 06:34: Sodium 134 L, Potassium 3.9, Chloride 100, Carbon Dioxide 28, Anion Gap 9.9, BUN 16, Creatinine 1.19, Estimated Creat Clear 87, Estimated GFR 61, Est GFR ( Amer) 73, Glucose 107 H, Calcium 8.4 L 10/12/18 08:30: Vancomycin Trough 13.3 Medical History: Reports:: Arrhythmia, Atrial Fibrillation, Congestive Heart Failure, Congenital Heart Disease, Coronary Artery Disease, Dementia, Hiatal Hernia, Hyperlipidemia, Hypertension, Myocardial Infarction Denies:: Cancer, Diabetes Mellitus Type 1, Diabetes Mellitus Type 2, Internal Pacemaker, Lung Disease, MRSA, Seizures Assessment and Plan (1) Status post revision of total replacement of right knee Start date: 10/10/18 Current visit: Yes Status: Acute Category: Surgical Code(s): Z96.651 - Presence of right artificial knee joint (2) Atrial fibrillation Current visit: No Status: Chronic Qualifiers: Atrial fibrillation type: chronic Qualified Code(s): I48.2 - Chronic atrial fibrillation Category: Medical Code(s): I48.91 - Unspecified atrial fibrillation (3) BPH (benign prostatic hyperplasia) Current visit: No Status: Chronic Category: Medical Code(s): N40.0 - Benign prostatic hyperplasia without lower urinary tract symptoms (4) Coronary arteriosclerosis Current visit: No Status: Chronic Category: Medical Code(s): I25.10 - Atherosclerotic heart disease of [place] coronary artery without angina pectoris (5) Dementia Current visit: No Status: Chronic Qualifiers: Dementia type: unspecified type Dementia behavioral disturbance: without behavioral disturbance Qualified Code(s): F03.90 - Unspecified dementia without behavioral disturbance Category: Medical Code(s): F03.90 - Unspecified dementia without behavioral disturbance (6) Hyperlipidemia Current visit: No Status: Chronic Qualifiers: Hyperlipidemia type: mixed hyperlipidemia Qualified Code(s): E78.2 - Mixed hyperlipidemia Category: Medical Code(s): E78.5 - Hyperlipidemia, unspecified (7) Hypertensive disorder Current visit: No Status: Chronic Qualifiers: Hypertension type: essential hypertension Qualified Code(s): I10 - Essential (primary) hypertension Category: Medical Code(s): I10 - Essential (primary) hypertension (8) Hypothyroidism Current visit: No Status: Chronic Qualifiers: Hypothyroidism type: unspecified Qualified Code(s): E03.9 - Hypothyroidism, unspecified Category: Medical Code(s): E03.9 - Hypothyroidism, unspecified (9) Anemia Current visit: Yes Status: Acute Category: Medical Code(s): D64.9 - Anemia, unspecified - Assessment and plan all Dx Assessment and Plan for all problems:: PATIENT'S VANCOMYCIN TROUGH LEVEL WAS 13.3 MCG/ML THIS AM PRIOR TO 3RD DOSE. RECOMMEND PATIENT CONTINUE WITH CURRENT DOSE AND INTERVAL OF VANCOMYCIN 2000 MG Q24H AT THIS TIME. PHARMACY WILL FOLLOW DAILY AND ADJUST APPROPRIATE.
--- NOTE | 2018-10-12 14:52 | Progress Note ---
Subjective Date: 10/12/18 Time: 12:45 Principal diagnosis: Status post revision total knee arthroplasty, right Interval history: Patient is status post revision right total knee arthroplasty, postoperative day 2. Patient is lying down on the bed; says he is doing very well and he has mild pain which is well controlled with as needed medication. No history of any nausea or vomiting. No history of any cough, chest pain, shortness of breath or palpitations. Patient says he is eating and drinking well. He is having physical therapy and says he is mobilizing well. He is also on CPM machine for his right knee. PN: Obj Ex Vital signs: Temp Pulse Resp BP Pulse Ox 97.9 F 85 20 122/64 93 L 10/12/18 07:39 10/12/18 08:42 10/12/18 13:11 10/12/18 08:38 10/12/18 07:39 Narrative: Laboratory Results - last 24 hr 10/12/18 06:34: WBC 4.5 L, RBC 2.75 L, Hgb 7.6 L*, Hct 23.1 L*, MCV 83.9, MCH 27.7, MCHC 33.0, RDW 14.2, Plt Count 145, MPV 7.9, Neut % (Auto) 78.0, Lymph % (Auto) 9.8 L, [place] % (Auto) 9.7 H, Eos % (Auto) 2.3, Baso % (Auto) 0.2, Neut # (Auto) 3.5, Lymph # (Auto) 0.4 L, [place] # (Auto) 0.4, Eos # (Auto) 0.1, Baso # (Auto) 0.0 10/12/18 06:34: Sodium 134 L, Potassium 3.9, Chloride 100, Carbon Dioxide 28, Anion Gap 9.9, BUN 16, Creatinine 1.19, Estimated Creat Clear 87, Estimated GFR 61, Est GFR ( Amer) 73, Glucose 107 H, Calcium 8.4 L 10/12/18 08:30: Vancomycin Trough 13.3 Microbiology 10/10/18 10:15 Knee,Right Surgical Biopsy Culture - Preliminary NO GROWTH AFTER 48 HOURS 10/10/18 09:30 Synovial Fluid Gram Stain - Final 10/10/18 09:30 Synovial Fluid Body Fluid Culture - Preliminary NO GROWTH AFTER 48 HOURS 10/10/18 12:00 Knee,Right Surgical Biopsy Culture - Preliminary NO GROWTH AFTER 24 HOURS Exam: General appearance: alert, active, awake Cardiovascular: regular rate & rhythm, normal peripheral pulses Respiratory: No respiratory distress noted, speaks in full sentences ABD: soft and non tender Neuro: alert, awake, oriented x 3 On examination of the lower extremities the limb lengths are equal. On examination of the right knee the dressings are clean, dry and intact. I have changed the dressings today. There is minimal soaking of the dressings with blood. The incision looks clean and healthy. No signs of infection are noted. There is 2+ knee effusion. He is diffusely tender over the right knee. Calf is soft and nontender. Distal pulses are 2+. Capillary refill is brisk. Sensation is intact to light touch throughout. He is actively moving the ankle, foot and the toes. He is not able to actively straight leg raise. - Urinary Catheter Management Coude Cath placed during this visit: yes Urethral indwelling: Yes Reason for continuing: Surgical procedure Insertion date: 10/10/18 Insertion time: 08:30 Progress Note: A&P (1) Status post revision of total replacement of right knee Status: Acute Current Visit: Yes (2) Atrial fibrillation Status: Chronic Current Visit: No (3) BPH (benign prostatic hyperplasia) Status: Chronic Current Visit: No (4) Coronary arteriosclerosis Status: Chronic Current Visit: No (5) Dementia Status: Chronic Current Visit: No (6) Hyperlipidemia Status: Chronic Current Visit: No (7) Hypertensive disorder Status: Chronic Current Visit: No (8) Hypothyroidism Status: Chronic Current Visit: No (9) Anemia Status: Acute Current Visit: Yes Assessment and Plan for All Diagnoses:: I have reviewed the clinical findings and progress with the patient. Advised him to avoid placing pillow behind the knee; use knee immobilizer/ROM knee brace locked in extension when weightbearing and walking until he regains full quadriceps control and is able to actively straight leg raise. Continue/advance physical therapy. Continue CPM machine- gradually increasing the range of flexion by 10 degrees each day up to 90 degrees. Continue DVT prophylaxis and as needed pain medication. His H&H is low but he is asymptomatic from it. Continue medical management as per Dr. Bhakta.
[2018-10-13 06:56] LABS: Hematocrit 21.3 % (42.0-52.0)
--- NOTE | 2018-10-13 07:20 | Progress Note ---
Internal Medicine - PN: Subj *Date: 10/13/18 *Time: 07:18 Interval history: Pt with no new complaints today. Exam Vital signs and Labs for Last 24 Hours: Temp Pulse Resp BP Pulse Ox 99.1 F 95 H 16 100/56 L 96 10/13/18 04:22 10/13/18 04:22 10/13/18 04:22 10/13/18 04:22 10/13/18 04:22 Laboratory Results - last 24 hr 10/12/18 08:30: Vancomycin Trough 13.3 10/13/18 06:08: Hgb 7.0 L*, Hct 21.3 L* Vital Signs - 24 hr 10/12/18 07:39 10/12/18 08:38 10/12/18 08:42 Temperature 97.9 F Pulse Rate 85 Pulse Rate [Right Brachial] 85 Respiratory Rate 18 Blood Pressure [Right Arm] 88/57 L 122/64 02 Sat by Pulse Oximetry 93 L 10/12/18 13:11 10/12/18 15:30 10/12/18 20:51 Temperature 98.4 F 98.8 F Pulse Rate Pulse Rate [Right Brachial] 79 92 H Respiratory Rate 20 18 17 Blood Pressure [Right Arm] 100/54 L 109/64 L 02 Sat by Pulse Oximetry 97 95 10/13/18 04:22 Temperature 99.1 F Pulse Rate Pulse Rate [Right Brachial] 95 H Respiratory Rate 16 Blood Pressure [Right Arm] 100/56 L 02 Sat by Pulse Oximetry 96 I & O for Last 24 hours: Intake & Output 10/10/18 10/11/18 10/12/18 10/13/18 23:59 23:59 23:59 23:59 Intake Total 1610 / 1610 1450 / 1450 1380 / 1380 60 / 60 Output Total 3850 / 3850 700 / 700 425 / 425 Balance 1610 / 1610 -2400 / -2400 680 / 680 -365 / -365 Weight 229 lb 1 oz 229 lb 231 lb 7 oz 236 lb 4 oz Microbiology Reports for the Last 24 Hours: Microbiology 10/10/18 12:00 Knee,Right Surgical Biopsy Culture - Preliminary NO GROWTH AFTER 48 HOURS 10/10/18 10:15 Knee,Right Surgical Biopsy Culture - Preliminary NO GROWTH AFTER 48 HOURS 10/10/18 09:30 Synovial Fluid Gram Stain - Final 10/10/18 09:30 Synovial Fluid Body Fluid Culture - Preliminary NO GROWTH AFTER 48 HOURS - Constitutional no acute distress - *Routine HEENT Exam Head: Present: normocephalic Eye: Present: EOMI ENT: Present: mucous membranes moist - *Routine Neck Exam Present: supple. Absent: lymphadenopathy - *Routine Abdominal Exam Present: soft. Absent: tenderness - *Routine Extremities Exam Present: edema (minimal around right knee, dressing C/D/I). Absent: cyanosis, clubbing - *Routine Skin Exam Present: warm. Absent: rash - *Routine Neurological Exam Present: alert, oriented X3 Assessment and Plan (1) Status post revision of total replacement of right knee Start date: 10/10/18 Current visit: Yes Status: Acute Category: Surgical Code(s): Z96.651 - Presence of right artificial knee joint (2) Atrial fibrillation Current visit: No Status: Chronic Qualifiers: Atrial fibrillation type: chronic Qualified Code(s): I48.2 - Chronic atrial fibrillation Category: Medical Code(s): I48.91 - Unspecified atrial fibrillation (3) BPH (benign prostatic hyperplasia) Current visit: No Status: Chronic Category: Medical Code(s): N40.0 - Benign prostatic hyperplasia without lower urinary tract symptoms (4) Coronary arteriosclerosis Current visit: No Status: Chronic Category: Medical Code(s): I25.10 - Atherosclerotic heart disease of [place] coronary artery without angina pectoris (5) Dementia Current visit: No Status: Chronic Qualifiers: Dementia type: unspecified type Dementia behavioral disturbance: without behavioral disturbance Qualified Code(s): F03.90 - Unspecified dementia without behavioral disturbance Category: Medical Code(s): F03.90 - Unspecified dementia without behavioral disturbance (6) Hyperlipidemia Current visit: No Status: Chronic Qualifiers: Hyperlipidemia type: mixed hyperlipidemia Qualified Code(s): E78.2 - Mixed hyperlipidemia Category: Medical Code(s): E78.5 - Hyperlipidemia, unspecified (7) Hypertensive disorder Current visit: No Status: Chronic Qualifiers: Hypertension type: essential hypertension Qualified Code(s): I10 - Essential (primary) hypertension Category: Medical Code(s): I10 - Essential (primary) hypertension (8) Hypothyroidism Current visit: No Status: Chronic Qualifiers: Hypothyroidism type: unspecified Qualified Code(s): E03.9 - Hypothyroidism, unspecified Category: Medical Code(s): E03.9 - Hypothyroidism, unspecified (9) Anemia Current visit: Yes Status: Acute Category: Medical Code(s): D64.9 - Anemia, unspecified (10) Hyponatremia Current visit: Yes Status: Acute Category: Medical Code(s): E87.1 - Hypo- osmolality and hyponatremia - Assessment and plan all Dx Assessment and Plan for all problems:: Patient's anemia is worse. He has chronic anemia but H/H is lower postoperatively, will give 2 units of PRBC's today.
--- NOTE | 2018-10-13 07:38 | Progress Note ---
Internal Medicine - PN: Subj *Date: 10/13/18 *Time: 07:37 Exam Vital signs and Labs for Last 24 Hours: Temp Pulse Resp BP Pulse Ox 99.1 F 95 H 16 100/56 L 96 10/13/18 04:22 10/13/18 04:22 10/13/18 04:22 10/13/18 04:22 10/13/18 04:22 Laboratory Results - last 24 hr 10/12/18 08:30: Vancomycin Trough 13.3 10/13/18 06:08: Hgb 7.0 L*, Hct 21.3 L* I & O for Last 24 hours: Intake & Output 10/10/18 10/11/18 10/12/18 10/13/18 23:59 23:59 23:59 23:59 Intake Total 1610 / 1610 1450 / 1450 1380 / 1380 60 / 60 Output Total 3850 / 3850 700 / 700 425 / 425 Balance 1610 / 1610 -2400 / -2400 680 / 680 -365 / -365 Weight 103.901 kg 103.873 kg 104.978 kg 107.161 kg Microbiology Reports for the Last 24 Hours: Microbiology 10/10/18 12:00 Knee,Right Surgical Biopsy Culture - Preliminary NO GROWTH AFTER 48 HOURS 10/10/18 10:15 Knee,Right Surgical Biopsy Culture - Preliminary NO GROWTH AFTER 48 HOURS 10/10/18 09:30 Synovial Fluid Gram Stain - Final 10/10/18 09:30 Synovial Fluid Body Fluid Culture - Preliminary NO GROWTH AFTER 48 HOURS Assessment and Plan (1) Status post revision of total replacement of right knee Start date: 10/10/18 Current visit: Yes Status: Acute Category: Surgical Code(s): Z96.651 - Presence of right artificial knee joint (2) Atrial fibrillation Current visit: No Status: Chronic Qualifiers: Atrial fibrillation type: chronic Qualified Code(s): I48.2 - Chronic atrial fibrillation Category: Medical Code(s): I48.91 - Unspecified atrial fibrillation (3) BPH (benign prostatic hyperplasia) Current visit: No Status: Chronic Category: Medical Code(s): N40.0 - Benign prostatic hyperplasia without lower urinary tract symptoms (4) Coronary arteriosclerosis Current visit: No Status: Chronic Category: Medical Code(s): I25.10 - Atherosclerotic heart disease of [place] coronary artery without angina pectoris (5) Dementia Current visit: No Status: Chronic Qualifiers: Dementia type: unspecified type Dementia behavioral disturbance: without behavioral disturbance Qualified Code(s): F03.90 - Unspecified dementia without behavioral disturbance Category: Medical Code(s): F03.90 - Unspecified dementia without behavioral disturbance (6) Hyperlipidemia Current visit: No Status: Chronic Qualifiers: Hyperlipidemia type: mixed hyperlipidemia Qualified Code(s): E78.2 - Mixed hyperlipidemia Category: Medical Code(s): E78.5 - Hyperlipidemia, unspecified (7) Hypertensive disorder Current visit: No Status: Chronic Qualifiers: Hypertension type: essential hypertension Qualified Code(s): I10 - Essential (primary) hypertension Category: Medical Code(s): I10 - Essential (primary) hypertension (8) Hypothyroidism Current visit: No Status: Chronic Qualifiers: Hypothyroidism type: unspecified Qualified Code(s): E03.9 - Hypothyroidism, unspecified Category: Medical Code(s): E03.9 - Hypothyroidism, unspecified (9) Anemia Current visit: Yes Status: Acute Category: Medical Code(s): D64.9 - Anemia, unspecified (10) Hyponatremia Current visit: Yes Status: Acute Category: Medical Code(s): E87.1 - Hypo- osmolality and hyponatremia The patient's infection will respond to the chosen ABx?: Yes Is the patient receiving the right drug, dose, and route?: Yes Could a more targeted ABx be ordered?: No (ABX STOPPED TODAY (BLOOX CX NEGATIVE AT 48 HOURS))
[2018-10-13 14:59] LABS: Hematocrit 25.3 % (42.0-52.0)
--- NOTE | 2018-10-13 15:01 | Discharge Summary ---
General - General Admission date:: 10/10/18 Discharge date: 10/13/18 Objective Vital signs: Temp Pulse Resp BP Pulse Ox 98.5 F 82 20 103/59 L 97 10/13/18 14:25 10/13/18 14:25 10/13/18 14:25 10/13/18 14:25 10/13/18 14:25 Results Labs on day of discharge: Labs from last 24 hours 10/13/18 10/13/18 07:43 06:08 Hgb 7.0 L* Hct 21.3 L* Blood Type O Positive Antibody Screen Negative Crossmatch (AHG) See Detail Preliminary micro results at discharge 10/10/18 12:00 Surgical Biopsy Culture - Preliminary Knee,Right NO GROWTH AFTER 72 HOURS 10/10/18 09:30 Body Fluid Culture - Preliminary Synovial Fluid NO GROWTH AFTER 72 HOURS 10/10/18 10:15 Surgical Biopsy Culture - Preliminary Knee,Right NO GROWTH AFTER 72 HOURS DS: Diagnosis - Discharge Diagnosis (1) Status post revision of total replacement of right knee Status: Acute (2) Atrial fibrillation Status: Chronic (3) BPH (benign prostatic hyperplasia) Status: Chronic (4) Coronary arteriosclerosis Status: Chronic (5) Dementia Status: Chronic (6) Hyperlipidemia Status: Chronic (7) Hypertensive disorder Status: Chronic (8) Hypothyroidism Status: Chronic (9) Anemia Status: Acute (10) Hyponatremia Status: Acute Discharge Plan - Patient Discharge Instructions ACTIVITY: Continue current activity, Ambulate as tolerated DIET: regular diet Patient Instructions: Blood Transfusion, DI for Blood Transfusion, DI for Knee Replacement, DI for Surgical Site Infection, Surgical Site Infection - Follow up Plan Follow up with: Magdi Estrada MD [Staff Physician] - 10/17/18 Disposition: Home, Self-Longterm Medications: Home Medications Medication Instructions Recorded Confirmed Type rivaroxaban 20 mg tablet 20 mg PO QPMWM 02/28/17 10/11/18 History cholecalciferol (vitamin D3) 5,000 5,000 unit PO HS 06/16/17 10/10/18 History unit capsule levothyroxine 150 mcg capsule 150 mcg PO DAILY 11/08/17 10/10/18 History Amiodarone HCl 200 mg PO HS 01/02/18 10/10/18 History Multivitamin [Multi-Day Vitamins] 1 each PO DAILY 01/02/18 10/10/18 History Tamsulosin HCl [Flomax 0.4mg 0.8 mg PO HS 01/02/18 10/10/18 History capsule] Docusate Sodium [Docusate Sodium 100 mg PO BIDP PRN #20 cap 01/04/18 10/10/18 Rx 100mg Cap] clopidogrel 75 mg tablet 75 mg PO HS #90 tab 01/04/18 10/10/18 Rx irbesartan 150 mg tablet 150 mg PO DAILY #90 tab 05/26/18 10/10/18 Rx Ferrous Sulfate [Ferrous Sulfate 325 mg PO BID 06/16/18 10/10/18 History 325mg Tablet] spironolactone 25 mg tablet 25 mg PO DAILY tab 07/06/18 10/10/18 History Isosorbide Mononitrate [Imdur 30mg 30 mg PO DAILY 07/21/18 10/10/18 History ER tablet] atorvastatin 40 mg tablet 40 mg PO HS #30 tab 08/28/18 10/10/18 Rx Digoxin 125 mcg PO DAILY 09/04/18 10/10/18 History donepezil 10 mg tablet 10 mg PO HS 90 Days #90 tab 09/11/18 10/10/18 Rx nitroglycerin 0.4 mg sublingual 0.4 mg SUBLINGUAL Q5-15M PRN #20 10/05/18 10/10/18 Rx tablet tab Enoxaparin Sodium [Lovenox 100 mg SQ Q12H 10/06/18 10/10/18 History 100mg/mL syringe] Carvedilol [Carvedilol 3.125mg Tab] 1.56 mg PO BID 10/10/18 10/10/18 History Melatonin/Pyridoxine HCl (B6) 1 each PO HS 10/10/18 10/10/18 History [Melatonin 5 mg Tablet] Hydrocod/Acet 5/325 mg [[place] 1 - 2 tab PO Q4HP PRN #60 tab 10/13/18 Rx 5/325mg tablet] Sennosides [Senokot 8.6mg tablet] 8.6 mg PO BIDP PRN #20 tab 10/13/18 Rx cephALEXin [cephALEXin 500mg 500 mg PO Q8H 10 Days #30 cap 10/13/18 Rx capsule*] Prescriptions/Medication Reconciliation: New Ferrous Sulfate [Ferrous Sulfate 325mg Tablet] 325 mg PO TID tablet Hydrocod/Acet 5/325 mg [[place] 5/325mg tablet] 1 - 2 tab PO Q4HP PRN #60 tab PRN Reason: Moderate To Severe Pain Sennosides [Senokot 8.6mg tablet] 8.6 mg PO BIDP PRN #20 tab PRN Reason: Constipation cephALEXin [cephALEXin 500mg capsule*] 500 mg PO Q8H 10 Days #30 cap Continued rivaroxaban 20 mg tablet 20 mg PO QPMWM cholecalciferol (vitamin D3) 5,000 unit capsule 5,000 unit PO HS clopidogrel 75 mg tablet 75 mg PO HS #90 tab irbesartan 150 mg tablet 150 mg PO DAILY #90 tab spironolactone 25 mg tablet 25 mg PO DAILY tab atorvastatin 40 mg tablet 40 mg PO HS #30 tab donepezil 10 mg tablet 10 mg PO HS 90 Days #90 tab levothyroxine 150 mcg capsule 150 mcg PO DAILY nitroglycerin 0.4 mg sublingual tablet 0.4 mg SUBLINGUAL Q5-15M PRN #20 tab PRN Reason: chest pain Multivitamin [Multi-Day Vitamins] 1 each PO DAILY Amiodarone HCl 200 mg PO HS Tamsulosin HCl [Flomax 0.4mg capsule] 0.8 mg PO HS Isosorbide Mononitrate [Imdur 30mg ER tablet] 30 mg PO DAILY Melatonin/Pyridoxine HCl (B6) [Melatonin 5 mg Tablet] 1 each PO HS Docusate Sodium [Docusate Sodium 100mg Cap] 100 mg PO BIDP PRN #20 cap PRN Reason: Constipation Digoxin 125 mcg PO DAILY Carvedilol [Carvedilol 3.125mg Tab] 1.56 mg PO BID Discontinued Ferrous Sulfate [Ferrous Sulfate 325mg Tablet] 325 mg PO BID Enoxaparin Sodium [Lovenox 100mg/mL syringe] 100 mg SQ Q12H - Problem Reconciliation Problems Reviewed?: Yes
[2018-10-13 15:20] LABS: Hemoglobin 8.4 g/dL (14.1-18.0)
== END 2018-10-13 16:10 | disposition home or self-care (01) | DRG 467 ==
LOC: OR 06:03 → 2ND 06:10
PROVIDERS: ADMIT Orthopaedic Surgery; ATTEND Orthopaedic Surgery
CPT/HCPCS: 36415; 73560; 80048; 80202; 81001; 85014; 85018; 85025; 85651; 86140; 86850; 87070; 87205; 88307; 88311; 88331; 96374; 97110; 97116; 97161; 97165; 97535; A4649; C1776; J2405; J3370; P9016

== ENCOUNTER → 2018-10-24 09:05 | Outpatient (CLI) | payer MEDICARE, OTHER, SELFPAY ==
--- NOTE | 2018-10-24 09:09 | XR_ITS ---
PROCEDURE: XR KNEE RT 2V CLINICAL INDICATION: sp RT knee revision dos 10/10/18 Follow-up right knee replacement COMPARISON: KNEELMRT XR knee RT 2V from 02/15/2018 KNEELMRT XR knee RT 2V from 06/09/2018 XR KNEE RT 2V from 10/03/2018 XR KNEE RT 2V from 10/10/2018 FINDINGS: Good alignment status post revision of right knee replacement. No fracture or dislocation. No lytic or blastic change. There remains some postsurgical gas. Antibiotic beads are noted somewhat less apparent. Skin clips remain in place Other findings:None. IMPRESSION: Good alignment status post total knee revision Dictated by: Romel Rosales MD 10/24/2018 09:54 Electronically signed by Romel Rosales MD in [place] 10/24/2018 09:54
[2018-10-24 10:13] LABS: Basophils % 0.4 % (0.1-2.0); Eosinophils # 0.1 K/mm3 (0.0-0.4); Eosinophils % 2.2 % (0.1-12.0); Hemoglobin 9.7 g/dL (14.1-18.0); Lymphocytes # 0.6 K/mm3 (0.7-4.5); Mean Corpuscular HGB Conc 31.1 g/dL (31.8-35.4); Mean Corpuscular Hemoglobin 26.8 pg (27.0-31.2); Mean Corpuscular Volume 86.1 fl (80-94); Mean Platelet Volume 6.7 fl (7.4-10.4); Monocytes # 0.4 K/mm3 (0.1-1.0); Monocytes % 7.5 % (1.7-9.3); Neutrophils # 4.4 K/mm3 (1.8-7.8); Neutrophils % 78.9 % (37.0-80.0); Platelet Count 381 K/mm3 (142-424); Red Cell Distribution Width 14.8 % (11.5-17.5); White Blood Count 5.6 K/mm3 (4.8-10.8)
[2018-10-24 10:34] LABS: C-Reactive Protein 3.1 mg/dL (0.0-0.9)
[2018-10-24 11:31] LABS: Erythrocyte Sedimentation Rate > 140 mm/hr (0-20)
== END ==
PROVIDERS: PCP Family Medicine; Visit Provider Orthopaedic Surgery
DX: Z96.651 Presence of right artificial knee joint (principal)
CPT/HCPCS: 36415; 73560; 85025; 85651; 86140

== ENCOUNTER → 2018-10-24 09:32 | Outpatient (CLI) | payer MEDICARE, OTHER, SELFPAY | PROVIDERS: Visit Provider Orthopaedic Surgery | DX: Z96.651 Presence of right artificial knee joint (principal) | CPT/HCPCS: 36415; 73560; 85025; 85651; 86140 ==

== ENCOUNTER → 2018-11-07 13:16 | Outpatient (CLI) | payer MEDICARE, OTHER, SELFPAY ==
[2018-11-07 13:35] LABS: Basophils % 0.5 % (0.1-2.0); Eosinophils # 0.2 K/mm3 (0.0-0.4); Eosinophils % 3.6 % (0.1-12.0); Hematocrit 33.1 % (42.0-52.0); Hemoglobin 10.1 g/dL (14.1-18.0); Lymphocytes # 0.6 K/mm3 (0.7-4.5); Lymphocytes % 12.8 % (10-50); Mean Corpuscular HGB Conc 30.6 g/dL (31.8-35.4); Mean Corpuscular Volume 88.2 fl (80-94); Mean Platelet Volume 8.6 fl (7.4-10.4); Monocytes # 0.3 K/mm3 (0.1-1.0); Neutrophils # 3.3 K/mm3 (1.8-7.8); Neutrophils % 77.1 % (37.0-80.0); Platelet Count 223 K/mm3 (142-424); Red Blood Count 3.75 M/mm3 (4.60-6.20); Red Cell Distribution Width 15.8 % (11.5-17.5); White Blood Count 4.3 K/mm3 (4.8-10.8)
[2018-11-07 14:43] LABS: C-Reactive Protein < 0.2 mg/dL (0.0-0.9)
[2018-11-07 16:33] LABS: Erythrocyte Sedimentation Rate 29 mm/hr (0-20)
[2018-11-08 13:37] LABS: Anion Gap 13.3 mEq/L (5-15); Blood Urea Nitrogen 15 mg/dL (7-18); Calcium 8.2 mg/dL (8.5-10.1); Carbon Dioxide 27 mmol/L (21.0-32.0); Chloride 105 mmol/L (98-107); Creatinine,Serum 1.36 mg/dL (0.70-1.30); Estimated Glomerular Filt Rate 52 ml/min (>60); GFR (African American) 63 ML/MIN (>60); Glucose 107 mg/dL (74-106); Potassium 4.3 mmoL/L (3.5-5.1); Sodium 141 mmol/L (136-145)
== END ==
PROVIDERS: Visit Provider Orthopaedic Surgery
DX: Z96.651 Presence of right artificial knee joint (principal); Z01.818 Encounter for other preprocedural examination
CPT/HCPCS: 36415; 80048; 85025; 85651; 86140

== ENCOUNTER → 2018-11-27 13:54 | Outpatient (CLI) | payer MEDICARE, OTHER, SELFPAY ==
--- NOTE | 2018-11-27 14:06 | XR_ITS ---
PROCEDURE: XR KNEE RT 2V CLINICAL INDICATION: sp dos 11/13/18 Follow-up knee replacement/revision COMPARISON: XR KNEE RT 2V from 10/03/2018 XR KNEE RT 2V from 10/10/2018 XR KNEE RT 2V from 10/24/2018 XR KNEE LT 2V from 11/13/2018 FINDINGS: Total knee prosthesis remains in place in good position. Dissolving antibiotic beads once again noted. There is some periosteal reaction along the distal and medial aspect of the femur which is developing since the previous exam this is nonspecific. No evidence of prosthesis loosening Other findings:None. IMPRESSION: Good alignment status post total knee replacement. There is some developing periosteal reaction along the distal diaphyseal region of the femur medially of unknown clinical significance Dictated by: Romel Rosales MD 11/27/2018 14:29 Electronically signed by Romel Rosales MD in [place] 11/27/2018 14:29
== END ==
PROVIDERS: PCP Family Medicine; Visit Provider Orthopaedic Surgery
DX: Z96.651 Presence of right artificial knee joint (principal); M25.561 Pain in right knee
CPT/HCPCS: 73560

== ENCOUNTER 2019-01-05 10:00 | Outpatient (RCR) | payer MEDICARE, OTHER, SELFPAY ==
--- NOTE | 2018-10-18 16:08 | HMH.PTOPEV ---
PT Outpatient Evaluation Rehab PT Outpatient Evaluation Start: 10/18/18 13:57 Freq: Status: Active Protocol: Document 10/18/18 13:57 ANTONINO (Rec: 10/18/18 16:08 ANTONINO [id number]) Electronically Signed By Robinson Leung PT 10/18/18 13:57 Outpatient Therapy Subjective History Subjective History 68 year old male pt. is referred to PT post R TKA revision. Pt. had surgery last week. Received inpatient PT while in hospital. Pt. has been using ice and CPM at home for increased knee flexion. Pt. reports that gait has been slowly improving and he has been slowly increasing CPM. Pt . states primary problem is bending his knee. Note and eval done by student PT William Mari Chief Complaint Pain,Weakness Symptom Type Ache,Dull Symptoms Relieved By Rest/Positioning,Ice, Prescription Meds Symptoms Aggravated By Standing,Twisting,Walking Prior Functional Limitations None Current Functional Limitations Lifting,Sleeping,Standing, Squatting,Recreation Activity, Walking,Stairs Symptom Description Constant but Variable Level of pain today (0-10) 4 Pain scale - at its best (0-10) 4 Pain scale - at its worst (0-10) 6 Hip/Knee Eval Gait Observation General Gait Pattern Observation Ataxic Gait,Decrease Weight Bear (R) Assistive Device Assistive Devices Rolling / Wheeled Walker Palpation Tenderness right Knee Palpation Finding Tenderness Knee Palpation Overall Comment Only slight TTP over R knee MMT left Hip Flexion Strength Grade 5 Normal Hip Abduction Strength Grade 5 Normal Hip Adduction Strength Grade 5 Normal Hip Extension Strength Grade 5 Normal Hip External Rotation Strength Grade 5 Normal Hip Internal Rotation Strength Grade 5 Normal Knee Extension Strength Grade 4 Good Knee Flexion Strength Grade 5 Normal right Hip Flexion Strength Grade 3 Fair Hip Abduction Strength Grade 5 Normal Hip Adduction Strength Grade 5 Normal Hip Extension Strength Grade 5 Normal Hip External Rotation Strength Grade 5 Normal Hip Internal Rotation Strength Grade 5 Normal Knee Extension Strength Grade 3 Fair Knee Flexion Strength Grade 3+ Fair+ ROM left Hip ROM Reason Not Measured Within Functional Limits Knee ROM Margie
== END 2019-01-05 10:05 | disposition home or self-care (01) ==
LOC: PT 10:00
PROVIDERS: Visit Provider Orthopaedic Surgery
DX: Z96.651 Presence of right artificial knee joint (principal); M25.561 Pain in right knee
CPT/HCPCS: 97010; 97016; 97110; 97140; 97163; 97164

== ENCOUNTER → 2019-01-05 11:32 | Outpatient (CLI) | payer MEDICARE, OTHER, SELFPAY ==
--- NOTE | 2019-01-05 11:36 | XR_ITS ---
PROCEDURE: XR KNEE RT 2V CLINICAL INDICATION: sp RT knee revision manipulation COMPARISON: XR KNEE RT 2V from 11/27/2018 FINDINGS: The femoral prosthesis is in good alignment and apposition to the tibial plateau prosthesis. The opaque plug is seen along the undersurface of the patella. Focal periosteal reaction is again seen along the medial anterior distal femur which is somewhat more prominent than on the previous study. There is no evidence of loosening of either the femoral or tibial component. IMPRESSION: Stable appearing total knee prosthesis with only slightly more prominent focal periosteal reaction distal femur as noted Dictated by: Dr. Williams Devi MD 01/05/2019 11:[address] Williams Devi MD in [place] 01/05/2019 11:49
== END ==
PROVIDERS: PCP Family Medicine; Visit Provider Orthopaedic Surgery
DX: Z96.651 Presence of right artificial knee joint (principal); M25.561 Pain in right knee
CPT/HCPCS: 73560

== ENCOUNTER → 2019-01-11 13:50 | Outpatient (CLI) | payer MEDICARE, OTHER, SELFPAY | PROVIDERS: PCP Family Medicine; Visit Provider Internal Medicine Cardiovascular Disease | DX: R00.1 Bradycardia, unspecified (principal); R53.83 Other fatigue | CPT/HCPCS: 93225 ==

== ENCOUNTER → 2019-01-19 07:17 | Outpatient (CLI) | payer MEDICARE, OTHER, SELFPAY ==
[2019-01-19 09:10] LABS: Digoxin 0.42 ng/mL (0.90-2.00)
== END ==
PROVIDERS: Visit Provider Internal Medicine Cardiovascular Disease
DX: Z51.81 Encounter for therapeutic drug level monitoring (principal); Z79.899 Other long term (current) drug therapy
CPT/HCPCS: 36415; 80162

== ENCOUNTER → 2019-04-09 08:51 | Outpatient (CLI) | payer MEDICARE, OTHER, SELFPAY ==
--- NOTE | 2019-04-09 08:56 | XR_ITS ---
PROCEDURE: XR KNEE RT 2V CLINICAL INDICATION: sp RT knee revision COMPARISON: XR KNEE RT 2V from 10/24/2018 XR KNEE LT 2V from 11/13/2018 XR KNEE RT 2V from 11/27/2018 XR KNEE RT 2V from 01/05/2019 FINDINGS: Status post total knee replacement with revision. There is good alignment of the prosthesis. There is some cortical thickening of the distal aspect of the femur medially. This slightly increased appears well-circumscribed. Other findings:None. IMPRESSION: Good alignment of the total knee prosthesis. Cortical thickening of the distal femur slightly increased but well-circumscribed Dictated by: Romel Rosales MD 04/09/2019 11:39 Electronically signed by Romel Rosales MD in [place] 04/09/2019 11:39
[2019-04-09 15:22] LABS: Basophils % 0.9 % (0.1-2.0); Eosinophils # 0.2 K/mm3 (0.0-0.4); Eosinophils % 4.3 % (0.1-12.0); Hematocrit 38.4 % (42.0-52.0); Hemoglobin 12.7 g/dL (14.1-18.0); Lymphocytes # 0.9 K/mm3 (0.7-4.5); Lymphocytes % 18.9 % (10-50); Mean Corpuscular HGB Conc 33.2 g/dL (31.8-35.4); Mean Corpuscular Hemoglobin 28.9 pg (27.0-31.2); Mean Corpuscular Volume 87.3 fl (80-94); Mean Platelet Volume 9.4 fl (7.4-10.4); Monocytes # 0.4 K/mm3 (0.1-1.0); Monocytes % 8.4 % (1.7-9.3); Neutrophils # 3.3 K/mm3 (1.8-7.8); Neutrophils % 67.6 % (37.0-80.0); Platelet Count 157 K/mm3 (142-424); Red Cell Distribution Width 14.4 % (11.5-17.5); White Blood Count 4.8 K/mm3 (4.8-10.8)
[2019-04-09 15:45] LABS: Erythrocyte Sedimentation Rate 13 mm/hr (0-20)
[2019-04-09 16:03] LABS: C-Reactive Protein 2.3 mg/L (0-4)
== END ==
PROVIDERS: PCP Family Medicine; Visit Provider Orthopaedic Surgery
DX: Z96.651 Presence of right artificial knee joint (principal); M25.561 Pain in right knee
CPT/HCPCS: 36415; 73560; 85025; 85651; 86140

== ENCOUNTER → 2019-06-04 08:29 | Outpatient (CLI) | payer MEDICARE, OTHER, SELFPAY | PROVIDERS: Visit Provider Nurse Practitioner Family | DX: Z51.81 Encounter for therapeutic drug level monitoring; I25.10 Atherosclerotic heart disease of native coronary artery without angina pectoris; E78.5 Hyperlipidemia, unspecified; F03.90 Unspecified dementia, unspecified severity, without behavioral disturbance, psychotic disturbance, mood disturbance, and anxiety; I11.9 Hypertensive heart disease without heart failure; I25.5 Ischemic cardiomyopathy; I42.0 Dilated cardiomyopathy; I48.91 Unspecified atrial fibrillation; Z79.01 Long term (current) use of anticoagulants; Z79.899 Other long term (current) drug therapy; Z95.5 Presence of coronary angioplasty implant and graft | CPT/HCPCS: 36415; 80162 ==

== ENCOUNTER → 2019-09-20 11:16 | Outpatient (CLI) | payer MEDICARE, OTHER, SELFPAY ==
--- NOTE | 2019-09-20 11:27 | XR_ITS ---
PROCEDURE: XR CHEST 2V CLINICAL HISTORY: on amiodarone therapy Heart disease COMPARISON: CR XR CHEST 2V from 10/03/2018 FINDINGS: The cardiomediastinal silhouette and pulmonary vascularity are within normal limits. The lungs are clear without infiltrates, suspicious nodules, or pleural effusions. No acute bony abnormalities. No evidence of amiodarone lung toxicity IMPRESSION: No acute findings. Dictated b Romel Rosales MD 09/20/2019 11:57 Romel Rosales MD in [place] 09/20/2019 11:57
[2019-09-20 12:22] LABS: Alanine Aminotransferase 31 U/L (12-78); Alkaline Phosphatase 66 U/L (38-126); Aspartate Amino Transferase 48 U/L (17-59); Bilirubin,Indirect 0.7 mg/dL (0.0-0.9); Bilirubin,Total 0.7 mg/dl (0.2-1.3); Bilirubin,Unconjugated 0.7 mg/dL (0.0-1.1); Total Protein,Serum 6.3 g/dl (6.3-8.2)
[2019-09-20 12:23] LABS: Triiodothryronine (T3) Uptake 34 % (23.5-40.5)
[2019-09-20 12:24] LABS: Free Thyroxine Index 3.3 ug/dL (5.93-13.13); T4 (Thyroxine) 9.8 ug/dl (5.53-11.0)
[2019-09-20 12:37] LABS: Thyroid Stimulating Hormone 1.69 uIU/mL (0.465-4.68)
== END ==
PROVIDERS: PCP Family Medicine; Visit Provider Internal Medicine Cardiovascular Disease
DX: Z79.899 Other long term (current) drug therapy (principal)
CPT/HCPCS: 36415; 71046; 80076; 84436; 84443; 84479

== ENCOUNTER → 2019-10-12 10:41 | Outpatient (CLI) | payer MEDICARE, OTHER, SELFPAY ==
--- NOTE | 2019-10-12 10:47 | XR_ITS ---
PROCEDURE: XR KNEE LT 2V CLINICAL INDICATION: sp LT tka COMPARISON: CR XR KNEE LT 2V from 11/13/2018 FINDINGS: The femoral prosthesis is in good alignment and apposition to the tibial plateau prosthesis. There is no evidence of loosening of either prosthesis. The opaque plug is seen undersurface of the patella and there is minor spurring of the superior. There is no effusion. IMPRESSION: Satisfactory appearance total knee prosthesis Dictated by: Dr. Williams Devi MD 10/12/2019 12:42 Dr. Williams Devi MD in [place] 10/12/2019 12:42
--- NOTE | 2019-10-12 10:47 | XR_ITS ---
PROCEDURE: XR KNEE RT 2V CLINICAL INDICATION: sp RT tka COMPARISON: CR XR KNEE RT 2V from 10/24/2018 CR XR KNEE RT 2V from 04/09/2019 FINDINGS: The total knee prosthesis is again noted. The femoral prosthesis is in good alignment and apposition to the tibial plateau prosthesis. There is no evidence of loosening. Again noted is diffuse area of cortical thickening medial distal femur at the diametaphyseal zone. The semiopaque plug is again seen in the undersurface of the patella. Small ossification popliteal fossa and this was noted previously. IMPRESSION: No acute findings. Dictated by: Dr. Williams Devi MD 10/12/2019 12:35 Dr. Williams Dvei MD in [place] 10/12/2019 12:35
== END ==
PROVIDERS: PCP Family Medicine; Visit Provider Orthopaedic Surgery
DX: Z96.659 Presence of unspecified artificial knee joint (principal)
CPT/HCPCS: 73560

== ENCOUNTER → 2020-04-03 14:49 | Outpatient (CLI) | payer MEDICARE, OTHER, SELFPAY ==
--- NOTE | 2020-04-03 15:05 | XR_ITS ---
PROCEDURE: XR CHEST 2V CLINICAL HISTORY: on amio Heart disease COMPARISON: DX XR CHEST 2V from 09/20/2019 FINDINGS: The cardiomediastinal silhouette and pulmonary vascularity are within normal limits. Coronary artery calcifications are present. The lungs are clear without infiltrates, suspicious nodules, or pleural effusions. No acute bony abnormalities. IMPRESSION: No acute finding. No convincing evidence amiodarone lung toxicity Dictated by: Romel Rosales MD 04/03/2020 15:29 Romel Rosales MD in [place] 04/03/2020 15:29
[2020-04-03 15:49] LABS: Basophils % 0.8 % (0.1-2.0); Eosinophils # 0.2 K/mm3 (0.0-0.4); Eosinophils % 4.5 % (0.1-12.0); Hematocrit 43.8 % (42.0-52.0); Hemoglobin 13.9 g/dL (14.1-18.0); Lymphocytes # 1.1 K/mm3 (0.7-4.5); Lymphocytes % 21.5 % (10-50); Mean Corpuscular HGB Conc 31.8 g/dL (31.8-35.4); Mean Corpuscular Hemoglobin 29.5 pg (27.0-31.2); Mean Corpuscular Volume 92.8 fl (80-94); Mean Platelet Volume 9.1 fl (7.4-10.4); Monocytes # 0.4 K/mm3 (0.1-1.0); Monocytes % 7.6 % (1.7-9.3); Neutrophils # 3.3 K/mm3 (1.8-7.8); Neutrophils % 65.6 % (37.0-80.0); Platelet Count 161 K/mm3 (142-424); Red Blood Count 4.72 M/mm3 (4.60-6.20); Red Cell Distribution Width 13.8 % (11.5-17.5)
[2020-04-03 17:14] LABS: Alanine Aminotransferase 23 U/L (12-78); Albumin Level 4.4 g/dl (3.5-5.0); Alkaline Phosphatase 77 U/L (38-126); Anion Gap 9.4 mEq/L (5-15); Aspartate Amino Transferase 43 U/L (17-59); Bilirubin,Indirect 0.5 mg/dL (0.0-0.9); Bilirubin,Total 0.5 mg/dl (0.2-1.3); Bilirubin,Unconjugated 0.5 mg/dL (0.0-1.1); Blood Urea Nitrogen 15 mg/dl (9-20); Calcium 9.3 mg/dl (8.4-10.2); Carbon Dioxide 30 mmol/L (22.0-30.0); Chloride 104 mmol/L (98-107); Chol/HDL Ratio 2.6 (1-3.5); Cholesterol 120 mg/dl (140-200); Estimated Glomerular Filt Rate 74 ml/min (>60); GFR (African American) 89 ML/MIN (>60); Glucose 62 mg/dl (74-100); HDL Cholesterol 46 mg/dl (40-60); Potassium 4.4 mmoL/L (3.5-5.1); Sodium 139 mmol/L (136-145); Total Protein,Serum 6.9 g/dl (6.3-8.2); Triglycerides 215 mg/dl (30-150); VLDL Cholesterol 43 mg/dL (0-40)
[2020-04-03 17:25] LABS: Direct LDL Cholesterol 38.26 mg/dL (100-129)
[2020-04-03 17:32] LABS: Free Thyroxine Index 3.6 ug/dL (5.93-13.13); Triiodothryronine (T3) Uptake 33 % (23.5-40.5)
== END ==
PROVIDERS: PCP Family Medicine; Visit Provider Internal Medicine Cardiovascular Disease
DX: F03.90 Unspecified dementia, unspecified severity, without behavioral disturbance, psychotic disturbance, mood disturbance, and anxiety; I11.0 Hypertensive heart disease with heart failure; I25.10 Atherosclerotic heart disease of native coronary artery without angina pectoris; I25.5 Ischemic cardiomyopathy; I42.0 Dilated cardiomyopathy; I50.42 Chronic combined systolic (congestive) and diastolic (congestive) heart failure; Z79.01 Long term (current) use of anticoagulants; Z79.899 Other long term (current) drug therapy; Z95.5 Presence of coronary angioplasty implant and graft; I48.20 Chronic atrial fibrillation, unspecified; E78.49 Other hyperlipidemia
CPT/HCPCS: 36415; 71046; 80048; 80061; 80076; 80162; 84436; 84443; 84479; 85025

== ENCOUNTER → 2020-09-20 08:08 | Outpatient (CLI) | payer MEDICARE, OTHER, SELFPAY ==
[2020-09-20 08:50] LABS: Alanine Aminotransferase 23 U/L (12-78); Albumin Level 4.2 g/dl (3.5-5.0); Albumin/Globulin Ratio 1.9 (1.1-1.8); Alkaline Phosphatase 81 U/L (38-126); Anion Gap 12.9 mEq/L (5-15); Aspartate Amino Transferase 38 U/L (17-59); Bilirubin,Total 0.6 mg/dl (0.2-1.3); Blood Urea Nitrogen 24 mg/dl (9-20); Calcium 8.8 mg/dl (8.4-10.2); Carbon Dioxide 30 mmol/L (22.0-30.0); Chloride 103 mmol/L (98-107); Chol/HDL Ratio 2.3 (1-3.5); Cholesterol 115 mg/dl (140-200); Estimated Glomerular Filt Rate 66 ml/min (>60); GFR (African American) 80 ML/MIN (>60); Globulin 2.2 g/dL (1.3-3.2); Glucose 98 mg/dl (74-100); HDL Cholesterol 49 mg/dl (40-60); Potassium 4.9 mmoL/L (3.5-5.1); Sodium 141 mmol/L (136-145); Total Protein,Serum 6.4 g/dl (6.3-8.2); Triglycerides 61 mg/dl (30-150); VLDL Cholesterol 12 mg/dL (0-40)
[2020-09-20 09:01] LABS: Direct LDL Cholesterol 50.82 mg/dL (100-129)
[2020-09-20 09:06] LABS: Free T4 (Free Thyroxine) 1.42 ng/dl (0.78-2.19)
[2020-09-20 09:20] LABS: Thyroid Stimulating Hormone 1.11 uIU/mL (0.465-4.68)
== END ==
PROVIDERS: Visit Provider Family Medicine
DX: I25.5 Ischemic cardiomyopathy (principal); E03.9 Hypothyroidism, unspecified
CPT/HCPCS: 36415; 80053; 80061; 82306; 84439; 84443

== ENCOUNTER → 2021-02-09 08:53 | Outpatient (CLI) | payer MEDICARE, OTHER, SELFPAY | PROVIDERS: PCP Family Medicine; Visit Provider Nurse Practitioner | DX: Z20.822 Contact with and (suspected) exposure to COVID-19 (principal) | CPT/HCPCS: C9803; U0003; U0005 ==

== ENCOUNTER 2021-02-13 09:00 | Observation (INO) | payer MEDICARE, OTHER, SELFPAY ==
[2021-02-13] VITALS (26 sets, daily range): BP systolic 102–161; BP diastolic 60–95; PULSE 51–78; RESP 12–20; TEMP 36.4–36.9; O2SAT 90–97; BMI 29.5
--- NOTE | 2021-02-13 | IR_ITS ---
APPROVED REPORT Patient Location: Emergent Grapple Crew Leader: CAMDEN Carvajal RT (R) PROCEDURES Left heart catheterization Left ventriculogram Selective coronary angiogram Drug-eluting stent deployment to the mid dominant right coronary artery Drug-eluting stent deployment to the posterior descending artery INDICATION Coronary disease, Progressive angina pectoris SCAI INDICATION Clinical history 70-year-old gentleman with known ischemic heart disease presents to the emergency department complaining of typical angina pectoris which is relieved by 6-10 nitroglycerin per day. Specifically patient is taken 6 nitroglycerin this morning each time relieving his classic angina. Informed consent was obtained prior to the procedure. COMPLICATIONS None Estimated Blood Loss: Less than 10 ML TECHNIQUE One percent lidocaine used to anesthetize the right anterior aspect of the wrist. The right radial artery was accessed via the Seldinger technique. A 6 [place] sheath was placed in the right radial artery. 2.5 mg of verapamil, 800 mcg of nitroglycerin, 1mg Lidocaine and 5000 U Heparin were given through the arterial sheath. The Trampoline[place] catheter was also used to perform left heart catheterization, left ventriculogram and selective coronary angiogram. Therapeutic heparin was administered giving a therapeutic ACT at the end of the procedure a BMW wire was placed distally in the right coronary arteries posterior descending artery and a 2.75 x 18 mm resolute Higdon stent was deployed at 20 solis reducing the severe stenosis to 0%. An additional 4 mm x 38 mm resolute Higdon stent was then placed in the midportion of the dominant right coronary and deployed at 24 solis reducing the stenosis to 0%. DONNELL-3 flow was present before and after the procedure. At the end of the procedure the apparatus was removed the sheath was removed and hemostasis was achieved and TR banding patient was transferred to the postop already in stable condition ANGIOGRAPHIC RESULTS The left main artery Normal The left anterior descending artery Has a stent in the proximal to mid segment which is widely patent free of in-stent restenosis with excellent proximal distal transitioning. The mid LAD has additional 20% stenoses The circumflex artery Nondominant with mild 10 to 20% mid vessel luminal irregularities The right coronary artery Is a large dominant vessel and has proximal 30% with mid vessel eccentric 50% stenosis followed by an additional 40% stenosis. A large posterior descending artery has a proximal concentric 70% stenosis The [place] ventriculogram reveals Not performed The left ventricular end-diastolic pressure Not measured IMPRESSION Coronary disease as described above Successful stent to the mid dominant right coronary artery as well as stenting of a large posterior descending artery hemodynamically combined severe disease reduced to 0% with 1 drug-eluting stent in each respective lesion PLAN 1. Dual antiplatelet therapy 2. Patient should be on either an MIKHAIL inhibitor or an ARB not both therefore recommend discontinuing 1 of these 2 medicines 3. Add beta-blockers 4. LDL less than 55 5. Cardiac rehabilitation 6. Avoidance of tobacco proximal Electronically signed by : Clovis Francis MD 02/13/2021 14:53:29
--- NOTE | 2021-02-13 08:51 | ECG_ITS ---
APPROVED REPORT Exam: Resting ECG HR:74 bpm ECG Measurements Heart Rate 74 AXES LA 204 P 53 QRSd 92 QRS -13 QT 386 T 59 QTc 428 Conclusion Normal sinus rhythm Late R wave progression Left axis deviation Abnormal ECG Electronically signed by : Ori Hunter MD 02/14/2021 09:25:40
--- NOTE | 2021-02-13 09:07 | HMH.EDGENADL ---
ED Disposition Clinical Impression: Angina at rest Disposition: Still a Patient Condition on Discharge: Good - Critical Care Critical Care Time: No Attestation: On , the high probability of a clinically significant, sudden or life threatening deterioration of the following system(s) required my full and direct attention, intervention and personal management. The time I documented below is in addition to time spent performing reported procedures but includes the following listed in this critical care notation. Medical Decision Making - Carlos Inquiry Pt receiving controlled substance: No Vital Signs: 02/13/21 09:00 02/13/21 09:22 02/13/21 10:00 Temperature 97.5 F L Temperature Source Oral Pulse Rate 74 66 Pulse Rate [Left Radial] 78 Respiratory Rate 15 12 13 Blood Pressure 102/70 L 107/69 L Blood Pressure [Right Arm] 125/78 Blood Pressure Mean 76 Blood Pressure Mean [Right Arm] 93 Blood Pressure Source [Right Arm] Automatic Cuff Blood Pressure Position [Right Arm] Sitting 02 Sat by Pulse Oximetry 95 94 L 93 L Oxygen Delivery Method Room Air 02/13/21 10:30 02/13/21 10:45 02/13/21 11:55 Temperature Temperature Source Pulse Rate 68 64 63 Pulse Rate [Left Radial] Respiratory Rate 12 15 Blood Pressure 105/74 L 141/89 H Blood Pressure [Right Arm] Blood Pressure Mean Blood Pressure Mean [Right Arm] Blood Pressure Source [Right Arm] Blood Pressure Position [Right Arm] 02 Sat by Pulse Oximetry 97 95 96 Oxygen Delivery Method 02/13/21 12:16 02/13/21 14:20 Temperature 97.5 F L Temperature Source Pulse Rate 71 71 Pulse Rate [Left Radial] Respiratory Rate 15 Blood Pressure 130/85 130/65 Blood Pressure [Right Arm] Blood Pressure Mean Blood Pressure Mean [Right Arm] Blood Pressure Source [Right Arm] Blood Pressure Position [Right Arm] 02 Sat by Pulse Oximetry 94 L Oxygen Delivery Method Room Air - Lab Data Lab Results 02/13/21 09:01: WBC 6.7, RBC 5.06, Hgb 14.9, Hct 47.9, MCV 94.7 H, MCH 29.4, MCHC 31.1 L, RDW 13.7, Plt Count 165, MPV 10.2, Neut % (Auto) 72.8, Lymph % (Auto) 17.4, [place] % (Auto) 6.4, Eos % (Auto) 2.2, Baso % (Auto) 1.2, Neut # (Auto) 4.9, Lymph # (Auto) 1.2, [place] # (Auto) 0.4, Eos # (Auto) 0.2, Baso # (Auto) 0.1 02/13/21 09:01: Sodium 139, Potassium 4.3, Chloride 100, Carbon Dioxide 28, Anion Gap 15.3 H, BUN 20, Creatinine 1.20, Estimated Creat Clear 79, Estimated GFR 60, Est GFR ( Amer) 72, Glucose 68 L, Calcium 9.4, Troponin I < 0.01 02/13/21 12:15: Troponin I < 0.01 Result diagrams: 02/13/21 09:01 02/13/21 09:01 Orders (Tests/Meds): ED MEDICATIONS Generic Name Dose Route Start Last Admin Trade Name Freq PRN Reason Stop Dose Admin Acetaminophen 325 mg 02/13/21 15:37 Acetaminophen 325mg Tab PO 03/15/21 14:45 Q4HP PRN Mild Pain Acetaminophen 650 mg 02/13/21 15:37 Acetaminophen 325mg Tab PO 03/15/21 14:45 Q4HP PRN Mild to Moderate Pain Amiodarone HCl 200 mg 02/13/21 21:00 Amiodarone 200mg Tablet PO 03/15/21 20:59 HS THIERNO Aspirin 81 mg 02/14/21 09:00 Aspirin Ec 81mg Tablet PO 03/16/21 08:59 DAILY THIERNO Atorvastatin Calcium 40 mg 02/13/21 21:00 Atorvastatin 40mg Tablet PO 03/15/21 20:59 HS THIERNO Digoxin 125 mcg 02/14/21 09:00 Digoxin 0.125mg Tablet PO 03/16/21 08:59 DAILY THIERNO Irbesartan 150 mg 02/14/21 09:00 Irbesartan 150mg Tab PO 03/16/21 08:59 DAILY THIERNO Isosorbide Mononitrate 30 mg 02/14/21 09:00 Isosorbide [place] 30mg Tab.Er.24h PO 03/16/21 08:59 DAILY THIERNO Levothyroxine Sodium 150 mcg 02/14/21 07:00 Levothyroxine 150mcg (0.15mg)Tab PO 03/16/21 06:59 DAILYDM THIERNO Miscellaneous 0 each 02/13/21 15:37 Pharmacy Consult Request NOTAPPLIC 02/13/21 15:38 ONCE ONE Ondansetron HCl 4 mg 02/13/21 15:37 Ondansetron 4mg/2ml Vial IV 03/15/21 14:45 Q6HP PRN Nausea Shaista
--- NOTE | 2021-02-13 09:14 | XR_ITS ---
FINAL REPORT CLINICAL HISTORY: chest pain FINDINGS: PA and lateral views of the chest were obtained. There is no prior exam for comparison. The cardiac and mediastinal silhouettes are within normal limits. There are mildly increased interstitial markings favoring chronic. There is no pleural effusion or pneumothorax. No acute osseous abnormality is identified. IMPRESSION: No radiographic evidence of acute cardiac or pulmonary disease. Reviewed, Interpreted and Dictated by Justine Mensah MD Transcribed by Robyn Calloway Authenticated by Justine Mensah MD on 02/13/2021 10:11:30 AM [facility]
[2021-02-13 09:25] LABS: Basophils # 0.1 K/mm3 (0-0.2); Basophils % 1.2 % (0.1-2.0); Eosinophils # 0.2 K/mm3 (0.0-0.4); Eosinophils % 2.2 % (0.1-12.0); Hematocrit 47.9 % (42.0-52.0); Hemoglobin 14.9 g/dL (14.1-18.0); Lymphocytes # 1.2 K/mm3 (0.7-4.5); Lymphocytes % 17.4 % (10-50); Mean Corpuscular HGB Conc 31.1 g/dL (31.8-35.4); Mean Corpuscular Hemoglobin 29.4 pg (27.0-31.2); Mean Corpuscular Volume 94.7 fl (80-94); Mean Platelet Volume 10.2 fl (7.4-10.4); Monocytes # 0.4 K/mm3 (0.1-1.0); Monocytes % 6.4 % (1.7-9.3); Neutrophils # 4.9 K/mm3 (1.8-7.8); Neutrophils % 72.8 % (37.0-80.0); Platelet Count 165 K/mm3 (142-424); Red Blood Count 5.06 M/mm3 (4.60-6.20); Red Cell Distribution Width 13.7 % (11.5-17.5); White Blood Count 6.7 K/mm3 (4.8-10.8)
[2021-02-13 09:27] LABS: Anion Gap 15.3 mEq/L (5-15); Blood Urea Nitrogen 20 mg/dl (9-20); Calcium 9.4 mg/dl (8.4-10.2); Carbon Dioxide 28 mmol/L (22.0-30.0); Chloride 100 mmol/L (98-107); Creatinine Clearance Estimated 79 mL/min (50-200); Estimated Glomerular Filt Rate 60 ml/min (>60); GFR (African American) 72 ML/MIN (>60); Glucose 68 mg/dl (74-100); Potassium 4.3 mmoL/L (3.5-5.1); Sodium 139 mmol/L (136-145)
--- NOTE | 2021-02-13 09:27 | PC.NURSE ---
pt to rad
[2021-02-13 09:40] LABS: Troponin I < 0.01 ng/ml (0.00-0.034)
--- NOTE | 2021-02-13 10:25 | PC.NURSE ---
Contacted cardiology for consult on pt
--- NOTE | 2021-02-13 10:43 | PC.NURSE ---
Cardiology at bedside
--- NOTE | 2021-02-13 10:52 | CA_ITS ---
APPROVED REPORT EXAM: Comprehensive 2D, Doppler, and color-flow Echocardiogram Customer Success Advocate: Nell Salazar RT(R) Ht: 6 ft 0 in Wt: 218lbs BSA: 2.21 BP: 107/69 mmHg Indications: CP, HTN, SOB, hyperlipidemia, CAD, stents, AFIB, CM Echo Enhancing Agent Indication: Endocardial border delineation Agent(s) / Amount(s) Used: Definity 2 cc 2D Dimensions LVOT 2.01 cm (M/F) 1.5-2.5 LA Volume 48.60 mL LA Volume Index 21.99 mL/m2 (M/F) 16-34 M-Mode Dimensions RVDd 2.59 cm (0.9-2.6) LA Diam 4.93 cm (1.9-4.0) LVDd 6.22 cm (3.5-5.7) Ao Diam 3.54 cm (2.0-3.7) LVDs 4.47 cm (3.5-5.7) IVSd 0.94 cm (0.6-1.1) PWd 0.98 cm (0.6-1.1) EF (Teich) 53.40% FS 28.10% EDV (Teich) 195.40 mL ESV (Teich) 91.00 mL LV Diastology E Decel Time 267.00 (160-240 msec) E/A Ratio 0.6 MED E' 8.90 (< 7 cm/sec) E'/MED E' Ratio 5.38 (>14) LAT E' 8.40 (<10 cm/sec) E/LAT E' Ratio 5.70 (>14) Mitral Valve MV E Max Junaid. 48.00 (40-130 cm/s) MV A Velocity 75.00 (40-130 cm/s) E/A Ratio 0.64 MV Decel. Time 267.00 (160-240 ms) MV PHT 78.00 ms Left Ventricle Left atrium is mildly enlarged, left ventricle is normal size, mild concentric left ventricular hypertrophy, visually estimated ejection fraction 40%, there is moderate hypokinesis involving mid to distal septum, anterior and anterior apical wall, there is no left ventricular thrombus seen, grade 1 diastolic dysfunction seen without tissue Doppler evidence of raise left atrial pressure, Definity contrast was utilized to delineate the endocardial surfaces. Right Ventricle Right atrium and right ventricle are mildly enlarged with normal contractility. Aortic Valve Aortic valve is minimally thickened and fibrosed, there is no aortic stenosis or aortic insufficiency. Mitral Valve Mitral valve grossly normal, there is trace mitral regurgitation. Tricuspid Valve Tricuspid grossly normal, there is trace tricuspid regurgitation, tricuspid regurgitation jet velocity is inadequate for calculation of the right ventricular systolic pressure. Pulmonic Valve Pulmonic valve is poorly visualized. Great Vessels Aortic root is normal size. Inferior vena cava is poorly visualized. Pericardium No significant pericardial effusion noted. Conclusion 1. Mild biatrial enlargement, normal left ventricular size, mild concentric left ventricular hypertrophy, visually estimated ejection fraction 40% with multiple segmental wall motion abnormality described above, grade 1 diastolic dysfunction seen without tissue Doppler evidence of raise left atrial pressure, there is no left ventricular thrombus seen, Definity contrast was utilized to delineate the endocardial surfaces. 2. Mildly enlarged right ventricle with normal contractility. 3. Trace mitral and tricuspid regurgitation. 4. No significant pericardial effusion noted. 5. Inferior vena cava is poorly visualized. Electronically signed by : Damien Bob MD 02/13/2021 12:54:58
--- NOTE | 2021-02-13 11:03 | PC.NURSE ---
echo lab at bedside, will get v/s when she is finished.
--- NOTE | 2021-02-13 11:13 | HMH.CNCARD ---
History of Present Illness Consult date: 02/13/21 Requesting physician: Sam Patel Consult reason: chest pain Chief complaint: Unstable angina History of present illness: 70-year-old male presented to the emergency room with chest pain. Patient states for the past 2 to 3 days he has been having worsening chest pain in which he is taking up to 6-7 nitro sublingual's a day. Patient states this a.m. he woke up with midsternal chest pain nonradiating, did take nitro at home, had no relief. Patient states since arriving to the emergency room he has felt better. Patient states his chest pain can at times be a 8 out of 10 on the pain scale. Patient does complain of shortness of breath accompanied with chest pain. Patient states normally he is not short of breath unless he does have the episode of the chest pain. Denies edema of the lower extremity. Patient denies palpitations or dizziness. Patient does have known history of coronary artery disease. Patient's last heart catheterization was in 2017 in which she underwent left heart catheterization due to new onset atrial fibrillation, ischemic cardiomyopathy and congestive heart failure ejection fraction of 20 to 25%. Left heart catheterization at that time revealed patent stents to the proximal LAD with mild to moderate in-stent restenosis which is nonflow limiting. Severe left ventricular dilation with severe left ventricular dysfunction with anterior kinesis. EF was estimated at 20%. Mild elevated LV EDP. Nonflowing limiting circumflex artery and right coronary artery disease. New onset atrial fibrillation likely 1 week in duration. At that time patient was given a LifeVest and he was started on Xarelto 20 mg. Follow-up echo was repeated 90 days after this heart catheterization in 2017. EF had improved to 50%. Patient therefore did not meet criteria for AICD. Last echocardiogram was in 2019 which revealed moderately enlarged left atrium EF 50% with no obvious regional motion abnormality. Mild MR and TR noted. Grade 1 diastolic dysfunction was noted. Patient does have history of Parsymoxal atrial fibrillation. Patient is currently in normal sinus rhythm with nonspecific ST and T wave changes with a heart rate of 71 beats minute. Patient is currently on Xarelto for anticoagulation. Denies any bleeding issues. Along with the Xarelto patient does take amiodarone daily for arrhythmia. Patient is currently also on digoxin. Patient is on standard therapy for heart failure and diastolic dysfunction. Patient does have history of dementia. Cardiac work-up is being performed in the ED. Troponin x1 has been negative. Awaiting troponin x2. Waiting the results of the chest x-ray. Labs are unremarkable. Renal function stable. Vital signs are stable. Due to the patient experiencing unstable angina in which he has to have had taken up to 6-7 nitro sublingual's daily, it is recommended for patient to undergo left heart catheterization today to determine severity of ischemia. Discussed risk and benefits of undergoing left heart catheterization with right radial access with patient and . Patient and verbalized understanding and is agreeable to procedure. We will also obtain echocardiogram to assess LV function and valve status. Pending on the results of the left heart catheterization and echocardiogram, medication and treatment therapies may be recommended. Echo:CONCLUSION:(2019) 1. Technically difficult study because of the patient's factor and poor acoustic windows, repeat study with Definity contrast is recommended, endocardial surfaces are very poorly visualized. 2. Moderately enlarged left atrium, normal left ventricular size, mild concentric left ventricular hypertrophy, visually estimated ejection fraction 50% with no obvious regional wall motion abnormality, repeat study with Definity contrast is recommended. 3. Mildly enlarged right ventricle with normal contractility. 4. Mild
--- NOTE | 2021-02-13 11:31 | PC.NURSE ---
calling dr russell per dr ramírez request
[2021-02-13 12:45] LABS: Troponin I < 0.01 ng/ml (0.00-0.034)
--- NOTE | 2021-02-13 13:36 | PC.NURSE ---
Dr Bhakta came to bedside to see pt.
--- NOTE | 2021-02-13 14:07 | HMH.HP ---
*Admission Date: 02/13/21 *Chief complaint: chest pain *History of present illness: 70-year-old male presented to the emergency room with chest pain. Patient states for the past 2 to 3 days he has been having worsening chest pain in which he is taking up to 6-7 nitro sublingual's a day. Patient states this a.m. he woke up with midsternal chest pain nonradiating, did take nitro at home, had no relief. Patient states since arriving to the emergency room he has felt better. Patient states his chest pain can at times be a 8 out of 10 on the pain scale. Patient does complain of shortness of breath accompanied with chest pain. Patient states normally he is not short of breath unless he does have the episode of the chest pain. Denies edema of the lower extremity. Patient denies palpitations or dizziness. Patient does have known history of coronary artery disease. Patient's last heart catheterization was in 2017 in which she underwent left heart catheterization due to new onset atrial fibrillation, ischemic cardiomyopathy and congestive heart failure ejection fraction of 20 to 25%. Left heart catheterization at that time revealed patent stents to the proximal LAD with mild to moderate in-stent restenosis which is nonflow limiting. Severe left ventricular dilation with severe left ventricular dysfunction with anterior kinesis. EF was estimated at 20%. Mild elevated LV EDP. Nonflowing limiting circumflex artery and right coronary artery disease. New onset atrial fibrillation likely 1 week in duration. At that time patient was given a LifeVest and he was started on Xarelto 20 mg. Follow-up echo was repeated 90 days after this heart catheterization in 2017. EF had improved to 50%. Patient therefore did not meet criteria for AICD. Last echocardiogram was in 2019 which revealed moderately enlarged left atrium EF 50% with no obvious regional motion abnormality. Mild MR and TR noted. Grade 1 diastolic dysfunction was noted. Patient does have history of Parsymoxal atrial fibrillation. Patient is currently in normal sinus rhythm with nonspecific ST and T wave changes with a heart rate of 71 beats minute. Patient is currently on Xarelto for anticoagulation. Denies any bleeding issues. Along with the Xarelto patient does take amiodarone daily for arrhythmia. Patient is currently also on digoxin. Patient is on standard therapy for heart failure and diastolic dysfunction. Patient does have history of dementia. Cardiac work-up is being performed in the ED. Troponin x1 has been negative. Awaiting troponin x2. Waiting the results of the chest x-ray. Labs are unremarkable. Renal function stable. Vital signs are stable. Due to the patient experiencing unstable angina in which he has to have had taken up to 6-7 nitro sublingual's daily, it is recommended for patient to undergo left heart catheterization today to determine severity of ischemia. Discussed risk and benefits of undergoing left heart catheterization with right radial access with patient and . Patient and verbalized understanding and is agreeable to procedure. We will also obtain echocardiogram to assess LV function and valve status. Pending on the results of the left heart catheterization and echocardiogram, medication and treatment therapies may be recommended. (above as per Cardiology) [facility] History I have reviewed the patient's past medical history: Yes Medical History: Reports:: Arrhythmia, Atrial Fibrillation, Congestive Heart Failure, Congenital Heart Disease, Coronary Artery Disease, Dementia, Hiatal Hernia, Hyperlipidemia, Hypertension, Myocardial Infarction Denies:: Cancer, Diabetes Mellitus Type 1, Diabetes Mellitus Type 2, Internal Pacemaker, Lung Disease, MRSA, Seizures *Have you ever received a pneumonia vaccine?: Yes *Have you received a flu vaccine this season?: Yes Other Medical History: Reports: Anemia, Arthritis, Hypothyroidism, Other. Denies: Blood Transfusion Reaction
[2021-02-13 15:16] LABS: CATHL Activated Clotting Time > 400 SEC (74-125)
--- NOTE | 2021-02-13 15:18 | HMH.PHAINT ---
verified home medication list using list from [facility]
--- NOTE | 2021-02-13 15:20 | HMH.PHAVTE ---
[facility] Pharmacy VTE Monitoring - Patient Demographics Admission date: 02/13/21 Report Date: 02/13/21 Time: 15:20 Allergies/Adverse Reactions: Patient Allergies lisinopril Allergy (Severe, Verified 10/02/20 13:54) [id number]/THROAT oxycodone Adverse Reaction (Unknown, Verified 10/02/20 13:54) SHAKING Height: 1.83 m Weight: 98.883 kg Patient Problems: Current Active Problems (Last Updated 08/31/18 @ 11:02 by Vivi Hernandez RN) Unstable angina (Acute) Angina at rest (Acute) Coronary artery disease (Chronic) Vascular dementia (Chronic) Hypothyroidism (Chronic) BPH (benign prostatic hyperplasia) (Chronic) LV dysfunction (Chronic) HHD (hypertensive heart disease) (Chronic) On amiodarone therapy (Chronic) alf current use of anticoagulant therapy (Chronic) Hyperlipidemia (Chronic) Atrial fibrillation (Chronic) Hypertensive disorder (Chronic) Coronary arteriosclerosis (Chronic) - VTE Risk Labs: VTE Related Lab Results Hgb 14.9 g/dL (14.1-18.0) 02/13/21 09:01 Hct 47.9 % (42.0-52.0) 02/13/21 09:01 Plt Count 165 K/mm3 (142-424) 02/13/21 09:01 BUN 20 mg/dl (9-20) 02/13/21 09:01 Creatinine 1.20 mg/dl (0.66-1.25) 02/13/21 09:01 Estimated Creat Clear 79 mL/min (50-200) 02/13/21 09:01 Clinical Trial Participant: No - Prophylaxis VTE Prophylaxis Ordered?: Yes Types of VTE Prophylaxis: TEDS Knee High
--- NOTE | 2021-02-13 15:27 | PC.NURSE ---
pt arrived to the floor at this time
[2021-02-13 16:33] LABS: Coronavirus 19, PCR Not Detected (NotDetected); Influenza A, PCR Not Detected (NotDetected); Influenza B, PCR Not Detected (NotDetected)
[2021-02-14] VITALS: BP 130/79; PULSE 50; PULSE 59; RESP 18; TEMP 36.7; O2SAT 94
[2021-02-14 04:00] VITALS: BP 137/60; PULSE 50; PULSE 60; RESP 16; TEMP 36.6; O2SAT 99
--- NOTE | 2021-02-14 05:31 | PC.NURSE ---
Patient rested well through night. VSS on room air. Denies pain. Right radial cath site without complications. First degree AV block noted on telemetry. Able to make needs known.
[2021-02-14 08:00] VITALS: BP 125/67; PULSE 64; PULSE 65; RESP 15; TEMP 36.8; O2SAT 94
[2021-02-14 08:44] VITALS: PULSE 64
--- NOTE | 2021-02-14 10:29 | HMH.ACPN2 ---
Internal Medicine - PN: Subj *Date: 02/14/21 *Time: 10:29 Interval history: Pt is POD #1 s/p left heart cath with stenting of the right coronary and a posterior descending artery. He is doing well and is anxious to go home. Exam Vital signs and Labs for Last 24 Hours: Temp Pulse Resp BP Pulse Ox 98.2 F 64 15 125/67 94 L 02/14/21 08:00 02/14/21 08:44 02/14/21 08:00 02/14/21 08:00 02/14/21 08:00 Laboratory Results - last 24 hr 02/13/21 12:15: Troponin I < 0.01 02/13/21 15:40: Activated Clotting Time > 400 H* 02/13/21 16:25: SARS-CoV-2 (PCR) Not detected, Influenza A Untype (PCR) Not detected, Influenza Type B (PCR) Not detected Vital Signs - 24 hr 02/13/21 10:45 02/13/21 11:55 02/13/21 12:16 Temperature Pulse Rate 64 63 71 Pulse Rate [Apical] Pulse Rate [Left Radial] Respiratory Rate 15 Blood Pressure 141/89 H 130/85 Blood Pressure [Left Arm] Blood Pressure [Right Arm] 02 Sat by Pulse Oximetry 95 96 94 L 02/13/21 14:20 02/13/21 15:00 02/13/21 15:05 Temperature 97.5 F L Pulse Rate 71 58 L Pulse Rate [Apical] Pulse Rate [Left Radial] 59 L 58 L Respiratory Rate 15 19 19 Blood Pressure 130/65 Blood Pressure [Left Arm] Blood Pressure [Right Arm] 128/76 116/79 02 Sat by Pulse Oximetry 92 L 90 L 02/13/21 15:10 02/13/21 15:15 02/13/21 15:30 Temperature 98.1 F Pulse Rate Pulse Rate [Apical] Pulse Rate [Left Radial] 52 L 54 L 57 L Respiratory Rate 19 12 18 Blood Pressure Blood Pressure [Left Arm] Blood Pressure [Right Arm] 126/77 114/78 148/82 H 02 Sat by Pulse Oximetry 91 L 91 L 97 02/13/21 15:45 02/13/21 16:00 02/13/21 16:15 Temperature 97.6 F Pulse Rate Pulse Rate [Apical] Pulse Rate [Left Radial] 56 L 56 L 53 L Respiratory Rate 20 20 20 Blood Pressure Blood Pressure [Left Arm] Blood Pressure [Right Arm] 128/81 136/81 115/78 02 Sat by Pulse Oximetry 97 96 94 L 02/13/21 16:45 02/13/21 17:15 02/13/21 17:45 Temperature 97.8 F Pulse Rate Pulse Rate [Apical] Pulse Rate [Left Radial] 52 L 52 L 55 L Respiratory Rate 18 20 18 Blood Pressure Blood Pressure [Left Arm] Blood Pressure [Right Arm] 134/87 144/87 H 143/95 H 02 Sat by Pulse Oximetry 96 97 96 02/13/21 18:00 02/13/21 18:15 02/13/21 19:16 Temperature Pulse Rate Pulse Rate [Apical] Pulse Rate [Left Radial] 63 65 Respiratory Rate 20 18 Blood Pressure Blood Pressure [Left Arm] Blood Pressure [Right Arm] 144/76 H 126/72 02 Sat by Pulse Oximetry 95 91 L 95 02/13/21 20:00 02/13/21 20:21 02/13/21 21:16 Temperature 98.5 F 97.7 F Pulse Rate 60 Pulse Rate [Apical] 57 L Pulse Rate [Left Radial] 57 L 56 L Respiratory Rate 16 16 Blood Pressure Blood Pressure [Left Arm] Blood Pressure [Right Arm] 149/60 H 161/86 H 02 Sat by Pulse Oximetry 94 L 94 L 02/13/21 22:23 02/14/21 00:00 02/14/21 04:00 Temperature 97.9 F 98.0 F 97.9 F Pulse Rate 50 L 50 L Pulse Rate [Apical] 59 L 60 Pulse Rate [Left Radial] 51 L Respiratory Rate 18 18 16 Blood Pressure Blood Pressure [Left Arm] Blood Pressure [Right Arm] 148/78 H 130/79 137/60 02 Sat by Pulse Oximetry 93 L 94 L 99 02/14/21 08:00 02/14/21 08:44 Temperature 98.2 F Pulse Rate 64 Pulse Rate [Apical] 64 Pulse Rate [Left Radial] Respiratory Rate 15 Blood Pressure Blood Pressure [Left Arm] 125/67 Blood Pressure [Right Arm] 02 Sat by Pulse Oximetry 94 L I & O for Last 24 hours: Intake & Output 02/11/21 02/12/21 02/13/21 02/14/21 23:59 23:59 23:59 23:59 Intake Total 360 / 360 360 / 360 Output Total 625 / 1025 1325 / 1325 Balance -265 / -665 -965 / -965 Weight 221 lb 9 oz 222 lb 0.088 oz - Constitutional no acute distress - *Routine HEENT Exam Head: Present: normocephalic Eye: Present: EOMI, PERRL ENT: Present: mucous membranes moist - *Routine Neck Exam Present: supple. Absent: lymphadenopathy - *Routi
--- NOTE | 2021-02-14 11:12 | HMH.PHACLD ---
Rishabh Milligan has received discharge medication counseling on the following medications: -BRILINTA -ASA -ATORVASTATIN -LOSARTAN -NO BB DUE TO LOW HR
--- NOTE | 2021-02-21 16:49 | HMH.DCSUM ---
General - General Admission date:: 02/13/21 Discharge date: 02/14/21 HPI HPI: 70-year-old male presented to the emergency room with chest pain. Patient states for the past 2 to 3 days he has been having worsening chest pain in which he is taking up to 6-7 nitro sublingual's a day. Patient states this a.m. he woke up with midsternal chest pain nonradiating, did take nitro at home, had no relief. Patient states since arriving to the emergency room he has felt better. Patient states his chest pain can at times be a 8 out of 10 on the pain scale. Patient does complain of shortness of breath accompanied with chest pain. Patient states normally he is not short of breath unless he does have the episode of the chest pain. Denies edema of the lower extremity. Patient denies palpitations or dizziness. Patient does have known history of coronary artery disease. Patient's last heart catheterization was in 2016 in which she underwent left heart catheterization due to new onset atrial fibrillation, ischemic cardiomyopathy and congestive heart failure ejection fraction of 20 to 25%. Left heart catheterization at that time revealed patent stents to the proximal LAD with mild to moderate in-stent restenosis which is nonflow limiting. Severe left ventricular dilation with severe left ventricular dysfunction with anterior kinesis. EF was estimated at 20%. Mild elevated LV EDP. Nonflowing limiting circumflex artery and right coronary artery disease. New onset atrial fibrillation likely 1 week in duration. At that time patient was given a LifeVest and he was started on Xarelto 20 mg. Follow-up echo was repeated 90 days after this heart catheterization in 2017. EF had improved to 50%. Patient therefore did not meet criteria for AICD. Last echocardiogram was in 2019 which revealed moderately enlarged left atrium EF 50% with no obvious regional motion abnormality. Mild MR and TR noted. Grade 1 diastolic dysfunction was noted. Patient does have history of Parsymoxal atrial fibrillation. Patient is currently in normal sinus rhythm with nonspecific ST and T wave changes with a heart rate of 71 beats minute. Patient is currently on Xarelto for anticoagulation. Denies any bleeding issues. Along with the Xarelto patient does take amiodarone daily for arrhythmia. Patient is currently also on digoxin. Patient is on standard therapy for heart failure and diastolic dysfunction. Patient does have history of dementia. Cardiac work-up is being performed in the ED. Troponin x1 has been negative. Awaiting troponin x2. Waiting the results of the chest x-ray. Labs are unremarkable. Renal function stable. Vital signs are stable. Due to the patient experiencing unstable angina in which he has to have had taken up to 6-7 nitro sublingual's daily, it is recommended for patient to undergo left heart catheterization today to determine severity of ischemia. Discussed risk and benefits of undergoing left heart catheterization with right radial access with patient and . Patient and verbalized understanding and is agreeable to procedure. We will also obtain echocardiogram to assess LV function and valve status. Pending on the results of the left heart catheterization and echocardiogram, medication and treatment therapies may be recommended. (above as per Cardiology) Hospital Course Hospital Course: The patient was taken directly to the [facility] from the emergency room. Both troponins returned normal. He had stenting of the right coronary artery and posterior descending artery. His echo showed an EF of 40% with grade 1 diastolic dysfunction. He tolerated the procedure well and by 02/14/2021 he was anxious to go home. He was stable to be discharged home and will follow-up in the office in 10 days. Objective Vital signs: Temp Pulse Resp BP Pulse Ox 98.2 F 64 15 125/67 94 L 02/14/21 08:00 02/14/21 08:44 02/14/21 08:00 02/14/21 08:00
== END 2021-02-14 11:20 | disposition home or self-care (01) ==
LOC: ER 10:58 → CATHLAB 12:33 → 2ND 13:49
PROVIDERS: Admitting Provider Family Medicine; Emergency Provider Emergency Medicine; PCP Family Medicine; Visit Provider Internal Medicine
DX: I25.110 Atherosclerotic heart disease of native coronary artery with unstable angina pectoris (principal); Z20.822 Contact with and (suspected) exposure to COVID-19; Z79.899 Other long term (current) drug therapy; I11.0 Hypertensive heart disease with heart failure; I25.2 Old myocardial infarction; E78.5 Hyperlipidemia, unspecified; Z95.5 Presence of coronary angioplasty implant and graft; Z79.01 Long term (current) use of anticoagulants; E03.9 Hypothyroidism, unspecified; I48.91 Unspecified atrial fibrillation; F01.51 Vascular dementia, unspecified severity, with behavioral disturbance
CPT/HCPCS: G0378; 36415; 71046; 80048; 84484; 85025; 85347; 92928; 93005; 93306; 93458; 99152; 99284; C1725; C1760; C1769; C1876; C9600; C9803; J1644; Q9957; Q9967; U0003; U0005

== ENCOUNTER → 2021-02-19 07:39 | Outpatient (CLI) | payer MEDICARE, OTHER, SELFPAY ==
[2021-02-19 08:25] LABS: Hematocrit 41.3 % (42.0-52.0); Hemoglobin 13.4 g/dL (14.1-18.0)
[2021-02-19 09:20] LABS: Blood Urea Nitrogen 21 mg/dl (9-20); Estimated Glomerular Filt Rate 74 ml/min (>60); GFR (African American) 89 ML/MIN (>60)
== END ==
PROVIDERS: Visit Provider Internal Medicine
DX: I42.9 Cardiomyopathy, unspecified (principal)
CPT/HCPCS: 36415; 82565; 84520; 85014; 85018

== ENCOUNTER 2021-02-19 13:58 | Outpatient (RCR) | payer MEDICARE, OTHER, SELFPAY | END 2021-02-19 13:59 | disposition home or self-care (01) | LOC: PT 13:58 | PROVIDERS: Visit Provider Internal Medicine | DX: I25.10 Atherosclerotic heart disease of native coronary artery without angina pectoris (principal); Z95.5 Presence of coronary angioplasty implant and graft | CPT/HCPCS: 93798 ==

== ENCOUNTER → 2021-02-20 16:00 | Outpatient (CLI) | payer MEDICARE, OTHER, SELFPAY ==
[2021-02-20 15:25] LABS: Alanine Aminotransferase 23 U/L (12-78); Albumin Level 3.9 g/dl (3.5-5.0); Alkaline Phosphatase 73 U/L (38-126); Anion Gap 9.5 mEq/L (5-15); Aspartate Amino Transferase 38 U/L (17-59); Bilirubin,Direct 0.1 mg/dl (0.0-0.4); Bilirubin,Indirect 0.5 mg/dL (0.0-0.9); Bilirubin,Total 0.6 mg/dl (0.2-1.3); Bilirubin,Unconjugated 0.5 mg/dL (0.0-1.1); Blood Urea Nitrogen 21 mg/dl (9-20); Carbon Dioxide 29 mmol/L (22.0-30.0); Chloride 101 mmol/L (98-107); Estimated Glomerular Filt Rate 66 ml/min (>60); GFR (African American) 80 ML/MIN (>60); Glucose 87 mg/dl (74-100); Potassium 4.5 mmoL/L (3.5-5.1); Sodium 135 mmol/L (136-145)
[2021-02-20 15:57] LABS: Thyroid Stimulating Hormone 0.92 uIU/mL (0.465-4.68)
[2021-02-20 16:25] LABS: Free T4 (Free Thyroxine) 1.75 ng/dl (0.78-2.19)
== END ==
PROVIDERS: Visit Provider Internal Medicine Cardiovascular Disease
DX: E78.2 Mixed hyperlipidemia (principal); I11.0 Hypertensive heart disease with heart failure; I25.10 Atherosclerotic heart disease of native coronary artery without angina pectoris; I25.5 Ischemic cardiomyopathy; I42.0 Dilated cardiomyopathy; I48.0 Paroxysmal atrial fibrillation; Z79.01 Long term (current) use of anticoagulants; Z79.899 Other long term (current) drug therapy; Z95.5 Presence of coronary angioplasty implant and graft
CPT/HCPCS: 36415; 80048; 80076; 84439; 84443

== ENCOUNTER 2021-02-28 09:02 | Emergency (ER) | payer MEDICARE, OTHER, SELFPAY ==
[2021-02-28 09:23] VITALS: BP 109/81; PULSE 73; RESP 18; TEMP 36.7; O2SAT 97; BMI 29.8
[2021-02-28 09:56] LABS: UTC Influenza A Antigen Negative (Negative); UTC Influenza B Antigen Negative (Negative)
--- NOTE | 2021-02-28 10:02 | HMH.EDUTC ---
[facility] [place] Clinical Impression: Upper respiratory infection Qualifiers: URI type: unspecified viral URI Qualified Code(s): J06.9 - Acute upper respiratory infection, unspecified Disposition: Home, Self-Care Condition on Discharge: Good Instructions: DI for Viral Upper Respiratory Infection -- Adult Additional Instructions: covid swab was sent to lab, call tomorrow for results. self isolate until test results are known to be negative No sign of a bacterial infection. Likely viral. Viruses can take 7-14 days to run their course. Nasal saline and bulb syringe or nose Nicole to remove nasal drainage to help with nasal congestion. Hard to eat, drink, sleep with nasal congestion so important to keep this cleaned out. Monitor temp. Tylenol or Motrin as needed for pain or fever Encourage fluids, water, Gatorade, Powerade, Pedialyte if infant/toddler/child Warm salt water gargles Warm fluids Sore throat lozenges Sleep elevated Humidifier/vaporizer Follow-up immediately for new or worsening symptoms or no noticeable improvement over the next 48-72 hours. Referrals: Brady Bhakta MD [Primary Care Provider] - Time of Disposition: 10:04 Medical Decision Making - Carlos Inquiry Pt receiving controlled substance: No Vital Signs: 02/28/21 09:23 Temperature 98.1 F Temperature Source Oral Pulse Rate [Left] 73 Respiratory Rate 18 Blood Pressure [Right Arm] 109/81 L Blood Pressure Mean [Right Arm] 90 02 Sat by Pulse Oximetry 97 - Lab Data Lab Results 02/28/21 09:16: Influenza Type A Ag Negative, Influenza Type B Ag Negative Orders (Tests/Meds): ORDERS Category Date Time Status Covid-19 Nasal PCR ([facility]) Routine Lab 02/28/21 09:[address] [facility] [place] - General Chief complaint: [facility] Stated complaint: cough, congestion, body aches, fever Time Seen by Provider: 02/28/21 10:02 Mode of Arrival: Ambulatory Source of Information: Patient Limitations: No Limitations Description of Symptoms (Recalled from Triage Doc. by RN): pt c/o a cough, low grade fever, congestion, and body aches since yesterday. HEENT Symptoms (Recalled from RN notes): Yes (congestion) Resp Symptoms (Recalled from RN notes): Yes (cough) Skin Symptoms (Recalled from RN notes): No MS Symptoms (Recalled from RN notes): No Functional Status (Recalled from RN notes): wnl - History of Present Illness Provider Complaint: 70 yr old male presents with c/o a cough, low grade fever, congestion, and body aches since yesterday. - Related Data Home Medications Medication Instructions Recorded Confirmed cholecalciferol (vitamin D3) 125 5,000 unit PO HS 06/16/17 02/20/21 mcg (5,000 unit) capsule levothyroxine 150 mcg capsule 150 mcg PO DAILY 11/08/17 02/20/21 Amiodarone HCl 200 mg PO HS 01/02/18 02/20/21 Multivitamin [Multi-Day Vitamins] 1 each PO DAILY 01/02/18 02/20/21 Tamsulosin HCl [Flomax 0.4mg 0.8 mg PO HS 01/02/18 02/20/21 capsule] spironolactone 25 mg tablet 25 mg PO DAILY tab 07/06/18 02/20/21 Melatonin/Pyridoxine HCl (B6) 1 each PO HS 10/10/18 02/20/21 [Melatonin-Vit B6 5-10 mg Tab] ferrous sulfate 325 mg (65 mg 325 mg PO DAILY tab 09/20/19 02/20/21 iron) tablet Digoxin 125 mcg PO DAILY 02/13/21 02/20/21 Docusate Calcium 240 mg PO DAILY PRN 02/13/21 02/20/21 Donepezil HCl [Aricept 10mg 10 mg PO HS 02/13/21 02/20/21 tablet] Losartan Potassium [Cozaar 100mg 100 mg PO DAILY 02/13/21 02/20/21 Tablets] Previous Rx's Medication Instructions Recorded atorvastatin 40 mg tablet 40 mg PO HS #90 tab 04/07/20 nitroglycerin 0.4 mg sublingual 0.4 mg SUBLINGUAL Q5-15M PRN #25 06/17/20 tablet tab isosorbide mononitrate 30 mg 30 mg PO DAILY #90 tab 07/17/20 tablet,extended release 24 hr rivaroxaban 20 mg tablet 20 mg PO QPMWM #30 tab 10/02/20 Aspirin [Aspirin 81mg EC Tab] 81 mg PO DAILY #30 tab 02/14/21 Ticagrelor [Brilinta 90mg 90 mg PO BID #60 tab 02/14/21 Tablet]
[2021-02-28 10:24] VITALS: BP 109/81; PULSE 73; RESP 18; TEMP 36.7
== END 2021-02-28 10:24 | disposition home or self-care (01) ==
PROVIDERS: Emergency Provider Nurse Practitioner Family; PCP Family Medicine
DX: U07.1 COVID-19 (principal); J06.9 Acute upper respiratory infection, unspecified; I48.0 Paroxysmal atrial fibrillation; I25.10 Atherosclerotic heart disease of native coronary artery without angina pectoris; I10 Essential (primary) hypertension; E78.5 Hyperlipidemia, unspecified; F03.90 Unspecified dementia, unspecified severity, without behavioral disturbance, psychotic disturbance, mood disturbance, and anxiety; Z79.899 Other long term (current) drug therapy
CPT/HCPCS: 87804; 99202; C9803; G0463; U0003; U0005

== ENCOUNTER → 2021-06-26 07:46 | Outpatient (CLI) | payer MEDICARE, OTHER, SELFPAY ==
--- NOTE | 2021-06-26 07:50 | CT_ITS ---
FINAL REPORT TECHNIQUE: After the administration of intravenous contrast, axial images were obtained through the abdomen and pelvis by computed tomography. Oral contrast was also obtained. This study was performed with technique to keep radiation doses as low as reasonably achievable, (ALARA). Individualized dose reduction techniques using automated exposure control or adjustment of the MA and/or KV according to the patient's size were employed. CLINICAL HISTORY: Right inguinal pain FINDINGS: Abdomen: The lung bases demonstrate mild bibasilar atelectasis. There is a 5.3 cm presumed pericardial cyst. The liver is normal in size and attenuation. The spleen is unremarkable. The adrenals are normal. The pancreas is unremarkable. The kidneys enhance appropriately. The aorta is normal in caliber. There is no free fluid or adenopathy. Pelvis: The appendix is normal. There is sigmoid diverticulosis without evidence of diverticulitis. There is a right inguinal hernia containing fat and a small amount of fluid. The urinary bladder is unremarkable. There is no free fluid or adenopathy. IMPRESSION: Right inguinal hernia contains fat and small amount of fluid. Reviewed, Interpreted and Dictated by Nikita Anand III, MD Transcribed by Monique Ramirez Authenticated by Nikita Anand III, MD on 06/26/2021 09:04:22 AM [facility]
== END ==
PROVIDERS: PCP Family Medicine; Visit Provider Nurse Practitioner Family
DX: R10.9 Unspecified abdominal pain (principal)
CPT/HCPCS: 74177; Q9967

== ENCOUNTER → 2021-09-16 07:11 | Outpatient (CLI) | payer MEDICARE, OTHER, SELFPAY ==
[2021-09-16 07:45] LABS: Basophils # 0.1 K/mm3 (0-0.2); Basophils % 1.3 % (0.1-2.0); Eosinophils # 0.2 K/mm3 (0.0-0.4); Eosinophils % 3.3 % (0.1-12.0); Hemoglobin 14.4 g/dL (14.1-18.0); Lymphocytes # 1.4 K/mm3 (0.7-4.5); Lymphocytes % 23.7 % (10-50); Mean Corpuscular Hemoglobin 28.2 pg (27.0-31.2); Mean Corpuscular Volume 94.1 fl (80-94); Mean Platelet Volume 9.5 fl (7.4-10.4); Monocytes # 0.4 K/mm3 (0.1-1.0); Monocytes % 6.1 % (1.7-9.3); Neutrophils % 65.6 % (37.0-80.0); Platelet Count 180 K/mm3 (142-424); Red Cell Distribution Width 14.2 % (11.5-17.5); White Blood Count 6.1 K/mm3 (4.8-10.8)
[2021-09-16 07:48] LABS: Creatinine,Urine Random 186 mg/dL (Not Estab.)
[2021-09-16 07:49] LABS: Microalbumin/Creatinine Ratio 3.4
[2021-09-16 08:44] LABS: Chloride 106 mmol/L (98-107)
[2021-09-16 08:45] LABS: Potassium 4.7 mmoL/L (3.5-5.1); Sodium 139 mmol/L (136-145)
[2021-09-16 08:47] LABS: Alkaline Phosphatase 91 U/L (38-126); Anion Gap 8.7 mEq/L (5-15); Bilirubin,Total 0.9 mg/dl (0.2-1.3); Carbon Dioxide 29 mmol/L (22.0-30.0)
[2021-09-16 08:48] LABS: Albumin Level 4.3 g/dl (3.5-5.0); Calcium 9.5 mg/dl (8.4-10.2); Chol/HDL Ratio 2.3 (1-3.5); Cholesterol 100 mg/dl (140-200); Globulin 2.2 g/dL (1.3-3.2); Glucose 111 mg/dl (74-100); HDL Cholesterol 44 mg/dl (40-60); Iron 111 ug/dL (49-181); Total Protein,Serum 6.5 g/dl (6.3-8.2); Triglycerides 95 mg/dl (30-150); VLDL Cholesterol 19 mg/dL (0-40)
[2021-09-16 09:05] LABS: Free T4 (Free Thyroxine) 1.27 ng/dl (0.78-2.19)
[2021-09-16 09:28] LABS: Alanine Aminotransferase 29 U/L (12-78); Aspartate Amino Transferase 43 U/L (17-59); Blood Urea Nitrogen 26 mg/dl (9-20); Estimated Glomerular Filt Rate 54 ml/min (>60); GFR (African American) 66 ML/MIN (>60)
[2021-09-16 10:48] LABS: 25-OH Vitamin D, Total 81.6 ng/mL (30-100)
[2021-09-17 09:42] LABS: Direct LDL Cholesterol 42 mg/dL (100-129)
== END ==
PROVIDERS: PCP Family Medicine; Visit Provider Surgery
DX: Z01.812 Encounter for preprocedural laboratory examination (principal); Z20.822 Contact with and (suspected) exposure to COVID-19; E03.9 Hypothyroidism, unspecified; E78.5 Hyperlipidemia, unspecified; D50.9 Iron deficiency anemia, unspecified; E55.9 Vitamin D deficiency, unspecified; Z12.11 Encounter for screening for malignant neoplasm of colon
CPT/HCPCS: 36415; 80053; 80061; 82043; 82306; 82570; 83540; 84439; 84443; 85025; C9803; U0003; U0005

== ENCOUNTER 2021-09-18 07:22 | Day surgery (SDC) | payer MEDICARE, OTHER, SELFPAY ==
[2021-09-15 14:13] VITALS: BMI 30.1
[2021-09-18 07:54] VITALS: BP 137/62; PULSE 85; RESP 18; TEMP 36.4; O2SAT 93
--- NOTE | 2021-09-18 08:03 | P.PN_ITS ---
[facility] Anesthesia Checklist - Patient Identification Patient Identification: Arm Band, Verbal (Name & ) - Structural Data Admitted From: Home Planned Operative Procedure/s: Colonoscopy Consent for Planned Operative Procedure(s) Verified: Yes Verified Documents: Surgical Consent - NPO Status Verified Time NPO: 00:00 - Additional verifications Anesthesia Reactions: No Hx Blood Transfusions: No Blood Transfusion Reaction: No - Airway Assessment C-Spine Mobility Assessed: Yes TMJ Mobility Assessed: Yes Dentition: Good Dentition - Neurological Assessment Level of Consciousness: Awake, Alert, Appropriate - Anesthesia Plan Anesthesia Risk discussed: Yes ASA Class: III Anesthesia Type: MAC [facility] History I have reviewed the patient's past medical history: Yes Medical History: Reports:: Arrhythmia, Atrial Fibrillation, Congestive Heart Failure, Congenital Heart Disease, Coronary Artery Disease, Dementia, Hiatal Hernia, Hyperlipidemia, Hypertension, Myocardial Infarction Denies:: Cancer, Diabetes Mellitus Type 1, Diabetes Mellitus Type 2, Internal Pacemaker, Lung Disease, MRSA, Seizures *Have you ever received a pneumonia vaccine?: Yes *Have you received a flu vaccine this season?: Yes Other Medical History: Reports: Anemia, Arthritis, Hypothyroidism, Other. Denies: Blood Transfusion Reaction Anesthesia experience/problems:: none Laterality Cases: Bilateral: Arthroscopy Knee, Arthroscopy Shoulder Other Surgeries: Yes: Cardiac Catheterization, Cardiac Surgery, Colonoscopy, Coronary Stent, EGD, Hernia Repair, Other. No: Pacemaker Amputation: No Fractures: No - *Social History Last grade of school completed: Some college Smoking Status: Never smoker Tobacco Type: cigarettes #Yrs smoked (if former smoker): 10 Alcohol Intake: never Alcohol Intake Frequency:: other Substance Use Type: denies use *Occupational Status:: employed Housing: house Household Members: spouse *Travel in the last 8 weeks: None Family Hx:: Cancer, Heart Attack
[2021-09-18 08:31] VITALS: O2SAT 93
--- NOTE | 2021-09-18 09:23 | HMH.SCOPE ---
- Procedure: Date: 09/18/21 Patient Date of :: 1950 Procedure Performed:: Total colonoscopy to terminal ileum with polypectomy Indications:: Patient is a 71-year-old male with family history of colon cancer in his father. He had a colonoscopy in 2013 which revealed diverticulosis. Colonoscopy in 2017 revealed diverticulosis and polyp. He recently has had some nausea and was set up for a colonoscopy. Nausea has resolved. Performing Provider:: Nikita Urbina MD Referring Provider:: Brady Bhakta MD Sedation:: MAC sedation Procedure:: Consent was obtained patient was taken to same-day surgery endoscopy procedure room. He was positioned in lateral decubitus position. Adequate intravenous sedation was achieved with anesthesia titration of propofol. Digital examination was performed which revealed normal sphincter tone with uniformly enlarged prostate. Variable stiffness Olympus colonoscope was inserted via the anus. It was advanced to the cecum. There was some particulate liquid stool throughout the colon and 1 or 2 moderate-sized stool balls but this was able to be cleared with irrigation and suctioning. Colonoscope was advanced a short distance into the terminal ileum which appeared grossly normal. Within the cecum there was a tiny diminutive polyp adjacent to the appendiceal orifice removed with biopsy forceps. In the ascending colon there was a small polyp removed in a piecemeal fashion using biopsy forceps. In the descending colon there was a small diminutive polyp removed with cold snare followed by biopsy forceps. Sigmoid colon there was an interesting tiny but villous appearing polyp removed with cold snare. In the rectosigmoid region there were several hyperplastic appearing polyps removed with biopsy forceps. Retroflexion within the rectum revealed some prolapsing but nonbleeding internal hemorrhoids. Colonoscope was withdrawn. Findings:: Polyps as noted above Pandiverticulosis Prolapsing internal hemorrhoids Recommendations:: Follow-up colonoscopy pending pathology. Complications:: Not immediately apparent Estimated blood obtained (mL): 2
[2021-09-18 09:25] VITALS: BP 120/66; PULSE 78; RESP 16; TEMP 36.3; O2SAT 95
[2021-09-18 09:35] VITALS: BP 112/84; PULSE 71; RESP 16; O2SAT 95
[2021-09-18 09:45] VITALS: BP 110/83; PULSE 69; RESP 16; O2SAT 96
[2021-09-18 09:55] VITALS: BP 107/73; PULSE 65; RESP 16; O2SAT 98
== END 2021-09-18 09:55 | disposition home or self-care (01) ==
LOC: OUTP 07:23
PROVIDERS: PCP Family Medicine; Visit Provider Surgery
PROC: 0DJD8ZZ Inspection of Lower Intestinal Tract, Via Natural or Artificial Opening Endoscopic (ICD-10-PCS; principal; 2021-09-18 08:30)
DX: Z12.11 Encounter for screening for malignant neoplasm of colon (principal); Z86.010 Personal history of colon polyps; Z80.0 Family history of malignant neoplasm of digestive organs; K63.5 Polyp of colon
CPT/HCPCS: 45380; 45385; 88305; J2704

== ENCOUNTER → 2021-10-01 07:23 | Outpatient (CLI) | payer MEDICARE, OTHER, SELFPAY ==
[2021-10-01 07:40] LABS: Basophils # 0.2 K/mm3 (0-0.2); Basophils % 3.2 % (0.1-2.0); Eosinophils # 0.2 K/mm3 (0.0-0.4); Eosinophils % 3.8 % (0.1-12.0); Hematocrit 45.5 % (42.0-52.0); Hemoglobin 14.3 g/dL (14.1-18.0); Lymphocytes # 0.9 K/mm3 (0.7-4.5); Lymphocytes % 17.8 % (10-50); Mean Corpuscular HGB Conc 31.5 g/dL (31.8-35.4); Mean Corpuscular Hemoglobin 29.3 pg (27.0-31.2); Mean Corpuscular Volume 93.2 fl (80-94); Mean Platelet Volume 9.2 fl (7.4-10.4); Monocytes # 0.3 K/mm3 (0.1-1.0); Monocytes % 5.8 % (1.7-9.3); Neutrophils # 3.4 K/mm3 (1.8-7.8); Neutrophils % 69.3 % (37.0-80.0); Platelet Count 156 K/mm3 (142-424); Red Blood Count 4.88 M/mm3 (4.60-6.20); Red Cell Distribution Width 14.1 % (11.5-17.5); White Blood Count 4.9 K/mm3 (4.8-10.8)
[2021-10-01 09:24] LABS: Anion Gap 9.6 mEq/L (5-15); Blood Urea Nitrogen 14 mg/dl (9-20); Carbon Dioxide 30 mmol/L (22.0-30.0); Chloride 105 mmol/L (98-107); Estimated Glomerular Filt Rate 66 ml/min (>60); GFR (African American) 80 ML/MIN (>60); Glucose 94 mg/dl (74-100); Potassium 4.6 mmoL/L (3.5-5.1); Sodium 140 mmol/L (136-145)
== END ==
PROVIDERS: PCP Family Medicine; Visit Provider Internal Medicine Cardiovascular Disease
DX: E78.2 Mixed hyperlipidemia (principal); I11.0 Hypertensive heart disease with heart failure; I25.10 Atherosclerotic heart disease of native coronary artery without angina pectoris; I25.5 Ischemic cardiomyopathy; I42.0 Dilated cardiomyopathy; I48.0 Paroxysmal atrial fibrillation; Z79.01 Long term (current) use of anticoagulants; Z79.899 Other long term (current) drug therapy; Z95.5 Presence of coronary angioplasty implant and graft; Z01.812 Encounter for preprocedural laboratory examination; Z20.822 Contact with and (suspected) exposure to COVID-19
CPT/HCPCS: 36415; 80048; 85025; C9803; U0003; U0005

== ENCOUNTER 2021-10-02 07:26 | Day surgery (SDC) | payer MEDICARE, OTHER, SELFPAY ==
[2021-10-02 07:30] VITALS: BMI 30.6
[2021-10-02 07:56] VITALS: PULSE 70
--- NOTE | 2021-10-02 09:37 | ECG_ITS ---
APPROVED REPORT Exam: Resting ECG HR:54 bpm ECG Measurements Heart Rate 54 AXES TN 236 P 44 QRSd 103 QRS -19 QT 460 T 65 QTc 447 Conclusion SINUS BRADYCARDIA WITH FIRST DEGREE AV BLOCK Poor R wave progression - previously noted ABNORMAL ECG UNCONFIRMED REPORT Electronically signed by : Ori Hunter MD 10/03/2021 08:05:11
[2021-10-02 09:39] VITALS: BP 116/72; PULSE 52; PULSE 64; RESP 16; O2SAT 95
--- NOTE | 2021-10-02 09:46 | EXP.ANES.CKL ---
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 LV dysfunction On amiodarone therapy Vascular dementia Surgical History (Updated 10/10/19 @ 10:24 by Magdi Estrada MD) S/P total knee replacement Social History Smoking Status: Former smoker pack-years: 10 second hand exposure: No alcohol intake: never counseling provided: none substance use type: denies use current occupational status: retired Travel in the last 8 weeks: Inside the [place] household members: spouse housing: house 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 occupational exposures/hazards: No caffeine: No [facility] Medical History (Updated 02/28/21 @ 10:04 by Judy Frias APRN) Atrial fibrillation BPH (benign prostatic hyperplasia) Dementia HHD (hypertensive heart disease) Hyperlipidemia Hypertensive disorder Hypothyroidism 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 LV dysfunction On amiodarone therapy Vascular dementia Surgical History (Updated 10/10/19 @ 10:24 by Magdi Estrada MD) S/P total knee replacement Social History Smoking Status: Former smoker pack-years: 10 second hand exposure: No alcohol intake: never counseling provided: none substance use type: denies use current occupational status: retired Travel in the last 8 weeks: Inside the [place] household members: spouse housing: house 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 occupational exposures/hazards: No caffeine: No [facility] Medical History (Updated 02/28/21 @ 10:04 by Judy Frias APRN) Atrial fibrillation BPH (benign prostatic hyperplasia) Dementia HHD (hypertensive heart disease) Hyperlipidemia Hypertensive disorder Hypothyroidism Ischemic dilated cardiomyopathy detention current use of anticoagulant therapy LV dysfunction On amiodarone therapy Vascular dementia Surgical History (Updated 10/10/19 @ 10:24 by Magdi Estrada MD) S/P total knee replacement Social History Smoking Status: Former smoker pack-years: 10 second hand exposure: No alcohol intake: never counseling provided: none substance use type: denies use current occupational status: retired Travel in the last 8 weeks: Inside the [place] household members: spouse housing: house 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
[2021-10-02 09:53] VITALS: BP 99/63; PULSE 52; RESP 18; O2SAT 97
--- NOTE | 2021-11-06 13:58 | P.PCN_ITS ---
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 After informed consent was obtained, anesthesia provided sedation during which a single s ynchronized shock was delivered which converted the patient from atrial fibrillation to sinus rhythm. No complications postprocedure. Complications:: None Conculsion:: Successful electrical cardioversion
== END 2021-10-02 10:16 | disposition home or self-care (01) ==
LOC: CATHLAB 07:27
PROVIDERS: Internal Medicine; PCP Family Medicine; Visit Provider Internal Medicine Cardiovascular Disease
DX: I48.0 Paroxysmal atrial fibrillation (principal); Z79.01 Long term (current) use of anticoagulants; I25.5 Ischemic cardiomyopathy; Z95.5 Presence of coronary angioplasty implant and graft; I50.42 Chronic combined systolic (congestive) and diastolic (congestive) heart failure; I11.0 Hypertensive heart disease with heart failure; I25.10 Atherosclerotic heart disease of native coronary artery without angina pectoris
CPT/HCPCS: 92960; 93005

== ENCOUNTER → 2021-10-15 08:09 | Outpatient (CLI) | payer MEDICARE, OTHER, SELFPAY | PROVIDERS: PCP Family Medicine; Visit Provider Internal Medicine Cardiovascular Disease | DX: Z01.812 Encounter for preprocedural laboratory examination (principal); Z20.822 Contact with and (suspected) exposure to COVID-19; I48.0 Paroxysmal atrial fibrillation | CPT/HCPCS: C9803; U0003; U0005 ==

== ENCOUNTER 2021-10-19 07:07 | Day surgery (SDC) | payer MEDICARE, OTHER, SELFPAY ==
[2021-10-19 07:13] VITALS: BMI 30.6
[2021-10-19 07:35] VITALS: BP 116/82; PULSE 69; RESP 18; O2SAT 96
[2021-10-19 08:11] VITALS: BP 120/85; PULSE 58; RESP 20; TEMP 36.6; O2SAT 88
[2021-10-19 08:13] VITALS: BP 122/72; PULSE 56; RESP 20; O2SAT 90
--- NOTE | 2021-10-19 08:13 | ECG_ITS ---
APPROVED REPORT Exam: Resting ECG HR:53 bpm ECG Measurements Heart Rate 53 AXES MS 248 P 44 QRSd 104 QRS -21 QT 466 T 56 QTc 450 Conclusion SINUS BRADYCARDIA WITH FIRST DEGREE AV BLOCK LOW QRS VOLTAGE IN PRECORDIAL LEADS Late r wave progression - previously noted ABNORMAL ECG UNCONFIRMED REPORT Electronically signed by : Ori Hunter MD 10/19/2021 22:35:59
[2021-10-19 08:18] VITALS: BP 122/72; PULSE 54; RESP 16; O2SAT 95
[2021-10-19 08:31] VITALS: BP 120/70; PULSE 65; RESP 18; O2SAT 97
--- NOTE | 2021-10-19 09:25 | EXP.ANES.CKL ---
[facility] PFS Medical History Atrial fibrillation BPH (benign prostatic hyperplasia) Dementia HHD (hypertensive heart disease) Hyperlipidemia Hypertensive disorder Hypothyroidism Ischemic dilated cardiomyopathy skilled nursing current use of anticoagulant therapy LV dysfunction On amiodarone therapy Vascular dementia Surgical History Hx of colonoscopy S/P total knee replacement Social History Smoking Status: Former smoker pack-years: 10 second hand exposure: No alcohol intake: never counseling provided: none substance use type: denies use current occupational status: retired Travel in the last 8 weeks: Inside the [place] household members: spouse housing: house 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 Anesthesia Checklist Patient Identification Patient Identification: Arm Band Structural Data Admitted From: Home Planned Operative Procedure/s: cardioversion Consent for Planned Operative Procedure(s) Verified: Yes Verified Documents: Surgical Consent Additional verifications Anesthesia Reactions: No Hx Blood Transfusions: No Blood Transfusion Reaction: No Airway Assessment C-Spine Mobility Assessed: Yes TMJ Mobility Assessed: Yes Dentition: Good Dentition Neurological Assessment Level of Consciousness: Awake, Alert and Appropriate Anesthesia Plan Anesthesia Risk discussed: Yes Anesthesia Plan: Verified ASA Class: III Anesthesia Type: MAC
--- NOTE | 2021-10-19 14:55 | P.PCN_ITS ---
[facility] Cardioversion Cardioversion Date: 10/19/21 Provider:: JACKY Valenzuela Procedure Performed:: Synchronized electrical cardioversion Diagnosis:: Atrial fibrillation Procedure Summary:: Patient was brought to the cardiac Logging Assistant as an outpatient. After informed consent was obtained, anesthesia provided sedation during which time patient received a single synchronized 200 J shock which converted him from atrial fibrillation to sinus rhythm. Patient tolerated procedure without complications. Complications:: None Conculsion:: Successful electrical cardioversion from atrial fibrillation to sinus rhythm. Patient will continue his current medications. Follow-up in the office in 1 to 2 weeks.
== END 2021-10-19 08:45 | disposition home or self-care (01) ==
LOC: CATHLAB 07:09
PROVIDERS: Internal Medicine; PCP Family Medicine; Visit Provider Internal Medicine Cardiovascular Disease
PROC: 5A2204Z Restoration of Cardiac Rhythm, Single (ICD-10-PCS; principal; 2021-10-19 07:30)
DX: I48.0 Paroxysmal atrial fibrillation (principal); Z79.899 Other long term (current) drug therapy; Z79.01 Long term (current) use of anticoagulants; I25.5 Ischemic cardiomyopathy; I25.10 Atherosclerotic heart disease of native coronary artery without angina pectoris; F03.90 Unspecified dementia, unspecified severity, without behavioral disturbance, psychotic disturbance, mood disturbance, and anxiety; I10 Essential (primary) hypertension; Z95.5 Presence of coronary angioplasty implant and graft
CPT/HCPCS: 92960; 93005

== ENCOUNTER → 2022-04-06 10:36 | Outpatient (CLI) | payer MEDICARE, OTHER, SELFPAY ==
--- NOTE | 2022-04-06 11:08 | XR_ITS ---
FINAL REPORT CLINICAL HISTORY: on amio therapy COMPARISON: 02/13/2021 FINDINGS: PA and lateral views of the chest were obtained. The cardiac and mediastinal silhouettes are within normal limits. The lungs are clear. There is no pleural effusion or pneumothorax. No acute osseous abnormality is identified. IMPRESSION: No radiographic evidence of acute cardiac or pulmonary disease. Reviewed, Interpreted and Dictated by Justine Mensah MD Transcribed by Erlinda Snell Authenticated and [facility]
[2022-04-06 12:05] LABS: Alanine Aminotransferase 32 U/L (12-78); Albumin Level 4.5 g/dl (3.5-5.0); Alkaline Phosphatase 77 U/L (38-126); Aspartate Amino Transferase 44 U/L (17-59); Bilirubin,Direct 0.2 mg/dl (0.0-0.4); Bilirubin,Indirect 0.6 mg/dL (0.0-0.9); Bilirubin,Total 0.8 mg/dl (0.2-1.3); Bilirubin,Unconjugated 0.6 mg/dL (0.0-1.1); Total Protein,Serum 6.9 g/dl (6.3-8.2)
[2022-04-06 12:21] LABS: Free Thyroxine Index 4.3 ug/dL (5.93-13.13); T4 (Thyroxine) 12.4 ug/dl (5.53-11.0); Triiodothryronine (T3) Uptake 35 % (23.5-40.5)
[2022-04-06 12:35] LABS: Thyroid Stimulating Hormone 0.76 uIU/mL (0.465-4.68)
== END ==
PROVIDERS: PCP Family Medicine; Visit Provider Internal Medicine Cardiovascular Disease
DX: E11.9 Type 2 diabetes mellitus without complications (principal); E78.2 Mixed hyperlipidemia; I11.0 Hypertensive heart disease with heart failure; I25.10 Atherosclerotic heart disease of native coronary artery without angina pectoris; I25.5 Ischemic cardiomyopathy; I42.0 Dilated cardiomyopathy; I48.0 Paroxysmal atrial fibrillation; Z79.899 Other long term (current) drug therapy; Z95.5 Presence of coronary angioplasty implant and graft
CPT/HCPCS: 36415; 71046; 80076; 84436; 84443; 84479

== ENCOUNTER 2022-06-15 06:44 | Day surgery (SDC) | payer MEDICARE, OTHER, SELFPAY ==
[2022-06-09 16:14] VITALS: BMI 30.6
[2022-06-15 07:21] VITALS: BP 107/64; PULSE 62; RESP 18; TEMP 36.1; O2SAT 95
[2022-06-15 07:59] VITALS: BP 133/69; PULSE 67; RESP 17; O2SAT 95
[2022-06-15 08:04] VITALS: BP 103/63; PULSE 54; RESP 17; O2SAT 94
[2022-06-15 08:09] VITALS: BP 100/63; PULSE 54; RESP 16; O2SAT 94
[2022-06-15 08:14] VITALS: BP 99/62; PULSE 52; RESP 16; O2SAT 94
[2022-06-15 08:18] VITALS: BP 97/65; PULSE 54; RESP 18; TEMP 36.1; O2SAT 97
== END 2022-06-15 08:29 | disposition home or self-care (01) ==
PROVIDERS: PCP Family Medicine; Visit Provider Ophthalmology
DX: H26.20 Unspecified complicated cataract (principal)
CPT/HCPCS: 66982; V2632

== ENCOUNTER 2022-06-29 06:44 | Day surgery (SDC) | payer MEDICARE, OTHER, SELFPAY ==
[2022-06-29] VITALS (7 sets, daily range): BP systolic 103–124; BP diastolic 63–75; PULSE 50–51; RESP 16–18; TEMP 36.1–36.2; O2SAT 94–96; BMI 30.6
== END 2022-06-29 08:32 | disposition home or self-care (01) ==
PROVIDERS: PCP Family Medicine; Visit Provider Ophthalmology
DX: H26.20 Unspecified complicated cataract (principal)
CPT/HCPCS: 66982; V2632

== ENCOUNTER → 2022-09-17 07:10 | Outpatient (CLI) | payer MEDICARE, OTHER, SELFPAY ==
--- NOTE | 2022-09-17 | CA_ITS ---
APPROVED REPORT Exam: Pharmacologic Technologist: Delfina Barrett, Ht: 6 ft 0 in Wt: 226 lbs BSA: 2.24 m2 HR: 48 bpm BP: 118/63 mmHg Rhythm: SINUS BRADYCARDIA, PVC'S IN TRIGEMINAL PATTERN, FIRST DEGREE AV BLOCK, OLD SEPTAL CT, ST ABNORMALITIES Medical History Medical History: HTN, Hyperlipidemia, Smoking Medications: Levothyroxine,,,,, Amiodarone,,,,, Isosorbide,,,,, Losartan,,,,, Atorvastatin,,,,, Iron,,,,, XaRELTO,,,,, TAMSULOSIN,,,,, Vit D3,,,,, Digoxin,,,,, Plavix,,,,, DONEPEZIL,,,,, Cardiac Risk Factors: HTN, HTN, Smoking Stress Test Details Test: LEXISCAN Reason for pharmacologic stress test: physical limitation. HR Resting HR: 49 bpm Max Heart Rate (APMHR): 147 bpm Max HR Achieved: 71 bpm Target HR (85% APMHR): 125 bpm % of APMHR: 48 Recovery HR: 53 bpm BP Resting BP: 118.0/63.0 mmHg Max BP: 118.0/63.0 mmHg Recovery BP: 115.0/68.0 mmHg ECG Resting ECG: SINUS RHYTHM, PVCS, NON-SPECIFIC ST-ABNORMALITIES Stress ECG: NO CHANGE Arrhythmia: PVCs Clinical Exercise duration: 04:17 min Highest Stage Achieved: Exercise capacity: 1.0 METs Stress ECG Conclusion DURING INFUSION PATIENT HAD MILD SOA,STOMACH AND HEAD DISCOMFORT. MILD CHEST PRESSURE IN RECOVERY. FREQUENT,ISOLATED UNIFORM PVC'S. NO SIGNIFICANT ST-T CHANGES. CONCLUSION UNREMARKABLE LEXISCAN STRESS. MYOVIEW IMAGES REPORTED SEPARATELY Test Summary REST . . . . . . . Sitting REST 04:24 . . 49 . 118/ 63 . . Stage 1 . . . . . . . Myoview Injected Stage 1 01:00 . . 56 . . . . Stage 2 01:00 . . 66 . 104/ 67 . . Stage 3 01:00 . . 61 . 107/ 67 . . Stage 4 01:00 . . 60 . . . . Stage 4 01:17 . . 58 . . . Stop exercise at 04:17 RECOVERY . . . . . . . chest pressure RECOVERY 01:00 . . 55 . . . . RECOVERY 02:00 . . 58 . 110/ 68 . . RECOVERY 03:00 . . 57 . 115/ 68 . . RECOVERY 03:19 . . 52 . 115/ 68 . . Electronically signed by : Gemma Costello, 09/20/2022 12:48:37
--- NOTE | 2022-09-17 07:16 | NM_ITS ---
APPROVED REPORT Exam: Nuclear Stress Test Indication: chest pain..soa..fatigue..hx [place] Patient Location: Outpatient Stress Tech: Janae Rubinnkson DC Tech:CAMDEN Hernandez RT(R)(N) Ht: 6 ft 0 in Wt: 226 lbs HR: 49 bpm BP: 118/63 mmHg BSA: 2.24 m2 Rhythm: NSR TID: 1.20 History: chest pain..soa..fatigue..hx [place] Procedure: Patient received 0.4 mg of intravenous Lexiscan, resting heart rate 49 bpm, resting blood pressure 118/63 mmHg, with Lexiscan maximum heart rate achieved was 71 bpm which is 85 % of the maximum predicted heart rate and blood pressure was 118/63 mmHg. With Lexiscan, patient denied any complaint of chest pain. The pt was not able to lay on his abdomen for prone images. Cardiac Stress and Resting SPECT Images: Cardiac Stress and Resting SPECT images were obtained using technetium 99m Myoview 31.2 mCi stress and 10.32 mCi at rest. The patient could not lie on his abdomen. Therefore, prone stress imaging could not be performed. This may affect the diagnostic interpretation of the study findings. Resting and stress imaging in supine position demonstrate a large sized, severe, fixed perfusion defect in the entire anterior LV wall, as well as in the inferior and inferoseptal LV rangel. There is borderline increased transient ischemic dilatation ratio (TID 1.20), which may be suggestive of possible balanced ischemia or multivessel disease. There is moderate reduction in global LV systolic function. There is severe hypokinesis in the anterior, inferior, and inferoseptal LV rangel. LVEF is calculated at 36%. Conclusion: The patient could not lie on his abdomen. Therefore, prone stress imaging could not be performed. This may affect the diagnostic interpretation of the study findings. Resting and stress imaging in supine position demonstrate a large sized, severe, fixed perfusion defect in the entire anterior LV wall, as well as in the inferior and inferoseptal LV rangel. No evidence of reversible ischemia. There is borderline increased transient ischemic dilatation ratio (TID 1.20), which may be suggestive of possible balanced ischemia or multivessel disease. There is moderate reduction in global LV systolic function. There is severe hypokinesis in the anterior, inferior, and inferoseptal LV rangel. LVEF is calculated at 36%. Electronically signed by : Gemma Costello, 09/20/2022 12:52:55
== END ==
PROVIDERS: PCP Family Medicine; Visit Provider Family Medicine
DX: R07.9 Chest pain, unspecified (principal); I25.5 Ischemic cardiomyopathy
CPT/HCPCS: 78452; 93017; A9502; J2785

== ENCOUNTER → 2022-10-06 08:27 | Outpatient (CLI) | payer MEDICARE, OTHER, SELFPAY ==
[2022-10-06 08:32] LABS: MANUAL DIFFERENTIAL MANUAL DIFFERENTIAL (MANUAL DIFF)
--- NOTE | 2022-10-06 08:42 | XR_ITS ---
FINAL REPORT TECHNIQUE: Chest PA & Lateral CLINICAL HISTORY: Amiodarone, hx smoker, hx stents FINDINGS: 2 views of the chest were performed. The heart size is normal. The mediastinum is within normal limits. There is no acute cardiopulmonary process. There are no pleural effusions. There is no pneumothorax. The bony thorax appears intact. IMPRESSION: No acute cardiopulmonary process. Reviewed, Interpreted and Dictated by Vineet Gamboa MD Transcribed by Antonia Bush Authenticated and [facility]
[2022-10-06 08:47] LABS: Basophils % 0.5 % (0.1-2.0); Eosinophils # 0.3 K/mm3 (0.0-0.4); Eosinophils % 5.2 % (0.1-12.0); Hematocrit 43.9 % (42.0-52.0); Lymphocytes % 18.6 % (10-50); Mean Corpuscular HGB Conc 31.9 g/dL (31.8-35.4); Mean Corpuscular Hemoglobin 29.5 pg (27.0-31.2); Mean Corpuscular Volume 92.6 fl (80-94); Mean Platelet Volume 9.5 fl (7.4-10.4); Monocytes # 0.4 K/mm3 (0.1-1.0); Monocytes % 7.6 % (1.7-9.3); Neutrophils # 3.8 K/mm3 (1.8-7.8); Neutrophils % 68.1 % (37.0-80.0); Platelet Count 153 K/mm3 (142-424); Red Blood Count 4.75 M/mm3 (4.60-6.20); Red Cell Distribution Width 13.4 % (11.5-17.5); White Blood Count 5.5 K/mm3 (4.8-10.8)
[2022-10-06 10:34] LABS: Eosinophils % 5 % (0-3); Lymphocytes % 25 % (10-50); Monocytes % 2 % (2-9); Neutrophils % 68 % (42-76); Platelet Estimate Normal; RBC Morphology Normal; Total Cells Counted 100
[2022-10-06 10:55] LABS: Alanine Aminotransferase 28 U/L (12-78); Albumin Level 3.9 g/dl (3.5-5.0); Alkaline Phosphatase 80 U/L (38-126); Anion Gap 10.5 mEq/L (5-15); Aspartate Amino Transferase 44 U/L (17-59); Bilirubin,Total 0.6 mg/dl (0.2-1.3); Blood Urea Nitrogen 17 mg/dl (9-20); Carbon Dioxide 31 mmol/L (22.0-30.0); Chloride 102 mmol/L (98-107); Chol/HDL Ratio 2.4 (1-3.5); Cholesterol 94 mg/dl (140-200); Estimated Glomerular Filt Rate 66 ml/min (>60); GFR (African American) 79 ML/MIN (>60); Glucose 95 mg/dl (74-100); HDL Cholesterol 39 mg/dl (40-60); Potassium 4.5 mmoL/L (3.5-5.1); Sodium 139 mmol/L (136-145); Total Protein,Serum 6.3 g/dl (6.3-8.2); Triglycerides 88 mg/dl (30-150); VLDL Cholesterol 18 mg/dL (0-40)
[2022-10-06 11:06] LABS: Direct LDL Cholesterol 41.15 mg/dL (100-129)
[2022-10-06 11:11] LABS: Free T4 (Free Thyroxine) 1.43 ng/dl (0.78-2.19)
[2022-10-06 11:26] LABS: Thyroid Stimulating Hormone 1.35 uIU/mL (0.465-4.68)
[2022-10-06 12:37] LABS: Bilirubin,Direct 0.1 mg/dl (0.0-0.4); Bilirubin,Indirect 0.6 mg/dL (0.0-0.9); Bilirubin,Unconjugated 0.7 mg/dL (0.0-1.1)
== END ==
PROVIDERS: PCP Family Medicine; Visit Provider Nurse Practitioner Family
DX: E78.5 Hyperlipidemia, unspecified (principal); I10 Essential (primary) hypertension; I20.8 Other forms of angina pectoris; I25.5 Ischemic cardiomyopathy; I42.0 Dilated cardiomyopathy; I48.91 Unspecified atrial fibrillation; R06.00 Dyspnea, unspecified; R94.39 Abnormal result of other cardiovascular function study; Z79.899 Other long term (current) drug therapy; Z95.5 Presence of coronary angioplasty implant and graft
CPT/HCPCS: 36415; 71046; 80048; 80061; 80076; 84439; 84443; 85007; 85014; 85018; 85048; 85049

== ENCOUNTER 2022-10-15 07:22 | Day surgery (SDC) | payer MEDICARE, OTHER, SELFPAY ==
[2022-10-15] VITALS (13 sets, daily range): BP systolic 101–185; BP diastolic 60–102; PULSE 47–67; RESP 17–19; TEMP 36.9; O2SAT 91–96; BMI 31.4
--- NOTE | 2022-10-15 07:08 | IR_ITS ---
APPROVED REPORT Patient Location: Outpatient Ice Cream Dipper: CAMDEN Silva RT (R) PROCEDURES Left heart catheterization Left ventriculogram Selective coronary angiogram INDICATION High risk abnormal Myoview, Known coronary artery disease, Systolic congestive heart failure ejection fraction 36% Informed consent was obtained prior to the procedure. COMPLICATIONS None Estimated Blood Loss: Less than 10 mls TECHNIQUE One percent lidocaine used to anesthetize the right anterior aspect of the wrist. The right radial artery was accessed via the Seldinger technique. A 6 Persian sheath was placed in the right radial artery. 2.5 mg of Verapamil, 800 mcg of nitroglycerin, 1mg Lidocaine and 5000 U Heparin were given through the arterial sheath. The papa catheter was also used to perform left heart catheterization, left ventriculogram and selective coronary angiogram. At the end of the procedure the sheath was removed good hemostasis was achieved using Traclet band, patient was transferred to the postop holding area in stable condition. ANGIOGRAPHIC RESULTS The left main artery Normal The left anterior descending artery Has a proximal 10 to 20% stenosis followed by a stent which is widely patent with minimal in-stent restenosis nothing greater than 20 to 30%. There is an additional mid vessel 30% stenosis and a distal 30% stenosis The circumflex artery Nondominant and has diffuse 20 to 30% mid vessel stenosis The right coronary artery Is a large dominant vessel and has stents in the proximal and mid segment which are widely patent with minimal in-stent restenosis and excellent proximal distal transitioning. The remaining right coronary arteries widely The [place] ventriculogram reveals Preserved at 55% The left ventricular end-diastolic pressure 15 mmHg IMPRESSION Adequate coronary revascularization as described above Preserved ejection fraction Normal LVEDP PLAN 1. Recommend echocardiogram given ejection fraction of 36% by Myoview. [place] LV gram is suggestive of better ejection fraction 2. Medical management for coronary disease Electronically signed by : Clovis Francis MD 10/15/2022 11:44:16
[2022-10-15 07:59] LABS: Basophils % 0.4 % (0.1-2.0); Eosinophils # 0.2 K/mm3 (0.0-0.4); Eosinophils % 4.2 % (0.1-12.0); Hematocrit 45.3 % (42.0-52.0); Hemoglobin 14.1 g/dL (14.1-18.0); Lymphocytes # 1.2 K/mm3 (0.7-4.5); Mean Corpuscular HGB Conc 31.1 g/dL (31.8-35.4); Mean Corpuscular Hemoglobin 29.1 pg (27.0-31.2); Mean Corpuscular Volume 93.7 fl (80-94); Monocytes # 0.4 K/mm3 (0.1-1.0); Monocytes % 6.4 % (1.7-9.3); Platelet Count 154 K/mm3 (142-424); Red Blood Count 4.84 M/mm3 (4.60-6.20); Red Cell Distribution Width 13.5 % (11.5-17.5); White Blood Count 5.8 K/mm3 (4.8-10.8)
[2022-10-15 08:11] LABS: Anion Gap 12.9 mEq/L (5-15); Blood Urea Nitrogen 20 mg/dl (9-20); Calcium 8.9 mg/dl (8.4-10.2); Carbon Dioxide 30 mmol/L (22.0-30.0); Chloride 101 mmol/L (98-107); Creatinine Clearance Estimated 82 mL/min (50-200); Estimated Glomerular Filt Rate 59 ml/min (>60); GFR (African American) 72 ML/MIN (>60); Glucose 97 mg/dl (74-100); Potassium 3.9 mmoL/L (3.5-5.1); Sodium 140 mmol/L (136-145)
--- NOTE | 2022-10-15 09:58 | CA_ITS ---
APPROVED REPORT EXAM: Comprehensive 2D, Doppler, and color-flow Echocardiogram Health Sciences Program Coordinator: Geovanna Cleveland, JANES, RVS Ht: 6 ft 0 in Wt: 232lbs BSA: 2.27 HR: 53 bpm BP: 105/62 mmHg Rhythm: Atrial Fibrillation Indications: S/P cardiac cath, Afib, EF check, MOYER, HTN, HLD 2D Dimensions IVSd 1.41 cm M: 0.6-1.2 LVEF (Visual) 54.20 % PWd 1.77 cm M: 0.6 - 1.2 LVDd 4.11 cm M: 4.2 - 5.9 LVDs 2.97 cm M: 2.5 - 4.0 Other Information Study Quality: Technically Difficult Conclusion This is a limited TTE to evaluate for EF after cardiac catheterization. Limited windows were obtained. This is a technically difficult study due to poor acoustic windows. Overall, the left ventricle appears normal in size and function. There is normal LV wall motion with no evidence of regional wall motion abnormalities. LVEF is 65%. Grossly, the right ventricle appears normal in size and function. There is no evidence of pericardial effusion. Electronically signed by : Gemma Costello, 10/18/2022 17:13:13
== END 2022-10-15 13:11 | disposition home or self-care (01) ==
PROVIDERS: PCP Family Medicine; Visit Provider Internal Medicine
DX: E78.5 Hyperlipidemia, unspecified (principal); I11.0 Hypertensive heart disease with heart failure; I25.5 Ischemic cardiomyopathy; I42.0 Dilated cardiomyopathy; I48.91 Unspecified atrial fibrillation; R06.00 Dyspnea, unspecified; R94.39 Abnormal result of other cardiovascular function study; Z79.899 Other long term (current) drug therapy; Z95.5 Presence of coronary angioplasty implant and graft; I25.118 Atherosclerotic heart disease of native coronary artery with other forms of angina pectoris; Z79.01 Long term (current) use of anticoagulants; I50.22 Chronic systolic (congestive) heart failure
CPT/HCPCS: 80048; 85025; 93308; 93458; 99152; C1725; C1760; C1769; J1644; Q9967

== ENCOUNTER 2023-04-19 07:55 | Day surgery (SDC) | payer MEDICARE, OTHER, SELFPAY ==
[2023-04-19 08:30] VITALS: BP 104/66; PULSE 61; RESP 20; TEMP 36.6; O2SAT 95; BMI 30.4
[2023-04-19] MEDS: PHENYLEPHRINE 2.5% OPHTH SOLN 2ML 0.0500000000000000028 ML OP (10:00)
[2023-04-19 10:21] VITALS: BP 104/66; PULSE 61; RESP 18; TEMP 36.9; O2SAT 95
[2023-04-19] MEDS: APRACLONIDINE 0.5% OPHTH SOLN 5ML OP (13:39)
[2023-04-19] MEDS: TETRACAINE 0.5% OPTH SOL 15ML OP (13:39)
[2023-04-19] MEDS: TROPICAMIDE 1% OPTH SOLN 2ML OP (13:39)
== END 2023-04-19 10:22 | disposition home or self-care (01) ==
PROVIDERS: PCP Family Medicine; Visit Provider Ophthalmology
PROC: (CPT 66821; principal; 2023-04-19 09:30)
DX: H26.492 Other secondary cataract, left eye (principal)
CPT/HCPCS: 66821

== ENCOUNTER 2023-04-21 08:28 | Outpatient (CLI) | payer MEDICARE, OTHER, SELFPAY ==
[2023-04-21 09:09] LABS: Basophils # 0.1 K/mm3 (0-0.2); Basophils % 0.9 % (0.1-2.0); Eosinophils # 0.2 K/mm3 (0.0-0.4); Eosinophils % 4.1 % (0.1-12.0); Hematocrit 41.3 % (42.0-52.0); Hemoglobin 13.7 g/dL (14.1-18.0); Lymphocytes # 1.1 K/mm3 (0.7-4.5); Lymphocytes % 22.2 % (10-50); Mean Corpuscular HGB Conc 33.1 g/dL (31.8-35.4); Mean Corpuscular Hemoglobin 30.9 pg (27.0-31.2); Mean Corpuscular Volume 93.2 fl (80-94); Mean Platelet Volume 9.5 fl (7.4-10.4); Monocytes # 0.4 K/mm3 (0.1-1.0); Monocytes % 7.1 % (1.7-9.3); Neutrophils # 3.4 K/mm3 (1.8-7.8); Neutrophils % 65.6 % (37.0-80.0); Platelet Count 136 K/mm3 (142-424); Red Blood Count 4.43 M/mm3 (4.60-6.20); Red Cell Distribution Width 13.8 % (11.5-17.5); White Blood Count 5.1 K/mm3 (4.8-10.8)
[2023-04-21 09:45] LABS: Chloride 104 mmol/L (98-107); Sodium 137 mmol/L (136-145)
[2023-04-21 09:46] LABS: Potassium 4.2 mmoL/L (3.5-5.1)
[2023-04-21 09:48] LABS: Alanine Aminotransferase 31 U/L (12-78); Alkaline Phosphatase 75 U/L (38-126); Anion Gap 7.2 mEq/L (5-15); Aspartate Amino Transferase 45 U/L (17-59); Bilirubin,Direct 0.1 mg/dl (0.0-0.4); Bilirubin,Indirect 0.7 mg/dL (0.0-0.9); Bilirubin,Total 0.8 mg/dl (0.2-1.3); Bilirubin,Unconjugated 0.7 mg/dL (0.0-1.1); Blood Urea Nitrogen 18 mg/dl (9-20); Calcium 9.2 mg/dl (8.4-10.2); Carbon Dioxide 30 mmol/L (22.0-30.0); Cholesterol 95 mg/dl (140-200); Estimated Glomerular Filt Rate 66 ml/min (>60); GFR (African American) 79 ML/MIN (>60); Glucose 70 mg/dl (74-100); Triglycerides 109 mg/dl (30-150); VLDL Cholesterol 22 mg/dL (0-40)
[2023-04-21 09:49] LABS: Chol/HDL Ratio 2.6 (1-3.5); HDL Cholesterol 37 mg/dl (40-60)
[2023-04-21 10:05] LABS: Direct LDL Cholesterol 40.05 mg/dL (100-129); Free T4 (Free Thyroxine) 1.51 ng/dl (0.78-2.19)
[2023-04-21 10:18] LABS: Thyroid Stimulating Hormone 1.89 uIU/mL (0.465-4.68)
== END 2023-04-21 23:59 ==
LOC: LAB 08:29
PROVIDERS: PCP Family Medicine; Visit Provider Physician Assistant
DX: I25.10 Atherosclerotic heart disease of native coronary artery without angina pectoris (principal); I11.9 Hypertensive heart disease without heart failure; R00.1 Bradycardia, unspecified; Z79.899 Other long term (current) drug therapy; E78.5 Hyperlipidemia, unspecified; I48.91 Unspecified atrial fibrillation; I25.5 Ischemic cardiomyopathy; I42.0 Dilated cardiomyopathy; Z87.891 Personal history of nicotine dependence; Z95.5 Presence of coronary angioplasty implant and graft
CPT/HCPCS: 36415; 80048; 80061; 80076; 83735; 84439; 84443; 85025

== ENCOUNTER 2023-10-31 07:32 | Outpatient (CLI) | payer MEDICARE, OTHER, SELFPAY ==
--- NOTE | 2023-10-31 07:41 | XR_ITS ---
FINAL REPORT CLINICAL HISTORY: Amiodarone therapy COMPARISON: 10/06/2022 FINDINGS: 2 views of the chest were obtained . The heart is normal in size. The mediastinum is within normal limits. The lungs are clear. There is no pneumothorax. Osseous structures are unremarkable. IMPRESSION: No acute cardiopulmonary process. Reviewed, Interpreted and Dictated by Alie Smtih MD Transcribed by Monique Ramirez Authenticated and [facility]
[2023-10-31 07:51] LABS: Basophils # 0.1 K/mm3 (0-0.2); Eosinophils # 0.2 K/mm3 (0.0-0.4); Eosinophils % 3.2 % (0.1-12.0); Hematocrit 42.2 % (42.0-52.0); Hemoglobin 13.4 g/dL (14.1-18.0); Lymphocytes # 1.4 K/mm3 (0.7-4.5); Lymphocytes % 24.3 % (10-50); Mean Corpuscular HGB Conc 31.7 g/dL (31.8-35.4); Mean Corpuscular Hemoglobin 29.8 pg (27.0-31.2); Mean Platelet Volume 9.9 fl (7.4-10.4); Monocytes # 0.4 K/mm3 (0.1-1.0); Monocytes % 6.5 % (1.7-9.3); Neutrophils # 3.7 K/mm3 (1.8-7.8); Platelet Count 156 K/mm3 (142-424); Red Blood Count 4.49 M/mm3 (4.60-6.20); Red Cell Distribution Width 14.5 % (11.5-17.5); White Blood Count 5.8 K/mm3 (4.8-10.8)
[2023-10-31 09:28] LABS: Alanine Aminotransferase 30 U/L (12-78); Alkaline Phosphatase 67 U/L (38-126); Anion Gap 3.3 mEq/L (5-15); Aspartate Amino Transferase 45 U/L (17-59); Bilirubin,Direct 0.1 mg/dl (0.0-0.4); Bilirubin,Indirect 0.7 mg/dL (0.0-0.9); Bilirubin,Total 0.8 mg/dl (0.2-1.3); Bilirubin,Unconjugated 0.7 mg/dL (0.0-1.1); Blood Urea Nitrogen 21 mg/dl (9-20); Calcium 9.2 mg/dl (8.4-10.2); Carbon Dioxide 31 mmol/L (22.0-30.0); Chloride 105 mmol/L (98-107); Chol/HDL Ratio 2.5 (1-3.5); Cholesterol 108 mg/dl (140-200); Estimated Glomerular Filt Rate 59 ml/min (>60); GFR (African American) 72 ML/MIN (>60); Glucose 92 mg/dl (74-100); HDL Cholesterol 43 mg/dl (40-60); Potassium 4.3 mmoL/L (3.5-5.1); Sodium 135 mmol/L (136-145); Total Protein,Serum 6.2 g/dl (6.3-8.2); Triglycerides 88 mg/dl (30-150); VLDL Cholesterol 18 mg/dL (0-40)
[2023-10-31 09:58] LABS: Direct LDL Cholesterol 44.05 mg/dL (100-129)
[2023-10-31 10:11] LABS: Thyroid Stimulating Hormone 3.39 uIU/mL (0.465-4.68)
== END 2023-10-31 23:59 | disposition home or self-care (01) ==
LOC: LAB 07:33
PROVIDERS: PCP Family Medicine; Visit Provider Physician Assistant
DX: Z95.5 Presence of coronary angioplasty implant and graft (principal); I25.10 Atherosclerotic heart disease of native coronary artery without angina pectoris; I11.0 Hypertensive heart disease with heart failure; Z79.899 Other long term (current) drug therapy; E78.2 Mixed hyperlipidemia; I48.0 Paroxysmal atrial fibrillation; I10 Essential (primary) hypertension; I25.5 Ischemic cardiomyopathy; I42.0 Dilated cardiomyopathy
CPT/HCPCS: 36415; 71046; 80048; 80061; 80076; 83735; 84439; 84443; 85025

== ENCOUNTER 2023-11-15 10:52 | Outpatient (CLI) | payer MEDICARE, OTHER, SELFPAY ==
--- NOTE | 2023-11-15 10:57 | XR_ITS ---
FINAL REPORT CLINICAL HISTORY: PAIN COMPARISON: None FINDINGS: RIGHT ANKLE: Three views of the right ankle were obtained. There is no acute fracture or dislocation. There is a large chronic calcification adjacent to the lateral malleolus. Soft tissue swelling is identified. Mild degenerative changes present. IMPRESSION: No acute bony abnormality. Large chronic calcification adjacent to the lateral malleolus. Reviewed, Interpreted and Dictated by Nikita Anand III, MD Transcribed by Kristan Dubois Authenticated and [facility]
== END 2023-11-15 23:59 | disposition home or self-care (01) ==
LOC: RAD 10:53
PROVIDERS: PCP Family Medicine; Visit Provider Family Medicine
DX: M25.571 Pain in right ankle and joints of right foot (principal)
CPT/HCPCS: 73610

== ENCOUNTER 2023-12-01 08:45 | Outpatient (CLI) | payer MEDICARE, OTHER, SELFPAY ==
--- NOTE | 2023-12-01 08:49 | XR_ITS ---
PROCEDURE INFORMATION: Exam: XR Left Ankle Exam date and time: 12/01/2023 9:33 AM Age: 73 years old Clinical indication: Pain; Ankle; Left; Additional info: Ankle pain TECHNIQUE: Imaging protocol: Radiologic exam of the left ankle. Views: 3 or more views. COMPARISON: CR XR FOOT WT BEARING LT 3V 12/01/2023 9:33 AM FINDINGS: Bones/joints: Osseous structures are intact. No fracture or malalignment. Visualized joint surfaces are preserved. Soft tissues: Unremarkable. IMPRESSION: Negative exam. No acute bony abnormalities.
--- NOTE | 2023-12-01 08:49 | XR_ITS ---
PROCEDURE INFORMATION: Exam: XR Right Foot Complete; Alignment Exam date and time: 12/01/2023 9:33 AM Age: 73 years old Clinical indication: Pain; Foot; Right; Additional info: Foot pain TECHNIQUE: Imaging protocol: Radiologic exam of the right foot. Views: 3 or more views. COMPARISON: CR XR ANKLE WT BEARING RT MIN 3V 12/01/2023 9:33 AM FINDINGS: Bones/joints: Mild-moderate degenerative changes involving the midfoot and 1st MTP joint with some joint space narrowing and subchondral sclerosis. Small spurs arise from the plantar aspect of the calcaneus. No evidence of fracture, dislocation or malalignment. Soft tissues: Normal. IMPRESSION: No acute bony abnormalities.
--- NOTE | 2023-12-01 08:49 | XR_ITS ---
PROCEDURE INFORMATION: Exam: XR Right Ankle Exam date and time: 12/01/2023 9:33 AM Age: 73 years old Clinical indication: Pain; Foot; Right; Additional info: Ankle pain TECHNIQUE: Imaging protocol: Radiologic exam of the right ankle. Views: 3 or more views. COMPARISON: CR XR ANKLE RT MIN 3V 11/15/2023 11:11 AM FINDINGS: Bones/joints: This is moderate degenerative changes involving the talonavicular joint with joint space narrowing, subchondral sclerosis and subchondral cystic changes. Small spur arising the posterior aspect of the calcaneus. No evidence of underlying fracture, dislocation or malalignment. Soft tissues: Unremarkable. IMPRESSION: No acute bony abnormalities.
--- NOTE | 2023-12-01 08:49 | XR_ITS ---
PROCEDURE INFORMATION: Exam: XR Left Foot Complete; Alignment Exam date and time: 12/01/2023 9:33 AM Age: 73 years old Clinical indication: Pain; Foot; Left; Additional info: Foot pain TECHNIQUE: Imaging protocol: Radiologic exam of the left foot. Views: 3 or more views. COMPARISON: CR XR ANKLE WT BEARING LT MIN 3V 12/01/2023 9:33 AM FINDINGS: Bones/joints: Moderate degenerative changes mid foot with joint space narrowing and subchondral sclerosis. Small spur arising from the posterior aspect of the calcaneus. No evidence of fracture, dislocation or malalignment.. Soft tissues: Normal. IMPRESSION: No acute bony abnormalities.
== END 2023-12-01 23:59 | disposition home or self-care (01) ==
LOC: RAD 08:47
PROVIDERS: PCP Family Medicine; Visit Provider Podiatrist
DX: M79.671 Pain in right foot (principal); M79.672 Pain in left foot; M25.571 Pain in right ankle and joints of right foot; M25.572 Pain in left ankle and joints of left foot
CPT/HCPCS: 73610; 73630

== ENCOUNTER 2024-04-25 09:03 | Outpatient (CLI) | payer MEDICARE, OTHER, SELFPAY ==
[2024-04-25 10:54] LABS: Albumin Level 4.1 g/dl (3.5-5.0)
[2024-04-25 10:57] LABS: Alanine Aminotransferase 31 U/L (12-78); Alkaline Phosphatase 75 U/L (38-126); Aspartate Amino Transferase 41 U/L (17-59); Bilirubin,Indirect 0.7 mg/dL (0.0-0.9); Bilirubin,Total 0.7 mg/dl (0.2-1.3); Bilirubin,Unconjugated 0.8 mg/dL (0.0-1.1)
[2024-04-25 11:10] LABS: Free Thyroxine Index 3.9 ug/dL (5.93-13.13); T4 (Thyroxine) 10.2 ug/dl (5.53-11.0); Triiodothryronine (T3) Uptake 38 % (23.5-40.5)
[2024-04-25 11:24] LABS: Thyroid Stimulating Hormone 1.51 uIU/mL (0.465-4.68)
== END 2024-04-25 23:59 | disposition home or self-care (01) ==
LOC: LAB 09:04
PROVIDERS: PCP Family Medicine; Visit Provider Physician Assistant
DX: R06.09 Other forms of dyspnea (principal); Z95.5 Presence of coronary angioplasty implant and graft; R00.1 Bradycardia, unspecified; I25.10 Atherosclerotic heart disease of native coronary artery without angina pectoris; I11.0 Hypertensive heart disease with heart failure; Z79.899 Other long term (current) drug therapy; E78.2 Mixed hyperlipidemia; I48.0 Paroxysmal atrial fibrillation; I10 Essential (primary) hypertension; I25.5 Ischemic cardiomyopathy; I42.0 Dilated cardiomyopathy
CPT/HCPCS: 36415; 80076; 84436; 84443; 84479

== ENCOUNTER 2024-05-02 10:39 | Day surgery (SDC) | payer MEDICARE, OTHER, SELFPAY ==
[2024-05-02] VITALS (10 sets, daily range): BP systolic 99–169; BP diastolic 63–96; PULSE 50–111; RESP 18–20; TEMP 36.9; O2SAT 90–98; BMI 30.6
[2024-05-02 11:00] LABS: Basophils # 0.1 K/mm3 (0-0.2); Eosinophils # 0.2 K/mm3 (0.0-0.4); Hematocrit 41.6 % (42.0-52.0); Lymphocytes # 1.3 K/mm3 (0.7-4.5); Lymphocytes % 22.1 % (10-50); Mean Corpuscular HGB Conc 33.7 g/dL (31.8-35.4); Mean Corpuscular Hemoglobin 29.9 pg (27.0-31.2); Mean Corpuscular Volume 88.9 fl (80-94); Monocytes # 0.4 K/mm3 (0.1-1.0); Monocytes % 6.7 % (1.7-9.3); Neutrophils # 3.8 K/mm3 (1.8-7.8); Neutrophils % 65.7 % (37.0-80.0); Platelet Count 160 K/mm3 (142-424); Red Blood Count 4.68 M/mm3 (4.60-6.20); Red Cell Distribution Width 14.2 % (11.5-17.5); White Blood Count 5.8 K/mm3 (4.8-10.8)
[2024-05-02 11:05] LABS: Chloride 101 mmol/L (98-107); Potassium 4.3 mmoL/L (3.5-5.1)
[2024-05-02 11:08] LABS: Blood Urea Nitrogen 17 mg/dl (9-20); Calcium 9.2 mg/dl (8.4-10.2); Carbon Dioxide 29 mmol/L (22.0-30.0); Creatinine Clearance Estimated 78 mL/min (50-200); Estimated Glomerular Filt Rate 59 ml/min (>60); GFR (African American) 72 ML/MIN (>60); Glucose 103 mg/dl (74-100)
--- NOTE | 2024-05-02 11:30 | IR_ITS ---
APPROVED REPORT Patient Location: Outpatient PROCEDURES Left heart catheterization Left ventriculogram Selective coronary angiogram Direct-current cardioversion INDICATION Accelerated angina pectoris, Coronary artery disease, Atrial fibrillation Informed consent was obtained prior to the procedure. COMPLICATIONS NONE Estimated Blood Loss: LESS THAN 10 ML TECHNIQUE One percent lidocaine used to anesthetize the right anterior aspect of the wrist. The right radial artery was accessed via the Seldinger technique. A 6 [place] sheath was placed in the right radial artery. 2.5 mg of Verapamil, 800 mcg of nitroglycerin, 1mg Lidocaine and 5000 U Heparin were given through the arterial sheath. The papa catheter was also used to perform left heart catheterization, left ventriculogram and selective coronary angiogram. At the end the diagnostic angiogram patient was given additional sedation and direct-current cardioversion was performed in order to to convert patient from atrial fibrillation into sinus rhythm. This was planned prior to the cardiac catheterization. After 1 shock at 200 J patient successfully converted into sinus rhythm ANGIOGRAPHIC RESULTS The left main artery Normal The left anterior descending artery Is widely patent in the proximal segment with stents which extend into the mid segment. The stents are widely patent with minimal in-stent restenosis next and have excellent proximal distal transitioning. There is additional 30 and 40% mid vessel LAD stenoses. A medium sized 2 mm first diagonal artery has an ostial 70% stenosis The circumflex artery Large nondominant giving rise to a large first obtuse marginal artery. The vessel is widely patent throughout with diffuse 20% stenoses The right coronary artery Large and dominant with stents in the proximal to mid segment which are widely patent with minimal in-stent restenosis excellent proximal distal transitioning The [place] ventriculogram reveals Dilated ventricle with anterior wall hypokinesis estimate ejection fraction 25% The left ventricular end-diastolic pressure 20 mmHg IMPRESSION Coronary disease as described above Stenosis in a medium sized first diagonal artery which does not explain the degree of ischemia or LV dysfunction Reduced ejection fraction Elevated LVEDP Successful cardioversion of atrial fibrillation into sinus rhythm PLAN 1. Continue Xarelto and amiodarone 2. Standard therapy for systolic heart failure 3. Patient should be a candidate for AICD if he has been on GDMT for systolic heart failure 4. Consider cardiac MRI 5. Risk factor modification Electronically signed by : Clovis Francis MD 05/02/2024 15:18:28
[2024-05-02 13:33] LABS: Anion Gap 11.3 mEq/L (5-15); Sodium 137 mmol/L (136-145)
[2024-05-02] MEDS: FENTANYL 100MCG/2ML VIAL 50 MCG IV (15:18)
[2024-05-02] MEDS: MIDAZOLAM HCL 1MG/ML 5ML VIAL 1 MG IV (15:18)
[2024-05-02] MEDS: VERAPAMIL 2.5MG/ML 2ML VIAL 2.5 MG IV (15:19)
[2024-05-02] MEDS: LIDOCAINE 1% 10ML MDV 20 ML IJ (15:19)
[2024-05-02] MEDS: HEPARIN 1,000 UNITS/ML 10ML VIAL (CATH LAB) 10000 UNIT IV (15:19)
[2024-05-02] MEDS: IOPAMIDOL-370 (76%);100ML BOTTLE 85 ML IV (15:19)
[2024-05-02] MEDS: NITROGLYCERIN 800MCG/8ML SYR (CATH LAB) 800 MCG IA (15:19)
[2024-05-02] MEDS: diphenhydrAMINE 50MG/ML VIAL 50 MG IV (15:19)
[2024-05-02] MEDS: 0.9 % SODIUM CHLORIDE 500 ML 25 ML IV (15:20)
[2024-05-02] MEDS: HEPARIN 1,000 UNITS/500ML NS (CATH LAB) 3000 UNIT IV (15:20)
== END 2024-05-02 16:57 | disposition home or self-care (01) ==
PROVIDERS: PCP Family Medicine; Visit Provider Internal Medicine
PROC: 5A2204Z Restoration of Cardiac Rhythm, Single (ICD-10-PCS; 2024-05-02 12:00)
DX: I48.0 Paroxysmal atrial fibrillation (principal); I25.118 Atherosclerotic heart disease of native coronary artery with other forms of angina pectoris; I97.610 Postprocedural hemorrhage of a circulatory system organ or structure following a cardiac catheterization; R94.31 Abnormal electrocardiogram [ECG] [EKG]; R94.39 Abnormal result of other cardiovascular function study; Z88.8 Allergy status to other drugs, medicaments and biological substances; Z79.01 Long term (current) use of anticoagulants; Z79.899 Other long term (current) drug therapy
CPT/HCPCS: 36415; 80048; 85025; 92960; 92961; 93458; 99152; 99285; C1725; C1760; C1769; J1200; J1644; J3010; Q9967

== ENCOUNTER 2024-05-02 18:04 | Emergency (ER) | payer MEDICARE, OTHER, SELFPAY ==
[2024-05-02 18:16] VITALS: BP 138/87; PULSE 64; RESP 16; TEMP 36.4; O2SAT 96; BMI 29.8
--- NOTE | 2024-05-02 18:27 | HMH.EDGENADL ---
Discharge Plan Disposition Patient Disposition: Home, Self-Care Chief Complaint: Recheck/Abnormal Lab/Rx Prescriptions Prescriptions: No Action cholecalciferol (vitamin D3) 5,000 unit capsule 5,000 unit PO HS levothyroxine 150 mcg tablet 150 mcg PO DAILY Patient Comments: TAKE ONE TABLET BY MOUTH EVERY DAY melatonin 5 mg tablet 5 mg PO HS Patient Comments: TAKE ONE TABLET BY MOUTH EVERY DAY AT BEDTIME glucosamine-chondroitin 900 mg tablet 900 mg PO DAILY amiodarone 200 mg tablet 200 mg PO DAILY Qty: 30 2RF atorvastatin 40 mg tablet 40 mg PO HS Qty: 90 3RF isosorbide mononitrate 30 mg tablet extended release 24 hr 30 mg PO DAILY Qty: 90 2RF nitroglycerin 0.4 mg tablet, sublingual 0.4 mg SL Q5-15M PRN (Reason: chest pain) 30 Days Qty: 25 5RF Xarelto 20 mg tablet See Rx Instructions .ROUTE .COMPLEX Qty: 90 4RF Dose Instruction: TAKE ONE TABLET BY MOUTH EVERY DAY IN THE EVENING --TAKE WITH FOOD-- Rx Instructions: TAKE ONE TABLET BY MOUTH EVERY DAY IN THE EVENING --TAKE WITH FOOD-- multivitamin 1 EACH tablet 1 each PO DAILY tamsulosin 0.4 MG capsule 0.8 mg PO HS spironolactone 25 mg tablet 25 mg PO DAILY Rx Instructions: TAKE ONE TABLET BY MOUTH EVERY OTHER DAY donepezil 10 MG tablet 10 mg PO HS digoxin 125 MCG tablet 125 mcg PO DAILY losartan 100 MG tablet 100 mg PO DAILY clopidogrel 75 MG tablet 75 mg PO DAILY celecoxib 100 MG capsule 100 mg PO DAILY Referrals Follow up/Referrals: Provider,Referral, MD [Primary Care Provider] - See instructions Activity Restrictions/Add. Instructions Additional Instructions/Restrictions: At this time it was felt you are safe to be discharged home. If new or worsening symptoms please do not hesitate to return the emergency department. Please keep your wound dressed as the Supervisor [facility] directed in their discharge instructions. Please continue to follow-up with them on an outpatient basis. Clinical Impressions Clinical Impression: Hemorrhage complicating a procedure Print Language Print Language: Serbian Discharge ED Provider: Chin Cabrera General Adult HPI General Chief complaint: Recheck/Abnormal Lab/Rx Stated complaint: bleeding from heart cath site Time Seen by Provider: 05/02/24 18:24 History of Present Illness HPI narrative: Patient is a 73-year-old male with past medical history of heart catheterization earlier today presents emergency department for evaluation of access site bleeding. History is obtained by patient at bedside, he bared significant weight when he was not supposed to on his right upper extremity which caused bleeding at his bandage site soaking through his bandage causing her to become concerned and presented for continued evaluation. No other acute complaints at this time. Patient is on Eliquis. Please note that above description of symptoms, in this electronic medical record under categorization of recalled from ER triage doctor by RN are reflective of an initial nursing assessment, however, is not reflective of my full history and physical exam that was personally taken and clarified. Consequentially, this preceding description of symptoms, which may include the patient's categorized chief complaint in the EMR, do not reflect my personal clinical impression, and the ultimate description of history of present illness and patient stated complaints should be deferred to this section of the note. Unless stated otherwise or congruent with this section of the note, additional signs, symptoms, or incongruence should be interpreted as inaccurate with my clinical impression. Related Data Home Medications ?Medication ?Instructions ?Recorded ?Confirmed cholecalciferol (vitamin D3) 125 5,000 unit PO HS Supplement 06/16/17 05/02/24 mcg (5,000 unit) capsule multivitamin 1 each PO DAILY Supplement 01/02/18 05/02/24 tamsulosin 0.4 mg capsule 0.8 mg PO HS Prostate 01/02/18 05/02/24 spironolactone 25 mg tablet 25 mg PO DAILY diuretic 07/06/18 05/02/24 digoxin 125 mcg (0.125 mg) tablet 125 mcg PO DAILY Heart disease 02/13/21 05/02/24 donepezil 10 mg tablet 10 mg PO HS dementia 02/13/21 05/02/24 losartan 100 mg tablet 100 mg PO DAILY Heart disease 02/13/21 05/02/24 celecoxib 100 mg capsule 100 mg PO DAILY Arthritis 09/18/21 05/02/24 clopidogrel 75 mg tablet 75 mg PO DAILY Blood thinner 09/18/21 05/02/24 levothyroxine 150 mcg tablet 150 mcg PO DAILY hypothyroid 05/31/22 05/02/24 antiarthritic combination no.2 900 900 mg PO DAILY 04/25/24 05/02/24 mg tablet (glucosamine-chondroitin) melatonin 5 mg tablet 5 mg PO HS 04/25/24 05/02/24 Previous Rx's ?Medication ?Instructions ?Recorded atorvastatin 40 mg tablet 40 mg PO HS Cholesterol #90 tabs 04/07/20 isosorbide mononitrate 30 mg 30 mg PO DAILY Hypertension #90 07/17/20 tablet,extended release 24 hr tabs nitroglycerin 0.4 mg sublingual 0.4 mg sublingual Q5-15M PRN chest 07/21/23 tablet pain 30 days #25 tabs rivaroxaban 20 mg tablet (Xarelto) See Rx Instructions .Route 03/01/24 .COMPLEX #90 tabs amiodarone 200 mg tablet 200 mg PO DAILY #30 tabs 05/02/24 Allergies Allergy/AdvReac Type Severity Reaction Status Date / Time lisinopril Allergy Severe S-SWELLS-OR Verified 05/02/24 08:51 AL/THROAT oxycodone AdvReac Unknown SHAKING Verified 05/02/24 08:51 [facility] Disclaimer: The information contained in this section may have been updated after the patient was seen, as this information can be updated by other users. Medical History History of left heart catheterization Nasal septal deviation Post-nasal drainage Congestive heart failure There is a chronic problem for which he has been followed for many years; it has been stable. 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 Dementia BPH (benign prostatic hyperplasia) Hypothyroidism Hyperlipidemia Atrial fibrillation Hypertensive disorder Ischemic dilated cardiomyopathy Surgical History History of shoulder surgery Hx of colonoscopy S/P total knee replacement Family History Other Family history of colon cancer in father Family history of lymphoma Social History Smoking Status: Never smoker second hand exposure: No alcohol intake: never counseling provided: none substance use type: denies use current occupational status: retired Travel in the last 8 weeks: None household members: spouse housing: house 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 occupational exposures/hazards: No caffeine: Yes Have you lived/traveled outside US in past 30 days?: No Contact w/someone who lives/traveled outside US past 30 days?: No Exposure to someone with infectious disease in past 14 days?: No Do you have a fever (greater than 100.4 F or 38 C)?: No Have you tested positive for COVID-19: No Exposed to someone with COVID-19 in past 14 days?: No Do you have a sore throat?: No Do you have a cough?: No Do you have any weakness?: No Do you have any diarrhea?: No Are you experiencing any unusual bleeding?: Yes Do you have any muscle aches/pain?: No Do you have any abdominal pain?: No Are you experiencing loss of taste or smell?: No Other Medical History Have you received the Flu Vaccine for this season: Yes Have you received the Pneumonia Vaccine: Yes ROS Obtained: Yes Systems reviewed as appropriate & no additional complaints except as documented Physical Exam General General appearance: alert and in no apparent distress Head Head exam: atraumatic and normocephalic Eye Eye exam: Present PERRL ENT ENT exam: Present mucous membranes moist Neck Neck exam: Present normal inspection Chest Chest inspection: Present normal inspection and symmetric chest wall rise Respiratory Respiratory exam: Absent respiratory distress Cardiovascular Cardiovascular exam: Present normal rhythm Extremities Exam Extremities exam: Present other (Small bump over area of access site, no expanding hematoma, wound is hemostatic. Active range of motion in all joints of the right wrist and hand. Capillary refill preserved distally.) Neurological Exam Neurological exam: Present alert Psychiatric Psychiatric exam: Present normal affect Skin Skin exam: Present warm and dry Medical Decision Making Medical Records Screening: Per USPSTF and CDC recommendations, given the prevalence of disease in our region, it is our hospital?s policy to screen for HIV and viral Hepatitis for all patients aged 18 and over and those with ongoing risk factors. Carlos Inquiry Pt receiving controlled substance: No Vital Signs: 05/02/24 18:16 05/02/24 19:00 05/02/24 19:08 Temperature 97.6 F Temperature Source Oral Pulse Rate 59 L Pulse Rate [Left] 64 57 L Respiratory Rate 16 18 Blood Pressure 105/70 L Blood Pressure [Left Arm] 138/87 105/70 L Blood Pressure Mean [Left Arm] 104 81 Blood Pressure Source [Left Arm] Automatic Cuff Blood Pressure Position [Left Arm] Sitting 02 Sat by Pulse Oximetry 96 96 96 Oxygen Delivery Method Room Air Room Air 05/02/24 19:30 Temperature Temperature Source Pulse Rate 57 L Pulse Rate [Left] Respiratory Rate Blood Pressure 104/69 L Blood Pressure [Left Arm] Blood Pressure Mean [Left Arm] Blood Pressure Source [Left Arm] Blood Pressure Position [Left Arm] 02 Sat by Pulse Oximetry 95 Oxygen Delivery Method Medical Decision Narrative: In summary patient is 73-year-old male with past medical history described above who presents emergency department for evaluation of heart catheterization access site bleeding. Patient is hemodynamically stable nontoxic-appearing upon arrival, afebrile. Wound is hemostatic upon taking the dressing off although it is saturated. The case was discussed with Dr. Francis, he does not have a rapidly expanding hematoma, distally neurovascularly intact will apply a tracelet for 1 hour. The patient was placed in observation status at 6:30 PM. Medical necessity for observational status is serial physical exam evaluations in the setting of radial access site bleeding. The patient was provided serial reevaluations while awaiting results. Results during observation remarkable for continued hemostasis. Tracelet was removed, continued hemostasis. Given this wound was dressed and patient is appropriate for discharge at this time was given return precautions and verbalized understanding. Total time in observation 73 minutes Critical Care Critical Care Time Critical Care Time: No
--- NOTE | 2024-05-02 18:50 | PC.NURSE ---
4ml deflated from pts compression device, remaining 12ml
[2024-05-02 19:00] VITALS: BP 105/70; PULSE 59; O2SAT 96
[2024-05-02 19:08] VITALS: BP 105/70; PULSE 57; RESP 18; O2SAT 96
[2024-05-02 19:30] VITALS: BP 104/69; PULSE 57; O2SAT 95
[2024-05-02 19:50] VITALS: BP 104/69; PULSE 56; RESP 20; TEMP 36.8; O2SAT 98
== END 2024-05-02 19:51 | disposition home or self-care (01) ==
PROVIDERS: Emergency Provider Emergency Medicine
DX: I97.610 Postprocedural hemorrhage of a circulatory system organ or structure following a cardiac catheterization (principal); Z79.01 Long term (current) use of anticoagulants; Z79.899 Other long term (current) drug therapy
CPT/HCPCS: 99285; C1760

== ENCOUNTER 2024-06-04 09:49 | Outpatient (CLI) | payer MEDICARE, OTHER, SELFPAY ==
--- NOTE | 2024-06-04 10:15 | CA_ITS ---
APPROVED REPORT EXAM: Limited 2D Echocardiogram Mold Breaker: Norah Harden CRT Ht: 6 ft 0 in Wt: 220lbs BSA: 2.22 BP: 129/105 mmHg Indications: Cardiomyopathy Ischemic, AFIB, htn, hld, fatigue EF 25% 05/01 [facility] M-Mode Dimensions RVDd 3.83 cm (0.9-2.6) LVDd 5.83 cm (3.5-5.7) LVDs 4.71 cm (3.5-5.7) IVSd 1.29 cm (0.6-1.1) PWd 0.89 cm (0.6-1.1) EF (Teich) 38.90% FS 19.20% EDV (Teich) 168.50 mL ESV (Teich) 102.90 mL Other Information Study Quality: Fair Conclusion This is a limited TTE to evaluate for LV systolic function post-DCCV. Limited windows are obtained. The left ventricle is normal in size. There is increased LV wall thickness. There is moderate reduction in global LV systolic function. LVEF is 35-40%. Compared to recent EF evaluation on LVgram during the [facility] (EF 25%), the LV systolic function is now improved, but remains moderately reduced. Electronically signed by : Gemma Costello MD 06/05/2024 23:24:31
== END 2024-06-04 23:59 | disposition home or self-care (01) ==
LOC: RT 09:50
PROVIDERS: PCP Family Medicine; Visit Provider Physician Assistant
DX: I20.0 Unstable angina (principal); I25.5 Ischemic cardiomyopathy; I42.0 Dilated cardiomyopathy
CPT/HCPCS: 93308

== ENCOUNTER 2024-07-18 09:07 | Outpatient (CLI) | payer MEDICARE, OTHER, SELFPAY ==
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
--- OUTSIDE RECORDS SUMMARY | 2024-07-16 11:15 | XMS_ITS ---
Author Organization [facility] Address [address] [facility] [address] [facility] [address] [place] [id number] Care Team Providers Care Mixer Foam Rubber Name Role Phone Brady Bhakta Primary Care Provider Reason For Referral Diagnosis 1 Memory loss (R41.3) Referral Organization [facility] Referring Provider First Name Brady Referring Provider Last Name Livia Referring Provider Speciality Family Pra ctice Referred Provider Carmen St Referred Provider Specialty Neurology Referral Priority Routine REASON FOR VISIT Needs referral Encounters Encounter Location Date Provider Diagnosis [facility] [address] [facility] [address] [place] [id number] 07/16/2024 Brady Bhakta Memory loss R 41.3 Assessments Encounter Date Diagnosis (ICD Code) Assessment Notes Treatment Notes Treatment Clinical Notes Section Notes 07/16/2024 Memory loss (ICD-10 - R41.3) Plan Of Treatment Referrals Referral Date Details 07/18/2024 07/18/2024, Carmen whitney Next Appt Details Provider Name:Brady Mccollum ry, 01/07/2025 09:15:00 AM, [address] [facility], [address], [place], [id number], Progress Notes * RENU HOODDOB:1950 (73 yo M)Acc No.[id number]:07/16/2024 Patient: Lobo RENU CAMPO :1950 A ge:73 Y S ex:Male Address:[address] [place] [address] Subjective: * Chief Complaints: * N eeds referral * Medical History: * Surgical History: * Hospitalization/Major Diagno stic Procedure: * Medications: Objective: * Vitals: * Physical Examination: Assessment: * Assessment: 1. [facility] - R41.3 (Primary) Plan: * Treatment: * Procedure Codes: * * Date: Consultation Request Notes Referral Date Referring Provider Referred Provider Not 07/18/2024 Brady Bhakta Maria
--- OUTSIDE RECORDS SUMMARY | 2024-07-18 09:16 | XMS_ITS ---
Author Organization Unknown Allergies, Adverse Reactions and Alerts Date IsAllergic OnsetDate Allergen Reaction Type Severity Drake rgyCode Legacyallergictoid ReactionCode ReactionCodeSystemID 06/29 00:00 :00 1 Lisinopri l lips swell & rapid heart beat 06550368684 06/29 00:00 :00 1 Percocet diaphores is 56982964560 06/29 00:00 :00 1 Lisinopri l lips swell & rapid heart beat 59981855576 06/29 00:00 :00 1 Percocet diaphores is 28163712384 06/29 00:00 :00 1 Lisinopri l lips swell & rapid heart beat 27065618240 06/29 00:00 :00 1 Percocet diaphores is 63542086264 06/29 00:00 :00 1 Lisinopri l lips swell & rapid heart beat 84488235458 06/29 00:00 :00 1 Percocet diaphores is 97593480992 06/29 00:00 :00 1 Lisinopri l lips swell & rapid heart beat 54527615442 06/29 00:00 :00 1 Percocet diaphores is 57258405956 06/29 00:00 :00 1 Lisinopri l lips swell & rapid heart beat 64579115407 06/29 00:00 :00 1 Percocet diaphores is 02034995750 06/29 00:00 :00 1 Lisinopri l lips swell & rapid heart beat 81770700565 06/29 00:00 :00 1 Percocet diaphores is 14305638737 06/29 00:00 :00 1 Lisinopri l lips swell & rapid heart beat 44085065537 06/29 00:00 :00 1 Percocet diaphores is 51179910585 06/29 00:00 :00 1 Lisinopri l lips swell & rapid heart beat 04911033248 06/29 00:00 :00 1 Percocet diaphores is 23965682292 06/26 00:00 :00 1 Lisinopri l lips swell & rapid heart beat 36406456577 06/26 00:00 :00 1 Percocet diaphores is 56696624630 06/26 00:00 :00 1 Lisinopri l lips swell & rapid heart beat 89944042134 06/26 00:00 :00 1 Percocet diaphores is 13020687757 06/26 00:00 :00 1 Lisinopri l lips swell & rapid heart beat 72208419988 06/26 00:00 :00 1 Percocet diaphores is 88313404442 06/01 00:00 :00 1 Lisinopri l lips swell & rapid heart beat 53764922373 06/01 00:00 :00 1 Percocet diaphores is 18785497808 06/01 00:00 :00 1 Lisinopri l lips swell & rapid heart beat 29399555577 06/01 00:00 :00 1 Percocet diaphores is 81103461510 06/01 00:00 :00 1 Lisinopri l lips swell & rapid heart beat 92792802921 06/01 00:00 :00 1 Percocet diaphores is 25276621147 06/01 00:00 :00 1 Lisinopri l lips swell & rapid heart beat 04571952775 06/01 00:00 :00 1 Percocet diaphores is 54984521468 06/01 00:00 :00 1 Lisinopri l lips swell & rapid heart beat 56168468446 06/01 00:00 :00 1 Percocet diaphores is 15343918911 06/01 00:00 :00 1 Lisinopri l lips swell & rapid heart beat 78684938198 06/01 00:00 :00 1 Percocet diaphores is 04008442089 06/01 00:00 :00 1 Lisinopri l lips swell & rapid heart beat 02525672742 06/01 00:00 :00 1 Percocet diaphores is 50237332697 06/01 00:00 :00 1 Lisinopri l lips swell & rapid heart beat 48962885021 06/01 00:00 :00 1 Percocet diaphores is 36283175459 04/30 00:00 :00 1 Lisinopri l lips swell & rapid heart beat 18596511586 04/30 00:00 :00 1 Percocet diaphores is 28934460151 04/30 00:00 :00 1 Lisinopri l lips swell & rapid heart beat 17870477154 04/30 00:00 :00 1 Percocet diaphores is 26485043279 04/30 00:00 :00 1 Lisinopri l lips swell & rapid heart beat 44832721310 04/30 00:00 :00 1 Percocet diaphores is 67913504661 04/30 00:00 :00 1 Lisinopri l lips swell & rapid heart beat 12896534215 04/30 00:00 :00 1 Percocet diaphores is 77535707260 03/01 00:00 :00 1 Lisinopri l lips swell & rapid heart beat 02983078242 03/01 00:00 :00 1 Percocet diaphores is 94982924007 03/01 00:00 :00 1 Lisinopri l lips swell & rapid heart beat 94499422801 03/01 00:00 :00 1 Percocet diaphores is 91802910376 01/30 00:00 :00 1 Lisinopri l lips swell & rapid heart beat 59517843056 01/30 00:00 :00 1 Percocet diaphores is 88620558337 11/30 00:00 :00 1 Lisinopri l lips swell & rapid heart beat 79900051300 11/30 00:00 :00 1 Percocet diaphores is 76899440037 11/30 00:00 :00 1 Lisinopri l lips swell & rapid heart beat 87003936896 11/30 00:00 :00 1 Percocet diaphores is 43566440002 11/30 00:00 :00 1 Lisinopri l lips swell & rapid heart beat 56395428626 11/30 00:00 :00 1 Percocet diaphores is 19980038491 11/30 00:00 :00 1 Lisinopri l lips swell & rapid heart beat 15738542117 11/30 00:00 :00 1 Percocet diaphores is 72141987658 11/15 00:00 :00 1 Lisinopri l lips swell & rapid heart beat 89415284352 11/15 00:00 :00 1 Percocet diaphores is 59168343948 11/14 00:00 :00 1 Lisinopri l lips swell & rapid heart beat 25077883840 11/14 00:00 :00 1 Percocet diaphores is 72412076837 10/31 00:00 :00 1 Lisinopri l lips swell & rapid heart beat 76715550411 10/31 00:00 :00 1 Percocet diaphores is 38632997433 10/31 00:00 :00 1 Lisinopri l lips swell & rapid heart beat 93893085771 10/31 00:00 :00 1 Percocet diaphores is 63618062620 10/31 00:00 :00 1 Lisinopri l lips swell & rapid heart beat 66427870465 10/31 00:00 :00 1 Percocet diaphores is 61742582078 10/31 00:00 :00 1 Lisinopri l lips swell & rapid heart beat 03128199486 10/31 00:00 :00 1 Percocet diaphores is 21748918408 10/06 00:00 :00 1 Lisinopri l lips swell & rapid heart beat 21845388960 10/06 00:00 :00 1 Percocet diaphores is 56023490165 10/06 00:00 :00 1 Lisinopri l lips swell & rapid heart beat 13045282301 10/06 00:00 :00 1 Percocet diaphores is 09787892792 10/06 00:00 :00 1 Lisinopri l lips swell & rapid heart beat 81546484438 10/06 00:00 :00 1 Percocet diaphores is [id number] 10/06 00:00 :00 1 Lisinopri l lips swell & rapid heart beat 70837990413 10/06 00:00 :00 1 Percocet diaphores is 55948074421 10/05 00:00 :00 1 Lisinopri l lips swell & rapid heart beat 25271160182 10/05 00:00 :00 1 Percocet diaphores is 04529574663 09/08 00:00 :00 1 Lisinopri l lips swell & rapid heart beat 66919699403 09/08 00:00 :00 1 Percocet diaphores is 73502526810 09/04 00:00 :00 1 Lisinopri l lips swell & rapid heart beat 04627713123 09/04 00:00 :00 1 Percocet diaphores is 35285732350 09/04 00:00 :00 1 Lisinopri l lips swell & rapid heart beat 55319885171 09/04 00:00 :00 1 Percocet diaphores is 28827821464 09/04 00:00 :00 1 Lisinopri l lips swell & rapid heart beat 87041218693 09/04 00:00 :00 1 Percocet diaphores is 69434500819 08/02 00:00 :00 1 Lisinopri l lips swell & rapid heart beat 43952810379 08/02 00:00 :00 1 Percocet diaphores is 73228551934 08/02 00:00 :00 1 Lisinopri l lips swell & rapid heart beat 86085475119 08/02 00:00 :00 1 Percocet diaphores is 05655703783 07/10 00:00 :00 1 Lisinopri l lips swell & rapid heart beat 75274817713 07/10 00:00 :00 1 Percocet diaphores is 36385278075 07/10 00:00 :00 1 Lisinopri l lips swell & rapid heart beat 40336707878 07/10 00:00 :00 1 Percocet diaphores is 37333096496
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
--- NOTE | 2024-07-18 09:30 | CA_ITS ---
APPROVED REPORT EXAM: Limited 2D Echocardiogram Radiation Therapy Technician: Anastasia Rodríguez RVT Ht: 6 ft 0 in Wt: 220lbs BSA: 2.22 BP: 128/104 mmHg Indications: EF CHECK 2D Dimensions IVSd 0.86 cm LVEF (Visual) 42.60 % PWd 1.04 cm LVDd 5.78 cm LVDs 4.55 cm Other Information Study Quality: Fair Conclusion This is a limited TTE to evaluate for LV systolic function. Limited windows are obtained. The left ventricle is normal in size. There is increased LV wall thickness. There is mild to moderate global hypokinesis present. LVEF is 40%. Electronically signed by : Gemma Costello MD 07/18/2024 23:08:49
== END 2024-07-18 23:59 | disposition home or self-care (01) ==
LOC: RT 09:08
PROVIDERS: PCP Family Medicine; Visit Provider Physician Assistant
DX: I50.20 Unspecified systolic (congestive) heart failure (principal); R93.1 Abnormal findings on diagnostic imaging of heart and coronary circulation
CPT/HCPCS: 93308

== ENCOUNTER 2024-10-18 07:41 | Outpatient (CLI) | payer MEDICARE, OTHER, SELFPAY ==
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
[2024-10-18 09:47] LABS: Vitamin B12 502 pg/mL (239-931)
== END 2024-10-18 23:59 | disposition home or self-care (01) ==
LOC: LAB 07:42
PROVIDERS: PCP Family Medicine; Visit Provider Specialist
DX: I48.91 Unspecified atrial fibrillation (principal); E78.5 Hyperlipidemia, unspecified; I10 Essential (primary) hypertension; R41.3 Other amnesia
CPT/HCPCS: 36415; 82607

== ENCOUNTER 2024-10-26 14:52 | Outpatient (CLI) | payer MEDICARE, OTHER, SELFPAY ==
[2024-10-26 15:18] LABS: Blood Urea Nitrogen 18 mg/dl (9-20); Creatinine,Serum 1.10 mg/dl (0.66-1.25); Estimated Glomerular Filt Rate 65 ml/min (>60); GFR (African American) 79 ML/MIN (>60)
--- NOTE | 2024-10-26 15:30 | MR_ITS ---
FINAL REPORT TECHNIQUE: Multiplanar MR, without and with gadolinium enhancement CLINICAL HISTORY: worsening memory loss COMPARISON: None FINDINGS: Diffusion sequences show no signal abnormality to indicate acute infarct. No mass, hemorrhage or edema is seen. Moderate atrophy is present. Ventricles are normal. There are a few punctate foci of white matter signal changes that likely represent chronic ischemic microvascular changes. Major vascular flow voids are intact. Following contrast administration, no mass or abnormal enhancement is seen. IMPRESSION: 1. No acute intracranial abnormality identified. 2. Moderate atrophy and mild scattered foci of white matter signal changes that likely represent chronic ischemic microvascular disease. Reviewed, Interpreted and Dictated by Alie Smith MD Transcribed by Kristan Dubois Authenticated and [facility]
[2024-10-26] MEDS: GADOTERIDOL INJ 20ML SYRINGE 20 ML IV (15:40)
== END 2024-10-26 23:59 | disposition home or self-care (01) ==
LOC: RAD 14:53
PROVIDERS: PCP Family Medicine; Visit Provider Specialist
DX: G31.9 Degenerative disease of nervous system, unspecified (principal); R90.82 White matter disease, unspecified; E78.5 Hyperlipidemia, unspecified; I48.91 Unspecified atrial fibrillation; I10 Essential (primary) hypertension; R41.3 Other amnesia
CPT/HCPCS: 36415; 70553; 82565; 84520; A9576